=== PATIENT | male | born 1960 | race Caucasian/White ===

== ENCOUNTER 2018-12-31 14:42 | Inpatient (IN) | payer MEDICARE, MEDICAID ==
--- OUTSIDE RECORDS SUMMARY | 2018-12-31 14:52 | XMS REPORT | Continuity of Care Document ---
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 [phone] Diabetes & Metabolism Problems Active Problems Provider Date Hemoptysis Tatiana Azevedo MD Onset: 03/15/2014 Acute sinusitis Tatiana Azevedo MD Onset: 03/15/2014 Strain of rotator cuff capsule Bishop Roldan MD Onset: 11/02/2018 Social History Type Date Description Comments Sex Unknown Tobacco Use Start: Unknown Never Smoked Cigarettes Smoking Status Reviewed: 12/07/18 Never Smoked Cigarettes ETOH Use Denies alcohol use Tobacco Use Start: Unknown Patient has never smoked Recreational Drug Use Never Used Drugs Allergies, Adverse Reactions, Alerts Active Allergies Reaction Severity Comments Date Maxide phyponatremia 03/15/2014 Statins 03/15/2014 Medications Active Medications SIG Qnty Indications Ordering Date Provider Test Strips use as directed Tatiana 03/15/2014 MD Jolly Ramipril 2 by mouth every 90caps Unknown 03/14/2014 10mg Capsules day as directed Triamterene/Hydrochloro 1 by mouth every 90caps Unknown 03/14/2014 thiazide day 37.5-25mg Capsules Gabapentin 2 by mouth four Unknown 03/14/2014 300mg Capsules times a day as directed Alprazolam one by mouth up to 30tabs Unknown 03/14/2014 0.25mg Tablets four times daily as needed for anxiety Terazosin HCL 1 by mouth every 90caps Unknown 03/14/2014 5mg Capsules day Oxycodone HCL 1 by mouth six to 120tabs Unknown 03/14/2014 30mg Tablets eight times a day as needed TENS Units as directed for Unknown 03/14/2014 lower back pain Myrbetriq 1 by mouth one Husseini, 50mg Tablets ER time per day MD Ebenezer 24HR Trazodone HCL 1 by mouth one Narinder Muniz MD 50mg Tablets time per day at bedtime Metformin HCL 1 by mouth two Narinder Muniz MD 500mg Tablets times per day with meals as directed Prochlorperazine 1 by mouth four Hall, Maleate times per day as KYARA Frazier 10mg Tablets needed Basaglar Kwikpen Inject 30 units Narinder Muniz MD 100Unit/ML subcu at bedtime Solution Pen-Inject or as directed up to 45 units Escitalopram Oxalate 1 by mouth per day Narinder Muniz MD 20mg as directed Tablets Oxybutynin Chloride ER 1 by mouth one Junior, 5mg time per day MD Andrew Tablets ER 24HR Labetalol HCL 1 by mouth two Rafael, 200mg Tablets times per day KYARA Frazier Fentanyl Patch. One 100 mcg Unknown and one 25 mcg at the same time. Apply to skin once per 48 hours. Omeprazole 1 by mouth every Unknown 40mg Capsules DR day Novolog Flexpen Sliding scale as Unknown 100Unit/ML directed Solution Pen-Inject Miralax 17 gram oral Unknown powder packet. 1 packet by mouth per day as needed Methocarbamol one by mouth three Unknown 750mg Tablets times a day as needed muscle spasm Glucagon Emergency for severe low Unknown 1mg Kit blood sugar. for bystander use only. Dok 100 MG Capsule 2 by mouth in the Unknown morning and 1 in the evening Diclofenac Epolamine 1% gel. Apply 2 Unknown gram to affected areas four times per day Bisacodyl insert 1 Unknown 10mg Suppository suppository rectally every 24 hours as needed for constipation, insert ideally after breakfast Atorvastatin Calcium 1 by mouth every Unknown 20mg day Tablets Medications Administered in Office Medication SIG Qnty Indications Ordering Provider Date Triamcinolone (Kenalog) Bishop Roldan MD 12/07/2018 Injection Immunizations Description No Information Available Vital Signs Date Vital Result Comment 12/07/2018 10:42am Height 70 inches 5'10" Weight 205.00 lb Heart Rate 62 /min BP Systolic 116 mmHg BP Diastolic 68 mmHg Pain Level 5 BMI (Body Mass Index) 29.4 kg/m2 11/02/2018 11:23am Height 70 inches 5'10" Weight 205.00 lb Heart Rate 68 /min Body Temperature 98.9 F Pain Level 7 BMI (Body Mass Index) 29.4 kg/m2 Results Description No Information Available Procedures Date Code Description Status 12/07/201889933 Inject/Drain Joint/Bursa Major W/O US Completed 06/29/2018 17709 ECHO Transthorasic Realtime 2D W Doppler & Color Flow Hosp Completed Medical Devices Description No Information Available Encounters Type Date Location Provider Dx Diagnosis Office Visit 11/02/2018 [facility] Bishop Roldan, M25.512 Pain in left 11:00a at [place] [facility] Office Visit 09/03/2018 [facility] And Tatiana Azevedo, G47.9 Sleep disorder, 12:30p [facility] G71.00 Muscular dystrophy, unspecified Assessments Date Code Description Provider 12/07/2018 M25.512 Pain in left shoulder Bishop Roldan MD 12/07/2018 S46.012D Strain of muscle(s) and tendon(s) of the Bishop Roldan MD rotator cuff of left shoulder, subsequent encounter 11/02/2018 M25.512 Pain in left shoulder Bishop Roldan MD 09/03/2018 G47.9 Sleep disorder, unspecified Tatiana Azevedo MD 09/03/2018 G71.00 Muscular dystrophy, unspecified Tatiana Azevedo MD 06/29/2018 Z13.6 Encounter for screening for cardiovascular Andres Chaidez M.D. disorders Plan of Treatment Future Appointment(s):12/28/2018 10:00 am - Tatiana Azevedo MD at [facility]12/07/2018 - Bishop Roldan MDM25.512 Pain in left shoulderFollow up:Follow up: as [id number] Strain of muscle(s) and tendon( s) of the rotator cuff of left shoulder, subsequent encounter Functional Status Functional Condition Comment Date Status Electric wheelchair is used to ambulate Active Mental Status Description No Information Available Referrals Description No Information Available
--- OUTSIDE RECORDS SUMMARY | 2018-12-31 14:52 | XMS REPORT | Continuity of Care Document ---
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 Diabetes & Metabolism Problems Active Problems Provider Date Hemoptysis Tatiana Azevedo MD Onset: 03/15/2014 Acute sinusitis Tatiana Azevedo MD Onset: 03/15/2014 Strain of rotator cuff capsule Bishop Roldna MD Onset: 11/02/2018 Social History Type Date Description Comments Sex Unknown Tobacco Use Start: Unknown Never Smoked Cigarettes ETOH Use Denies alcohol use ETOH Use Has consumed alcohol in the past Tobacco Use Start: Unknown Patient has never smoked Recreational Drug Use Formerly used Cocaine Around 1989 sporadically Tobacco Use Start: Unknown Secondhand smoke As a child Recreational Drug Use Denies Drug Use Recreational Drug Use Formerly used Marijuana Around 1980 sporadically Smoking Status Reviewed: 12/30/18 Secondhand smoke As a child Exercise Type/Frequency Exercises regularly Limited by muscular dystrophy. Exercises arms, lower body with help. Physical therapy Allergies, Adverse Reactions, Alerts Active Allergies Reaction [...] directed for Unknown 03/14/2014 lower back pain Trazodone HCL 1 by mouth one Narinder Muniz MD 50mg Tablets time per day at bedtime Metformin HCL 1 by mouth two Narinder Muniz MD 500mg Tablets times per day with meals as directed Prochlorperazine 1 by mouth four Rafael, Maleate times per day as KYARA Frazier [...] Apply to skin once per 48 hours. Gentamicin Sulfate 1 drop to each eye Rafael 0.3% every 4 hours KYARA Frazier Solution Myrbetriq 1 by mouth one Husseini, 50mg Tablets ER time per day MD Ebenezer 24HR Omeprazole 1 by mouth every Unknown 40mg [...] Indications Ordering Provider Date Triamcinolone (Kenalog) Bishop Rodlan MD 12/07/2018 Injection Immunizations Description No Information Available Vital Signs Date Vital Result Comment 12/30/2018 8:33am Height 70 inches 5'10" Weight 225.00 lb Per pt, in wheelchair Heart Rate 64 /min BP Systolic Sitting 112 mmHg Rue large cuff BP Diastolic Sitting 72 mmHg Rue large cuff O2 % BldC Oximetry 96 % On Ra BMI (Body Mass Index) 32.3 kg/m2 12/07/2018 10:42am Height 70 inches 5'10" Weight 205.00 lb Heart Rate 62 /min BP Systolic 116 mmHg BP Diastolic 68 mmHg Pain Level 5 BMI (Body Mass Index) 29.4 kg/m2 Results Description No Information Available Procedures Date Code Description Status 12/07/2018 11332 Inject/Drain Joint/Bursa Major W/O US Completed Medical Devices Description No Information Available Encounters Type Date Location Provider Dx Diagnosis Office Visit 12/07/2018 [facility] Bishop Roldan MD M25.512 Pain in left 10:45a at [place] shoulder S46.012D Strain of musc/tend the rotator cuff of left shoulder, subs M75.42 Impingement syndrome of left shoulder Office Visit 11/02/2018 11:00a Maya Roldan M25.512 Pain in left [facility]opedics at [place] [facility] [place] Office Visit 09/03/2018 12:30p Pulmonology And Tatiana G47.9 Sleep disorder, [facility] MD Jolly 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 G71.00 Muscular dystrophy, unspecified Assessments Date Code Description Provider 12/30/2018 G47.30 Sleep apnea, unspecified Christopher Campoverde MD 12/30/2018 R06.00 Dyspnea, unspecified Christopher Campoverde MD 12/07/2018 M25.512 Pain in left shoulder Bishop Roldan MD 12/07/2018 S46.012D Strain of muscle(s) and tendon(s) of the Bishop Roldan MD rotator cuff of left shoulder, subsequent encounter 12/07/2018 M75.42 Impingement syndrome of left shoulder Bishop Roldan MD 11/02/2018 M25.512 Pain in left shoulder Bishop Roldan MD 09/03/2018 G47.9 Sleep disorder, unspecified Tatiana Azevedo MD 09/03/2018 G71.00 Muscular dystrophy, unspecified Tatiana Aezvedo MD Plan of Treatment 12/30/2018 - Christopher Campoverde MDG47.30 Sleep apnea, unspecifiedNew Orders:Sleep Study, Ordered: 12/30/18Comments:We will proceed with a home sleep study as the patient is not interested in doing an in-house sleep study.Follow up:1-2 hbseovE06.00 Dyspnea, unspecifiedNew Xrays:Chest PA & Lat 2 VWS, Ordered: New Orders:PFTW/Spirometry Vol Pre/Post Bronchdilat Dlco Complete, Ordered : 12/30/18Comments:We will get a chest x-ray PA and lateral and we will get full pulmonary function tests. The patientis wheelchair-bound and he cannot walk. Functional Status Functional Condition Comment Date Status Electric wheelchair is used to ambulate Active Mental Status Description No Information Available Referrals Description No Information Available
--- OUTSIDE RECORDS SUMMARY | 2018-12-31 14:52 | XMS REPORT | Continuity of Care Document ---
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 Diabetes & Metabolism Problems Active Problems Provider Date Strain of rotator cuff capsule Bishop Roldan MD Onset: 11/02/2018 Acute sinusitis Tatiana Azevedo MD Onset: 03/15/2014 Hemoptysis Tatiana Azevedo MD Onset: 03/15/2014 Social History Type Date Description Comments Sex Unknown ETOH Use Denies alcohol use Tobacco Use Start: Unknown Patient has never smoked Recreational Drug Use Never Used Drugs Smoking Status Reviewed: 11/02/18 Patient has never smoked Allergies, Adverse Reactions, Alerts Active Allergies Reaction Severity Comments Date Maxide phyponatremia 03/15/2014 Statins 03/15/2014 Medications Active Medications SIG Qnty Indications Ordering Date Provider Lexapro 1 by mouth every Unknown 04/18/2014 20mg Tablets day Glucose Gel take as directed Tatiana 03/15/2014 40% for hypoglycemic MD Jolly episodes Test Strips use as directed Tatiana 03/15/2014 MD Jolly TENS Units as directed for Unknown 03/14/2014 lower back pain Prochlorperazine four times a day 60tabs Unknown 03/14/2014 Maleate as needed 10mg Tablets Oxycodone HCL 1 by mouth six 120tabs Unknown 03/14/2014 30mg Tablets times a day as needed Trazodone HCL 1 tablet at 30tabs Unknown 03/14/2014 50mg Tablets bedtime as needed Terazosin HCL 1 by mouth every 90caps Unknown 03/14/2014 5mg Capsules day Linzess by mouth every day 30caps Unknown 03/14/2014 145mcg Capsules Docusate Sodium 1 by mouth twice a 60caps Unknown 03/14/2014 100mg day Capsules Alprazolam one by mouth up to 30tabs Unknown 03/14/2014 0.25mg Tablets three times daily as needed for anxiety Gabapentin 1 by mouth four Unknown 03/14/2014 300mg Capsules times a day Duragesic-100 1 every 3 days Unknown 03/14/2014 100mcg/HR Patches 72HR Triamterene/Hydrochloro 1 by mouth every 90caps Unknown 03/14/2014 thiazide day 37.5-25mg Capsules Labetalol HCL by mouth twice a 200tabs Unknown 03/14/2014 200mg Tablets day Ramipril 1 by mouth every 90caps Unknown 03/14/2014 10mg Capsules day Metformin HCL 1 by mouth twice a Unknown 03/14/2014 500mg Tablets day Lantus as directed 3vials Unknown 03/14/2014 100Unit/ML Solution Humalog sliding scale 3vials Unknown 03/14/2014 100Unit/ML Solution Oxybutynin Chloride ER 1 by mouth every Unknown 5mg day Tablets ER 24HR Oxycodone HCL Guerra, 30mg Tablets KYARA Pierre-BC Myrbetriq Husseini, 50mg Tablets ER MD Ebenezer 24HR Trazodone HCL Narinder Muniz MD 50mg Tablets Metformin HCL Narinder Muniz MD 500mg Tablets Prochlorperazine Rafael, Maleate KYARA Frazier 10mg Tablets Basaglar Kwikpen Narinder Muniz MD 100Unit/ML Solution Pen-Inject Escitalopram Oxalate Narinder Muniz MD 20mg Tablets Oxybutynin Chloride ER Junior, 5mg MD Andrew Tablets ER 24HR Labetalol HCL Rafael, 200mg Tablets KYARA Frazier Omeprazole 1 by mouth every Unknown 40mg Capsules DR day Novolog Flexpen use novolog Unknown 100Unit/ML insulin in place Solution Pen-Inject of your humalog insulin, and continue with your present scale Miralax Unknown Methocarbamol one by mouth three Unknown 500mg Tablets times a day as needed muscle spasm Glucagon Emergency for severe low Unknown 1mg Kit blood sugar. for bystander use only. Fentanyl apply 2 patches to Unknown 100mcg/HR Patches skin every 3 days. 72HR mylan brand only Dok 100 MG Capsule Unknown Diclofenac Epolamine Unknown Bisacodyl insert 1 Unknown 10mg Suppository suppository rectally every 24 hours as needed for constipation, insert ideally after breakfast Atorvastatin Calcium 1 by mouth every Unknown 20mg day Tablets Immunizations Description No Information Available Vital Signs Date Vital Result Comment 11/02/2018 11:23am Height 70 inches 5'10" Weight 205.00 lb Heart Rate 68 /min Body Temperature 98.9 F Pain Level 7 BMI (Body Mass Index) 29.4 kg/m2 09/03/2018 12:27pm Height 70 inches 5'10" Weight 205.00 lb Heart Rate 63 /min BP Systolic Sitting 118 mmHg left arm reg cuff BP Diastolic Sitting 70 mmHg left arm reg cuff Respiratory Rate 16 /min O2 % BldC Oximetry 96 % room air BMI (Body Mass Index) 29.4 kg/m2 Results Description No Information Available Procedures Date Code Description Status 06/29/2018 04184 ECHO Transthorasic Realtime 2D W Doppler & Color Flow Hosp Completed Medical Devices Description No Information Available Encounters Type Date Location Provider Dx Diagnosis Office Visit 09/03/2018 Pulmonology And Tatiana Azevedo, G47.9 Sleep disorder, 12:30p [facility] 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 disorders Plan of Treatment Future Appointment(s):12/07/2018 10:45 am - Bishop Roldan MD at [facility]11/23/2018 9:30 am - Tatiana Azevedo MD at [facility]11/02/2018 - Bishop Roldan, MDS46.012A Strain of muscle(s) and tendon(s) of the rotator cuff of left shoulder, initial encounterNew Therapy :Physical TherapyFollow up:Follow up: 3-4 weeks Functional Status Functional Condition Comment Date Status Electric wheelchair is used to ambulate Active Mental Status Description No Information Available Referrals Description No Information Available
--- OUTSIDE RECORDS SUMMARY | 2018-12-31 14:52 | XMS REPORT | Continuity of Care Document ---
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 [phone] Diabetes & Metabolism Problems Active Problems Provider [...] Available Procedures Date Code Description Status 12/07/2018 01934 Inject/Drain Joint/Bursa Major W/O US Completed Medical Devices Description No Information Available Encounters Type Date Location Provider Dx Diagnosis Office Visit 12/07/2018 [facility] Bishop Roldan MD M25.512 Pain in left 10:45a at [place] shoulder S46.012D Strain of musc/tend the rotator cuff of left shoulder, subs M75.42 Impingement syndrome of left shoulder Office Visit 11/02/2018 11:00a Maya Roldan M25.512 Pain in left [facility] [place] [facility] [place] Office Visit 09/03/2018 12:30p Pulmonology And Tatiana G47.9 Sleep disorder, [facility] MD 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
--- NOTE | 2018-12-31 15:04 | ED ---
Altered Mental Status - HPI Summary HPI Summary: 58 year old M brought in by EMS to [facility] accompanied by ex- and grand- daughter complains of altered mental status since today. Grand-daughter states patient was fine yesterday but started declining towards the end of the day. Grand-daughter states that patient wasn't answering her phone calls earlier today though he usually does so she called ex- who went to check on patient at his apartment. Ex- states she noticed minimal amount of urine in toilet today. She states patient usually wears diapers at night. Hx UTI per ex-. Upon EMS arrival to scene, patient was verbally unresponsive, pale, and only responded to painful stimuli. Per EMS, patient is normally awake and able to talk. Patient initially hypotensive, BP 58/32 per EMS. 12 lead EKG normal per EMS. EMS found 2 100 mcg fentanyl patch on patient's chest after removing his shirt, and administered 2 mg Narcan IM and 2 mg Narcan IV. EMS also gave patient 500 cc fluids after which his blood pressure improved but still hypotensive. EMS noted fever 102.9F. Hx diabetes. BG 252. EMS states family gave patient one glucose tab. Symptoms aggravated by nothing. Symptoms alleviated by nothing. Ex- states she has been complaining about constipation last week. He has pulmonary appointment later this month per ex- . Ex- reports hx muscular dystrophy. No hx MS. Ex- states patient needs assistance moving but is able to get up and waddle from side to side. She reports he doesn't get much exercise because he cannot. Ex- states patient takes a lot of medications. She states he sometimes forgets to remove his fentanyl patch before applying another one. - History Of Current Complaint Chief Complaint: EDAltMentalStatus Stated Complaint: UNRESPONSIVE PER EMS Hx Obtained From: Family/Temperature Logging Operator - ex- and grand-daughter, EMS Onset/Duration: Still Present Timing: Constant, Lasting Hours Aggravating Factor(s): Nothing Alleviating Factor(s): Nothing - Allergies/Home Medications Allergies/Adverse Reactions: Allergies Allergy/AdvReac Type Severity Reaction Status Date / Time No Known Allergies Allergy Verified 10/27/18 10:53 Home Medications: Home Medications Bisacodyl SUPP* [Dulcolax Supp*] 10 mg WA DAILY 12/31/18 [History Confirmed 10/11] Diclofenac 1% GEL (NF) [Voltaren 1% GEL (NF)] 2 gm TOPICAL QID 12/31/18 [ History Confirmed 12/31/18] Gentamicin 0.3% OPHTH.SOLN* 1 drop BOTH EYES Q4H 12/31/18 [History Confirmed 10/11] Glucagon,Human Recombinant [Glucagon Emergency Kit] 1 mg IM ONCE 12/31/18 [ History Confirmed 12/31/18] Omeprazole (Nf) [Prilosec (NF)] 40 mg PO QPM 12/31/18 [History Confirmed ] Ondansetron TAB* [Zofran 4 MG Tab*] 8 mg PO Q6H PRN 12/31/18 [History Confirmed 12/31/18] Oxybutynin TAB* [Ditropan TAB*] 5 mg PO DAILY 12/31/18 [History Confirmed ] Polyethylene Glycol 3350* [Miralax*] 17 gm PO DAILY 12/31/18 [History Confirmed 12/31/18] Polymyx/Trimethoprim OPTH* [Polytrim OPHTH*] 1 drop BOTH EYES Q6H 12/31/18 [ History Confirmed 12/31/18] Sennosides 17.2 mg PO DAILY 12/31/18 [History Confirmed 12/31/18] fentaNYL PATCH 25 MCG/HR* [Duragesic PATCH 25 Mcg/Hr*] 25 mcg TRANSDERM Q48H 10/11 [History Confirmed 12/31/18] fentaNYL PATCHs 100 MCG/HR* [Duragesic Patch 100 Mcg/Hr *] 100 mcg TRANSDERM Q42H 12/31/18 [History Confirmed 12/31/18] PMH/Surg Hx/FS Hx/Imm Hx Endocrine/Hematology History: Reports: Hx Diabetes - ON MEDICATION Denies: Hx Systemic Lupus Erythematosus, Hx Anemia Cardiovascular History: Reports: Hx Hypertension - ON MEDICATION Denies: Hx Congestive Heart Failure, Hx Hypercholesterolemia Comment Only: Other Cardiovascular Problems/Disorders - DIABETIC, MS GI History: Denies: Hx Jaundice, Other GI Disorders - hx of gastoenteritis History: Reports: Other Problems/Disorders - urinary incontinence. UTI Denies: Hx Dialysis, Hx Kidney Stones, Hx Renal Disease Musculoskeletal History: Reports: Other Musculoskeletal History - chronic pain, muscular dystrophy Denies: Hx Rheumatoid Arthritis Sensory History: Denies: Hx Contacts or Glasses, Hx Hearing Aid Opthamlomology History: Denies: Hx Contacts or Glasses Neurological History: Reports: Other Neuro Impairments/Disorders - muscular dystrophy Denies: Hx Headaches Psychiatric History: Reports: Hx Anxiety, Hx Depression - Cancer History Hx Chemotherapy: No - Surgical History Surgery Procedure, Year, and Place: LEFT ORCHIECTOMY benign 2012 [facility] Hx Anesthesia Reactions: No Infectious Disease History: No Infectious Disease History: Denies: Traveled Outside the [place] in Last 30 Days - Family History Known Family History: Positive: Respiratory Disease - COPD, Other - colon CA - Social History Alcohol Use: None Substance Use Type: Reports: None Substance Use Comment - Amount & Last Used: fentanyl patch and oxycodone Smoking Status (MU): Never Smoked Tobacco Have You Smoked in the Last Year: No Review of Systems Positive: Fever. Negative: Chills Negative: Erythema Negative: Sore Throat Negative: Chest Pain Negative: Shortness Of Breath, Cough Positive: Other - hypotension. Negative: Abdominal Pain, Vomiting, Nausea Negative: dysuria, hematuria Negative: Myalgia, Edema Negative: Rash Neurological: Other - AMS, unresponsive verbally All Other Systems Reviewed And Are Negative: Yes Physical Exam - Summary Physical Exam Summary: Constitutional: Well-developed, Well-nourished. (-) Distressed Skin: Warm to touch, Dry HENT: Normocephalic; Atraumatic Eyes: Conjunctiva normal, pupils are sluggish and about 5 mm each Neck: Musculoskeletal ROM normal neck. (-) JVD, (-) Stridor, (-) Tracheal deviation Cardio: Rhythm regular, rate normal, Heart sounds normal; Intact distal pulses; The pedal pulses are 2+ and symmetric. Radial pulses are 2+ and symmetric. (-) Murmur Pulmonary/Chest wall: Effort normal. (-) Respiratory distress, (-) Wheezes, (-) Rales Abd: Soft, suprapubic tenderness, (-) Distension, (-) Guarding, (-) Rebound Musculoskeletal: (-) Edema Lymph: (-) Cervical adenopathy Neuro: Minimally responsive to painful stimuli only Psych: Mood and affect Normal GCS: 5 Triage Information Reviewed: Yes Vital Signs On Initial Exam: Initial Vitals Temp Pulse Resp BP Pulse Ox 100.4 F 97 19 100/45 92 12/31/18 14:48 12/31/18 14:48 12/31/18 14:48 12/31/18 14:48 12/31/18 14:48 Vital Signs Reviewed: Yes - [place] Coma Scale Best Eye Response: 1 - None Best Motor Response: 3 - Flexion (Decorticate) Best Verbal Response: 1 - None Coma Scale Total: 5 Procedures - Sedation Patient Received Moderate/Deep Sedation with Procedure: No - Intubation Time of Intubation: 16:08 Intubation Method: orotracheal Tube Size (cm): 7.5 Medications: Succinylcholine - etomidate 20, Versed Breath Sounds after Intubation: equal Intubation Complications: no complications, oral-unsuccessful attempt Post Intubation Xray: Yes Diagnostics - Vital Signs Vital Signs Temp Pulse Resp BP Pulse Ox 12/31/18 14:48 100.4 F 97 19 100/45 92 - Laboratory Result Diagrams: 12/31/18 15:44 12/31/18 19:14 Lab Statement: Any lab studies that have been ordered have been reviewed, and results considered in the medical decision making process. - Radiology CXR Radiology Interpretation Completed By: Radiologist Summary of Radiographic Findings: AIRSPACE OPACIFICATION IN THE LEFT MID TO UPPER LUNG ZONE IS CONCERNING FOR PNEUMONIA IN THE CORRECT CLINICAL CONTEXT. ED physician has reivewed this report. Post intubation CXR Radiology Interpretation Completed By: Radiologist Summary of Radiographic Findings: 1. INCREASED AIRSPACE OPACIFICATION IN THE CENTRAL LEFT HEMITHORAX (RAPID EVOLUTION IS SUGGESTIVE OF EDEMA). INFILTRATE IS NOT RULED OUT. 2. SUPPORT DEVICES EXPECTED. ED physician has reviewed this report. - CT Cervical spine CT Interpretation Completed By: Radiologist Summary of CT Findings: 1. No fracture or traumatic malalignment of cervical spine. 2. Abnormal fatty involution of the posterior paraspinal muscles and muscles of mastication. 3. At least mild spinal canal stenosis from C4-C5 through C6-C7. ED physician has reviewed this report. Brain CT Interpretation Completed By: Radiologist Summary of CT Findings: Motion degraded exam with no acute intracranial abnormality identified. ED physician has reviewed this report. Re-Evaluation - Re-Evaluation First Eval Re-Evaluation Time: 14:57 Change: Unchanged Comment: Grand-daughter and ex- are at patient's bedside Second Eval Re-Evaluation Time: 15:57 Change: Worse Comment: patient O2 sat decreasing per nurse Altered Mental Statu Course/Dx - Course Course Of Treatment: 58 year old M brought in by EMS complains of altered mental status and minimal responsiveness since today. Upon exam, the patient is warm to touch. His pupils are sluggish and about 5 mm each. He has suprapubic tenderness. He is minimally responsive to painful stimuli only. Bloodwork results with no significant abnormalities except for WBC 2.3, RBC 3.47 , Hgb 9.8, Hct 29, platelet count 106, absolute lymphs 0.4, CO2 21, BUN 37, creatinine 1.27, BUN/creatinine 271, lactic acid 2.7, calcium 8.1, total protein 5.0, albumin 3.1, globulin 1.9, APTT 48.5. Urinalysis results with no significant abnormalities except for glucose 1+. CXR shows, per radiologist: AIRSPACE OPACIFICATION IN THE LEFT MID TO UPPER LUNG ZONE IS CONCERNING FOR PNEUMONIA IN THE CORRECT CLINICAL CONTEXT. CT Cervical spine shows, per radiologist: 1. No fracture or traumatic malalignment of cervical spine. 2. Abnormal fatty involution of the posterior paraspinal muscles and muscles of mastication. 3. At least mild spinal canal stenosis from C4-C5 through C6-C7. CT Brain shows, per radiologist: Motion degraded exam with no acute intracranial abnormality identified. In the ED course, the patient was given acetaminophen 650 mg and normal saline fluids 1 L IV, and started on Rocephin and azithromycin. He was also given Narcan 2 mg IV. Patient's O2 sat continues to decrease in the ED. The patient was intubated and placed on a Versed drip. After 100 mg and then 150 mg of IV succinylcholine, total of 150 mg IV succinylcholine, the patient had no significant response to it, had jaw clenched , attempted to place gum bougie, could not advance laryngoscope past the toe. inadequate visualization of the glottis. Efforts at hyperventilation undertaken. Carmelo airway and scalpel prepared for possible surgical airway, as the patient is not being effectively ventilated and I cannot open his mouth. Dr. Mcginnis and Dr. Orellana entered the room, Dr. Mcginnis was able to provide a two hand seal over the mask, also Dr. Orellana was able to use the video laryngoscope to give us the time and intubated the patient. Post-intubation x- ray shows, per radiologist: 1. INCREASED AIRSPACE OPACIFICATION IN THE CENTRAL LEFT HEMITHORAX (RAPID EVOLUTION IS SUGGESTIVE OF EDEMA). INFILTRATE IS NOT RULED OUT. 2. SUPPORT DEVICES EXPECTED. Dr. Orellana, chemical dependency professional, agrees to admit patient. - Diagnoses Provider Diagnoses: Pneumonia, Sepsis, Acute respiratory failure, Difficult intubation - Provider Notifications Discussed Care Of Patient With: Kitty Orellana Time Discussed With Above Provider: 16:30 Instructed by Provider To: Other - Dr. Orellana, chemical dependency professional, agrees to admit patient. Communicated with Dr. Orellana to follow up with potassium levels at 16: 42. - Critical Care Time Critical Care Time: 30-74 min - 60 minutes Discharge ED - Sign-Out/Discharge Documenting (check all that apply): Patient Departure - Admit - Discharge Plan Condition: Fair Disposition: ADMITTED TO [facility] - Attestation Statements Document Initiated by Scribe: Yes Documenting Scribe: Annette Bustamante Provider For Whom Scribe is Documenting (Include Credential): Curtis Goldman MD Scribe Attestation: IAnnette, scribed for Curtis Goldman MD on 12/31/18 at 1956. Status of Scribe Document: Ready
[2018-12-31] MEDS ORDERED: Azithromycin 500 mg/250 ml NS 500 MG/250 ML BAG IVPB ONE (15:05)
[2018-12-31] MEDS ORDERED: cefTRIAXone(*) 1 GM in NS 0.9% 50 ML* 50 ML IVPB ONE (15:05)
[2018-12-31 15:12] LABS: Albumin 3.1 g/dL (3.2-5.2); Calcium 8.1 mg/dL (8.6-10.3); Potassium 4.3 mmol/L (3.5-5.0); Total Bilirubin 0.7 mg/dL (0.2-1.0)
[2018-12-31 15:18] LABS: Albumin/Globulin Ratio 1.6 (1-3); BUN/Creatinine Ratio 29.1 (8-20); EGFR Non-African American 58.7 (>60); Globulin 1.9 g/dL (2-4)
[2018-12-31 15:19] LABS: Troponin I 0.01 ng/mL (<0.04)
[2018-12-31] MEDS: NS 0.9% IV ONE ×2 (15:20→15:21)
[2018-12-31] MEDS ORDERED: Acetaminophen SUPP* 650 MG SUPP PR ONE (15:24)
[2018-12-31 15:30] LABS: Urine Appearance Clear; Urine Bilirubin Negative (Negative); Urine Blood Negative (Negative); Urine Color Yellow; Urine Glucose 1+(50 mg/dL) (Negative); Urine Ketones Negative (Negative); Urine Nitrite Negative (Negative); Urine Protein Negative (Negative); Urine Specific Gravity 1.014 (1.010-1.030); Urine Urobilinogen Negative (Negative)
[2018-12-31] MEDS ORDERED: Naloxone* 0.4 MG/ML 1 ML VIAL IV PUSH ONE (15:43)
[2018-12-31 15:54] LABS: ABS Lymphocytes 0.4 10^3/ul (1.0-4.8); ABS Monocytes 0.2 10^3/ul (0-0.8); ABS Neutrophils 1.7 10^3/ul (1.5-7.7); Eosinophil % 1.7 %; Hematocrit 29 % (42-52); Hemoglobin 9.8 g/dL (14.0-18.0); Lymphocyte % 16.4 %; Mean Corpuscular HGB Conc 34 g/dL (31-36); Mean Corpuscular Hemoglobin 28 pg (27-31); Mean Corpuscular Volume 84 fL (80-94); Mean Platelet Volume 9.2 fL (7.4-10.4); Nucleated Red Blood Cells % 0.1; Platelet Count 106 10^3/uL (150-450); Red Blood Count 3.47 10^6 /uL (4.18-5.48); Red Cell Distribution Width 15 % (10-15); White Blood Count 2.3 10^3/uL (3.5-10.8)
[2018-12-31] MEDS ORDERED: Midazolam* 1 MG/ML 5 ML VIAL (5 MG) IV SLOW PU ONE (16:00)
[2018-12-31 16:03] LABS: Activated Partial Thrombo Time 48.5 seconds (26.0-38.0); INR 1.09 (0.82-1.09)
[2018-12-31] MEDS: Midazolam IV for DRIP* 100 MG in NS 0.9% 100 ML* 80 ML IV SCH ×2 (16:32→18:31)
--- NOTE | 2018-12-31 16:56 | HP ---
History of Present Illness - History of Present Illness Reason for Visit: Found down History of Present Illness: 58 yo M found down for an unknown period of time. Found with 2 x 100 mcg Fentanyl patches on, but no response to multiple doses of Narcan. On EMS arrival pt was responsive only to painful stimuli (baseline pt is awake and conversant). Intial vitals 58/32, EKG NS, temp 102.9F. Bolused IVF but remained hypotensive. Per family, he was noted to become more altered since the previous night. also notes decrease in urine output as compared with baseline. On evaluation in the ED, Temp 100.4, HR 97, BP 100/45, RR 19 and O2 sat 92%. Physical exam notable for patient minimally responsive to painful stimuli. WBC 2.3, Hgb 9.8, Cr 1.27. CXR with Left upper lobe infiltrate consistent with pneumonia. He was bolused additional IVF and started on Rocephin and Azithromycin for sepsis and community acquired pneumonia. His O2 sat continued to decline in the ED and he was intubated for acute hypoxic respiratory failure. He was a difficult intubation requiring multiple attempts. He is admitted to ICU for further resuscitation and care. - Past Medical History Cardiac: HTN Psych: Anxiety, Depression Musculoskeletal: Other - Muscular dystrophy Infectious Disease: Other - UTI Renal/: Other - urinary incontinence Endocrine: Diabetes - Past Surgical History Past Surgical History: Other - Left orchiectomy 2012 - Past Family History Family History: Cancer - colon, Other - COPD - Past Social History Smoke: No Alcohol: None Drugs: None Review of Systems - Review of Systems Other: Unable to obtain as patient is intubated and sedated - Medications/Allergies Allergies/Adverse Reactions: Allergies Allergy/AdvReac Type Severity Reaction Status Date / Time No Known Allergies Allergy Verified 10/27/18 10:53 Medications: Current Medications Sodium Chloride (Ns 0.9% 1000 Ml) 3,500 mls @ 1,000 mls/hr IV .PER RATE ONE Stop: 12/31/18 18:33 Last Admin: 12/31/18 15:21 Dose: 1,000 mls/hr Midazolam HCl 100 mg/ Sodium (Chloride) 100 mls @ 5 mls/hr IV Q20H JANA; Protocol Last Admin: 12/31/18 16:32 Dose: 5 mls/hr Exam - Exam Vital Signs: Vital Signs (72 hours) 11/08/19 14:48 Temperature 100.4 F Pulse Rate 97 Respiratory 19 Rate Blood Pressure 100/45 (mmHg) O2 Sat by Pulse 92 Oximetry General: Other - sedated, unresponsive HEENT: Mucous membr. moist/pink Lungs: Other - coarse bilaterally. expiratory crackles Cardiovascular: Regular rate, Normal S1, Normal S2, No murmurs Abdomen: Soft, No tenderness, Other - moderately distended Extremities: Other - warm, dry, pale Skin: No rashes, No significant lesion Neurological: Other - unresponsive Psych/Mental Status: Other - unresponsive Assessment/Plan - Assessment/Plan Assessment: 58 yo M found unresponsive for unknown time, admitted on 12/31 with sepsis and YAEL community acquired pneumonia. Developed worsening hypoxic respiratory failure in the ED and emergently intubated Plan: Hospital Diagnoses: #1: Acute hypoxic respiratory failure requiring intubation #2: Sepsis #3: community acquired left upper lobe pneumonia #4: Negative pressure pulmonary edema Cardiovascular: (1) Sinus tachycardia secondary to sepsis; (2) Hypercholesterolemia; (3) Essential HTN -- HR 97 -- SBP 100 -- Telemetry -- troponin 0.01 Home meds: None Pulmonary: (1) Acute hypoxic respiratory failure requiring intubation; (2) community acquired left upper lobe pneumonia; (3) Negative pressure pulmonary edema -- RR 19 -- sats 92 -- vent for respiratory support, wean as able APV TV 550 RR 14 PEEP 10 FiO2 100 -- CXR: increased airspace opacification in central left hemithorax consistent with edema and infiltrate -- ABG: pending Home meds: None Gastrointestinal: No acute issues -- LFTs within normal limits -- diet: consult dietary for TF recs -- bowel regimen: Miralax -- ulcer prophylaxis: Pepcid Home meds: Zofran, Prilosec, Miralax, SEnna, Dulcolax Endocrine: (1) Diabetes mellitus type 1 -- monitor BGs -- SSI Home meds: insulin pump Renal: (1) Prerenal azotemia; (2) hx of urinary incontinence -- UOP: not yet recorded -- Cr 1.27, follow trend -- Lytes Na 135 K 4.3 Ca 8.1, replace Mag ordered Phos ordered -- IVF: NS @ 100 ml/hr Home meds: Ditropan Infectious disease: (1) Sepsis; (2) Left upper lobe community acquired pneumonia; (3) Leukopenia; (4) hx of UTIs -- Tmax 100.4 -- WBC 2.3, follow trend -- Micro 12/31 blood ordered urine ordered UA negative sputum ordered flu swab ordered MRSA ordered -- ABX Rocephin Azithromcyin Home meds: None Neurologic: (1) Acute toxic metabolic encephalopathy; (2) Chronic back pain; (3 ) Muscular dystrophy; (4) Chronic depression and anxiety -- CT brain completed, read pending -- Urine drug screen ordered -- PRN Tylenol -- Propofol gtt for sedation Home meds: Fentanyl patch (25 and 100 mcg), Diclofenac Hematological: (1) Pancytopenia -- Hgb 9.8, follow trend -- Plt 106, follow trend -- Coags INR 1.09 PTT 48.5 -- DVT prophylaxis: SQ Heparin Home meds: None Metabolic: (1) Lactic acidosis -- Lactic acid 2.7, hydrate, follow trend Home meds: None Other: No acute issues -- resume home eye drops Home meds: Polytrim eye drops, gentamycin eye drops Deep vein thrombosis prophylaxis: SQ Heparin Dietary: Pepcid Condition: critical Prognosis: guarded Code status: full Disposition: admit to ICU Cumulative time spent in the care of this patient (excluding any procedure time) : at least 50 minutes. Patient care included clinical interview (with patient and/or family), bedside exam of the patient, review of labs, x-rays, and other ancillary data, coordination of (respiratory, nursing care, review of patient's records, discussion regarding patients management with involved consultants, primary physician, pharmacists, and other healthcare personnel (dietary, case management , physical/occupational therapy etc.)
[2018-12-31] MEDS ORDERED: Calcium Gluconate INJ* 1 GM in NS 0.9% 50 ML* 50 ML IVPB ONE (17:08)
[2018-12-31] MEDS ORDERED: Norepinephrine 16MCG/ML IVPRE* 4,000 MCG/250 ML BAG IV ONE ×2 (17:48→18:45)
[2018-12-31] MEDS ORDERED: Propofol* 100 ML IV SCH (18:00)
[2018-12-31 18:03] LABS: Urine Appearance Cloudy; Urine Bacteria Absent (Absent); Urine Bilirubin Negative (Negative); Urine Blood 2+ (Negative); Urine Color Yellow; Urine Glucose Negative (Negative); Urine Ketones Negative (Negative); Urine Nitrite Negative (Negative); Urine Protein 1+(30 mg/dL) (Negative); Urine Red Blood Cell 1+(3-5/hpf) (Absent); Urine Specific Gravity 1.017 (1.010-1.030); Urine Squamous Epithelial Cell Present (Absent); Urine Urobilinogen Negative (Negative); Urine White Blood Cell Trace(0-5/hpf) (Absent)
[2018-12-31 18:20] LABS: Influenza A Molecular NEGATIVE (Negative); Influenza B Molecular NEGATIVE (Negative)
[2018-12-31 18:22] LABS: Urine Benzodiazepine Screen Presumptive Positive (None Detect); Urine Opiates Screen Presumptive Positive (None Detect)
[2018-12-31] MEDS: NS 0.9% 1000 ML** 1,000 ML IV SCH (18:29)
--- NOTE | 2018-12-31 18:35 | OP ---
Operative Report - Blank - Operative Report Date of Operation: 12/31/18 - INTUBATION Note: Procedure: Intubation Consent obtained: emergent Time out performed: per ED charting Indications: Respiratory distress Intubation method: Video-assisted Patient status: Unconscious Preoxygenation: BVM Pretreatment meds: per ED charting Sedation: per ED charting Paralytic: Succinyl choline Laryngoscope size: 3Mac ETT size: 8.0 F Type: Cuffed # of attempts: 1 (2 attempts by ED attendings) Cords visualized: Yes Post procedure assessment: CO2 detector Breath sounds: Equal Cuff inflated: Yes ETT to lip: 22cm Tube secured with: ETT yang CXR: ETT in good position PT tolerated the procedure well with no immediate complications
--- NOTE | 2018-12-31 18:36 | OP ---
Operative Report - Blank - Operative Report Date of Operation: 12/31/18 - CENTRAL LINE Note: Procedure: Central Line placement Consent obtained: Verbal, from present family. Emergent Time out performed: Yes Indications: Vascular access Anesthesia: Local infiltration Local anesthetic: 1% Lidocaine 10 ml Preparation: Chlorhexadine swab Skin prep agen dried: skin prep agent dried prior to procedure Sterile barrier: all five maximal sterile barriers used - gloves, gown, cap, mask and large sterile sheet Hand hygiene: Hand hygiene performed prior to central venous catheter insertion Location: Left IJ Patient position: trendelenberg Catheter type: Triple lumen Catheter size: 7F Pre-procedure: landmarks identified Ultrasound guidance: Yes Sterile ultrasound technique: Sterile gel and sterile probe covers were used Number of attempts: 1 Successful placement: Yes Post-procedure: Line sutured, dressing applied Assessment: blood return through all ports, free fluid flow, CXR pending Complications: None Patient tolerated the procedure with no immediate complications
--- NOTE | 2018-12-31 18:38 | OP ---
Operative Report - Blank - Operative Report Date of Operation: 12/31/18 - ARTERIAL LINE Note: Procedure: Arterial Line placement Consent obtained: verbal from present family members. Emergent Time out performed: Yes Indications: septic shock Anesthesia: versed Local anesthetic: 1% lidocaine Preparation: Chlorhexadine swab Skin prep agen dried: skin prep agent dried prior to procedure Sterile barrier: all five maximal sterile barriers used - gloves, gown, cap, mask and large sterile sheet Hand hygiene: Hand hygiene performed prior to insertion Location: right radial artery Patient position: flat Catheter type: arrow catheter Ultrasound guidance: yes Number of attempts: 2 Successful placement: yes Post-procedure: Line sutured, dressing applied Assessment: no change from prior. good wave form transduced. Complications: no immedate complications
[2018-12-31] MEDS: Albumin Human 25%* 25 GM/100 ML BTL IV SCH (19:04)
[2018-12-31 19:17] LABS: Magnesium 1.6 mg/dL (1.9-2.7)
[2018-12-31 19:22] LABS: Phosphorus 3.2 mg/dL (2.5-5.0)
[2018-12-31] MEDS: Heparin VIAL(*) 5000 UNITS/ML VIAL (FIVE THOUSAND) SUBCUT SCH (21:00)
[2018-12-31] MEDS: Insulin REGULAR(*) 1 UNITS UNIT SUBCUT SCH (21:23)
[2018-12-31] MEDS: Norepinephrine 16MCG/ML IVPRE* 4,000 MCG/250 ML BAG IV SCH (23:41)
[2019-01-01] MEDS: Albumin Human 25%* 25 GM/100 ML BTL IV SCH ×2 (00:21→05:39)
[2019-01-01] MEDS: Norepinephrine 16MCG/ML IVPRE* 4,000 MCG/250 ML BAG IV SCH ×5 (00:58→06:41)
[2019-01-01] MEDS: Midazolam IV for DRIP* 100 MG in NS 0.9% 100 ML* 80 ML IV SCH ×2 (01:50→11:33)
[2019-01-01] MEDS: Insulin REGULAR(*) 1 UNITS UNIT SUBCUT SCH ×6 (01:51→17:48)
[2019-01-01] MEDS: Famotidine SUSP ORALSYR 8 MG/ML G TUBE SCH ×3 (01:51→17:48)
[2019-01-01] MEDS: Chlorhexidine MOUTHWASH 0.12%* 15 ML UDC TOPICAL SCH ×4 (02:42→13:21)
[2019-01-01] MEDS: Heparin VIAL(*) 5000 UNITS/ML VIAL (FIVE THOUSAND) SUBCUT SCH ×3 (05:42→22:37)
[2019-01-01] MEDS: NS 0.9% 1000 ML** 1,000 ML IV SCH (05:42)
[2019-01-01 06:54] LABS: Hematocrit 26 % (42-52); Hemoglobin 8.8 g/dL (14.0-18.0); Mean Corpuscular HGB Conc 34 g/dL (31-36); Mean Corpuscular Hemoglobin 28 pg (27-31); Mean Corpuscular Volume 84 fL (80-94); Platelet Count 93 10^3/uL (150-450); Red Blood Count 3.15 10^6 /uL (4.18-5.48); Red Cell Distribution Width 15 % (10-15); White Blood Count 5.6 10^3/uL (3.5-10.8)
[2019-01-01 07:04] LABS: Albumin 3.2 g/dL (3.2-5.2); Albumin/Globulin Ratio 2.1 (1-3); BUN/Creatinine Ratio 42.3 (8-20); Calcium 7.4 mg/dL (8.6-10.3); EGFR African American 138.9 (>60); EGFR Non-African American 114.8 (>60); Globulin 1.5 g/dL (2-4); Magnesium 1.7 mg/dL (1.9-2.7); Phosphorus 2.3 mg/dL (2.5-5.0); Potassium 3.1 mmol/L (3.5-5.0); Total Bilirubin 0.6 mg/dL (0.2-1.0); Total Protein 4.7 g/dL (6.4-8.9)
[2019-01-01] MEDS: Polyethylene Glycol 3350* 17 GM PACKET PO PRN (09:54)
[2019-01-01] MEDS: Acetaminophen ADULT LIQ* 650 MG/20.3 ML UDC PO PRN (09:54)
[2019-01-01] MEDS ORDERED: Magnesium Sulfate 2 GM IV* 2 GM/50 ML BAG IVPB ONE (13:06)
[2019-01-01] MEDS ORDERED: Potassium Phosphate IV* 15 MMOLE in NS 0.9% 250 ML* 250 ML IVPB ONE (13:06)
--- NOTE | 2019-01-01 13:14 | PN ---
Date of Service: 01/01/19 Critical Care Services: remains intubated and sedated remains on low dose vent settings spiking low grade fevers Vital Signs: Temp Pulse Resp BP SpO2 FiO2 100.4 F 84 21 103/59 97 40 01/01/19 12:15 01/01/19 12:15 01/01/19 11:54 01/01/19 12:15 01/01/19 12:15 01/01 11:54 Physical Exam: Gen:intubated. sedated. HEENT:EOMI Lungs:decreased BS's Cardiac: RRR Abdomen:+BS's, Soft, NTP Extremities: no NYA Fluid Balance (Past 24 Hours): I= O= Net Intake & Output 12/30/18 12/31/18 01/01/19 01/02/19 06:59 06:59 06:59 06:59 Intake Total 27 0 Output Total 2150 310 Balance -3 -310 Weight 98 lb 14.4 oz 229 lb 8.019 oz Intake: IV Narcotic Infusion 27 Versed 27 Oral 0 0 Tube Feeding 0 Output: NG Tube Drainage Amount 300 Urine 125 Alvarez 1725 310 Labs: Laboratory Results - last 24 hr 12/31/18 12/31/18 12/31/18 14:50 14:50 15:00 WBC RBC Hgb Hct MCV MCH MCHC RDW Plt Count MPV Neut % (Auto) Lymph % (Auto) [place] % (Auto) Eos % (Auto) Baso % (Auto) Absolute Neuts (auto) Absolute Lymphs (auto) Absolute Monos (auto) Absolute Eos (auto) Absolute Basos (auto) Absolute Nucleated RBC Nucleated RBC % INR (Anticoag Therapy) APTT Patient Temperature ABG pH ABG pH (Temp Correct) ABG pCO2 ABG pCO2 (Temp Corrct ABG pO2 ABG pO2 (Temp Correct ABG HCO3 ABG O2 Saturation ABG Base Excess Respiration Rate O2 Delivery Device Ventilator Type Vent Mode FiO2 Inspiratory Time PEEP Pressure Support Pressure Control EPAP IPAP BiPAP Sodium 135 Potassium 4.3 Chloride 105 Carbon Dioxide 21 L Anion Gap 9 BUN 37 H Creatinine 1.27 H Est GFR ( Amer) 71.0 Est GFR (Non-Af Amer) 58.7 BUN/Creatinine Ratio 29.1 H Glucose 271 H POC Glucose (mg/dL) Lactic Acid 2.7 H* Calcium 8.1 L Phosphorus Magnesium Total Bilirubin 0.70 AST 15 ALT 11 Alkaline Phosphatase 49 Troponin I 0.01 Total Protein 5.0 L Albumin 3.1 L Globulin 1.9 L Albumin/Globulin Ratio 1.6 Urine Color Yellow Urine Appearance Clear Urine pH 5.0 Ur Specific [place] 1.014 Urine Protein Negative Urine Ketones Negative Urine Blood Negative Urine Nitrate Negative Urine Bilirubin Negative Urine Urobilinogen Negative Ur Leukocyte Esterase Negative Urine WBC (Auto) Urine RBC (Auto) Ur Squamous Epith Cells Urine Bacteria Urine Glucose 1+(50 mg/dl) A Urine Opiates Screen Ur Barbiturates Screen Ur Phencyclidine Scrn Ur Amphetamines Screen U Benzodiazepines Scrn Urine Cocaine Screen U Cannabinoids Screen Influenza A (Rapid) Influenza B (Rapid) 12/31/18 12/31/18 12/31/18 15:21 15:44 15:44 WBC 2.3 L RBC 3.47 L Hgb 9.8 L Hct 29 L MCV 84 MCH 28 MCHC 34 RDW 15 Plt Count 106 L MPV 9.2 Neut % (Auto) 72.6 Lymph % (Auto) 16.4 [place] % (Auto) 8.8 Eos % (Auto) 1.7 Baso % (Auto) 0.5 Absolute Neuts (auto) 1.7 Absolute Lymphs (auto) 0.4 L Absolute Monos (auto) 0.2 Absolute Eos (auto) 0.0 Absolute Basos (auto) 0.0 Absolute Nucleated RBC 0.0 Nucleated RBC % 0.1 INR (Anticoag Therapy) 1.09 APTT 48.5 H Patient Temperature ABG pH ABG pH (Temp Correct) ABG pCO2 ABG pCO2 (Temp Corrct ABG pO2 ABG pO2 (Temp Correct ABG HCO3 ABG O2 Saturation ABG Base Excess Respiration Rate O2 Delivery Device Ventilator Type Vent Mode FiO2 Inspiratory Time PEEP Pressure Support Pressure Control EPAP IPAP BiPAP Sodium Potassium Chloride Carbon Dioxide Anion Gap BUN Creatinine Est GFR ( Amer) Est GFR (Non-Af Amer) BUN/Creatinine Ratio Glucose POC Glucose (mg/dL) 278 H Lactic Acid Calcium Phosphorus Magnesium Total Bilirubin AST ALT Alkaline Phosphatase Troponin I Total Protein Albumin Globulin Albumin/Globulin Ratio Urine Color Urine Appearance Urine pH Ur Specific [place] Urine Protein Urine Ketones Urine Blood Urine Nitrate Urine Bilirubin Urine Urobilinogen Ur Leukocyte Esterase Urine WBC (Auto) Urine RBC (Auto) Ur Squamous Epith Cells Urine Bacteria Urine Glucose Urine Opiates Screen Ur Barbiturates Screen Ur Phencyclidine Scrn Ur Amphetamines Screen U Benzodiazepines Scrn Urine Cocaine Screen U Cannabinoids Screen Influenza A (Rapid) Influenza B (Rapid) 12/31/18 12/31/18 12/31/18 17:46 17:46 17:46 WBC RBC Hgb Hct MCV MCH MCHC RDW Plt Count MPV Neut % (Auto) Lymph % (Auto) [place] % (Auto) Eos % (Auto) Baso % (Auto) Absolute Neuts (auto) Absolute Lymphs (auto) Absolute Monos (auto) Absolute Eos (auto) Absolute Basos (auto) Absolute Nucleated RBC Nucleated RBC % INR (Anticoag Therapy) APTT Patient Temperature ABG pH ABG pH (Temp Correct) ABG pCO2 ABG pCO2 (Temp Corrct ABG pO2 ABG pO2 (Temp Correct ABG HCO3 ABG O2 Saturation ABG Base Excess Respiration Rate O2 Delivery Device Ventilator Type Vent Mode FiO2 Inspiratory Time PEEP Pressure Support Pressure Control EPAP IPAP BiPAP Sodium Potassium Chloride Carbon Dioxide Anion Gap BUN Creatinine Est GFR ( Amer) Est GFR (Non-Af Amer) BUN/Creatinine Ratio Glucose POC Glucose (mg/dL) Lactic Acid Calcium Phosphorus Magnesium Total Bilirubin AST ALT Alkaline Phosphatase Troponin I Total Protein Albumin Globulin Albumin/Globulin Ratio Urine Color Yellow Urine Appearance Cloudy Urine pH 5.0 Ur Specific [place] 1.017 Urine Protein 1+(30 mg/dl) A Urine Ketones Negative Urine Blood 2+ A Urine Nitrate Negative Urine Bilirubin Negative Urine Urobilinogen Negative Ur Leukocyte Esterase Negative Urine WBC (Auto) Trace(0-5/hpf) Urine RBC (Auto) 1+(3-5/hpf) A Ur Squamous Epith Cells Present A Urine Bacteria Absent Urine Glucose Negative Urine Opiates Screen Presumptive positive A Ur Barbiturates Screen None detected Ur Phencyclidine Scrn None detected Ur Amphetamines Screen None detected U Benzodiazepines Scrn Presumptive positive A Urine Cocaine Screen None detected U Cannabinoids Screen None detected Influenza A (Rapid) Negative Influenza B (Rapid) Negative 12/31/18 12/31/18 12/31/18 17:47 17:49 19:14 WBC RBC Hgb Hct MCV MCH MCHC RDW Plt Count MPV Neut % (Auto) Lymph % (Auto) [place] % (Auto) Eos % (Auto) Baso % (Auto) Absolute Neuts (auto) Absolute Lymphs (auto) Absolute Monos (auto) Absolute Eos (auto) Absolute Basos (auto) Absolute Nucleated RBC Nucleated RBC % INR (Anticoag Therapy) APTT Patient Temperature ABG pH ABG pH (Temp Correct) ABG pCO2 ABG pCO2 (Temp Corrct ABG pO2 ABG pO2 (Temp Correct ABG HCO3 ABG O2 Saturation ABG Base Excess Respiration Rate O2 Delivery Device Ventilator Type Vent Mode FiO2 Inspiratory Time PEEP Pressure Support Pressure Control EPAP IPAP BiPAP Sodium Potassium TNP 3.1 L Chloride Carbon Dioxide Anion Gap BUN Creatinine Est GFR ( Amer) Est GFR (Non-Af Amer) BUN/Creatinine Ratio Glucose POC Glucose (mg/dL) 278 H Lactic Acid Calcium Phosphorus 3.2 Magnesium 1.6 L Total Bilirubin AST ALT Alkaline Phosphatase Troponin I Total Protein Albumin Globulin Albumin/Globulin Ratio Urine Color Urine Appearance Urine pH Ur Specific [place] Urine Protein Urine Ketones Urine Blood Urine Nitrate Urine Bilirubin Urine Urobilinogen Ur Leukocyte Esterase Urine WBC (Auto) Urine RBC (Auto) Ur Squamous Epith Cells Urine Bacteria Urine Glucose Urine Opiates Screen Ur Barbiturates Screen Ur Phencyclidine Scrn Ur Amphetamines Screen U Benzodiazepines Scrn Urine Cocaine Screen U Cannabinoids Screen Influenza A (Rapid) Influenza B (Rapid) 12/31/18 12/31/18 01/01/19 19:14 21:00 02:25 WBC RBC Hgb Hct MCV MCH MCHC RDW Plt Count MPV Neut % (Auto) Lymph % (Auto) [place] % (Auto) Eos % (Auto) Baso % (Auto) Absolute Neuts (auto) Absolute Lymphs (auto) Absolute Monos (auto) Absolute Eos (auto) Absolute Basos (auto) Absolute Nucleated RBC Nucleated RBC % INR (Anticoag Therapy) APTT Patient Temperature Not Reportable ABG pH 7.30 L ABG pH (Temp Correct) Not Reportable ABG pCO2 36 ABG pCO2 (Temp Corrct Not Reportable ABG pO2 100 ABG pO2 (Temp Correct Not Reportable ABG HCO3 18.8 L ABG O2 Saturation 99.1 H ABG Base Excess -7.9 L Respiration Rate 25 O2 Delivery Device Ventilator Ventilator Type Not Reportable Vent Mode apv cmv FiO2 100 Inspiratory Time Not Reportable PEEP 8 Pressure Support Not Reportable Pressure Control Not Reportable EPAP Not Reportable IPAP Not Reportable BiPAP Not Reportable Sodium Potassium Chloride Carbon Dioxide Anion Gap BUN Creatinine Est GFR ( Amer) Est GFR (Non-Af Amer) BUN/Creatinine Ratio Glucose POC Glucose (mg/dL) 245 H 210 H Lactic Acid Calcium Phosphorus Magnesium Total Bilirubin AST ALT Alkaline Phosphatase Troponin I Total Protein Albumin Globulin Albumin/Globulin Ratio Urine Color Urine Appearance Urine pH Ur Specific [place] Urine Protein Urine Ketones Urine Blood Urine Nitrate Urine Bilirubin Urine Urobilinogen Ur Leukocyte Esterase Urine WBC (Auto) Urine RBC (Auto) Ur Squamous Epith Cells Urine Bacteria Urine Glucose Urine Opiates Screen Ur Barbiturates Screen Ur Phencyclidine Scrn Ur Amphetamines Screen U Benzodiazepines Scrn Urine Cocaine Screen U Cannabinoids Screen Influenza A (Rapid) Influenza B (Rapid) 01/01/19 01/01/19 01/01/19 06:35 06:35 06:35 WBC 5.6 RBC 3.15 L Hgb 8.8 L Hct 26 L MCV 84 MCH 28 MCHC 34 RDW 15 Plt Count 93 L MPV 9.0 Neut % (Auto) Lymph % (Auto) [place] % (Auto) Eos % (Auto) Baso % (Auto) Absolute Neuts (auto) Absolute Lymphs (auto) Absolute Monos (auto) Absolute Eos (auto) Absolute Basos (auto) Absolute Nucleated RBC Nucleated RBC % INR (Anticoag Therapy) APTT Patient Temperature ABG pH ABG pH (Temp Correct) ABG pCO2 ABG pCO2 (Temp Corrct ABG pO2 ABG pO2 (Temp Correct ABG HCO3 ABG O2 Saturation ABG Base Excess Respiration Rate O2 Delivery Device Ventilator Type Vent Mode FiO2 Inspiratory Time PEEP Pressure Support Pressure Control EPAP IPAP BiPAP Sodium 140 Potassium 3.1 L Chloride 114 H Carbon Dioxide 20 L Anion Gap 6 BUN 30 H Creatinine 0.71 Est GFR ( Amer) 138.9 Est GFR (Non-Af Amer) 114.8 BUN/Creatinine Ratio 42.3 H Glucose 163 H POC Glucose (mg/dL) Lactic Acid 1.2 Calcium 7.4 L Phosphorus 2.3 L Magnesium 1.7 L Total Bilirubin 0.60 AST 23 ALT 15 Alkaline Phosphatase 43 Troponin I Total Protein 4.7 L Albumin 3.2 Globulin 1.5 L Albumin/Globulin Ratio 2.1 Urine Color Urine Appearance Urine pH Ur Specific [place] Urine Protein Urine Ketones Urine Blood Urine Nitrate Urine Bilirubin Urine Urobilinogen Ur Leukocyte Esterase Urine WBC (Auto) Urine RBC (Auto) Ur Squamous Epith Cells Urine Bacteria Urine Glucose Urine Opiates Screen Ur Barbiturates Screen Ur Phencyclidine Scrn Ur Amphetamines Screen U Benzodiazepines Scrn Urine Cocaine Screen U Cannabinoids Screen Influenza A (Rapid) Influenza B (Rapid) 01/01/19 01/01/19 06:36 09:52 WBC RBC Hgb Hct MCV MCH MCHC RDW Plt Count MPV Neut % (Auto) Lymph % (Auto) [place] % (Auto) Eos % (Auto) Baso % (Auto) Absolute Neuts (auto) Absolute Lymphs (auto) Absolute Monos (auto) Absolute Eos (auto) Absolute Basos (auto) Absolute Nucleated RBC Nucleated RBC % INR (Anticoag Therapy) APTT Patient Temperature ABG pH ABG pH (Temp Correct) ABG pCO2 ABG pCO2 (Temp Corrct ABG pO2 ABG pO2 (Temp Correct ABG HCO3 ABG O2 Saturation ABG Base Excess Respiration Rate O2 Delivery Device Ventilator Type Vent Mode FiO2 Inspiratory Time PEEP Pressure Support Pressure Control EPAP IPAP BiPAP Sodium Potassium Chloride Carbon Dioxide Anion Gap BUN Creatinine Est GFR ( Amer) Est GFR (Non-Af Amer) BUN/Creatinine Ratio Glucose POC Glucose (mg/dL) 183 H 158 H Lactic Acid Calcium Phosphorus Magnesium Total Bilirubin AST ALT Alkaline Phosphatase Troponin I Total Protein Albumin Globulin Albumin/Globulin Ratio Urine Color Urine Appearance Urine pH Ur Specific [place] Urine Protein Urine Ketones Urine Blood Urine Nitrate Urine Bilirubin Urine Urobilinogen Ur Leukocyte Esterase Urine WBC (Auto) Urine RBC (Auto) Ur Squamous Epith Cells Urine Bacteria Urine Glucose Urine Opiates Screen Ur Barbiturates Screen Ur Phencyclidine Scrn Ur Amphetamines Screen U Benzodiazepines Scrn Urine Cocaine Screen U Cannabinoids Screen Influenza A (Rapid) Influenza B (Rapid) Impression: ARF on MV Change of mental status 2/2 Fentanyl? Sepsis? PNA? s/p loss of tooth during intubation Plan: hold sedation continue empiric ABX d/w grand-daughter at the bedside maintain MAP>65 replete lytes Critical Care Time: 56
[2019-01-01] MEDS: Azithromycin 500 mg/250 ml NS 500 MG/250 ML BAG IVPB SCH (15:02)
[2019-01-01] MEDS: cefTRIAXone(*) 1 GM in NS 0.9% 50 ML* 50 ML IVPB SCH (15:02)
[2019-01-01] MEDS ORDERED: Etomidate* 2 MG/ML 20 ML VIAL (40 MG) ONE (16:05)
[2019-01-01] MEDS ORDERED: Succinylcholine* 20 MG/ML 10 ML VIAL ONE (16:10)
[2019-01-01] MEDS ORDERED: Midazolam* 1 MG/ML 10 ML VIAL (10 MG) ONE (16:20)
[2019-01-01] MEDS ORDERED: Morphine INJ* 2 MG/ML 1 ML SYRINGE (TWO MG - NEW SYRINGE VERSION) ONE (17:59)
[2019-01-01] MEDS ORDERED: fentaNYL PATCHs 100 MCG/HR TRANSDERM SCH (18:00)
[2019-01-01] MEDS: Morphine INJ* 2 MG/ML 1 ML SYRINGE (TWO MG - NEW SYRINGE VERSION) IV PRN ×2 (18:06→21:44)
[2019-01-01] MEDS ORDERED: Acetaminophen SUPP* 650 MG SUPP PR PRN (18:42)
[2019-01-01] MEDS: fentaNYL Patch Check Q Shift 1 NOTE FOLLOW UP SCH (18:57)
[2019-01-01] MEDS: Phenazopyridine TAB* 100 MG PO SCH (22:37)
[2019-01-02] MEDS: Insulin REGULAR(*) 1 UNITS UNIT SUBCUT SCH ×4 (00:44→18:17)
[2019-01-02] MEDS: Morphine INJ* 2 MG/ML 1 ML SYRINGE (TWO MG - NEW SYRINGE VERSION) IV PRN ×3 (00:57→08:31)
[2019-01-02 05:27] LABS: Hematocrit 27 % (42-52); Hemoglobin 9.1 g/dL (14.0-18.0); Mean Corpuscular HGB Conc 34 g/dL (31-36); Mean Corpuscular Hemoglobin 28 pg (27-31); Mean Corpuscular Volume 83 fL (80-94); Mean Platelet Volume 9.3 fL (7.4-10.4); Platelet Count 99 10^3/uL (150-450); Red Blood Count 3.27 10^6 /uL (4.18-5.48); Red Cell Distribution Width 15 % (10-15); White Blood Count 8.2 10^3/uL (3.5-10.8)
[2019-01-02 05:39] LABS: Albumin 3.2 g/dL (3.2-5.2); Albumin/Globulin Ratio 1.6 (1-3); Calcium 7.8 mg/dL (8.6-10.3); EGFR African American 208.1 (>60); Phosphorus 1.6 mg/dL (2.5-5.0); Potassium 2.9 mmol/L (3.5-5.0); Total Bilirubin 0.9 mg/dL (0.2-1.0); Total Protein 5.2 g/dL (6.4-8.9)
[2019-01-02] MEDS: Famotidine SUSP ORALSYR 8 MG/ML G TUBE SCH ×2 (06:12→18:04)
[2019-01-02] MEDS: Heparin VIAL(*) 5000 UNITS/ML VIAL (FIVE THOUSAND) SUBCUT SCH ×3 (06:13→20:48)
[2019-01-02] MEDS: fentaNYL Patch Check Q Shift 1 NOTE FOLLOW UP SCH ×2 (06:45→18:43)
[2019-01-02] MEDS: NS 0.9% 1000 ML** 1,000 ML IV SCH (06:52)
[2019-01-02] MEDS: Phenazopyridine TAB* 100 MG PO SCH ×2 (08:26→20:47)
--- NOTE | 2019-01-02 11:38 | PN ---
Date of Service: 01/02/19 Critical Care Services: extubated yesterday still some atelectasis on CXR. minimal secretions still some low grade fevers. No WBC count Vital Signs: Temp Pulse Resp BP SpO2 FiO2 100.2 F 91 29 154/87 89 40 01/02/19 10:01 01/02/19 10:01 01/02/19 10:01 01/02/19 10:01 01/02/19 10:01 01/01 11:54 Physical Exam: Gen: AO times 3. NAD HEENT: EOMI Lungs: Decrease BS's L>R Cardiac: RRR Abdomen:+ BS's, Soft, NTP Extremities: No NYA Neuro: No focal deficits Fluid Balance (Past 24 Hours): I= O= Net Intake & Output 12/31/18 01/01/19 01/02/19 01/03/19 06:59 06:59 06:59 06:59 Intake Total 27 2546 Output Total 2150 1580 210 Balance -2123 966 -210 Weight 98 lb 14.4 oz 226 lb 3.108 oz Intake: IV Fluids 2128 NS 2128 IVPB 92 NS 50 mag 42 Medicated IV 91 CC - Norepinephrine/ 91 Levophed IV Narcotic Infusion 27 Versed 27 Oral 0 235 Tube Feeding 0 Output: NG Tube Drainage Amount 300 Urine 125 Alvarez 1725 1580 210 Other: # Bowel Movements 1 Estimated Stool Amount Small Labs: Laboratory Results - last 24 hr 01/01/19 01/01/19 01/01/19 13:10 13:47 17:46 WBC RBC Hgb Hct MCV MCH MCHC RDW Plt Count MPV Patient Temperature Not Reportable ABG pH 7.36 ABG pH (Temp Correct) Not Reportable ABG pCO2 31 L ABG pCO2 (Temp Corrct Not Reportable ABG pO2 89 ABG pO2 (Temp Correct Not Reportable ABG HCO3 19.6 ABG O2 Saturation 99.2 H ABG Base Excess -6.8 L Respiration Rate Not Reportable O2 Delivery Device mech vent Ventilator Type Not Reportable Vent Mode spont FiO2 40 Inspiratory Time Not Reportable PEEP 5 Pressure Support Not Reportable Pressure Control Not Reportable EPAP Not Reportable IPAP Not Reportable BiPAP Not Reportable Sodium Potassium Chloride Carbon Dioxide Anion Gap BUN Creatinine Est GFR ( Amer) Est GFR (Non-Af Amer) BUN/Creatinine Ratio Glucose POC Glucose (mg/dL) 99 115 H Calcium Phosphorus Magnesium Total Bilirubin AST ALT Alkaline Phosphatase Total Protein Albumin Globulin Albumin/Globulin Ratio 01/02/19 01/02/19 05:10 05:10 WBC 8.2 RBC 3.27 L Hgb 9.1 L Hct 27 L MCV 83 MCH 28 MCHC 34 RDW 15 Plt Count 99 L MPV 9.3 Patient Temperature ABG pH ABG pH (Temp Correct) ABG pCO2 ABG pCO2 (Temp Corrct ABG pO2 ABG pO2 (Temp Correct ABG HCO3 ABG O2 Saturation ABG Base Excess Respiration Rate O2 Delivery Device Ventilator Type Vent Mode FiO2 Inspiratory Time PEEP Pressure Support Pressure Control EPAP IPAP BiPAP Sodium 142 Potassium 2.9 L Chloride 116 H Carbon Dioxide 17 L Anion Gap 9 BUN 23 Creatinine 0.50 L Est GFR ( Amer) 208.1 Est GFR (Non-Af Amer) 172.0 BUN/Creatinine Ratio 46.0 H Glucose 98 POC Glucose (mg/dL) Calcium 7.8 L Phosphorus 1.6 L Magnesium 2.0 Total Bilirubin 0.90 AST 33 ALT 20 Alkaline Phosphatase 60 Total Protein 5.2 L Albumin 3.2 Globulin 2.0 Albumin/Globulin Ratio 1.6 Impression: ARF s/p MV Change of mental status 2/2 Fentanyl patch PNA? s/p loss of tooth during intubation Hypokalemia and low phos. Atelect, Plan: incentive spirometry continue empiric ABX for aspiration PNA OOB to chair. sit up 2/2 atelectasis replenish K and Phos Critical Care Time: 59
[2019-01-02] MEDS: Docusate CAP* 100 MG PO PRN (14:28)
[2019-01-02] MEDS: Potassium Acid Phosphate TAB* 500 MG PO SCH ×3 (14:28→21:08)
[2019-01-02] MEDS: Azithromycin 500 mg/250 ml NS 500 MG/250 ML BAG IVPB SCH (15:25)
[2019-01-02] MEDS: Dexmedetomidine* 1,000 MCG in NS 0.9% 250 ML* 240 ML IV SCH (15:25)
[2019-01-02] MEDS ORDERED: fentaNYL PATCH 50 MCG/HR TRANSDERM SCH (16:00)
[2019-01-02] MEDS: cefTRIAXone(*) 1 GM in NS 0.9% 50 ML* 50 ML IVPB SCH (18:15)
[2019-01-02] MEDS: Docusate LIQ* 100 MG/10 ML UDC PO SCH ×2 (20:47→21:09)
[2019-01-02] MEDS: Senna TAB 8.6 mg* TAB PO SCH ×2 (20:47→21:09)
[2019-01-02] MEDS ORDERED: Senna/Docusate (NF) TAB PO SCH (21:00)
[2019-01-03] MEDS: Insulin REGULAR(*) 1 UNITS UNIT SUBCUT SCH ×4 (00:03→18:19)
[2019-01-03] MEDS: Dexmedetomidine* 1,000 MCG in NS 0.9% 250 ML* 240 ML IV SCH ×3 (01:00→21:50)
[2019-01-03] MEDS: Morphine INJ* 2 MG/ML 1 ML SYRINGE (TWO MG - NEW SYRINGE VERSION) IV PRN ×2 (03:45→13:05)
[2019-01-03 05:29] LABS: Hematocrit 26 % (42-52); Hemoglobin 8.5 g/dL (14.0-18.0); Mean Corpuscular HGB Conc 33 g/dL (31-36); Mean Corpuscular Hemoglobin 28 pg (27-31); Mean Corpuscular Volume 85 fL (80-94); Mean Platelet Volume 9.7 fL (7.4-10.4); Platelet Count 100 10^3/uL (150-450); Red Blood Count 3.09 10^6 /uL (4.18-5.48); Red Cell Distribution Width 16 % (10-15); White Blood Count 7.7 10^3/uL (3.5-10.8)
[2019-01-03 05:46] LABS: Albumin 3.1 g/dL (3.2-5.2); Albumin/Globulin Ratio 1.5 (1-3); BUN/Creatinine Ratio 43.1 (8-20); Calcium 8.1 mg/dL (8.6-10.3); EGFR African American 153.8 (>60); EGFR Non-African American 127.1 (>60); Globulin 2.1 g/dL (2-4); Magnesium 1.9 mg/dL (1.9-2.7); Phosphorus 2.5 mg/dL (2.5-5.0); Potassium 3.2 mmol/L (3.5-5.0); Total Bilirubin 0.8 mg/dL (0.2-1.0); Total Protein 5.2 g/dL (6.4-8.9)
[2019-01-03] MEDS: Heparin VIAL(*) 5000 UNITS/ML VIAL (FIVE THOUSAND) SUBCUT SCH ×3 (05:57→21:51)
[2019-01-03] MEDS: Famotidine SUSP ORALSYR 8 MG/ML G TUBE SCH ×2 (06:04→18:21)
[2019-01-03] MEDS: fentaNYL Patch Check Q Shift 1 NOTE FOLLOW UP SCH ×2 (07:02→14:10)
[2019-01-03] MEDS ORDERED: Magnesium Sulfate 1 GM IV* 1 GM/100 ML BAG IV ONE (07:31)
[2019-01-03] MEDS ORDERED: Sodium Bicarbonate 8.4% IV* 150 MEQ in D5W 1000 ML BAG* 850 ML IV SCH (08:00)
[2019-01-03] MEDS: KCL 20 MEQ/100 ML IVPREMIX* 20 MEQ/100 ML BAG IV SCH ×2 (08:49→10:32)
[2019-01-03] MEDS ORDERED: Potassium Phosphate IV* 15 MMOLE in NS 0.9% 250 ML* 250 ML IVPB ONE (09:00)
[2019-01-03] MEDS: Phenazopyridine TAB* 100 MG PO SCH ×2 (09:04→21:52)
[2019-01-03] MEDS: Potassium Acid Phosphate TAB* 500 MG PO SCH ×3 (09:36→21:52)
[2019-01-03] MEDS: Polyethylene Glycol 3350* 17 GM PACKET PO PRN (11:17)
[2019-01-03] MEDS ORDERED: NS 0.9% 500 ML* 500 ML IV ONE (13:00)
--- NOTE | 2019-01-03 14:17 | PN ---
Date of Service: 01/03/19 Critical Care Services: AO times 3 though at times becomes lethargic. Fentanyl patch taken off CXR still with b/l opacities but R atelectasis cleared remains Afebrile. Normotensive. HCO3 decreased and placed on HCO3 gtt by Hospitalist Vital Signs: Temp Pulse Resp BP SpO2 FiO2 98.4 F 86 41 161/63 88 80 01/03/19 14:01 01/03/19 14:01 01/03/19 14:01 01/03/19 14:01 01/03/19 14:01 01/03 12:00 Physical Exam: Gen: NAD. AO times 3, Heart: RRR, Lungs: Decreased Breath sounds, some crackles L>R, GI: +BSs, soft, NTP. No rebound or guarding. Neuro: No focal deficits. Extremities: No edema Fluid Balance (Past 24 Hours): I= O= Net Intake & Output 01/01/19 01/02/19 01/03/19 01/04/19 06:59 06:59 06:59 06:59 Intake Total 27 2546 360.4 Output Total 2150 1580 1066 232 Balance -2123 966 -705.6 -232 Weight 98 lb 14.4 oz 226 lb 3.108 oz 224 lb 3.362 oz Intake: IV Fluids 2128 111.9 NS 2128 111.9 IVPB 92 50 NS 50 50 mag 42 Medicated IV 91 198.5 CC - Dexmedetomidine/ 198.5 Precedex CC - Norepinephrine/ 91 Levophed IV Narcotic Infusion 27 Versed 27 Oral 0 235 Tube Feeding 0 Output: NG Tube Drainage Amount 300 Urine 125 Alvarez 1725 1580 1066 232 Other: Date of Last Bowel 01/02/19 Movement # Bowel Movements 1 1 Estimated Stool Amount Small Small Labs: Laboratory Results - last 24 hr 01/02/19 01/02/19 01/02/19 12:13 14:55 18:08 WBC RBC Hgb Hct MCV MCH MCHC RDW Plt Count MPV Patient Temperature Not Reportable ABG pH 7.31 L ABG pH (Temp Correct) Not Reportable ABG pCO2 21 L ABG pCO2 (Temp Corrct Not Reportable ABG pO2 66 L ABG pO2 (Temp Correct Not Reportable ABG HCO3 14.3 L ABG O2 Saturation 94.3 ABG Base Excess -13.5 L Respiration Rate Not Reportable O2 Delivery Device Vapotherm 25lpm Ventilator Type Not Reportable Vent Mode Not Reportable FiO2 100 Inspiratory Time Not Reportable PEEP Not Reportable Pressure Support Not Reportable Pressure Control Not Reportable EPAP Not Reportable IPAP Not Reportable BiPAP Not Reportable Sodium Potassium Chloride Carbon Dioxide Anion Gap BUN Creatinine Est GFR ( Amer) Est GFR (Non-Af Amer) BUN/Creatinine Ratio Glucose POC Glucose (mg/dL) 134 H 155 H Lactic Acid Calcium Phosphorus Magnesium Total Bilirubin AST ALT Alkaline Phosphatase Total Protein Albumin Globulin Albumin/Globulin Ratio 01/02/19 01/03/19 01/03/19 23:57 05:05 05:05 WBC 7.7 RBC 3.09 L Hgb 8.5 L Hct 26 L MCV 85 MCH 28 MCHC 33 RDW 16 H Plt Count 100 L MPV 9.7 Patient Temperature ABG pH ABG pH (Temp Correct) ABG pCO2 ABG pCO2 (Temp Corrct ABG pO2 ABG pO2 (Temp Correct ABG HCO3 ABG O2 Saturation ABG Base Excess Respiration Rate O2 Delivery Device Ventilator Type Vent Mode FiO2 Inspiratory Time PEEP Pressure Support Pressure Control EPAP IPAP BiPAP Sodium 143 Potassium 3.2 L Chloride 117 H Carbon Dioxide 11 L* Anion Gap 15 H BUN 28 H Creatinine 0.65 L Est GFR ( Amer) 153.8 Est GFR (Non-Af Amer) 127.1 BUN/Creatinine Ratio 43.1 H Glucose 155 H POC Glucose (mg/dL) 168 H Lactic Acid Calcium 8.1 L Phosphorus 2.5 Magnesium 1.9 Total Bilirubin 0.80 AST 22 ALT 20 Alkaline Phosphatase 75 Total Protein 5.2 L Albumin 3.1 L Globulin 2.1 Albumin/Globulin Ratio 1.5 01/03/19 01/03/19 01/03/19 07:35 09:48 13:18 WBC RBC Hgb Hct MCV MCH MCHC RDW Plt Count MPV Patient Temperature Not Reportable ABG pH 7.22 L ABG pH (Temp Correct) Not Reportable ABG pCO2 < 20 L ABG pCO2 (Temp Corrct Not Reportable ABG pO2 128 H ABG pO2 (Temp Correct Not Reportable ABG HCO3 10.9 L ABG O2 Saturation 100.0 H ABG Base Excess -18.0 L Respiration Rate Not Reportable O2 Delivery Device vapo Ventilator Type Not Reportable Vent Mode Not Reportable FiO2 100 Inspiratory Time Not Reportable PEEP Not Reportable Pressure Support Not Reportable Pressure Control Not Reportable EPAP Not Reportable IPAP Not Reportable BiPAP Not Reportable Sodium Potassium Chloride Carbon Dioxide Anion Gap BUN Creatinine Est GFR ( Amer) Est GFR (Non-Af Amer) BUN/Creatinine Ratio Glucose POC Glucose (mg/dL) 266 H Lactic Acid 0.7 Calcium Phosphorus Magnesium Total Bilirubin AST ALT Alkaline Phosphatase Total Protein Albumin Globulin Albumin/Globulin Ratio Impression: RF s/p MV Change of mental status 2/2 Fentanyl patch PNA--patient states that lost tooth prior to hospitalization constipation Plan: Plan: continue empiric ABX for aspiration PNA OOB to chair. sit up 2/2 atelectasis continue HCo3 gtt hold Fentanyl gtt 2/2 increased sedation at times continue BM medications Critical Care Time: 59
[2019-01-03] MEDS: cefTRIAXone(*) 1 GM in NS 0.9% 50 ML* 50 ML IVPB SCH (15:18)
[2019-01-03] MEDS: Azithromycin 500 mg/250 ml NS 500 MG/250 ML BAG IVPB SCH (15:35)
[2019-01-03] MEDS ORDERED: Furosemide IV* 10 MG/ML 2 ML VIAL (20 MG) IV ONE (16:28)
[2019-01-03] MEDS: Albuterol/Ipratropium NEB.SOL* Albuterol 2.5 MG/Ipratropium 0.5 MG 3 ML INH PRN (16:45)
[2019-01-03] MEDS ORDERED: NS 0.9% 250 ML* 250 ML ONE (21:39)
[2019-01-03] MEDS: Docusate LIQ* 100 MG/10 ML UDC PO SCH (21:51)
[2019-01-03] MEDS: Senna TAB 8.6 mg* TAB PO SCH (21:52)
[2019-01-04] MEDS: Insulin REGULAR(*) 1 UNITS UNIT SUBCUT SCH ×4 (00:12→18:48)
[2019-01-04 04:41] LABS: Hematocrit 26 % (42-52); Hemoglobin 8.6 g/dL (14.0-18.0); Mean Corpuscular HGB Conc 33 g/dL (31-36); Mean Corpuscular Hemoglobin 28 pg (27-31); Mean Corpuscular Volume 83 fL (80-94); Mean Platelet Volume 9.1 fL (7.4-10.4); Platelet Count 114 10^3/uL (150-450); Red Blood Count 3.11 10^6 /uL (4.18-5.48); Red Cell Distribution Width 16 % (10-15); White Blood Count 6.4 10^3/uL (3.5-10.8)
[2019-01-04 04:56] LABS: Albumin 2.9 g/dL (3.2-5.2); Albumin/Globulin Ratio 1.3 (1-3); BUN/Creatinine Ratio 35.3 (8-20); Calcium 7.9 mg/dL (8.6-10.3); EGFR Non-African American 120.6 (>60); Globulin 2.2 g/dL (2-4); Magnesium 1.6 mg/dL (1.9-2.7); Potassium 2.9 mmol/L (3.5-5.0); Total Bilirubin 0.7 mg/dL (0.2-1.0); Total Protein 5.1 g/dL (6.4-8.9)
[2019-01-04] MEDS: Famotidine SUSP ORALSYR 8 MG/ML G TUBE SCH ×2 (05:53→17:34)
[2019-01-04] MEDS: Heparin VIAL(*) 5000 UNITS/ML VIAL (FIVE THOUSAND) SUBCUT SCH ×3 (06:26→22:42)
[2019-01-04] MEDS: Dexmedetomidine* 1,000 MCG in NS 0.9% 250 ML* 240 ML IV SCH ×4 (08:05→17:12)
[2019-01-04] MEDS: KCL 20 MEQ/100 ML IVPREMIX* 20 MEQ/100 ML BAG IV SCH ×3 (08:05→12:12)
[2019-01-04] MEDS: Phenazopyridine TAB* 100 MG PO SCH ×2 (08:22→20:51)
[2019-01-04] MEDS: Acetaminophen ADULT LIQ* 650 MG/20.3 ML UDC PO PRN ×2 (08:27→17:34)
[2019-01-04] MEDS: ALPRAZolam TAB* 0.5 MG PO PRN ×2 (10:32→18:26)
[2019-01-04] MEDS ORDERED: Furosemide IV* 10 MG/ML 2 ML VIAL (20 MG) IV ONE (10:32)
[2019-01-04] MEDS ORDERED: Furosemide IV* 10 MG/ML 2 ML VIAL (20 MG) ONE (10:36)
[2019-01-04] MEDS ORDERED: Magnesium Sulfate 2 GM IV* 2 GM/50 ML BAG IVPB ONE (10:40)
--- NOTE | 2019-01-04 10:40 | PN ---
Date of Service: 01/04/19 Critical Care Services: awake in the AM. oxygenating well. CXR still shows severe PNA acidosis improving. diuresed well with lasix yesterday Vital Signs: Temp Pulse Resp BP SpO2 FiO2 100.6 F 79 21 160/86 93 85 01/04/19 10:00 01/04/19 10:00 01/04/19 10:00 01/04/19 10:00 01/04/19 10:00 01/04 08:00 Physical Exam: Gen: NAD. AO times 3, Heart: RRR, Lungs: B/L Crackles, GI: +BSs, soft, NTP. No rebound or guarding. Neuro: No focal deficits. Extremities: No edema. Fluid Balance (Past 24 Hours): I= O= Net Intake & Output 01/02/19 01/03/19 01/04/19 01/05/19 06:59 06:59 06:59 06:59 Intake Total 2546 360.4 1740 Output Total 1580 1066 2852 280 Balance 966 -705.6 -1112 -280 Weight 226 lb 3.108 oz 224 lb 3.362 oz 229 lb 0.964 oz Intake: IV Fluids 2128 111.9 1436 K Phos 250 KCl 193 NS 2128 111.9 1 Sodium bicarbonate D5W 992 IVPB 92 50 105 NS 50 50 mag 42 105 Medicated IV 91 198.5 199 CC - Dexmedetomidine/ 198.5 192 Precedex CC - Norepinephrine/ 91 Levophed Ceftriaxone 7 Oral 235 0 Output: Urine 220 Alvarez 1580 1066 2632 280 Other: Date of Last Bowel 01/02/19 01/03/19 Movement # Bowel Movements 1 1 Estimated Stool Amount Small Small Small Labs: Laboratory Results - last 24 hr 01/03/19 01/03/19 01/04/19 13:18 17:42 00:07 WBC RBC Hgb Hct MCV MCH MCHC RDW Plt Count MPV Patient Temperature ABG pH ABG pH (Temp Correct) ABG pCO2 ABG pCO2 (Temp Corrct ABG pO2 ABG pO2 (Temp Correct ABG HCO3 ABG O2 Saturation ABG Base Excess Respiration Rate O2 Delivery Device Ventilator Type Vent Mode FiO2 Inspiratory Time PEEP Pressure Support Pressure Control EPAP IPAP BiPAP Sodium Potassium Chloride Carbon Dioxide Anion Gap BUN Creatinine Est GFR ( Amer) Est GFR (Non-Af Amer) BUN/Creatinine Ratio Glucose POC Glucose (mg/dL) 266 H 273 H 261 H Calcium Phosphorus Magnesium Total Bilirubin AST ALT Alkaline Phosphatase Total Protein Albumin Globulin Albumin/Globulin Ratio 01/04/19 01/04/19 01/04/19 04:15 04:15 05:15 WBC 6.4 RBC 3.11 L Hgb 8.6 L Hct 26 L MCV 83 MCH 28 MCHC 33 RDW 16 H Plt Count 114 L MPV 9.1 Patient Temperature Not Reportable ABG pH 7.34 L ABG pH (Temp Correct) Not Reportable ABG pCO2 26 L ABG pCO2 (Temp Corrct Not Reportable ABG pO2 97 ABG pO2 (Temp Correct Not Reportable ABG HCO3 17.1 L ABG O2 Saturation 99.8 H ABG Base Excess -10.1 L Respiration Rate Not Reportable O2 Delivery Device vapo Ventilator Type Not Reportable Vent Mode Not Reportable FiO2 100 Inspiratory Time Not Reportable PEEP Not Reportable Pressure Support Not Reportable Pressure Control Not Reportable EPAP Not Reportable IPAP Not Reportable BiPAP Not Reportable Sodium 147 H Potassium 2.9 L Chloride 116 H Carbon Dioxide 18 L Anion Gap 13 H BUN 24 Creatinine 0.68 Est GFR ( Amer) 146.0 Est GFR (Non-Af Amer) 120.6 BUN/Creatinine Ratio 35.3 H Glucose 233 H POC Glucose (mg/dL) Calcium 7.9 L Phosphorus 2.0 L Magnesium 1.6 L Total Bilirubin 0.70 AST 11 L ALT 15 Alkaline Phosphatase 74 Total Protein 5.1 L Albumin 2.9 L Globulin 2.2 Albumin/Globulin Ratio 1.3 Impression: s/p MV Change of mental status 2/2 Fentanyl patch PNA--patient states that lost tooth prior to hospitalization constipation low K, Phos and Mg Plan: continue empiric ABX for PNA D#4 ABX OOB to chair. lasix 20 times 1 hold Fentanyl gtt 2/2 increased sedation at times and delirium. Add back home Xanax continue BM medications PT/OT Replenish Lytes Critical Care Time: 59
[2019-01-04] MEDS ORDERED: Potassium Phosphate IV* 15 MMOLE in NS 0.9% 250 ML* 250 ML IVPB ONE (10:41)
[2019-01-04] MEDS: cefTRIAXone(*) 1 GM in NS 0.9% 50 ML* 50 ML IVPB SCH (15:51)
[2019-01-04] MEDS: Azithromycin 500 mg/250 ml NS 500 MG/250 ML BAG IVPB SCH (15:51)
[2019-01-04] MEDS: Polyethylene Glycol 3350* 17 GM PACKET PO PRN (16:38)
[2019-01-04 17:52] LABS: Albumin 3.1 g/dL (3.2-5.2); Albumin/Globulin Ratio 1.3 (1-3); EGFR African American 162.4 (>60); EGFR Non-African American 134.2 (>60); Globulin 2.4 g/dL (2-4); Magnesium 1.7 mg/dL (1.9-2.7); Potassium 3.2 mmol/L (3.5-5.0); Total Bilirubin 0.8 mg/dL (0.2-1.0); Total Protein 5.5 g/dL (6.4-8.9)
[2019-01-04] MEDS ORDERED: Magnesium Sulfate 2 GM IV (Premix) IVPB ONE (18:30)
[2019-01-04] MEDS ORDERED: Potassium Phosphate IV* 30 MMOLE in NS 0.9% 500 ML* 500 ML IVPB ONE (19:30)
[2019-01-04] MEDS: Docusate CAP* 100 MG PO PRN (19:54)
[2019-01-04] MEDS: Morphine INJ* 2 MG/ML 1 ML SYRINGE (TWO MG - NEW SYRINGE VERSION) IV PRN (19:55)
[2019-01-04] MEDS: Senna TAB 8.6 mg* TAB PO SCH (20:51)
[2019-01-04] MEDS: Lactulose* 15 ML UDC PO SCH (20:51)
[2019-01-04] MEDS: Docusate LIQ* 100 MG/10 ML UDC PO SCH (20:51)
[2019-01-04] MEDS: Ondansetron INJ* 2 MG/ML VIAL IV PRN (21:53)
[2019-01-04] MEDS: hydrALAZINE IV* 20 MG/ML VIAL IV SLOW PU ONE (21:53)
[2019-01-05] MEDS: Insulin REGULAR(*) 1 UNITS UNIT SUBCUT SCH ×4 (01:03→17:39)
[2019-01-05] MEDS ORDERED: Labetalol IV* 5 MG/ML 20 ML VIAL IV ONE (01:45)
[2019-01-05] MEDS: Dexmedetomidine* 1,000 MCG in NS 0.9% 250 ML* 240 ML IV SCH ×2 (02:32→20:01)
[2019-01-05] MEDS: Morphine INJ* 2 MG/ML 1 ML SYRINGE (TWO MG - NEW SYRINGE VERSION) IV PRN ×2 (04:45→20:26)
[2019-01-05 05:08] LABS: Hematocrit 31 % (42-52); Hemoglobin 10.4 g/dL (14.0-18.0); Mean Corpuscular HGB Conc 34 g/dL (31-36); Mean Corpuscular Hemoglobin 28 pg (27-31); Mean Corpuscular Volume 82 fL (80-94); Mean Platelet Volume 9.1 fL (7.4-10.4); Platelet Count 126 10^3/uL (150-450); Red Blood Count 3.75 10^6 /uL (4.18-5.48); Red Cell Distribution Width 16 % (10-15); White Blood Count 6.4 10^3/uL (3.5-10.8)
[2019-01-05] MEDS: Famotidine SUSP ORALSYR 8 MG/ML G TUBE SCH ×3 (05:15→17:41)
[2019-01-05] MEDS: Ondansetron INJ* 2 MG/ML VIAL IV PRN (05:16)
[2019-01-05] MEDS: Heparin VIAL(*) 5000 UNITS/ML VIAL (FIVE THOUSAND) SUBCUT SCH ×3 (05:17→22:14)
[2019-01-05 05:24] LABS: Albumin 3.2 g/dL (3.2-5.2); Albumin/Globulin Ratio 1.3 (1-3); BUN/Creatinine Ratio 24.1 (8-20); EGFR African American 175.4 (>60); EGFR Non-African American 144.9 (>60); Globulin 2.4 g/dL (2-4); Magnesium 1.9 mg/dL (1.9-2.7); Phosphorus 2.9 mg/dL (2.5-5.0); Potassium 2.8 mmol/L (3.5-5.0); Total Bilirubin 0.9 mg/dL (0.2-1.0); Total Protein 5.6 g/dL (6.4-8.9)
[2019-01-05] MEDS: KCL 20 MEQ/100 ML IVPREMIX* 20 MEQ/100 ML BAG IV SCH ×5 (06:44→22:28)
[2019-01-05] MEDS: Phenazopyridine TAB* 100 MG PO SCH ×2 (08:47→20:28)
[2019-01-05] MEDS: Lactulose* 15 ML UDC PO SCH ×2 (08:48→20:28)
[2019-01-05] MEDS: hydrALAZINE IV* 20 MG/ML VIAL IV SLOW PU PRN ×2 (09:44→20:07)
[2019-01-05] MEDS ORDERED: Furosemide IV* 10 MG/ML 2 ML VIAL (20 MG) IV ONE (11:15)
--- NOTE | 2019-01-05 11:18 | PN ---
Date of Service: 01/05/19 Critical Care Services: oxygenation and CXR improved. Remains on high flow though but titrating down was OOB to chair yesterday remains AO times 3. Vital Signs: Temp Pulse Resp BP SpO2 FiO2 100.6 F 95 15 157/95 96 75 01/05/19 10:01 01/05/19 10:01 01/05/19 10:01 01/05/19 10:01 01/05/19 10:01 01/05 08:00 Physical Exam: Gen: AO times 3. NAD. RRR. Decreased BS's B/L. Abd soft, NTP. NYA. No focal [employer] deficits Fluid Balance (Past 24 Hours): I= O= Net Intake & Output 01/03/19 01/04/19 01/05/19 01/06/19 06:59 06:59 06:59 06:59 Intake Total 360.4 1740 2666 290 Output Total 1066 2852 6560 650 Balance -705.6 -1112 -3894 -360 Weight 224 lb 3.362 oz 229 lb 0.964 oz 220 lb 7.396 oz Intake: IV Fluids 111.9 1436 1459 K Phos 250 799 KCl 193 308 NS 111.9 1 352 Sodium bicarbonate D5W 992 IVPB 50 105 332 ABX 273 NS 50 mag 105 59 Medicated IV 198.5 199 625 CC - Dexmedetomidine/ 198.5 192 Precedex Ceftriaxone 7 564 GEN - Magnesium 61 Oral 0 250 290 Tube Feeding 0 Output: NG Tube Drainage Amount 300 Urine 220 Alvarez 1066 2632 6560 350 Other: Date of Last Bowel 01/02/19 01/03/19 01/03/19 Movement # Bowel Movements 1 Estimated Stool Amount Small Small Small Labs: Laboratory Results - last 24 hr 01/04/19 01/04/19 01/04/19 06:18 12:17 17:23 WBC RBC Hgb Hct MCV MCH MCHC RDW Plt Count MPV Sodium 145 Potassium 3.2 L Chloride 112 H Carbon Dioxide 18 L Anion Gap 15 H BUN 18 Creatinine 0.62 L Est GFR ( Amer) 162.4 Est GFR (Non-Af Amer) 134.2 BUN/Creatinine Ratio 29.0 H Glucose 275 H POC Glucose (mg/dL) 251 H 300 H Calcium 8.0 L Phosphorus Magnesium 1.7 L Total Bilirubin 0.80 AST 11 L ALT 16 Alkaline Phosphatase 88 Total Protein 5.5 L Albumin 3.1 L Globulin 2.4 Albumin/Globulin Ratio 1.3 01/04/19 01/05/19 01/05/19 18:29 00:53 04:50 WBC 6.4 RBC 3.75 L Hgb 10.4 L Hct 31 L MCV 82 MCH 28 MCHC 34 RDW 16 H Plt Count 126 L MPV 9.1 Sodium Potassium Chloride Carbon Dioxide Anion Gap BUN Creatinine Est GFR ( Amer) Est GFR (Non-Af Amer) BUN/Creatinine Ratio Glucose POC Glucose (mg/dL) 314 H 314 H Calcium Phosphorus Magnesium Total Bilirubin AST ALT Alkaline Phosphatase Total Protein Albumin Globulin Albumin/Globulin Ratio 01/05/19 01/05/19 01/05/19 04:50 06:29 08:14 WBC RBC Hgb Hct MCV MCH MCHC RDW Plt Count MPV Sodium 146 H Potassium 2.8 L Chloride 113 H Carbon Dioxide 19 L Anion Gap 14 H BUN 14 Creatinine 0.58 L Est GFR ( Amer) 175.4 Est GFR (Non-Af Amer) 144.9 BUN/Creatinine Ratio 24.1 H Glucose 259 H POC Glucose (mg/dL) 276 H 275 H Calcium 8.0 L Phosphorus 2.9 Magnesium 1.9 Total Bilirubin 0.90 AST 16 ALT 19 Alkaline Phosphatase 96 Total Protein 5.6 L Albumin 3.2 Globulin 2.4 Albumin/Globulin Ratio 1.3 Impression: ARF on high flow oxygen PNA s/p Delirium when off Fentanyl patch Anxiety Constipation Hypokalemia Deconditioning MDS LVEF 55-60% HTN Plan: continue empiric ABX. stop Azithromycin and continue Ceftriaxone continue lasix OOB to chair and aggressive PT/OT and diet wean off high flow if possible Add Hydralazine Critical Care Time: 44
[2019-01-05] MEDS ORDERED: hydrALAZINE IV* 20 MG/ML VIAL IV SLOW PU ONE (14:28)
[2019-01-05] MEDS: hydrALAZINE IV* 20 MG/ML VIAL IV SLOW PU ONE (14:30)
[2019-01-05] MEDS: cefTRIAXone(*) 1 GM in NS 0.9% 50 ML* 50 ML IVPB SCH (15:49)
[2019-01-05 17:23] LABS: Albumin 3.3 g/dL (3.2-5.2); Albumin/Globulin Ratio 1.2 (1-3); Calcium 8.1 mg/dL (8.6-10.3); EGFR African American 186.4 (>60); EGFR Non-African American 154.1 (>60); Globulin 2.7 g/dL (2-4); Total Bilirubin 1.1 mg/dL (0.2-1.0)
[2019-01-05 17:24] LABS: Potassium 2.6 mmol/L (3.5-5.0)
[2019-01-05] MEDS: Albuterol/Ipratropium NEB.SOL* Albuterol 2.5 MG/Ipratropium 0.5 MG 3 ML INH PRN (19:52)
[2019-01-05] MEDS: Docusate LIQ* 100 MG/10 ML UDC PO SCH (20:27)
[2019-01-05] MEDS: Labetalol TAB* 100 MG PO SCH (20:28)
[2019-01-05] MEDS: Senna TAB 8.6 mg* TAB PO SCH (20:28)
[2019-01-06] MEDS: Insulin REGULAR(*) 1 UNITS UNIT SUBCUT SCH ×4 (00:07→20:11)
[2019-01-06] MEDS: ALPRAZolam TAB* 0.5 MG PO PRN (00:07)
[2019-01-06] MEDS: Dexmedetomidine* 1,000 MCG in NS 0.9% 250 ML* 240 ML IV SCH ×2 (01:17→08:06)
[2019-01-06] MEDS: Acetaminophen ADULT LIQ* 650 MG/20.3 ML UDC PO PRN (02:56)
[2019-01-06] MEDS ORDERED: Ibuprofen ADULT LIQ* 600 MG/30 ML UDC PO ONE (04:00)
[2019-01-06 04:37] LABS: Hematocrit 32 % (42-52); Hemoglobin 10.7 g/dL (14.0-18.0); Mean Corpuscular HGB Conc 34 g/dL (31-36); Mean Corpuscular Hemoglobin 28 pg (27-31); Mean Corpuscular Volume 82 fL (80-94); Mean Platelet Volume 9.1 fL (7.4-10.4); Platelet Count 119 10^3/uL (150-450); Red Blood Count 3.86 10^6 /uL (4.18-5.48); Red Cell Distribution Width 17 % (10-15); White Blood Count 7.4 10^3/uL (3.5-10.8)
[2019-01-06 04:51] LABS: ALT 20 U/L (7-52); Albumin 3.2 g/dL (3.2-5.2); Albumin/Globulin Ratio 1.2 (1-3); Alkaline Phosphatase 94 U/L (34-104); BUN/Creatinine Ratio 21.7 (8-20); Blood Urea Nitrogen 13 mg/dL (6-24); CO2 Carbon Dioxide 19 mmol/L (22-32); Calcium 8.3 mg/dL (8.6-10.3); Chloride 106 mmol/L (101-111); EGFR African American 168.6 (>60); EGFR Non-African American 139.4 (>60); Globulin 2.7 g/dL (2-4); Glucose 336 mg/dL (70-100); Phosphorus 1.3 mg/dL (2.5-5.0); Sodium 142 mmol/L (135-145); Total Protein 5.9 g/dL (6.4-8.9)
[2019-01-06] MEDS: Famotidine SUSP ORALSYR 8 MG/ML G TUBE SCH ×2 (05:10→18:21)
[2019-01-06 05:26] LABS: Anion Gap 17 mmol/L (2-11)
[2019-01-06] MEDS: Heparin VIAL(*) 5000 UNITS/ML VIAL (FIVE THOUSAND) SUBCUT SCH ×3 (05:53→22:05)
[2019-01-06 06:12] LABS: Magnesium 1.8 mg/dL (1.9-2.7)
[2019-01-06] MEDS: Labetalol TAB* 100 MG PO SCH (08:26)
[2019-01-06] MEDS: Phenazopyridine TAB* 100 MG PO SCH ×2 (08:26→22:04)
[2019-01-06] MEDS: Lactulose* 15 ML UDC PO SCH ×2 (08:27→22:05)
[2019-01-06] MEDS ORDERED: Magnesium Sulfate 2 GM IV* 2 GM/50 ML BAG IVPB ONE (09:01)
--- NOTE | 2019-01-06 09:10 | PN ---
Date of Service: 01/06/19 Critical Care Services: spiking low grade fevers "feels better" was OOB with lift. still weak Vital Signs: Temp Pulse Resp BP SpO2 FiO2 100.6 F 88 18 150/84 99 50 01/06/19 08:00 01/06/19 08:00 01/06/19 08:00 01/06/19 08:00 01/06/19 08:00 01/06 04:00 Physical Exam: gen: AO times 3. NAD. RRR. Decreased BS's B/L. Abd soft, NTP. NYA. No focal [employer] deficits Fluid Balance (Past 24 Hours): I= O= Net Intake & Output 01/04/19 01/05/19 01/06/19 01/07/19 06:59 06:59 06:59 06:59 Intake Total 1740 2666 1683 Output Total 2852 6560 4745 225 Balance -1112 -3894 -3062 -225 Weight 229 lb 0.964 oz 220 lb 7.396 oz 204 lb 12.951 oz Intake: IV Fluids 1436 1459 439 K Phos 250 799 KCl 193 308 NS 1 352 439 Sodium bicarbonate D5W 992 IVPB 105 332 374 ABX 273 KCl 374 mag 105 59 Medicated IV 199 625 CC - Dexmedetomidine/ 192 Precedex Ceftriaxone 7 564 GEN - Magnesium 61 Oral 0 250 870 Tube Feeding 0 Output: NG Tube Drainage Amount 300 Urine 220 Alvarez 2632 6560 4445 225 Other: Date of Last Bowel 01/03/19 01/03/19 Movement Estimated Stool Amount Small Small Labs: Laboratory Results - last 24 hr 01/05/19 01/05/19 01/05/19 08:14 11:39 17:00 WBC RBC Hgb Hct MCV MCH MCHC RDW Plt Count MPV Sodium 144 Potassium 2.6 L* Chloride 106 Carbon Dioxide 20 L Anion Gap 18 H BUN 11 Creatinine 0.55 L Est GFR ( Amer) 186.4 Est GFR (Non-Af Amer) 154.1 BUN/Creatinine Ratio 20.0 Glucose 298 H POC Glucose (mg/dL) 275 H 367 H Calcium 8.1 L Phosphorus Magnesium Total Bilirubin 1.10 H AST 18 ALT 22 Alkaline Phosphatase 104 Total Protein 6.0 L Albumin 3.3 Globulin 2.7 Albumin/Globulin Ratio 1.2 11/01/06/19 01/06/19 00:00 04:11 04:11 WBC 7.4 RBC 3.86 L Hgb 10.7 L Hct 32 L MCV 82 MCH 28 MCHC 34 RDW 17 H Plt Count 119 L MPV 9.1 Sodium 142 Potassium TNP Chloride 106 Carbon Dioxide 19 L Anion Gap 17 H BUN 13 Creatinine 0.60 L Est GFR ( Amer) 168.6 Est GFR (Non-Af Amer) 139.4 BUN/Creatinine Ratio 21.7 H Glucose 336 H POC Glucose (mg/dL) 386 H Calcium 8.3 L Phosphorus 1.3 L Magnesium TNP Total Bilirubin 1.00 AST TNP ALT 20 Alkaline Phosphatase 94 Total Protein 5.9 L Albumin 3.2 Globulin 2.7 Albumin/Globulin Ratio 1.2 01/06/19 01/06/19 05:44 05:45 WBC RBC Hgb Hct MCV MCH MCHC RDW Plt Count MPV Sodium Potassium 3.0 L Chloride Carbon Dioxide Anion Gap BUN Creatinine Est GFR ( Amer) Est GFR (Non-Af Amer) BUN/Creatinine Ratio Glucose POC Glucose (mg/dL) 364 H Calcium Phosphorus Magnesium 1.8 L Total Bilirubin AST 11 L ALT Alkaline Phosphatase Total Protein Albumin Globulin Albumin/Globulin Ratio Studies: CXR markedly improved. Still L sided opacity Impression: ARF on high flow oxygen --now off High flow PNA s/p Delirium when off Fentanyl patch Anxiety Constipation Hypokalemia Deconditioning MDS LVEF 55-60% HTN poorlly controlled DM Plan: continue empiric ABX. re-Cx patient. Change to Cefepime. Patient had been on Ceftriaxone.. Completed course of Azithromycin. continue lasix times one more dose. Still good negative balance. Replete K and add standing K -Phos. Replete Mg OOB to chair and aggressive PT/OT and diet Increase Labetolol to 200 mg PO BID or patient's home dose. Continue Hydralizine. Increase FS's coverage may transfer to floor. D/W Dr. Muniz Critical Care Time: 45
[2019-01-06] MEDS ORDERED: Furosemide IV* 10 MG/ML 2 ML VIAL (20 MG) IV ONE (09:13)
[2019-01-06] MEDS: Morphine INJ* 2 MG/ML 1 ML SYRINGE (TWO MG - NEW SYRINGE VERSION) IV PRN ×3 (09:19→23:21)
[2019-01-06] MEDS: Potassium Acid Phosphate TAB* 500 MG PO SCH ×2 (09:29→22:04)
[2019-01-06] MEDS: KCL 20 MEQ/100 ML IVPREMIX* 20 MEQ/100 ML BAG IV SCH ×3 (09:31→13:41)
[2019-01-06] MEDS: Cefepime 2 GM in Dextrose(*) 2 GM/50 ML BAG IV SCH ×2 (11:36→22:06)
[2019-01-06 13:50] LABS: Magnesium 2.5 mg/dL (1.9-2.7)
[2019-01-06] MEDS ORDERED: Insulin GLARGINE(*) 1 UNITS UNIT SUBCUT SCH (20:00)
[2019-01-06] MEDS ORDERED: Labetalol TAB* 200 MG PO SCH (21:00)
[2019-01-06] MEDS: Docusate LIQ* 100 MG/10 ML UDC PO SCH (22:05)
[2019-01-06] MEDS: Senna TAB 8.6 mg* TAB PO SCH (22:05)
[2019-01-07] MEDS ORDERED: Insulin LISPRO* 1 UNITS UNIT SUBCUT ONE (01:13)
[2019-01-07] MEDS: Insulin REGULAR(*) 1 UNITS UNIT SUBCUT SCH ×2 (01:34→05:58)
[2019-01-07] MEDS: ALPRAZolam TAB* 0.5 MG PO PRN (01:36)
[2019-01-07 05:54] LABS: Hematocrit 28 % (42-52); Hemoglobin 9.6 g/dL (14.0-18.0); Mean Corpuscular HGB Conc 34 g/dL (31-36); Mean Corpuscular Hemoglobin 28 pg (27-31); Mean Corpuscular Volume 82 fL (80-94); Mean Platelet Volume 9.6 fL (7.4-10.4); Platelet Count 136 10^3/uL (150-450); Red Blood Count 3.44 10^6 /uL (4.18-5.48); Red Cell Distribution Width 17 % (10-15); White Blood Count 7.8 10^3/uL (3.5-10.8)
[2019-01-07] MEDS: Heparin VIAL(*) 5000 UNITS/ML VIAL (FIVE THOUSAND) SUBCUT SCH ×3 (05:57→21:36)
[2019-01-07] MEDS: Famotidine SUSP ORALSYR 8 MG/ML G TUBE SCH ×2 (05:58→17:41)
[2019-01-07 06:11] LABS: Albumin 3.1 g/dL (3.2-5.2); Albumin/Globulin Ratio 1.3 (1-3); BUN/Creatinine Ratio 33.3 (8-20); Calcium 8.2 mg/dL (8.6-10.3); EGFR African American 203.4 (>60); EGFR Non-African American 168.1 (>60); Globulin 2.4 g/dL (2-4); Magnesium 2.1 mg/dL (1.9-2.7); Phosphorus 1.1 mg/dL (2.5-5.0); Potassium 3.2 mmol/L (3.5-5.0); Total Bilirubin 0.8 mg/dL (0.2-1.0); Total Protein 5.5 g/dL (6.4-8.9)
[2019-01-07 06:39] LABS: ABS Eosinophils 0.1 10^3/ul (0-0.6); ABS Lymphocytes 0.7 10^3/ul (1.0-4.8); ABS Monocytes 0.7 10^3/ul (0-0.8); ABS Neutrophils 6.2 10^3/ul (1.5-7.7); Eosinophil % 1.1 %; Lymphocyte % 9.6 %; Nucleated Red Blood Cells % 0.2
--- NOTE | 2019-01-07 08:33 | PN ---
Subjective - Subjective Reason for Note: Progress Note History: I am now the attending physician for Lorena Ramirez who was transferred to a telemetry bed yesterday. He has had marked hyperglycemia and I am restarting is basal bolus regimen of insulin. He continues to have his usual chronic 8/10 back pain and is asking for a management plan - acknowledging that his dose of fentanyl was too high. He has an occasional cough and very little sputum. He denies dyspnea. He denies chest pain, palpitations. He has a distended abdomen and only small bowel movements - he has chronic constipation - likely secondary to opioids. 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 Constipation (Chronic) K59.00 DM type 1 with diabetic peripheral neuropathy (Chronic) E10.42 Depression (Chronic) F32.9 Essential hypertension (Chronic) I10 Essential hypertension (Chronic) I10 GERD (gastroesophageal reflux disease) (Chronic) K21.9 Hypercholesterolemia (Chronic) E78.0 Hypercholesterolemia (Chronic) E78.00 Muscular dystrophy (Chronic) G71.0 error 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, E10.65 Vitiligo (Chronic) L80 Current Medications: Current Medications Acetaminophen (Tylenol Adult Liq*) 650 mg PO Q8H PRN PRN Reason: MILD PAIN or TEMP > 100.4 Last Admin: 01/06/19 02:56 Dose: 650 mg Acetaminophen (Tylenol Supp*) 650 mg AK Q6H PRN PRN Reason: .FEVER Last Admin: 01/05/19 21:04 Dose: 650 mg Albuterol/Ipratropium (Duoneb (Albuterol 2.5 Mg/Ipratropium 0.5 Mg)) 1 neb INH Q2H PRN PRN Reason: SOB/WHEEZING Last Admin: 01/05/19 19:52 Dose: 1 neb Alprazolam (Xanax Tab*) 0.5 mg PO BID PRN PRN Reason: ANXIETY Last Admin: 01/07/19 01:36 Dose: 0.5 mg Docusate Sodium (Colace Cap*) 100 mg PO BID PRN PRN Reason: CONSTIPATION Last Admin: 01/04/19 19:54 Dose: 100 mg Docusate Sodium (Colace Liq*) 50 mg PO BEDTIME [facility] Last Admin: 01/06/19 22:05 Dose: 50 mg Famotidine (Pepcid Susp 8mg/Ml) 20 mg G TUBE Q12H [facility] Last Admin: 01/07/19 05:58 Dose: 20 mg Heparin Sodium (Porcine) (Heparin Vial(*)) 5,000 units SUBCUT Q8HR [facility] Last Admin: 01/07/19 05:57 Dose: 5,000 units Hydralazine HCl (Apresoline Iv*) 5 mg IV SLOW PU Q6H PRN PRN Reason: SYSTOLIC BP GREATER THAN: Last Admin: 01/05/19 20:07 Dose: 5 mg Cefepime HCl (Maxipime 2 Gm In Dextrose Duplex (*)) 2 gm in 50 mls @ 100 mls/ hr IV Q12H [facility] Last Admin: 01/06/19 22:06 Dose: 100 mls/hr Insulin Glargine (Lantus(*)) 18 units SUBCUT 1800 [facility] Last Admin: 01/06/19 20:11 Dose: 18 units Insulin Human Regular (Insulin Regular(*)) 0 units SUBCUT Q6HR [facility]; Protocol Last Admin: 01/07/19 05:58 Dose: 10 units Labetalol HCl (Trandate Tab*) 200 mg PO BID [facility] Last Admin: 01/06/19 22:05 Dose: 200 mg Lactulose (Lactulose*) 15 ml PO BID [facility] Last Admin: 01/06/19 22:05 Dose: 15 ml Morphine Sulfate (Morphine Inj (Syringe))*) 1 mg IV Q3H PRN PRN Reason: PAIN - MODERATE Last Admin: 01/06/19 23:21 Dose: 1 mg Ondansetron HCl (Zofran Inj*) 4 mg IV Q6H PRN PRN Reason: NAUSEA Last Admin: 01/05/19 05:16 Dose: 4 mg Phenazopyridine HCl (Pyridium Tab*) 200 mg PO BID [facility] Last Admin: 01/06/19 22:04 Dose: 200 mg Polyethylene Glycol/Electrolytes (Miralax*) 17 gm PO DAILY PRN PRN Reason: CONSTIPATION Last Admin: 01/04/19 16:38 Dose: 17 gm Potassium Phosphate (K Phos Original Tab*) 500 mg PO BID [facility] Last Admin: 01/06/19 22:04 Dose: 500 mg Senna (Senokot 8.6 Mg Tab*) 1 tab PO BEDTIME [facility] Last Admin: 01/06/19 22:05 Dose: 1 tab Home Medications: Home Medications Medication Instructions Recorded Confirmed Type Docusate CAP* [Colace Cap*] 100 mg PO QPM 12/09/11 12/31/18 History Labetalol TAB* [Trandate TAB*] 200 mg PO BID 12/09/11 12/31/18 History traZODone TAB* [Desyrel*] 50 mg PO BEDTIME 12/09/11 12/31/18 History Prochlorperazine TAB* [Compazine 10 mg PO QID PRN 10/20/12 12/31/18 History Tab*] Ramipril CAP* [Altace CAP*] 20 mg PO QAM 05/26/13 12/31/18 History Terazosin CAP* [Hytrin CAP*] 5 mg PO BEDTIME 05/26/13 12/31/18 History Triamterene/HCTZ 37.5-25 MG* 1 cap PO QAM 05/26/13 12/31/18 History [Dyazide CAP*] metFORMIN* [Glucophage*] 500 mg PO BID 05/26/13 12/31/18 History Atorvastatin* [Lipitor*] 20 mg PO BEDTIME 06/14/14 12/31/18 History ALPRAZolam TAB* [Xanax TAB*] 0.5 mg PO QID PRN MDD 4 tabs 02/09/15 12/31/18 History Docusate CAP* [Colace Cap*] 200 mg PO QAM 02/09/15 12/31/18 History Escitalopram * [Lexapro (NF)] 20 mg PO DAILY 02/09/15 12/31/18 History Gabapentin CAP(*) [Neurontin 600 mg PO QID 02/09/15 12/31/18 History CAP(*)] Oxycodone HCl [Oxycontin] 6 - 8 tab PO DAILY PRN 02/09/15 12/31/18 History Insulin Aspart [Novolog] 1 unit SC .BEFORE MEALS 10/17/15 12/31/18 History Insulin Glargine,Hum.rec.anlog 30 units SUBCUT BEDTIME 04/15/17 12/31/18 History [Lacey Duran] Methocarbamol 750 mg PO Q6H PRN 04/15/17 12/31/18 History Mirabegron (NF) [Myrbetriq (NF)] 50 mg PO DAILY 04/15/17 12/31/18 History Bisacodyl SUPP* [Dulcolax Supp*] 10 mg AK DAILY 12/31/18 12/31/18 History Diclofenac 1% GEL (NF) [Voltaren 2 gm TOPICAL QID 12/31/18 12/31/18 History 1% GEL (NF)] Gentamicin 0.3% OPHTH.SOLN* 1 drop BOTH EYES Q4H 12/31/18 12/31/18 History Glucagon,Human Recombinant 1 mg IM ONCE 12/31/18 12/31/18 History [Glucagon Emergency Kit] Omeprazole (Nf) [Prilosec (NF)] 40 mg PO QPM 12/31/18 12/31/18 History Ondansetron TAB* [Zofran 4 MG Tab*] 8 mg PO Q6H PRN 12/31/18 12/31/18 History Oxybutynin TAB* [Ditropan TAB*] 5 mg PO DAILY 12/31/18 12/31/18 History Polyethylene Glycol 3350* 17 gm PO DAILY 12/31/18 12/31/18 History [Miralax*] Polymyx/Trimethoprim OPTH* 1 drop BOTH EYES Q6H 12/31/18 12/31/18 History [Polytrim OPHTH*] Sennosides 17.2 mg PO DAILY 12/31/18 12/31/18 History fentaNYL PATCH 25 MCG/HR* 25 mcg TRANSDERM Q48H 12/31/18 12/31/18 History [Duragesic PATCH 25 Mcg/Hr*] fentaNYL PATCHs 100 MCG/HR* 100 mcg TRANSDERM Q72H 12/31/18 01/01/19 History [Duragesic Patch 100 Mcg/Hr *] Allergies: Allergies Allergy/AdvReac Type Severity Reaction Status Date / Time hydrochlorothiazide AdvReac Unknown Verified 01/04/19 06:06 [From Maxzide] Reaction Details Howdved-Qcs-Moa Reductase AdvReac Unknown Verified 01/04/19 06:06 Inhibitor Reaction Details triamterene [From Maxzide] AdvReac Unknown Verified 01/04/19 06:06 Reaction Details Objective - Vital Signs Vital Signs: Vital Signs 01/06/19 01/06/19 01/06/19 09:00 09:19 10:00 Temperature 100.8 F 100.6 F Pulse Rate 83 88 Respiratory 16 22 15 Rate Blood Pressure 181/91 (mmHg) O2 Sat by Pulse 97 96 Oximetry 01/06/19 01/06/19 01/06/19 10:01 11:00 12:00 Temperature 100.4 F Pulse Rate 89 Respiratory 18 23 24 Rate Blood Pressure 152/88 (mmHg) O2 Sat by Pulse 96 Oximetry 01/06/19 01/06/19 01/06/19 13:00 13:48 17:19 Temperature Pulse Rate Respiratory 22 30 18 Rate Blood Pressure (mmHg) O2 Sat by Pulse Oximetry 01/06/19 01/06/19 01/06/19 17:23 18:00 18:23 Temperature 98.2 F Pulse Rate 84 Respiratory 18 20 20 Rate Blood Pressure 154/67 (mmHg) O2 Sat by Pulse 98 Oximetry 01/06/19 01/06/19 01/06/19 18:55 19:30 20:00 Temperature 98.0 F Pulse Rate 86 Respiratory 20 17 19 Rate Blood Pressure 142/52 (mmHg) O2 Sat by Pulse 99 Oximetry 01/06/19 01/06/19 01/06/19 21:33 23:01 23:21 Temperature 99.0 F Pulse Rate 81 Respiratory 17 20 20 Rate Blood Pressure 114/55 (mmHg) O2 Sat by Pulse 95 Oximetry 01/07/19 01/07/19 01/07/19 01:33 01:36 03:09 Temperature 97.8 F Pulse Rate 78 Respiratory 20 20 20 Rate Blood Pressure 135/59 (mmHg) O2 Sat by Pulse 100 Oximetry 01/07/19 01/07/19 04:07 07:15 Temperature 98.6 F Pulse Rate 83 Respiratory 20 20 Rate Blood Pressure 154/79 (mmHg) O2 Sat by Pulse 99 Oximetry - Intake and Output Intake and Output: Intake & Output 01/04/19 01/05/19 01/06/19 01/07/19 11:59 11:59 11:59 11:59 Intake Total 1740 2956 1993 830 Output Total 3354 6510 4570 3101 Balance -7589 -5494 -2577 -2045 Weight 229 lb 0.964 oz 220 lb 7.396 oz 204 lb 12.951 oz Intake: IV Fluids 1436 1459 439 K Phos 250 799 KCl 193 308 NS 1 352 439 Sodium bicarbonate D5W 992 IVPB 105 332 374 ABX 273 KCl 374 mag 105 59 Medicated IV 199 625 CC - Dexmedetomidine/ 192 Precedex Ceftriaxone 7 564 GEN - Magnesium 61 Oral 0 540 1180 830 Tube Feeding 0 0 Output: NG Tube Drainage Amount 300 0 Urine 220 0 Alvarez 3134 6210 4570 2875 Other: Estimated Void Medium Date of Last Bowel 01/03/19 01/03/19 01/03/19 Movement Estimated Stool Amount Small Small Small Large ADLs: Meal Record Start: 12/31/18 17: 53 Freq: 09,13,18 Status: Inactive Protocol: Created 12/31/18 17:53 System (Rec: 12/31/18 17:53 System ICU-M33) Document 01/01/19 09:00 TBK2237 (Rec: 01/01/19 09:32 [id number] ICU-C15) Document 01/01/19 11:58 DZE1766 (Rec: 01/01/19 11:58 ADT3426 ICU-C15) Document 01/01/19 17:50 HLU2932 (Rec: 01/01/19 17:50 JNB5589 ICU-C15) Document 01/02/19 09:00 SMV4961 (Rec: 01/02/19 09:33 QLA0928 ICU-C12) ADLs: Meal Record Start: 01/02/19 11: 06 Freq: DAILY@0900,1400,1800 Status: Active Protocol: Created 01/02/19 11:06 QJM2137 (Rec: 01/02/19 11:06 UWK2477 ICU-C12) Document 01/02/19 14:00 PME9379 (Rec: 01/02/19 15:01 HBO7916 ICU-C12) Document 01/02/19 16:59 MOB3052 (Rec: 01/02/19 16:59 XGW2462 ICU-C12) Document 01/03/19 09:00 TMB7993 (Rec: 01/03/19 10:24 RQZ2011 ICU-L03) Document 01/03/19 14:00 EFS9224 (Rec: 01/03/19 14:03 HUX0018 IMG-M07) Document 01/03/19 18:00 OON9367 (Rec: 01/03/19 18:02 ENJ8565 ICU-L03) Document 01/04/19 09:00 KRW9910 (Rec: 01/04/19 10:59 CZZ4370 ICU-C15) Document 01/04/19 14:00 CPQ7633 (Rec: 01/04/19 15:43 EIO5053 ICU-C15) Document 01/05/19 09:00 HJJ6728 (Rec: 01/05/19 10:59 SGY1079 ICU-C15) Document 01/05/19 14:00 DAQ3973 (Rec: 01/05/19 14:24 WCE2342 ICU-C15) Document 01/05/19 17:56 GPI5722 (Rec: 01/05/19 17:58 BOJ8384 ICU-C15) Document 01/06/19 09:00 HHW1913 (Rec: 01/06/19 10:31 GTA6158 ICU-L03) Document 01/06/19 14:00 VWK1687 (Rec: 01/06/19 14:04 PCB7134 ICU-C16) Document 01/06/19 18:00 SKO2032 (Rec: 01/06/19 18:51 PNN0438 TELE-C01) ADLs: Meal Record Start: 01/06/19 16: 01 Freq: Status: Active Protocol: Created 01/06/19 16:01 SDF3207 (Rec: 01/06/19 16:01 EIU3510 TELE-C07) Intake and Output Start: 12/31/18 14: 54 Freq: Status: Inactive Protocol: Created 12/31/18 14:54 System (Rec: 12/31/18 14:54 System EDRM-C14) Intake and Output Start: 12/31/18 17: 53 Freq: Q1HR Status: Inactive Protocol: Created 12/31/18 17:53 System (Rec: 12/31/18 17:53 System ICU-M33) Document 12/31/18 17:54 XUG4635 (Rec: 12/31/18 17:54 BQF7722 ICU-M33) Document 12/31/18 19:00 XXK9091 (Rec: 12/31/18 22:09 VSJ2985 ICU-C15) Document 12/31/18 20:00 QTQ3308 (Rec: 12/31/18 22:27 MRT7340 ICU-C15) Document 12/31/18 21:00 ZYU3864 (Rec: 12/31/18 22:28 POB6696 ICU-C15) Document 12/31/18 22:00 AEU8968 (Rec: 12/31/18 22:45 OLX1130 ICU-C15) Document 12/31/18 23:00 QYB9369 (Rec: 01/01/19 00:06 NOJ1125 ICU-L03) Document 01/01/19 00:00 PDN1457 (Rec: 01/01/19 01:01 QQX4080 ICU-L03) Document 01/01/19 01:00 QDX9333 (Rec: 01/01/19 01:01 UTV8883 ICU-L03) Document 01/01/19 02:00 LFS7575 (Rec: 01/01/19 02:18 GMC8946 ICU-L03) Document 01/01/19 02:55 UFT0830 (Rec: 01/01/19 02:55 ZZO1695 ICU-L03) Document 01/01/19 04:00 QNF0581 (Rec: 01/01/19 05:03 SRZ7343 ICU-L03) Document 01/01/19 05:00 QLH5993 (Rec: 01/01/19 05:28 IYT9198 ICU-L03) Document 01/01/19 06:00 CAY2398 (Rec: 01/01/19 07:10 KCK7912 ICU-L03) Document 01/01/19 07:00 EZA4762 (Rec: 01/01/19 07:13 PQZ7379 ICU-L03) Document 01/01/19 08:40 NFY0524 (Rec: 01/01/19 08:40 KNG2727 ICU-M33) Document 01/01/19 09:53 NTB3852 (Rec: 01/01/19 09:54 WZB2204 ICU-M33) Document 01/01/19 11:30 PXD3380 (Rec: 01/01/19 11:30 JKW6185 ICU-C15) Document 01/01/19 12:00 MCV1215 (Rec: 01/01/19 13:06 YOI6620 ICU-C15) Document 01/01/19 13:13 ZAU0339 (Rec: 01/01/19 13:13 LRK4776 ICU-C15) Document 01/01/19 14:19 DTM0191 (Rec: 01/01/19 14:19 GIG9470 ICU-M33) Document 01/01/19 14:59 HAH0898 (Rec: 01/01/19 14:59 QWP9609 ICU-C15) Document 01/01/19 17:14 BHH9088 (Rec: 01/01/19 17:14 TAI9605 ICU-C15) Document 01/01/19 19:00 AGD6317 (Rec: 01/01/19 22:18 BNO1785 ICU-C15) Document 01/01/19 20:00 QCU9058 (Rec: 01/01/19 22:18 JXI0643 ICU-C15) Document 01/01/19 21:00 TIU1636 (Rec: 01/01/19 22:18 YVC8527 ICU-C15) Document 01/01/19 22:00 NSF6831 (Rec: 01/01/19 22:18 BOE7479 ICU-C15) Document 01/01/19 22:43 LLZ0261 (Rec: 01/01/19 22:43 WLD8416 ICU-C10) Document 01/02/19 00:00 CJL2168 (Rec: 01/02/19 01:11 MDS1738 ICU-C10) Document 01/02/19 01:00 QHB9221 (Rec: 01/02/19 01:11 HAE0883 ICU-C10) Document 01/02/19 02:00 UTV8848 (Rec: 01/02/19 02:02 VRW2134 ICU-C10) Document 01/02/19 03:00 FWQ0169 (Rec: 01/02/19 03:08 LFO0612 ICU-C10) Document 01/02/19 04:00 SMN3836 (Rec: 01/02/19 04:23 GKF3019 ICU-C10) Document 01/02/19 05:00 ZGM0621 (Rec: 01/02/19 06:29 EKD2009 ICU-C10) Document 01/02/19 06:00 VHW0836 (Rec: 01/02/19 06:29 HPO5337 ICU-C10) Document 01/02/19 07:00 UZT7325 (Rec: 01/02/19 09:20 XCT2445 ICU-C12) Document 01/02/19 08:00 QJJ0185 (Rec: 01/02/19 09:21 UYU1034 ICU-C12) Document 01/02/19 09:00 DQI2761 (Rec: 01/02/19 09:21 WCD2160 ICU-C12) Document 01/02/19 10:00 AUD7807 (Rec: 01/02/19 10:04 HTI3890 ICU-C12) Intake and Output Start: 01/02/19 11: 06 Freq: DAILY@0600,1400,2200 Status: Active Protocol: Created 01/02/19 11:06 FSR7830 (Rec: 01/02/19 11:06 AOI5558 ICU-C12) Document 01/02/19 12:00 OVD3763 (Rec: 01/02/19 12:16 CKZ1355 ICU-C12) Document 01/02/19 13:00 LPD0810 (Rec: 01/02/19 14:48 TME3963 ICU-C12) Document 01/02/19 14:00 UBV8068 (Rec: 01/02/19 14:48 RFG4295 ICU-C12) Document 01/02/19 14:48 MDC5877 (Rec: 01/02/19 14:48 MSQ1894 ICU-C12) Document 01/02/19 15:56 KRU7115 (Rec: 01/02/19 15:56 PLQ0481 IMG-M07) Document 01/02/19 16:58 NUN6850 (Rec: 01/02/19 16:58 VYI9791 ICU-C12) Document 01/02/19 18:00 BHH3805 (Rec: 01/02/19 18:12 EEZ0338 IMG-M07) Document 01/02/19 19:00 WCH9159 (Rec: 01/02/19 19:46 FIX5612 IMG-M07) Document 01/02/19 19:46 AOA1636 (Rec: 01/02/19 19:47 FMW8133 IMG-M07) Document 01/02/19 21:00 IGA4487 (Rec: 01/02/19 22:05 STQ4987 IMG-M07) Document 01/02/19 22:00 LCE9700 (Rec: 01/02/19 22:05 VSS8623 IMG-M07) Document 01/02/19 22:50 JHS8426 (Rec: 01/02/19 22:50 SPN6547 ICU-C15) Document 01/03/19 00:00 ZEK6555 (Rec: 01/03/19 00:03 BAH5790 IMG-M07) Document 01/03/19 01:00 OSR6265 (Rec: 01/03/19 01:09 SJN7552 ICU-C15) Document 01/03/19 01:51 KHE8008 (Rec: 01/03/19 01:51 BMT2694 ICU-C15) Document 01/03/19 03:00 WQT5180 (Rec: 01/03/19 03:04 QCQ1711 ICU-C15) Document 01/03/19 03:50 FRH7539 (Rec: 01/03/19 03:50 MTM4567 ICU-C15) Document 01/03/19 05:00 RKI8720 (Rec: 01/03/19 05:07 XZZ5778 IMG-M07) Document 01/03/19 06:00 UKT5340 (Rec: 01/03/19 06:08 ZIX0681 ICU-C15) Document 01/03/19 07:00 PZC6765 (Rec: 01/03/19 08:29 KVM8928 IMG-M07) Document 01/03/19 08:00 JGD5966 (Rec: 01/03/19 08:29 RQL6104 IMG-M07) Document 01/03/19 09:00 YNA2811 (Rec: 01/03/19 09:32 YXO6318 IMG-M07) Document 01/03/19 10:00 QGL9650 (Rec: 01/03/19 10:26 XJQ8664 IMG-M07) Document 01/03/19 11:00 PFF4480 (Rec: 01/03/19 11:10 JME4229 IMG-M07) Document 01/03/19 12:00 XPI8501 (Rec: 01/03/19 12:22 TBA1882 IMG-M07) Document 01/03/19 13:00 NHL5715 (Rec: 01/03/19 13:18 TPT8280 IMG-M07) Document 01/03/19 14:00 SAA5502 (Rec: 01/03/19 14:03 CQW5813 IMG-M07) Document 01/03/19 15:00 HCT6467 (Rec: 01/03/19 15:30 FGF0466 IMG-M07) Document 01/03/19 16:00 NZB2637 (Rec: 01/03/19 16:34 IRN5848 IMG-M07) Document 01/03/19 17:00 GTD9413 (Rec: 01/03/19 17:26 PIV2654 IMG-M07) Document 01/03/19 18:00 IVD7242 (Rec: 01/03/19 18:18 CRG1607 IMG-M07) Document 01/03/19 19:00 BJS3817 (Rec: 01/03/19 19:25 YHJ1040 IMG-M07) Document 01/03/19 20:00 KGH8258 (Rec: 01/03/19 21:01 XRH1544 ICU-C12) Document 01/03/19 21:00 FRF0260 (Rec: 01/03/19 21:02 LZJ6986 ICU-C12) Document 01/03/19 22:00 DYA1360 (Rec: 01/03/19 22:13 FHE7691 ICU-C12) Document 01/03/19 22:58 XRT1789 (Rec: 01/03/19 23:00 TZR6618 ICU-C12) Document 01/03/19 23:04 DWC4543 (Rec: 01/03/19 23:12 MLI6789 ICU-C12) Document 01/04/19 00:00 CSK6039 (Rec: 01/04/19 00:07 HOS4617 IMG-M07) Document 01/04/19 01:00 VDN7523 (Rec: 01/04/19 01:26 GLJ8015 ICU-C12) Document 01/04/19 02:00 HFJ3712 (Rec: 01/04/19 02:20 RFJ8077 ICU-C12) Document 01/04/19 03:00 HOC3164 (Rec: 01/04/19 03:09 LUA2962 ICU-C12) Document 01/04/19 04:00 ZOS4682 (Rec: 01/04/19 04:30 PCP9388 ICU-C12) Document 01/04/19 04:39 PUF3131 (Rec: 01/04/19 04:39 PIB6751 ICU-C12) Document 01/04/19 04:58 PNG8164 (Rec: 01/04/19 05:01 KMF3125 ICU-C12) Document 01/04/19 06:20 PKF4210 (Rec: 01/04/19 06:20 MTI8095 IMG-M07) Document 01/04/19 06:37 WVN7792 (Rec: 01/04/19 06:38 XCU7220 ICU-C12) Document 01/04/19 07:00 XCR3197 (Rec: 01/04/19 07:13 YXC7846 IMG-M07) Document 01/04/19 08:00 XRJ9492 (Rec: 01/04/19 08:03 WUE2919 IMG-M07) Document 01/04/19 09:00 YHT0498 (Rec: 01/04/19 09:24 HMC6035 IMG-M07) Document 01/04/19 10:00 HTP4430 (Rec: 01/04/19 10:20 BOU9447 IMG-M07) Document 01/04/19 11:00 UFX8582 (Rec: 01/04/19 11:04 FGX4610 IMG-M07) Document 01/04/19 11:54 DDU6838 (Rec: 01/04/19 11:54 AKO4331 IMG-M07) Document 01/04/19 13:00 GII8767 (Rec: 01/04/19 13:16 JXB0824 IMG-M07) Document 01/04/19 14:00 KJQ9556 (Rec: 01/04/19 14:18 UTQ2220 IMG-M07) Document 01/04/19 15:00 RQX2830 (Rec: 01/04/19 15:51 TAB7540 IMG-M07) Document 01/04/19 16:00 YDS6789 (Rec: 01/04/19 16:30 BHP8528 IMG-M07) Document 01/04/19 17:00 ZWE0783 (Rec: 01/04/19 17:01 HHK4161 IMG-M07) Document 01/04/19 18:00 VEQ8498 (Rec: 01/04/19 19:44 VIV2050 IMG-M07) Document 01/04/19 19:00 ZQB0802 (Rec: 01/04/19 19:44 JUU2855 IMG-M07) Document 01/04/19 20:00 HOC8434 (Rec: 01/04/19 23:01 MPO4526 ICU-C16) Document 01/04/19 21:00 NLV6082 (Rec: 01/04/19 23:01 DNQ9842 ICU-C16) Document 01/04/19 22:00 PBD2598 (Rec: 01/04/19 23:01 GMC6930 ICU-C16) Document 01/04/19 23:00 SQS9793 (Rec: 01/04/19 23:10 YRD8294 ICU-C16) Document 01/05/19 00:00 BDX2121 (Rec: 01/05/19 01:19 BFE7362 ICU-C16) Document 01/05/19 01:00 BBW3837 (Rec: 01/05/19 01:19 NNM3830 ICU-C16) Document 01/05/19 02:00 RKW7353 (Rec: 01/05/19 02:20 XXZ9626 ICU-C16) Document 01/05/19 03:00 VDS0678 (Rec: 01/05/19 03:08 XFQ5869 ICU-C16) Document 01/05/19 04:00 DKQ0799 (Rec: 01/05/19 05:24 WJP4302 ICU-C16) Document 01/05/19 05:00 LJT6948 (Rec: 01/05/19 05:24 OEL7894 ICU-C16) Document 01/05/19 06:00 SMH7679 (Rec: 01/05/19 06:39 OYU5788 ICU-C16) Document 01/05/19 08:00 YHB5953 (Rec: 01/05/19 10:18 JHS6861 ICU-C15) Document 01/05/19 10:00 UZW1540 (Rec: 01/05/19 10:59 JAI3339 ICU-C15) Document 01/05/19 11:00 FMX6670 (Rec: 01/05/19 11:22 AIR5749 ICU-C15) Document 01/05/19 12:00 SPK3882 (Rec: 01/05/19 14:00 BRU6358 ICU-C15) Document 01/05/19 13:00 HEV5651 (Rec: 01/05/19 14:02 EWQ2270 ICU-C15) Document 01/05/19 14:00 NBG9413 (Rec: 01/05/19 14:22 WVV3802 ICU-C15) Document 01/05/19 16:00 AOR6404 (Rec: 01/05/19 16:21 MNK8732 ICU-C15) Document 01/05/19 17:00 GLR0546 (Rec: 01/05/19 17:22 LDM2944 ICU-C15) Document 01/05/19 17:56 [id number] (Rec: 01/05/19 17:58 [id number] ICU-C15) Document 01/05/19 20:00 [id number] (Rec: 01/05/19 20:47 [id number] ICU-C16) Document 01/05/19 20:55 [id number] (Rec: 01/05/19 20:55 [id number] ICU-C16) Document 01/05/19 22:00 [id number] (Rec: 01/05/19 22:08 [id number] ICU-C16) Document 01/05/19 23:00 [id number] (Rec: 01/05/19 23:07 [id number] ICU-C16) Document 01/06/19 00:00 [id number] (Rec: 01/06/19 00:01 [id number] IMG-M07) Document 01/06/19 01:00 [id number] (Rec: 01/06/19 01:10 [id number] ICU-C16) Document 01/06/19 02:00 [id number] (Rec: 01/06/19 02:02 [id number] ICU-C16) Document 01/06/19 03:00 [id number] (Rec: 01/06/19 03:12 [id number] ICU-C16) Document 01/06/19 04:00 [id number] (Rec: 01/06/19 04:59 [id number] ICU-C16) Document 01/06/19 05:00 [id number] (Rec: 01/06/19 05:05 [id number] ICU-C16) Document 01/06/19 05:57 [id number] (Rec: 01/06/19 05:59 [id number] IMG-M07) Document 01/06/19 07:00 [id number] (Rec: 01/06/19 08:37 [id number] ICU-C16) Document 01/06/19 08:00 [id number] (Rec: 01/06/19 08:37 [id number] ICU-C16) Document 01/06/19 09:00 [id number] (Rec: 01/06/19 09:44 [id number] ICU-C16) Document 01/06/19 10:00 [id number] (Rec: 01/06/19 11:39 [id number] ICU-L03) Document 01/06/19 11:00 [id number] (Rec: 01/06/19 11:50 [id number] IMG-M07) Document 01/06/19 11:50 [id number] (Rec: 01/06/19 11:50 [id number] IMG-M07) Document 01/06/19 13:00 MHU6511 (Rec: 01/06/19 13:38 [id number] ICU-C16) Document 01/06/19 13:38 [id number] (Rec: 01/06/19 13:38 [id number] ICU-C16) Document 01/06/19 16:00 UDB1101 (Rec: 01/06/19 16:17 FSF0413 TELE-C01) Document 01/06/19 22:00 [id number] (Rec: 01/06/19 22:17 [id number] TELE-C07) Document 01/07/19 06:00 [id number] (Rec: 01/07/19 06:12 [id number] TELE-C11) - Physical Exam General Physical Exam Comment: He is lying flat in bed without acute distress. General: No Cyanosis, No Anemia, No Jaundice, No Clubbing Lungs and Chest: Yes: Chest Expansion Full, Chest Expansion Symetrica, Percussion Note Resonant, Vessicular Breath Sounds. No: Crackles, Wheezes Heart Rate and Rhythm: Irregular - extra systoles JVP: Not Elevated Additional Cardiovascular: Yes: Normal Heart Sounds. No: Heart Murmur, Pedal Edema Abdominal Exam: Yes: Distention, Soft, Bowel Sounds Present. No: Abdominal Mass , Hepatomegaly, Abdominal Tenderness, Guarding, Rebound Tenderness - Extremities Cranial Nerves II-XII Intact: Yes Limbs: Normal Tone, Normal Coordination, Abnormal Power - Muscular dystrophy pattern weakness - Neuro Orientation: A/O x3 Psychiatric: Normal Speech: Normal Results - Results Lab Results: Laboratory Results - last 24 hr 01/06/19 01/06/19 01/06/19 11:25 11:46 12:30 WBC RBC Hgb Hct MCV MCH MCHC RDW Plt Count MPV Neut % (Auto) Lymph % (Auto) [place] % (Auto) Eos % (Auto) Baso % (Auto) Absolute Neuts (auto) Absolute Lymphs (auto) Absolute Monos (auto) Absolute Eos (auto) Absolute Basos (auto) Absolute Nucleated RBC Nucleated RBC % Sodium Potassium Chloride Carbon Dioxide Anion Gap BUN Creatinine Est GFR ( Amer) Est GFR (Non-Af Amer) BUN/Creatinine Ratio Glucose 483 H POC Glucose (mg/dL) > 444 H* > 444 H* Glucose Meter Confirm Calcium Phosphorus Magnesium 2.5 Total Bilirubin AST ALT Alkaline Phosphatase Total Protein Albumin Globulin Albumin/Globulin Ratio 01/06/19 01/06/19 01/06/19 17:53 18:02 23:45 WBC RBC Hgb Hct MCV MCH MCHC RDW Plt Count MPV Neut % (Auto) Lymph % (Auto) [place] % (Auto) Eos % (Auto) Baso % (Auto) Absolute Neuts (auto) Absolute Lymphs (auto) Absolute Monos (auto) Absolute Eos (auto) Absolute Basos (auto) Absolute Nucleated RBC Nucleated RBC % Sodium Potassium Chloride Carbon Dioxide Anion Gap BUN Creatinine Est GFR ( Amer) Est GFR (Non-Af Amer) BUN/Creatinine Ratio Glucose POC Glucose (mg/dL) > 444 H* > 444 H* Glucose Meter Confirm 460 H Calcium Phosphorus Magnesium Total Bilirubin AST ALT Alkaline Phosphatase Total Protein Albumin Globulin Albumin/Globulin Ratio 01/06/19 01/07/19 01/07/19 23:59 02:53 03:07 WBC RBC Hgb Hct MCV MCH MCHC RDW Plt Count MPV Neut % (Auto) Lymph % (Auto) [place] % (Auto) Eos % (Auto) Baso % (Auto) Absolute Neuts (auto) Absolute Lymphs (auto) Absolute Monos (auto) Absolute Eos (auto) Absolute Basos (auto) Absolute Nucleated RBC Nucleated RBC % Sodium Cancelled Potassium Cancelled Chloride Cancelled Carbon Dioxide Cancelled Anion Gap Cancelled BUN Cancelled Creatinine Cancelled Est GFR ( Amer) Cancelled Est GFR (Non-Af Amer) Cancelled BUN/Creatinine Ratio Cancelled Glucose Cancelled POC Glucose (mg/dL) 426 H* Glucose Meter Confirm 522 H* 397 H Calcium Cancelled Phosphorus Magnesium 2.0 2.0 Total Bilirubin Cancelled AST Cancelled ALT Cancelled Alkaline Phosphatase Cancelled Total Protein Cancelled Albumin Cancelled Globulin Cancelled Albumin/Globulin Ratio Cancelled 01/07/19 01/07/19 01/07/19 05:40 05:40 05:46 WBC 7.8 RBC 3.44 L Hgb 9.6 L Hct 28 L MCV 82 MCH 28 MCHC 34 RDW 17 H Plt Count 136 L MPV 9.6 Neut % (Auto) 80.4 Lymph % (Auto) 9.6 [place] % (Auto) 8.6 Eos % (Auto) 1.1 Baso % (Auto) 0.3 Absolute Neuts (auto) 6.2 Absolute Lymphs (auto) 0.7 L Absolute Monos (auto) 0.7 Absolute Eos (auto) 0.1 Absolute Basos (auto) 0.0 Absolute Nucleated RBC 0.0 Nucleated RBC % 0.2 Sodium 144 Potassium 3.2 L Chloride 109 Carbon Dioxide 25 Anion Gap 10 BUN 17 Creatinine 0.51 L Est GFR ( Amer) 203.4 Est GFR (Non-Af Amer) 168.1 BUN/Creatinine Ratio 33.3 H Glucose 349 H POC Glucose (mg/dL) 369 H Glucose Meter Confirm Calcium 8.2 L Phosphorus 1.1 L Magnesium 2.1 Total Bilirubin 0.80 AST 13 ALT 19 Alkaline Phosphatase 88 Total Protein 5.5 L Albumin 3.1 L Globulin 2.4 Albumin/Globulin Ratio 1.3 Radiology Results: Patient Name: LORENA RAMIREZ Medical Record#: [id number] Ordering Physician: Stew Alas MD Acct.#: [id number] : 1960 Age: 58 Sex: M Location: [facility] Exam Date: 01/06/19 0600 ADM Status: ADM IN Order Information: CHEST AP OR PORT Accession Number: [id number] CPT: 73977 Indication: Pneumonia. Single frontal view of the chest performed at 0600 hours was reviewed. Comparison is made with previous exam dated January 05, 2019. No mediastinal shift is noted. Cardiomegaly is noted. Airspace disease in the left base is noted. Right lung Field appears hyperinflated. IMPRESSION: LEFT LOWER LOBE INFILTRATE. RIGHT LUNG FIELD IS CLEAR. <Electronically signed by Jannie Wallace MD in OV> 01/06/19804 Dictated By: Jannie Wallace MD Dictated Date/Time: 01/06/19801 Transcribed Date/Time: 01/06/19801 Copy to: CC:Narinder Muniz MD; Kitty Orellana MD; Peterson Thomas MD; Stew Alas MD Imaging - 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 He is improving. Diabetes mellitus type 1 (Chronic)Hyperglycemia due to type 1 diabetes mellitus (Acute) I will reinstitute his usual basal bolus regimen. He takes lantus 35 units at home. Carb counting 1/7 insulin to carb, 2/50 correction. 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 I will put in a consult for [facility] as this is the most appropriate rehab program - not ready yet. I will remove his Alvarez, discontinue telemetry and start mobilization.
[2019-01-07] MEDS ORDERED: Dextrose 50% VIAL 50 ml IV PUSH PRN ×2 (08:48→08:49)
[2019-01-07] MEDS ORDERED: oxyCODONE TAB* 5 MG TAB PO PRN (08:55)
[2019-01-07] MEDS: Lactulose* 15 ML UDC PO SCH ×2 (09:41→21:37)
[2019-01-07] MEDS: traMADol TAB* 50 MG PO PRN (09:41)
[2019-01-07] MEDS: Phenazopyridine TAB* 100 MG PO SCH ×2 (09:43→21:36)
[2019-01-07] MEDS: Cefepime 2 GM in Dextrose(*) 2 GM/50 ML BAG IV SCH ×2 (09:43→22:37)
[2019-01-07] MEDS: Triamterene/HCTZ 37.5-25 MG* CAP PO SCH (09:43)
[2019-01-07] MEDS: Potassium Acid Phosphate TAB* 500 MG PO SCH ×2 (09:43→21:36)
[2019-01-07] MEDS: Ramipril CAP* 10 MG PO SCH (09:43)
[2019-01-07] MEDS: Insulin LISPRO* 1 UNITS UNIT SUBCUT SCH ×5 (13:54→21:35)
[2019-01-07] MEDS: Morphine INJ* 2 MG/ML 1 ML SYRINGE (TWO MG - NEW SYRINGE VERSION) IV PRN (13:55)
[2019-01-07 17:04] LABS: Urine Appearance Clear; Urine Bacteria 1+ (Absent); Urine Bilirubin Negative (Negative); Urine Blood 1+ (Negative); Urine Color Amber; Urine Glucose 3+(>=500 mg/dL) (Negative); Urine Ketones 1+ (Negative); Urine Nitrite Positive (Negative); Urine Protein 1+(30 mg/dL) (Negative); Urine Red Blood Cell 1+(3-5/hpf) (Absent); Urine Specific Gravity 1.018 (1.010-1.030); Urine Urobilinogen Positive (Negative); Urine White Blood Cell Trace(0-5/hpf) (Absent)
[2019-01-07] MEDS: Atorvastatin* 20 MG TAB PO SCH (17:41)
[2019-01-07] MEDS ORDERED: Insulin GLARGINE(*) 1 UNITS UNIT SUBCUT SCH (18:00)
[2019-01-07] MEDS: Senna TAB 8.6 mg* TAB PO SCH (21:36)
[2019-01-07] MEDS: Terazosin CAP* 5 MG PO SCH (21:36)
[2019-01-07] MEDS: Docusate LIQ* 100 MG/10 ML UDC PO SCH (21:37)
[2019-01-08] MEDS: Famotidine SUSP ORALSYR 8 MG/ML G TUBE SCH ×2 (05:10→19:07)
[2019-01-08] MEDS: Heparin VIAL(*) 5000 UNITS/ML VIAL (FIVE THOUSAND) SUBCUT SCH ×3 (05:12→21:10)
[2019-01-08 05:31] LABS: ABS Basophils 0.1 10^3/ul (0-0.2); ABS Eosinophils 0.2 10^3/ul (0-0.6); ABS Lymphocytes 0.9 10^3/ul (1.0-4.8); ABS Monocytes 0.5 10^3/ul (0-0.8); ABS Neutrophils 6.3 10^3/ul (1.5-7.7); Eosinophil % 2.2 %; Hematocrit 28 % (42-52); Hemoglobin 9.4 g/dL (14.0-18.0); Lymphocyte % 11.3 %; Mean Corpuscular HGB Conc 34 g/dL (31-36); Mean Corpuscular Hemoglobin 28 pg (27-31); Mean Corpuscular Volume 82 fL (80-94); Mean Platelet Volume 9.8 fL (7.4-10.4); Nucleated Red Blood Cells % 0.2; Platelet Count 140 10^3/uL (150-450); Red Blood Count 3.38 10^6 /uL (4.18-5.48); Red Cell Distribution Width 16 % (10-15)
[2019-01-08 05:47] LABS: ALT 23 U/L (7-52); Albumin 2.8 g/dL (3.2-5.2); Albumin/Globulin Ratio 1.1 (1-3); Alkaline Phosphatase 79 U/L (34-104); BUN/Creatinine Ratio 37.8 (8-20); Blood Urea Nitrogen 17 mg/dL (6-24); C Reactive Protein 49.09 mg/L (<8.01); CO2 Carbon Dioxide 26 mmol/L (22-32); Calcium 7.9 mg/dL (8.6-10.3); Chloride 104 mmol/L (101-111); EGFR Non-African American 194.2 (>60); Globulin 2.5 g/dL (2-4); Glucose 258 mg/dL (70-100); Sodium 137 mmol/L (135-145); Total Protein 5.3 g/dL (6.4-8.9)
[2019-01-08 05:51] LABS: Anion Gap 7 mmol/L (2-11)
[2019-01-08 06:46] LABS: Magnesium 2.1 mg/dL (1.9-2.7); Potassium Redraw 3.7 mmol/L (3.5-5.0)
[2019-01-08] MEDS: Lactulose* 15 ML UDC PO SCH (10:19)
[2019-01-08] MEDS: Cefepime 2 GM in Dextrose(*) 2 GM/50 ML BAG IV SCH ×2 (10:19→21:11)
[2019-01-08] MEDS: Insulin LISPRO* 1 UNITS UNIT SUBCUT SCH ×7 (10:20→21:43)
[2019-01-08] MEDS: Phenazopyridine TAB* 100 MG PO SCH ×2 (10:23→21:08)
[2019-01-08] MEDS: Potassium Acid Phosphate TAB* 500 MG PO SCH ×2 (10:23→21:08)
[2019-01-08] MEDS: Ramipril CAP* 10 MG PO SCH (10:24)
[2019-01-08] MEDS: Triamterene/HCTZ 37.5-25 MG* CAP PO SCH (10:24)
--- NOTE | 2019-01-08 11:01 | PN ---
Subjective - Subjective Reason for Note: Progress Note History: He is feeling much better. He has a productive cough, but is not dyspneic. He has night sweats. His appetite is improving and he is having normal bowel movements. He had urinary retention when we removed his Alvarez - we placed another - he sees Dr. Olea as an outpatient. I spoke with his RN - prior to my arriving he had some conversation that sounded like he had an abnormal mental state. However, he was oriented and appropriate when I spoke with him. 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 Constipation (Chronic) K59.00 DM type 1 with diabetic peripheral neuropathy (Chronic) E10.42 Depression (Chronic) F32.9 Essential hypertension (Chronic) I10 Essential hypertension (Chronic) I10 GERD (gastroesophageal reflux disease) (Chronic) K21.9 Hypercholesterolemia (Chronic) E78.0 Hypercholesterolemia (Chronic) E78.00 Muscular dystrophy (Chronic) G71.0 error 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, E10.65 Vitiligo (Chronic) L80 Current Medications: Current Medications Acetaminophen (Tylenol Adult Liq*) 650 mg PO Q8H PRN PRN Reason: MILD PAIN or TEMP > 100.4 Last Admin: 01/06/19 02:56 Dose: 650 mg Acetaminophen (Tylenol Supp*) 650 mg CA Q6H PRN PRN Reason: .FEVER Last Admin: 01/05/19 21:04 Dose: 650 mg Albuterol/Ipratropium (Duoneb (Albuterol 2.5 Mg/Ipratropium 0.5 Mg)) 1 neb INH Q2H PRN PRN Reason: SOB/WHEEZING Last Admin: 01/05/19 19:52 Dose: 1 neb Alprazolam (Xanax Tab*) 0.5 mg PO BID PRN PRN Reason: ANXIETY Last Admin: 01/07/19 01:36 Dose: 0.5 mg Atorvastatin Calcium (Lipitor*) 20 mg PO 1700 JANA Last Admin: 01/07/19 17:41 Dose: 20 mg Dextrose (Dextrose 50% Vial 50 Ml*) 25 ml IV PUSH .FOR FS < 60 - SS PRN PRN Reason: FS < 60 Docusate Sodium (Colace Cap*) 100 mg PO BID PRN PRN Reason: CONSTIPATION Last Admin: 01/04/19 19:54 Dose: 100 mg Docusate Sodium (Colace Liq*) 50 mg PO BEDTIME JANA Last Admin: 01/07/19 21:37 Dose: 50 mg Famotidine (Pepcid Susp 8mg/Ml) 20 mg G TUBE Q12H JANA Last Admin: 01/08/19 05:10 Dose: 20 mg Heparin Sodium (Porcine) (Heparin Vial(*)) 5,000 units SUBCUT Q8HR JANA Last Admin: 01/08/19 05:12 Dose: 5,000 units Heparin Sodium (Porcine) (Heparin Flush Picc/Ml/Cvc(*)) 1 - 3 ml FLUSH 0600, 1800 JANA; Protocol Last Admin: 01/08/19 05:11 Dose: 1 ml Cefepime HCl (Maxipime 2 Gm In Dextrose Duplex (*)) 2 gm in 50 mls @ 100 mls/ hr IV Q12H JANA Last Admin: 01/08/19 10:19 Dose: 100 mls/hr Insulin Glargine (Lantus(*)) 45 units SUBCUT 1800 JANA Insulin Human Lispro (Humalog*) 0 units SUBCUT ACHS JANA; Protocol Last Admin: 01/08/19 10:20 Dose: 9 units Insulin Human Lispro (Humalog*) 0 units SUBCUT AC JANA; Protocol Lactulose (Lactulose*) 15 ml PO BID JANA Last Admin: 01/08/19 10:19 Dose: 15 ml Morphine Sulfate (Morphine Inj (Syringe))*) 1 mg IV Q3H PRN PRN Reason: PAIN - MODERATE Last Admin: 01/07/19 13:55 Dose: 1 mg Ondansetron HCl (Zofran Inj*) 4 mg IV Q6H PRN PRN Reason: NAUSEA Last Admin: 01/05/19 05:16 Dose: 4 mg Oxycodone HCl (Roxycodone Tab*) 5 mg PO Q6H PRN PRN Reason: PAIN - SEVERE Phenazopyridine HCl (Pyridium Tab*) 200 mg PO BID [facility] Last Admin: 01/08/19 10:23 Dose: 200 mg Polyethylene Glycol/Electrolytes (Miralax*) 17 gm PO DAILY PRN PRN Reason: CONSTIPATION Last Admin: 01/04/19 16:38 Dose: 17 gm Potassium Phosphate (K Phos Original Tab*) 500 mg PO BID [facility] Last Admin: 01/08/19 10:23 Dose: 500 mg Ramipril (Altace Cap*) 10 mg PO DAILY [facility] Last Admin: 01/08/19 10:24 Dose: 10 mg Senna (Senokot 8.6 Mg Tab*) 1 tab PO BEDTIME [facility] Last Admin: 01/07/19 21:36 Dose: 1 tab Terazosin HCl (Hytrin Cap*) 5 mg PO BEDTIME [facility] Last Admin: 01/07/19 21:36 Dose: 5 mg Tramadol HCl (Ultram*) 50 mg PO Q6H PRN PRN Reason: PAIN - MODERATE Last Admin: 01/07/19 09:41 Dose: 50 mg Triamterene/HCTZ (Dyazide Cap*) 1 cap PO DAILY [facility] Last Admin: 01/08/19 10:24 Dose: 1 cap Home Medications: Home Medications Medication Instructions Recorded Confirmed Type Docusate CAP* [Colace Cap*] 100 mg PO QPM 12/09/11 12/31/18 History Labetalol TAB* [Trandate TAB*] 200 mg PO BID 12/09/11 12/31/18 History traZODone TAB* [Desyrel*] 50 mg PO BEDTIME 12/09/11 12/31/18 History Prochlorperazine TAB* [Compazine 10 mg PO QID PRN 10/20/12 12/31/18 History Tab*] Ramipril CAP* [Altace CAP*] 20 mg PO QAM 05/26/13 12/31/18 History Terazosin CAP* [Hytrin CAP*] 5 mg PO BEDTIME 05/26/13 12/31/18 History Triamterene/HCTZ 37.5-25 MG* 1 cap PO QAM 05/26/13 12/31/18 History [Dyazide CAP*] metFORMIN* [Glucophage*] 500 mg PO BID 05/26/13 12/31/18 History Atorvastatin* [Lipitor*] 20 mg PO BEDTIME 06/14/14 12/31/18 History ALPRAZolam TAB* [Xanax TAB*] 0.5 mg PO QID PRN MDD 4 tabs 02/09/15 12/31/18 History Docusate CAP* [Colace Cap*] 200 mg PO QAM 02/09/15 12/31/18 History Escitalopram * [Lexapro (NF)] 20 mg PO DAILY 02/09/15 12/31/18 History Gabapentin CAP(*) [Neurontin 600 mg PO QID 02/09/15 12/31/18 History CAP(*)] Oxycodone HCl [Oxycontin] 6 - 8 tab PO DAILY PRN 02/09/15 12/31/18 History Insulin Aspart [Novolog] 1 unit SC .BEFORE MEALS 10/17/15 12/31/18 History Insulin Glargine,Hum.rec.anlog 30 units SUBCUT BEDTIME 04/15/17 12/31/18 History [Basaglar Kwikpen] Methocarbamol 750 mg PO Q6H PRN 04/15/17 12/31/18 History Mirabegron (NF) [Myrbetriq (NF)] 50 mg PO DAILY 04/15/17 12/31/18 History Bisacodyl SUPP* [Dulcolax Supp*] 10 mg CA DAILY 12/31/18 12/31/18 History Diclofenac 1% GEL (NF) [Voltaren 2 gm TOPICAL QID 12/31/18 12/31/18 History 1% GEL (NF)] Gentamicin 0.3% OPHTH.SOLN* 1 drop BOTH EYES Q4H 12/31/18 12/31/18 History Glucagon,Human Recombinant 1 mg IM ONCE 12/31/18 12/31/18 History [Glucagon Emergency Kit] Omeprazole (Nf) [Prilosec (NF)] 40 mg PO QPM 12/31/18 12/31/18 History Ondansetron TAB* [Zofran 4 MG Tab*] 8 mg PO Q6H PRN 12/31/18 12/31/18 History Oxybutynin TAB* [Ditropan TAB*] 5 mg PO DAILY 12/31/18 12/31/18 History Polyethylene Glycol 3350* 17 gm PO DAILY 12/31/18 12/31/18 History [Miralax*] Polymyx/Trimethoprim OPTH* 1 drop BOTH EYES Q6H 12/31/18 12/31/18 History [Polytrim OPHTH*] Sennosides 17.2 mg PO DAILY 12/31/18 12/31/18 History fentaNYL PATCH 25 MCG/HR* 25 mcg TRANSDERM Q48H 12/31/18 12/31/18 History [Duragesic PATCH 25 Mcg/Hr*] fentaNYL PATCHs 100 MCG/HR* 100 mcg TRANSDERM Q72H 12/31/18 01/01/19 History [Duragesic Patch 100 Mcg/Hr *] Allergies: Allergies Allergy/AdvReac Type Severity Reaction Status Date / Time hydrochlorothiazide AdvReac Unknown Verified 01/04/19 06:06 [From Maxzide] Reaction Details Ykfmmbv-Tcy-Hjb Reductase AdvReac Unknown Verified 01/04/19 06:06 Inhibitor Reaction Details triamterene [From Maxzide] AdvReac Unknown Verified 01/04/19 06:06 Reaction Details Objective - Vital Signs Vital Signs: Vital Signs 01/07/19 01/07/19 01/07/19 11:15 13:55 15:15 Temperature 99.2 F 97.7 F Pulse Rate 76 92 Respiratory 20 18 20 Rate Blood Pressure 129/66 167/101 (mmHg) O2 Sat by Pulse 99 99 Oximetry 01/07/19 01/07/19 01/07/19 15:48 19:35 19:41 Temperature 97.5 F Pulse Rate 91 Respiratory 18 20 20 Rate Blood Pressure 160/82 (mmHg) O2 Sat by Pulse 97 Oximetry 01/07/19 01/08/19 01/08/19 23:15 03:06 07:32 Temperature 97.7 F 98.1 F 98.4 F Pulse Rate 102 91 91 Respiratory 20 21 16 Rate Blood Pressure 105/60 132/68 163/66 (mmHg) O2 Sat by Pulse 97 97 98 Oximetry - Intake and Output Intake and Output: Intake & Output 01/05/19 01/06/19 01/07/19 01/08/19 11:59 11:59 11:59 11:59 Intake Total 2956 6506 627 4749 Output Total 7018 6341 9893 1634 [facility] -3554 -2577 -2045 -250 Weight 220 lb 7.396 oz 204 lb 12.951 oz Intake: IV Fluids 1459 439 K Phos 799 KCl 308 NS 352 439 IVPB 332 374 ABX 273 KCl 374 mag 59 Medicated IV 625 Ceftriaxone 564 GEN - Magnesium 61 Oral 540 1740 778 2893 Tube Feeding 0 0 Output: NG Tube Drainage Amount 300 0 Urine 0 Alvarez 6210 4570 2875 625 Residual 825 Lavarez 16 Fr Temperature 825 Probe Other: Estimated Void Medium Small Date of Last Bowel 01/03/19 01/03/19 12/29/18 Movement # Bowel Movements 1 Estimated Stool Amount Small Small Large Small ADLs: Meal Record Start: 12/31/18 17: 53 Freq: 09,13,18 Status: Inactive Protocol: Created 12/31/18 17:53 System (Rec: 12/31/18 17:53 System ICU-M33) Document 01/01/19 09:00 YZI2362 (Rec: 01/01/19 09:32 PRW3733 ICU-C15) Document 01/01/19 11:58 DDX0902 (Rec: 01/01/19 11:58 ZUY9414 ICU-C15) Document 01/01/19 17:50 DAW1768 (Rec: 01/01/19 17:50 IVM4993 ICU-C15) Document 01/02/19 09:00 KHM1295 (Rec: 01/02/19 09:33 TAP8163 ICU-C12) ADLs: Meal Record Start: 01/02/19 11: 06 Freq: DAILY@0900,1400,1800 Status: Active Protocol: Created 01/02/19 11:06 [id number] (Rec: 01/02/19 11:06 SQN5071 ICU-C12) Document 01/02/19 14:00 ULH9996 (Rec: 01/02/19 15:01 XUZ4031 ICU-C12) Document 01/02/19 16:59 DDY3508 (Rec: 01/02/19 16:59 LBX8340 ICU-C12) Document 01/03/19 09:00 RCE3316 (Rec: 01/03/19 10:24 SWW9343 ICU-L03) Document 01/03/19 14:00 ZYL2915 (Rec: 01/03/19 14:03 XCI4640 IMG-M07) Document 01/03/19 18:00 GRK6337 (Rec: 01/03/19 18:02 FWG1727 ICU-L03) Document 01/04/19 09:00 WAW7840 (Rec: 01/04/19 10:59 LAB3509 ICU-C15) Document 01/04/19 14:00 HSA6111 (Rec: 01/04/19 15:43 NKR4150 ICU-C15) Document 01/05/19 09:00 YPB7009 (Rec: 01/05/19 10:59 HKM9624 ICU-C15) Document 01/05/19 14:00 QQS3500 (Rec: 01/05/19 14:24 XDJ9303 ICU-C15) Document 01/05/19 17:56 CME9373 (Rec: 01/05/19 17:58 ZOV7749 ICU-C15) Document 01/06/19 09:00 OQH1060 (Rec: 01/06/19 10:31 QLF2023 ICU-L03) Document 01/06/19 14:00 FAI8249 (Rec: 01/06/19 14:04 FKY9019 ICU-C16) Document 01/06/19 18:00 NGX5532 (Rec: 01/06/19 18:51 DEQ3930 TELE-C01) Document 01/07/19 09:00 LJU9225 (Rec: 01/07/19 13:28 ITJ8933 TELE-C10) Document 01/07/19 14:00 SAV6468 (Rec: 01/07/19 14:09 BBZ3324 TELE-C10) Document 01/07/19 18:00 QMX5548 (Rec: 01/07/19 18:53 ZLQ6871 TELE-C10) ADLs: Meal Record Start: 01/06/19 16: 01 Freq: Status: Active Protocol: Created 01/06/19 16:01 VVZ2916 (Rec: 01/06/19 16:01 QWD8002 TELE-C07) Intake and Output Start: 12/31/18 14: 54 Freq: Status: Inactive Protocol: Created 12/31/18 14:54 System (Rec: 12/31/18 14:54 System EDRM-C14) Intake and Output Start: 12/31/18 17: 53 Freq: Q1HR Status: Inactive Protocol: Created 12/31/18 17:53 System (Rec: 12/31/18 17:53 System ICU-M33) Document 12/31/18 17:54 IFT0363 (Rec: 12/31/18 17:54 AQS5096 ICU-M33) Document 12/31/18 19:00 OHR3816 (Rec: 12/31/18 22:09 SAN0695 ICU-C15) Document 12/31/18 20:00 SSP8132 (Rec: 12/31/18 22:27 JEV3230 ICU-C15) Document 12/31/18 21:00 JSA6722 (Rec: 12/31/18 22:28 DKI4783 ICU-C15) Document 12/31/18 22:00 MAS0246 (Rec: 12/31/18 22:45 OAF5419 ICU-C15) Document 12/31/18 23:00 EAY5231 (Rec: 01/01/19 00:06 JBW5300 ICU-L03) Document 01/01/19 00:00 VWO8812 (Rec: 01/01/19 01:01 KKT5845 ICU-L03) Document 01/01/19 01:00 JNP1407 (Rec: 01/01/19 01:01 OFU8553 ICU-L03) Document 01/01/19 02:00 WVU3290 (Rec: 01/01/19 02:18 XRT8045 ICU-L03) Document 01/01/19 02:55 CAD6630 (Rec: 01/01/19 02:55 IBB0493 ICU-L03) Document 01/01/19 04:00 DFE6569 (Rec: 01/01/19 05:03 QQL6872 ICU-L03) Document 01/01/19 05:00 DAE2599 (Rec: 01/01/19 05:28 QSZ4053 ICU-L03) Document 01/01/19 06:00 HYY5845 (Rec: 01/01/19 07:10 OTW3312 ICU-L03) Document 01/01/19 07:00 YBX4355 (Rec: 01/01/19 07:13 NYX4952 ICU-L03) Document 01/01/19 08:40 RZC6766 (Rec: 01/01/19 08:40 ITC7412 ICU-M33) Document 01/01/19 09:53 LZO7669 (Rec: 01/01/19 09:54 ORB8213 ICU-M33) Document 01/01/19 11:30 PQR0785 (Rec: 01/01/19 11:30 BXL7970 ICU-C15) Document 01/01/19 12:00 CCY8214 (Rec: 01/01/19 13:06 KAR2873 ICU-C15) Document 01/01/19 13:13 IBC0432 (Rec: 01/01/19 13:13 PZS6539 ICU-C15) Document 01/01/19 14:19 AGO8913 (Rec: 01/01/19 14:19 VIR0184 ICU-M33) Document 01/01/19 14:59 SXV0617 (Rec: 01/01/19 14:59 HEW8303 ICU-C15) Document 01/01/19 17:14 VZL5784 (Rec: 01/01/19 17:14 NKB6084 ICU-C15) Document 01/01/19 19:00 CJG9300 (Rec: 01/01/19 22:18 NDD0689 ICU-C15) Document 01/01/19 20:00 JYR9178 (Rec: 01/01/19 22:18 RYD7589 ICU-C15) Document 01/01/19 21:00 HJM9521 (Rec: 01/01/19 22:18 TSG3221 ICU-C15) Document 01/01/19 22:00 LRZ7755 (Rec: 01/01/19 22:18 VME1063 ICU-C15) Document 01/01/19 22:43 NFE8502 (Rec: 01/01/19 22:43 MDW2025 ICU-C10) Document 01/02/19 00:00 RUN6748 (Rec: 01/02/19 01:11 CZC9361 ICU-C10) Document 01/02/19 01:00 UPI4104 (Rec: 01/02/19 01:11 NJT4282 ICU-C10) Document 01/02/19 02:00 RKR2042 (Rec: 01/02/19 02:02 MGS0026 ICU-C10) Document 01/02/19 03:00 PYG6411 (Rec: 01/02/19 03:08 INU5401 ICU-C10) Document 01/02/19 04:00 ZQR7980 (Rec: 01/02/19 04:23 PRK4302 ICU-C10) Document 01/02/19 05:00 SAZ3617 (Rec: 01/02/19 06:29 TEF7885 ICU-C10) Document 01/02/19 06:00 ETX6870 (Rec: 01/02/19 06:29 VXT7978 ICU-C10) Document 01/02/19 07:00 KMR8436 (Rec: 01/02/19 09:20 DNP4912 ICU-C12) Document 01/02/19 08:00 ZQO9369 (Rec: 01/02/19 09:21 EDH0857 ICU-C12) Document 01/02/19 09:00 XUZ1294 (Rec: 01/02/19 09:21 QGF2313 ICU-C12) Document 01/02/19 10:00 KVN0083 (Rec: 01/02/19 10:04 KTR8357 ICU-C12) Intake and Output Start: 01/02/19 11: 06 Freq: DAILY@0600,1400,2200 Status: Active Protocol: Created 01/02/19 11:06 AZV3099 (Rec: 01/02/19 11:06 XGS7592 ICU-C12) Document 01/02/19 12:00 FKA9273 (Rec: 01/02/19 12:16 WSQ1206 ICU-C12) Document 01/02/19 13:00 WRG3544 (Rec: 01/02/19 14:48 DLT7193 ICU-C12) Document 01/02/19 14:00 FDH6731 (Rec: 01/02/19 14:48 JKK0987 ICU-C12) Document 01/02/19 14:48 WMQ6615 (Rec: 01/02/19 14:48 ZPR9338 ICU-C12) Document 01/02/19 15:56 GYZ9886 (Rec: 01/02/19 15:56 KOS5383 IMG-M07) Document 01/02/19 16:58 WCC4699 (Rec: 01/02/19 16:58 NZE3309 ICU-C12) Document 01/02/19 18:00 MPP6849 (Rec: 01/02/19 18:12 VGY6348 IMG-M07) Document 01/02/19 19:00 DUL4108 (Rec: 01/02/19 19:46 UWW6054 IMG-M07) Document 01/02/19 19:46 NDN6872 (Rec: 01/02/19 19:47 XAH0159 IMG-M07) Document 01/02/19 21:00 BOM3552 (Rec: 01/02/19 22:05 PRZ8612 IMG-M07) Document 01/02/19 22:00 WTA9874 (Rec: 01/02/19 22:05 CQB8198 IMG-M07) Document 01/02/19 22:50 BES1233 (Rec: 01/02/19 22:50 HWP4645 ICU-C15) Document 01/03/19 00:00 RXF6286 (Rec: 01/03/19 00:03 MAZ9448 IMG-M07) Document 01/03/19 01:00 TTE3150 (Rec: 01/03/19 01:09 XRN3903 ICU-C15) Document 01/03/19 01:51 JPV3836 (Rec: 01/03/19 01:51 XXO7236 ICU-C15) Document 01/03/19 03:00 SOM9182 (Rec: 01/03/19 03:04 IMC0718 ICU-C15) Document 01/03/19 03:50 UOV1941 (Rec: 01/03/19 03:50 ABM5024 ICU-C15) Document 01/03/19 05:00 KHM4509 (Rec: 01/03/19 05:07 ZUZ1037 IMG-M07) Document 01/03/19 06:00 XUM2157 (Rec: 01/03/19 06:08 NQD3288 ICU-C15) Document 01/03/19 07:00 SAG7461 (Rec: 01/03/19 08:29 QXV1454 IMG-M07) Document 01/03/19 08:00 REO8108 (Rec: 01/03/19 08:29 MVC1044 IMG-M07) Document 01/03/19 09:00 SBD2174 (Rec: 01/03/19 09:32 ZRW0632 IMG-M07) Document 01/03/19 10:00 UDJ3066 (Rec: 01/03/19 10:26 WJO3444 IMG-M07) Document 01/03/19 11:00 BGB9918 (Rec: 01/03/19 11:10 DXI7027 IMG-M07) Document 01/03/19 12:00 MCQ5231 (Rec: 01/03/19 12:22 UYE2413 IMG-M07) Document 01/03/19 13:00 ZER4238 (Rec: 01/03/19 13:18 PFZ0343 IMG-M07) Document 01/03/19 14:00 POE1304 (Rec: 01/03/19 14:03 EMX5132 IMG-M07) Document 01/03/19 15:00 AJX1787 (Rec: 01/03/19 15:30 HRD3039 IMG-M07) Document 01/03/19 16:00 XJL6854 (Rec: 01/03/19 16:34 OKK8081 IMG-M07) Document 01/03/19 17:00 YFJ1862 (Rec: 01/03/19 17:26 HCQ9458 IMG-M07) Document 01/03/19 18:00 WAH4765 (Rec: 01/03/19 18:18 ZDG9918 IMG-M07) Document 01/03/19 19:00 BCC7070 (Rec: 01/03/19 19:25 RZW0612 IMG-M07) Document 01/03/19 20:00 JHP9738 (Rec: 01/03/19 21:01 AUO0883 ICU-C12) Document 01/03/19 21:00 CAA4991 (Rec: 01/03/19 21:02 YDN2342 ICU-C12) Document 01/03/19 22:00 XUY3871 (Rec: 01/03/19 22:13 TDC3185 ICU-C12) Document 01/03/19 22:58 HJO4430 (Rec: 01/03/19 23:00 LWB9964 ICU-C12) Document 01/03/19 23:04 KWB3274 (Rec: 01/03/19 23:12 JTL4727 ICU-C12) Document 01/04/19 00:00 QQA5196 (Rec: 01/04/19 00:07 IIW5274 IMG-M07) Document 01/04/19 01:00 CWB7468 (Rec: 01/04/19 01:26 EAJ0886 ICU-C12) Document 01/04/19 02:00 ZOQ8537 (Rec: 01/04/19 02:20 GFV9861 ICU-C12) Document 01/04/19 03:00 MDO5569 (Rec: 01/04/19 03:09 LSI6197 ICU-C12) Document 01/04/19 04:00 HOE7175 (Rec: 01/04/19 04:30 MFO2197 ICU-C12) Document 01/04/19 04:39 GBM7807 (Rec: 01/04/19 04:39 XIP8867 ICU-C12) Document 01/04/19 04:58 QSO6909 (Rec: 01/04/19 05:01 VQT5736 ICU-C12) Document 01/04/19 06:20 NOB6369 (Rec: 01/04/19 06:20 UFG8324 IMG-M07) Document 01/04/19 06:37 CDA2065 (Rec: 01/04/19 06:38 JTR7473 ICU-C12) Document 01/04/19 07:00 AMM7761 (Rec: 01/04/19 07:13 BZC7276 IMG-M07) Document 01/04/19 08:00 ULM7029 (Rec: 01/04/19 08:03 BSH3921 IMG-M07) Document 01/04/19 09:00 QFF2879 (Rec: 01/04/19 09:24 RTY9021 IMG-M07) Document 01/04/19 10:00 UGL7895 (Rec: 01/04/19 10:20 VGP6278 IMG-M07) Document 01/04/19 11:00 AZU6294 (Rec: 01/04/19 11:04 EJF6475 IMG-M07) Document 01/04/19 11:54 DCB5358 (Rec: 01/04/19 11:54 WIB4075 IMG-M07) Document 01/04/19 13:00 BCT0386 (Rec: 01/04/19 13:16 ALW1632 IMG-M07) Document 01/04/19 14:00 GVD0367 (Rec: 01/04/19 14:18 XRE4066 IMG-M07) Document 01/04/19 15:00 RPT8418 (Rec: 01/04/19 15:51 JMT7707 IMG-M07) Document 01/04/19 16:00 FDA4932 (Rec: 01/04/19 16:30 GST9677 IM-M07) Document 01/04/19 17:00 ZMN8640 (Rec: 01/04/19 17:01 HSC0270 IM-M07) Document 01/04/19 18:00 WLD6268 (Rec: 01/04/19 19:44 RIN4811 IM-M07) Document 01/04/19 19:00 MKS4126 (Rec: 01/04/19 19:44 KIE8471 IM-M07) Document 01/04/19 20:00 USH1492 (Rec: 01/04/19 23:01 TLX4265 ICU-C16) Document 01/04/19 21:00 BRC7484 (Rec: 01/04/19 23:01 JKN7963 ICU-C16) Document 01/04/19 22:00 DOD1609 (Rec: 01/04/19 23:01 VOI8650 ICU-C16) Document 01/04/19 23:00 WPC5845 (Rec: 01/04/19 23:10 TVJ8524 ICU-C16) Document 01/05/19 00:00 BOH0522 (Rec: 01/05/19 01:19 WJC9349 ICU-C16) Document 01/05/19 01:00 NMO9831 (Rec: 01/05/19 01:19 XLD8681 ICU-C16) Document 01/05/19 02:00 KYT1294 (Rec: 01/05/19 02:20 TET4413 ICU-C16) Document 01/05/19 03:00 EMN0076 (Rec: 01/05/19 03:08 PDR0169 ICU-C16) Document 01/05/19 04:00 HZV3450 (Rec: 01/05/19 05:24 YJT1930 ICU-C16) Document 01/05/19 05:00 UPN4914 (Rec: 01/05/19 05:24 DVU6281 ICU-C16) Document 01/05/19 06:00 XQT8145 (Rec: 01/05/19 06:39 PWA2800 ICU-C16) Document 01/05/19 08:00 XQW4686 (Rec: 01/05/19 10:18 YDZ3179 ICU-C15) Document 01/05/19 10:00 NBW1854 (Rec: 01/05/19 10:59 MTI0992 ICU-C15) Document 01/05/19 11:00 PHD8521 (Rec: 01/05/19 11:22 HXP2225 ICU-C15) Document 01/05/19 12:00 UBK0724 (Rec: 01/05/19 14:00 MAC3508 ICU-C15) Document 01/05/19 13:00 COM9891 (Rec: 01/05/19 14:02 UHC1557 ICU-C15) Document 01/05/19 14:00 DFS5414 (Rec: 01/05/19 14:22 XPM6431 ICU-C15) Document 01/05/19 16:00 XDG7956 (Rec: 01/05/19 16:21 EGI3919 ICU-C15) Document 01/05/19 17:00 GHM7566 (Rec: 01/05/19 17:22 LBE5643 ICU-C15) Document 01/05/19 17:56 SZT0374 (Rec: 01/05/19 17:58 XRM1699 ICU-C15) Document 01/05/19 20:00 CRS5291 (Rec: 01/05/19 20:47 AVV4920 ICU-C16) Document 01/05/19 20:55 [id number] (Rec: 01/05/19 20:55 [id number] ICU-C16) Document 01/05/19 22:00 [id number] (Rec: 01/05/19 22:08 [id number] ICU-C16) Document 01/05/19 23:00 [id number] (Rec: 01/05/19 23:07 [id number] ICU-C16) Document 01/06/19 00:00 UVN1396 (Rec: 01/06/19 00:01 [id number] IMG-M07) Document 01/06/19 01:00 [id number] (Rec: 01/06/19 01:10 [id number] ICU-C16) Document 01/06/19 02:00 [id number] (Rec: 01/06/19 02:02 [id number] ICU-C16) Document 01/06/19 03:00 [id number] (Rec: 01/06/19 03:12 [id number] ICU-C16) Document 01/06/19 04:00 [id number] (Rec: 01/06/19 04:59 [id number] ICU-C16) Document 01/06/19 05:00 [id number] (Rec: 01/06/19 05:05 [id number] ICU-C16) Document 01/06/19 05:57 [id number] (Rec: 01/06/19 05:59 [id number] IMG-M07) Document 01/06/19 07:00 LHI0787 (Rec: 01/06/19 08:37 [id number] ICU-C16) Document 01/06/19 08:00 WAT2006 (Rec: 01/06/19 08:37 [id number] ICU-C16) Document 01/06/19 09:00 OLD8422 (Rec: 01/06/19 09:44 [id number] ICU-C16) Document 01/06/19 10:00 [id number] (Rec: 01/06/19 11:39 [id number] ICU-L03) Document 01/06/19 11:00 [id number] (Rec: 01/06/19 11:50 [id number] IMG-M07) Document 01/06/19 11:50 [id number] (Rec: 01/06/19 11:50 IRH3144 IMG-M07) Document 01/06/19 13:00 [id number] (Rec: 01/06/19 13:38 [id number] ICU-C16) Document 01/06/19 13:38 [id number] (Rec: 01/06/19 13:38 [id number] ICU-C16) Document 01/06/19 16:00 WVW3633 (Rec: 01/06/19 16:17 FIE8410 TELE-C01) Document 01/06/19 22:00 [id number] (Rec: 01/06/19 22:17 KNM0311 TELE-C07) Document 01/07/19 06:00 BSV1091 (Rec: 01/07/19 06:12 HTV4260 TELE-C11) Document 01/07/19 14:00 GGM9199 (Rec: 01/07/19 17:56 SFK9093 TELE-C06) Document 01/07/19 21:17 [id number] (Rec: 01/07/19 21:18 MMC8929 TELE-C10) Document 01/07/19 22:03 [id number] (Rec: 01/07/19 22:03 TFY3557 TELE-C10) Document 01/08/19 06:00 [id number] (Rec: 01/08/19 06:29 [id number] TELE-C10) - Physical Exam General: No Cyanosis, No Anemia, No Jaundice, No Clubbing Skin: Abnormal: Other - no evidence of any decubitus ulcers or redness on buttocks or heels. Lungs and Chest: Yes: Chest Expansion Full, Chest Expansion Symetrica, Percussion Note Resonant, Vessicular Breath Sounds. No: Crackles, Wheezes Heart Rate and Rhythm: Regular [place] Beat: Non Displaced Additional Cardiovascular: Yes: Normal Heart Sounds. No: Heart Murmur, Pedal Edema Abdominal Exam: Yes: Soft, Bowel Sounds Present. No: Distention, Abdominal Tenderness - Neuro Orientation: A/O x3 Psychiatric: Normal Speech: Normal Results - Results Lab Results: Laboratory Results - last 24 hr 01/07/19 01/07/19 01/07/19 11:32 16:18 16:34 WBC RBC Hgb Hct MCV MCH MCHC RDW Plt Count MPV Neut % (Auto) Lymph % (Auto) [place] % (Auto) Eos % (Auto) Baso % (Auto) Absolute Neuts (auto) Absolute Lymphs (auto) Absolute Monos (auto) Absolute Eos (auto) Absolute Basos (auto) Absolute Nucleated RBC Nucleated RBC % Sodium Potassium Chloride Carbon Dioxide Anion Gap BUN Creatinine Est GFR ( Amer) Est GFR (Non-Af Amer) BUN/Creatinine Ratio Glucose POC Glucose (mg/dL) 321 H 303 H Calcium Magnesium Total Bilirubin Direct Bilirubin Indirect Bilirubin AST ALT Alkaline Phosphatase C-Reactive Protein Total Protein Albumin Globulin Albumin/Globulin Ratio Urine Color [place] Urine Appearance Clear Urine pH 7.0 Ur Specific [place] 1.018 Urine Protein 1+(30 mg/dl) A Urine Ketones 1+ A Urine Blood 1+ A Urine Nitrate Positive A Urine Bilirubin Negative Urine Urobilinogen Positive A Ur Leukocyte Esterase Negative Urine WBC (Auto) Trace(0-5/hpf) Urine RBC (Auto) 1+(3-5/hpf) A Urine Bacteria 1+ A Urine Glucose 3+(>=500 mg/dl) A 01/07/19 01/07/19 01/08/19 21:22 23:34 05:15 WBC RBC Hgb Hct MCV MCH MCHC RDW Plt Count MPV Neut % (Auto) Lymph % (Auto) [place] % (Auto) Eos % (Auto) Baso % (Auto) Absolute Neuts (auto) Absolute Lymphs (auto) Absolute Monos (auto) Absolute Eos (auto) Absolute Basos (auto) Absolute Nucleated RBC Nucleated RBC % Sodium 137 Potassium TNP Chloride 104 Carbon Dioxide 26 Anion Gap 7 BUN 17 Creatinine 0.45 L Est GFR ( Amer) 235.0 Est GFR (Non-Af Amer) 194.2 BUN/Creatinine Ratio 37.8 H Glucose 258 H POC Glucose (mg/dL) 268 H 212 H Calcium 7.9 L Magnesium TNP Total Bilirubin 0.70 Direct Bilirubin TNP Indirect Bilirubin Not Reportable AST TNP ALT 23 Alkaline Phosphatase 79 C-Reactive Protein 49.09 H Total Protein 5.3 L Albumin 2.8 L Globulin 2.5 Albumin/Globulin Ratio 1.1 Urine Color Urine Appearance Urine pH Ur Specific [place] Urine Protein Urine Ketones Urine Blood Urine Nitrate Urine Bilirubin Urine Urobilinogen Ur Leukocyte Esterase Urine WBC (Auto) Urine RBC (Auto) Urine Bacteria Urine Glucose 01/08/19 01/08/19 01/08/19 05:15 05:45 06:17 WBC 8.0 RBC 3.38 L Hgb 9.4 L Hct 28 L MCV 82 MCH 28 MCHC 34 RDW 16 H Plt Count 140 L MPV 9.8 Neut % (Auto) 79.1 Lymph % (Auto) 11.3 [place] % (Auto) 6.1 Eos % (Auto) 2.2 Baso % (Auto) 1.3 Absolute Neuts (auto) 6.3 Absolute Lymphs (auto) 0.9 L Absolute Monos (auto) 0.5 Absolute Eos (auto) 0.2 Absolute Basos (auto) 0.1 Absolute Nucleated RBC 0.0 Nucleated RBC % 0.2 Sodium Potassium 3.7 Chloride Carbon Dioxide Anion Gap BUN Creatinine Est GFR ( Amer) Est GFR (Non-Af Amer) BUN/Creatinine Ratio Glucose POC Glucose (mg/dL) 278 H Calcium Magnesium 2.1 Total Bilirubin Direct Bilirubin 0.20 H Indirect Bilirubin AST 18 ALT Alkaline Phosphatase C-Reactive Protein Total Protein Albumin Globulin Albumin/Globulin Ratio Urine Color Urine Appearance Urine pH Ur Specific [place] Urine Protein Urine Ketones Urine Blood Urine Nitrate Urine Bilirubin Urine Urobilinogen Ur Leukocyte Esterase Urine WBC (Auto) Urine RBC (Auto) Urine Bacteria Urine Glucose 01/08/19 08:17 WBC RBC Hgb Hct MCV MCH MCHC RDW Plt Count MPV Neut % (Auto) Lymph % (Auto) [place] % (Auto) Eos % (Auto) Baso % (Auto) Absolute Neuts (auto) Absolute Lymphs (auto) Absolute Monos (auto) Absolute Eos (auto) Absolute Basos (auto) Absolute Nucleated RBC Nucleated RBC % Sodium Potassium Chloride Carbon Dioxide Anion Gap BUN Creatinine Est GFR ( Amer) Est GFR (Non-Af Amer) BUN/Creatinine Ratio Glucose POC Glucose (mg/dL) 276 H Calcium Magnesium Total Bilirubin Direct Bilirubin Indirect Bilirubin AST ALT Alkaline Phosphatase C-Reactive Protein Total Protein Albumin Globulin Albumin/Globulin Ratio Urine Color Urine Appearance Urine pH Ur Specific [place] Urine Protein Urine Ketones Urine Blood Urine Nitrate Urine Bilirubin Urine Urobilinogen Ur Leukocyte Esterase Urine WBC (Auto) Urine RBC (Auto) Urine Bacteria Urine Glucose Assessment - Problem List Assessment: Patient Problems Hyperglycemia due to type 1 diabetes mellitus (Acute) Hypokalemia (Acute) Left lower lobe pneumonia (Acute) Anemia (Chronic) Backache (Chronic) 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 I will follow his CRP - currently 49. We will start to wean him off oxygen. Hyperglycemia due to type 1 diabetes mellitus (Acute) His glycemic control is improving as we re-introduce his usual basal/bolus regimen. Hypokalemia (Acute) potassium 3.7 meq/l today Anemia (Chronic) ongoing Backache (Chronic) good pain control Altered mental state - He was note by the RN to have a brief period of disorientation/delirium. This may be due to his recovering infection, the medications, or to being in the hospital. He was appropriate when I spoke to him. 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 I think he requires continued IV antibacterials. I discussed PMRU with him - he is very interested. I explained the importance of complliance with PT/OT.
[2019-01-08] MEDS: traMADol TAB* 50 MG PO PRN ×2 (14:10→21:08)
[2019-01-08] MEDS: Insulin GLARGINE(*) 1 UNITS UNIT SUBCUT SCH (19:04)
[2019-01-08] MEDS: Atorvastatin* 20 MG TAB PO SCH (19:06)
[2019-01-08] MEDS: Senna TAB 8.6 mg* TAB PO SCH (21:09)
[2019-01-08] MEDS: Terazosin CAP* 5 MG PO SCH (21:09)
[2019-01-08] MEDS: Docusate LIQ* 100 MG/10 ML UDC PO SCH (21:10)
[2019-01-09] MEDS: Acetaminophen ADULT LIQ* 650 MG/20.3 ML UDC PO PRN ×3 (01:19→22:23)
[2019-01-09] MEDS: traMADol TAB* 50 MG PO PRN ×3 (03:44→22:24)
[2019-01-09] MEDS: Heparin VIAL(*) 5000 UNITS/ML VIAL (FIVE THOUSAND) SUBCUT SCH ×3 (05:15→22:25)
[2019-01-09] MEDS: Famotidine SUSP ORALSYR 8 MG/ML G TUBE SCH ×2 (05:16→17:39)
[2019-01-09 05:29] LABS: Hematocrit 27 % (42-52); Hemoglobin 9.1 g/dL (14.0-18.0); Mean Corpuscular HGB Conc 33 g/dL (31-36); Mean Corpuscular Hemoglobin 28 pg (27-31); Mean Corpuscular Volume 83 fL (80-94); Mean Platelet Volume 9.7 fL (7.4-10.4); Platelet Count 154 10^3/uL (150-450); Red Cell Distribution Width 16 % (10-15); White Blood Count 8.2 10^3/uL (3.5-10.8)
[2019-01-09 05:49] LABS: Albumin 2.8 g/dL (3.2-5.2); Albumin/Globulin Ratio 1.3 (1-3); BUN/Creatinine Ratio 42.6 (8-20); C Reactive Protein 27.94 mg/L (<8.01); Calcium 7.9 mg/dL (8.6-10.3); EGFR African American 223.5 (>60); EGFR Non-African American 184.7 (>60); Globulin 2.2 g/dL (2-4); Magnesium 2.1 mg/dL (1.9-2.7); Potassium 3.8 mmol/L (3.5-5.0); Total Bilirubin 0.5 mg/dL (0.2-1.0)
[2019-01-09 05:52] LABS: ABS Eosinophils 0.2 10^3/ul (0-0.6); ABS Lymphocytes 1.2 10^3/ul (1.0-4.8); ABS Monocytes 0.5 10^3/ul (0-0.8); ABS Neutrophils 6.2 10^3/ul (1.5-7.7); Eosinophil % 2.4 %; Lymphocyte % 15.1 %; Nucleated Red Blood Cells % 0.1
[2019-01-09] MEDS: Insulin LISPRO* 1 UNITS UNIT SUBCUT SCH ×7 (09:38→22:44)
[2019-01-09] MEDS: Potassium Acid Phosphate TAB* 500 MG PO SCH ×2 (09:40→22:24)
[2019-01-09] MEDS: Triamterene/HCTZ 37.5-25 MG* CAP PO SCH (09:40)
[2019-01-09] MEDS: Phenazopyridine TAB* 100 MG PO SCH ×2 (09:40→22:24)
[2019-01-09] MEDS: Ramipril CAP* 10 MG PO SCH (09:41)
[2019-01-09] MEDS: Cefepime 2 GM in Dextrose(*) 2 GM/50 ML BAG IV SCH ×2 (10:15→22:32)
[2019-01-09] MEDS: oxyCODONE TAB* 5 MG TAB PO PRN ×2 (16:28→22:23)
[2019-01-09] MEDS: Atorvastatin* 20 MG TAB PO SCH (16:29)
[2019-01-09] MEDS ORDERED: fentaNYL PATCH 25 MCG/HR TRANSDERM SCH (17:00)
[2019-01-09] MEDS: Insulin GLARGINE(*) 1 UNITS UNIT SUBCUT SCH (17:39)
[2019-01-09] MEDS: fentaNYL Patch Check Q Shift 1 NOTE FOLLOW UP SCH (22:06)
[2019-01-09] MEDS: Docusate LIQ* 100 MG/10 ML UDC PO SCH (22:22)
[2019-01-09] MEDS: Terazosin CAP* 5 MG PO SCH (22:24)
[2019-01-09] MEDS: traZODone TAB* 50 MG TAB PO PRN (22:24)
[2019-01-09] MEDS: Senna TAB 8.6 mg* TAB PO SCH (22:25)
[2019-01-10] MEDS: oxyCODONE TAB* 5 MG TAB PO PRN ×4 (03:32→22:59)
[2019-01-10] MEDS: fentaNYL Patch Check Q Shift 1 NOTE FOLLOW UP SCH (06:57)
[2019-01-10] MEDS: Heparin VIAL(*) 5000 UNITS/ML VIAL (FIVE THOUSAND) SUBCUT SCH ×3 (07:25→21:40)
[2019-01-10] MEDS: Famotidine SUSP ORALSYR 8 MG/ML G TUBE SCH (07:25)
[2019-01-10] MEDS: Famotidine TAB* 20 MG PO SCH ×2 (07:29→21:41)
--- NOTE | 2019-01-10 08:09 | PN ---
Subjective - Subjective Reason for Note: Progress Note History: He has had improvement in his breathing, he is no longer coughing, bringing up sputum and has no night sweats. He has some abdominal discomfort and diarrhea. His back pain is bothering him. Blood glucose numbers around 200 mg/dl. 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) E10.42 Depression (Chronic) F32.9 Essential hypertension (Chronic) I10 Essential hypertension (Chronic) I10 GERD (gastroesophageal reflux disease) (Chronic) K21.9 Hypercholesterolemia (Chronic) E78.0 Hypercholesterolemia (Chronic) E78.00 Muscular dystrophy (Chronic) G71.0 error 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, E10.65 Vitiligo (Chronic) L80 Current Medications: Current Medications Acetaminophen (Tylenol Adult Liq*) 650 mg PO Q8H PRN PRN Reason: MILD PAIN or TEMP > 100.4 Last Admin: 01/09/19 22:23 Dose: 650 mg Acetaminophen (Tylenol Supp*) 650 mg NC Q6H PRN PRN Reason: .FEVER Last Admin: 01/05/19 21:04 Dose: 650 mg Albuterol/Ipratropium (Duoneb (Albuterol 2.5 Mg/Ipratropium 0.5 Mg)) 1 neb INH Q2H PRN PRN Reason: SOB/WHEEZING Last Admin: 01/05/19 19:52 Dose: 1 neb Atorvastatin Calcium (Lipitor*) 20 mg PO 1700 JANA Last Admin: 01/09/19 16:29 Dose: 20 mg Dextrose (Dextrose 50% Vial 50 Ml*) 25 ml IV PUSH .FOR FS < 60 - SS PRN PRN Reason: FS < 60 Docusate Sodium (Colace Cap*) 100 mg PO BID PRN PRN Reason: CONSTIPATION Last Admin: 01/04/19 19:54 Dose: 100 mg Docusate Sodium (Colace Liq*) 50 mg PO BEDTIME [facility] Last Admin: 01/09/19 22:22 Dose: Not Given Famotidine (Pepcid Tab*) 20 mg PO Q12H [facility] Last Admin: 01/10/19 07:29 Dose: Not Given Fentanyl (Duragesic Patch 25 Mcg/Hr*) 25 mcg TRANSDERM Q72H [facility] Last Admin: 01/09/19 16:29 Dose: 25 mcg Heparin Sodium (Porcine) (Heparin Vial(*)) 5,000 units SUBCUT Q8HR [facility] Last Admin: 01/10/19 07:25 Dose: 5,000 units Heparin Sodium (Porcine) (Heparin Flush Picc/Ml/Cvc(*)) 1 - 3 ml FLUSH 0600, 1800 [facility]; Protocol Last Admin: 01/10/19 07:26 Dose: 1 ml Cefepime HCl (Maxipime 2 Gm In Dextrose Duplex (*)) 2 gm in 50 mls @ 100 mls/ hr IV Q12H [facility] Last Admin: 01/09/19 22:32 Dose: 100 mls/hr Insulin Glargine (Lantus(*)) 45 units SUBCUT 1800 [facility] Last Admin: 01/09/19 17:39 Dose: 45 unit Insulin Human Lispro (Humalog*) 0 units SUBCUT ACHS [facility]; Protocol Last Admin: 01/09/19 22:44 Dose: 3 units Insulin Human Lispro (Humalog*) 0 units SUBCUT AC [facility]; Protocol Last Admin: 01/09/19 18:34 Dose: 7 unit Oxycodone HCl (Roxycodone Tab*) 10 mg PO Q4H PRN PRN Reason: PAIN - MODERATE Last Admin: 01/10/19 03:32 Dose: 10 mg Pharmacy Profile Note (Fentanyl Patch Check Q Shift) 1 note FOLLOW UP 0700, 1900 [facility] Last Admin: 01/10/19 06:57 Dose: 1 note Phenazopyridine HCl (Pyridium Tab*) 200 mg PO BID [facility] Last Admin: 01/09/19 22:24 Dose: 200 mg Polyethylene Glycol/Electrolytes (Miralax*) 17 gm PO DAILY PRN PRN Reason: CONSTIPATION Last Admin: 01/04/19 16:38 Dose: 17 gm Potassium Phosphate (K Phos Original Tab*) 500 mg PO BID [facility] Last Admin: 01/09/19 22:24 Dose: 500 mg Ramipril (Altace Cap*) 10 mg PO DAILY [facility] Last Admin: 01/09/19 09:41 Dose: 10 mg Senna (Senokot 8.6 Mg Tab*) 1 tab PO BEDTIME JANA Last Admin: 01/09/19 22:25 Dose: Not Given Terazosin HCl (Hytrin Cap*) 5 mg PO BEDTIME [facility] Last Admin: 01/09/19 22:24 Dose: 5 mg Tramadol HCl (Ultram*) 50 mg PO Q6H PRN PRN Reason: PAIN - MODERATE Last Admin: 01/09/19 22:24 Dose: 50 mg Trazodone HCl (Desyrel Tab*) 50 mg PO BEDTIME PRN PRN Reason: INSOMNIA Last Admin: 01/09/19 22:24 Dose: 50 mg Triamterene/HCTZ (Dyazide Cap*) 1 cap PO DAILY [facility] Last Admin: 01/09/19 09:40 Dose: 1 cap Home Medications: Home Medications Medication Instructions Recorded Confirmed Type Docusate CAP* [Colace Cap*] 100 mg PO QPM 12/09/11 12/31/18 History Labetalol TAB* [Trandate TAB*] 200 mg PO BID 12/09/11 12/31/18 History traZODone TAB* [Desyrel*] 50 mg PO BEDTIME 12/09/11 12/31/18 History Prochlorperazine TAB* [Compazine 10 mg PO QID PRN 10/20/12 12/31/18 History Tab*] Ramipril CAP* [Altace CAP*] 20 mg PO QAM 05/26/13 12/31/18 History Terazosin CAP* [Hytrin CAP*] 5 mg PO BEDTIME 05/26/13 12/31/18 History Triamterene/HCTZ 37.5-25 MG* 1 cap PO QAM 05/26/13 12/31/18 History [Dyazide CAP*] metFORMIN* [Glucophage*] 500 mg PO BID 05/26/13 12/31/18 History Atorvastatin* [Lipitor*] 20 mg PO BEDTIME 06/14/14 12/31/18 History ALPRAZolam TAB* [Xanax TAB*] 0.5 mg PO QID PRN MDD 4 tabs 02/09/15 12/31/18 History Docusate CAP* [Colace Cap*] 200 mg PO QAM 02/09/15 12/31/18 History Escitalopram * [Lexapro (NF)] 20 mg PO DAILY 02/09/15 12/31/18 History Gabapentin CAP(*) [Neurontin 600 mg PO QID 02/09/15 12/31/18 History CAP(*)] Oxycodone HCl [Oxycontin] 6 - 8 tab PO DAILY PRN 02/09/15 12/31/18 History Insulin Aspart [Novolog] 1 unit SC .BEFORE MEALS 10/17/15 12/31/18 History Insulin Glargine,Hum.rec.anlog 30 units SUBCUT BEDTIME 04/15/17 12/31/18 History [Basaglar Kwikpen] Methocarbamol 750 mg PO Q6H PRN 04/15/17 12/31/18 History Mirabegron (NF) [Myrbetriq (NF)] 50 mg PO DAILY 04/15/17 12/31/18 History Bisacodyl SUPP* [Dulcolax Supp*] 10 mg NC DAILY 12/31/18 12/31/18 History Diclofenac 1% GEL (NF) [Voltaren 2 gm TOPICAL QID 12/31/18 12/31/18 History 1% GEL (NF)] Gentamicin 0.3% OPHTH.SOLN* 1 drop BOTH EYES Q4H 12/31/18 12/31/18 History Glucagon,Human Recombinant 1 mg IM ONCE 12/31/18 12/31/18 History [Glucagon Emergency Kit] Omeprazole (Nf) [Prilosec (NF)] 40 mg PO QPM 12/31/18 12/31/18 History Ondansetron TAB* [Zofran 4 MG Tab*] 8 mg PO Q6H PRN 12/31/18 12/31/18 History Oxybutynin TAB* [Ditropan TAB*] 5 mg PO DAILY 12/31/18 12/31/18 History Polyethylene Glycol 3350* 17 gm PO DAILY 12/31/18 12/31/18 History [Miralax*] Polymyx/Trimethoprim OPTH* 1 drop BOTH EYES Q6H 12/31/18 12/31/18 History [Polytrim OPHTH*] Sennosides 17.2 mg PO DAILY 12/31/18 12/31/18 History fentaNYL PATCH 25 MCG/HR* 25 mcg TRANSDERM Q48H 12/31/18 12/31/18 History [Duragesic PATCH 25 Mcg/Hr*] fentaNYL PATCHs 100 MCG/HR* 100 mcg TRANSDERM Q72H 12/31/18 01/01/19 History [Duragesic Patch 100 Mcg/Hr *] Allergies: Allergies Allergy/AdvReac Type Severity Reaction Status Date / Time hydrochlorothiazide AdvReac Unknown Verified 01/04/19 06:06 [From Maxzide] Reaction Details Qzohedf-Vtl-Ufx Reductase AdvReac Unknown Verified 01/04/19 06:06 Inhibitor Reaction Details triamterene [From Maxzide] AdvReac Unknown Verified 01/04/19 06:06 Reaction Details Objective - Vital Signs Vital Signs: Vital Signs 01/09/19 01/09/19 01/09/19 10:15 11:45 11:58 Temperature 98.7 F Pulse Rate 93 Respiratory 20 16 16 Rate Blood Pressure 129/74 (mmHg) O2 Sat by Pulse 97 Oximetry 01/09/19 01/09/19 01/09/19 14:06 16:28 16:29 Temperature 97.4 F Pulse Rate 98 Respiratory 16 16 20 Rate Blood Pressure 131/72 (mmHg) O2 Sat by Pulse 97 Oximetry 01/09/19 01/09/19 01/09/19 16:48 17:59 19:15 Temperature 97.1 F Pulse Rate 96 Respiratory 16 20 16 Rate Blood Pressure 110/54 (mmHg) O2 Sat by Pulse 96 Oximetry 01/09/19 01/09/19 01/09/19 20:00 22:23 22:24 Temperature Pulse Rate Respiratory 20 16 16 Rate Blood Pressure (mmHg) O2 Sat by Pulse Oximetry 01/09/19 01/10/19 01/10/19 23:15 02:22 02:23 Temperature 97.9 F Pulse Rate 103 Respiratory 20 18 18 Rate Blood Pressure 127/63 (mmHg) O2 Sat by Pulse 97 Oximetry 01/10/19 01/10/19 01/10/19 03:15 03:32 06:58 Temperature 98.3 F Pulse Rate 96 Respiratory 21 18 18 Rate Blood Pressure 116/53 (mmHg) O2 Sat by Pulse 97 Oximetry - Intake and Output Intake and Output: Intake & Output 01/07/19 01/08/19 01/09/19 01/10/19 11:59 11:59 11:59 11:59 Intake Total 830 1640 1800 694 Output Total 2875 1450 1200 925 Balance -2045 190 600 -231 Intake: IVPB 64 ABX 64 Oral 830 1640 1800 630 Output: Urine 0 Alvarez 2875 625 1200 925 Residual 825 Alvarez 16 Fr Temperature 825 Probe Other: Estimated Void Medium Small Small Date of Last Bowel 12/29/18 Movement # Bowel Movements 1 2 Estimated Stool Amount Large Large Small ADLs: Meal Record Start: 12/31/18 17: 53 Freq: 09,13,18 Status: Inactive Protocol: Created 12/31/18 17:53 System (Rec: 12/31/18 17:53 System ICU-M33) Document 01/01/19 09:00 [id number] (Rec: 01/01/19 09:32 [id number] ICU-C15) Document 01/01/19 11:58 QIC9516 (Rec: 01/01/19 11:58 HUT9060 ICU-C15) Document 01/01/19 17:50 IZL9677 (Rec: 01/01/19 17:50 XSS3249 ICU-C15) Document 01/02/19 09:00 DVS1619 (Rec: 01/02/19 09:33 OPR2074 ICU-C12) ADLs: Meal Record Start: 01/02/19 11: 06 Freq: DAILY@0900,1400,1800 Status: Active Protocol: Created 01/02/19 11:06 PKZ1109 (Rec: 01/02/19 11:06 JKP2321 ICU-C12) Document 01/02/19 14:00 VAV9224 (Rec: 01/02/19 15:01 XCF2138 ICU-C12) Document 01/02/19 16:59 GWC3568 (Rec: 01/02/19 16:59 RNQ3599 ICU-C12) Document 01/03/19 09:00 CAR0100 (Rec: 01/03/19 10:24 WIK1419 ICU-L03) Document 01/03/19 14:00 GAB0839 (Rec: 01/03/19 14:03 XXE9015 IMG-M07) Document 01/03/19 18:00 DHB6646 (Rec: 01/03/19 18:02 IFX8749 ICU-L03) Document 01/04/19 09:00 ZCM8570 (Rec: 01/04/19 10:59 WJR3500 ICU-C15) Document 01/04/19 14:00 BXH6581 (Rec: 01/04/19 15:43 DTP4806 ICU-C15) Document 01/05/19 09:00 XLK1134 (Rec: 01/05/19 10:59 GEN7475 ICU-C15) Document 01/05/19 14:00 JRZ4890 (Rec: 01/05/19 14:24 LRM4700 ICU-C15) Document 01/05/19 17:56 DEW9363 (Rec: 01/05/19 17:58 MVP6883 ICU-C15) Document 01/06/19 09:00 ERL1094 (Rec: 01/06/19 10:31 UMR1762 ICU-L03) Document 01/06/19 14:00 DEH4618 (Rec: 01/06/19 14:04 BUK0317 ICU-C16) Document 01/06/19 18:00 KQL1167 (Rec: 01/06/19 18:51 XWT2254 TELE-C01) Document 01/07/19 09:00 FLU2525 (Rec: 01/07/19 13:28 IQK7066 TELE-C10) Document 01/07/19 14:00 XEJ4929 (Rec: 01/07/19 14:09 DJJ0440 TELE-C10) Document 01/07/19 18:00 NMV6836 (Rec: 01/07/19 18:53 UZZ1599 TELE-C10) Document 01/08/19 09:00 UFF7803 (Rec: 01/08/19 11:05 XKK2696 TELE-C05) Document 01/08/19 14:00 MDA4175 (Rec: 01/08/19 14:04 ZLW3243 TELE-C05) Document 01/08/19 18:00 VHZ5485 (Rec: 01/08/19 19:07 YLC7446 TELE-C11) Document 01/09/19 09:00 TCM1062 (Rec: 01/09/19 10:36 SHQ5030 TELE-C06) Document 01/09/19 14:00 AOU3454 (Rec: 01/09/19 15:44 EBO0604 TELE-C03) Document 01/09/19 18:00 FXE2338 (Rec: 01/09/19 19:42 ECP4360 TELE-C13) ADLs: Meal Record Start: 01/06/19 16: 01 Freq: Status: Active Protocol: Created 01/06/19 16:01 YMG7434 (Rec: 01/06/19 16:01 UIP6816 TELE-C07) Document 01/08/19 20:29 QRA0423 (Rec: 01/08/19 20:29 PPG4745 TELE-C11) Intake and Output Start: 12/31/18 14: 54 Freq: Status: Inactive Protocol: Created 12/31/18 14:54 System (Rec: 12/31/18 14:54 System EDRM-C14) Intake and Output Start: 12/31/18 17: 53 Freq: Q1HR Status: Inactive Protocol: Created 12/31/18 17:53 System (Rec: 12/31/18 17:53 System ICU-M33) Document 12/31/18 17:54 TTP5018 (Rec: 12/31/18 17:54 LSN1094 ICU-M33) Document 12/31/18 19:00 DLY9350 (Rec: 12/31/18 22:09 UIH0700 ICU-C15) Document 12/31/18 20:00 HDU3167 (Rec: 12/31/18 22:27 PWD9140 ICU-C15) Document 12/31/18 21:00 FGZ7862 (Rec: 12/31/18 22:28 UCP7348 ICU-C15) Document 12/31/18 22:00 QJN5788 (Rec: 12/31/18 22:45 CKX9409 ICU-C15) Document 12/31/18 23:00 WPL0354 (Rec: 01/01/19 00:06 UOS3605 ICU-L03) Document 01/01/19 00:00 QWC4814 (Rec: 01/01/19 01:01 RUP9673 ICU-L03) Document 01/01/19 01:00 ULO0008 (Rec: 01/01/19 01:01 RWQ6073 ICU-L03) Document 01/01/19 02:00 KXH7795 (Rec: 01/01/19 02:18 PLX9174 ICU-L03) Document 01/01/19 02:55 PGS4185 (Rec: 01/01/19 02:55 XML5236 ICU-L03) Document 01/01/19 04:00 IBW6862 (Rec: 01/01/19 05:03 HXX3547 ICU-L03) Document 01/01/19 05:00 ZJX8757 (Rec: 01/01/19 05:28 PMC3428 ICU-L03) Document 01/01/19 06:00 AJP8054 (Rec: 01/01/19 07:10 DZD9644 ICU-L03) Document 01/01/19 07:00 JIJ7001 (Rec: 01/01/19 07:13 SXR8756 ICU-L03) Document 01/01/19 08:40 HPC0102 (Rec: 01/01/19 08:40 BVY5998 ICU-M33) Document 01/01/19 09:53 AEV6596 (Rec: 01/01/19 09:54 CHM8490 ICU-M33) Document 01/01/19 11:30 HQE8197 (Rec: 01/01/19 11:30 HCB4122 ICU-C15) Document 01/01/19 12:00 ZRY6746 (Rec: 01/01/19 13:06 BGD4117 ICU-C15) Document 01/01/19 13:13 HDF0285 (Rec: 01/01/19 13:13 GHJ5101 ICU-C15) Document 01/01/19 14:19 JNF3470 (Rec: 01/01/19 14:19 LFQ9699 ICU-M33) Document 01/01/19 14:59 QTH2924 (Rec: 01/01/19 14:59 HCY5327 ICU-C15) Document 01/01/19 17:14 LBS6042 (Rec: 01/01/19 17:14 OJK8459 ICU-C15) Document 01/01/19 19:00 OKT8234 (Rec: 01/01/19 22:18 DHL9372 ICU-C15) Document 01/01/19 20:00 OZA7957 (Rec: 01/01/19 22:18 WDJ2934 ICU-C15) Document 01/01/19 21:00 ZCC6029 (Rec: 01/01/19 22:18 RPH0888 ICU-C15) Document 01/01/19 22:00 AJO0042 (Rec: 01/01/19 22:18 OOH3777 ICU-C15) Document 01/01/19 22:43 RVJ6285 (Rec: 01/01/19 22:43 ZJT6283 ICU-C10) Document 01/02/19 00:00 WZE9440 (Rec: 01/02/19 01:11 PZQ1213 ICU-C10) Document 01/02/19 01:00 AYS1142 (Rec: 01/02/19 01:11 JLA7347 ICU-C10) Document 01/02/19 02:00 BVE0422 (Rec: 01/02/19 02:02 IQY3050 ICU-C10) Document 01/02/19 03:00 ZFU2624 (Rec: 01/02/19 03:08 MND3990 ICU-C10) Document 01/02/19 04:00 QZP7046 (Rec: 01/02/19 04:23 QIQ6112 ICU-C10) Document 01/02/19 05:00 XPN9335 (Rec: 01/02/19 06:29 HFA0284 ICU-C10) Document 01/02/19 06:00 PQQ5597 (Rec: 01/02/19 06:29 PKF7451 ICU-C10) Document 01/02/19 07:00 DXQ6692 (Rec: 01/02/19 09:20 ZGQ1142 ICU-C12) Document 01/02/19 08:00 APA6402 (Rec: 01/02/19 09:21 SWY4143 ICU-C12) Document 01/02/19 09:00 RUU6400 (Rec: 01/02/19 09:21 WSQ5230 ICU-C12) Document 01/02/19 10:00 VUW1152 (Rec: 01/02/19 10:04 XYK5251 ICU-C12) Intake and Output Start: 01/02/19 11: 06 Freq: DAILY@0600,1400,2200 Status: Active Protocol: Created 01/02/19 11:06 EBN8510 (Rec: 01/02/19 11:06 XMN7729 ICU-C12) Document 01/02/19 12:00 XNS2778 (Rec: 01/02/19 12:16 CAB6987 ICU-C12) Document 01/02/19 13:00 LBP1273 (Rec: 01/02/19 14:48 WMK3753 ICU-C12) Document 01/02/19 14:00 PEV3244 (Rec: 01/02/19 14:48 UYC1012 ICU-C12) Document 01/02/19 14:48 QMX6086 (Rec: 01/02/19 14:48 BWR0009 ICU-C12) Document 01/02/19 15:56 EQU9145 (Rec: 01/02/19 15:56 GUQ8836 IMG-M07) Document 01/02/19 16:58 KOR4671 (Rec: 01/02/19 16:58 ZHZ5717 ICU-C12) Document 01/02/19 18:00 JBF1233 (Rec: 01/02/19 18:12 FWY9867 IMG-M07) Document 01/02/19 19:00 LWJ6166 (Rec: 01/02/19 19:46 AAW0522 IMG-M07) Document 01/02/19 19:46 FWR5805 (Rec: 01/02/19 19:47 SHL7457 IMG-M07) Document 01/02/19 21:00 RAV7234 (Rec: 01/02/19 22:05 FZD5382 IMG-M07) Document 01/02/19 22:00 MDG8757 (Rec: 01/02/19 22:05 AUN2337 IMG-M07) Document 01/02/19 22:50 PVA4583 (Rec: 01/02/19 22:50 LQQ2270 ICU-C15) Document 01/03/19 00:00 XZT7748 (Rec: 01/03/19 00:03 VJW7886 IMG-M07) Document 01/03/19 01:00 ZUK4811 (Rec: 01/03/19 01:09 EHM5372 ICU-C15) Document 01/03/19 01:51 DDL2303 (Rec: 01/03/19 01:51 JKY8569 ICU-C15) Document 01/03/19 03:00 QXF5327 (Rec: 01/03/19 03:04 GUJ0964 ICU-C15) Document 01/03/19 03:50 CUR8457 (Rec: 01/03/19 03:50 XVF7128 ICU-C15) Document 01/03/19 05:00 KCE5906 (Rec: 01/03/19 05:07 BJQ0710 IMG-M07) Document 01/03/19 06:00 ZAW5447 (Rec: 01/03/19 06:08 NLV5507 ICU-C15) Document 01/03/19 07:00 VWE3853 (Rec: 01/03/19 08:29 YDS5956 IMG-M07) Document 01/03/19 08:00 RTB7032 (Rec: 01/03/19 08:29 LUI4856 IMG-M07) Document 01/03/19 09:00 WWS2235 (Rec: 01/03/19 09:32 REA2954 IMG-M07) Document 01/03/19 10:00 HXN2738 (Rec: 01/03/19 10:26 DWT3712 IMG-M07) Document 01/03/19 11:00 DSW0790 (Rec: 01/03/19 11:10 EBM1777 IMG-M07) Document 01/03/19 12:00 NIA4060 (Rec: 01/03/19 12:22 WQY4195 IMG-M07) Document 01/03/19 13:00 QCE0103 (Rec: 01/03/19 13:18 ITF5229 IMG-M07) Document 01/03/19 14:00 SRY2028 (Rec: 01/03/19 14:03 XQX3337 IMG-M07) Document 01/03/19 15:00 TTI7864 (Rec: 01/03/19 15:30 YXT6114 IMG-M07) Document 01/03/19 16:00 XGR4257 (Rec: 01/03/19 16:34 CUB1915 IMG-M07) Document 01/03/19 17:00 NUC8563 (Rec: 01/03/19 17:26 OEK8065 IMG-M07) Document 01/03/19 18:00 PCQ3562 (Rec: 01/03/19 18:18 SWR1658 IMG-M07) Document 01/03/19 19:00 BIY8787 (Rec: 01/03/19 19:25 BWI0857 IMG-M07) Document 01/03/19 20:00 TOD5814 (Rec: 01/03/19 21:01 YUK0310 ICU-C12) Document 01/03/19 21:00 LMR7459 (Rec: 01/03/19 21:02 IXV0895 ICU-C12) Document 01/03/19 22:00 ENK0300 (Rec: 01/03/19 22:13 HFY6255 ICU-C12) Document 01/03/19 22:58 TYJ1810 (Rec: 01/03/19 23:00 AKO8657 ICU-C12) Document 01/03/19 23:04 HEA3478 (Rec: 01/03/19 23:12 XQF5827 ICU-C12) Document 01/04/19 00:00 JDL6032 (Rec: 01/04/19 00:07 UTL4642 IMG-M07) Document 01/04/19 01:00 NWE2265 (Rec: 01/04/19 01:26 WWH4144 ICU-C12) Document 01/04/19 02:00 DOS5341 (Rec: 01/04/19 02:20 VXT4568 ICU-C12) Document 01/04/19 03:00 HOB2402 (Rec: 01/04/19 03:09 VQN8391 ICU-C12) Document 01/04/19 04:00 IJX2263 (Rec: 01/04/19 04:30 SMH3937 ICU-C12) Document 01/04/19 04:39 HMH7810 (Rec: 01/04/19 04:39 LEL5150 ICU-C12) Document 01/04/19 04:58 FUK9455 (Rec: 01/04/19 05:01 UGN9472 ICU-C12) Document 01/04/19 06:20 HGK2293 (Rec: 01/04/19 06:20 VFT2380 IMG-M07) Document 01/04/19 06:37 NUS0915 (Rec: 01/04/19 06:38 SAJ5407 ICU-C12) Document 01/04/19 07:00 TEC9955 (Rec: 01/04/19 07:13 FKQ5228 IMG-M07) Document 01/04/19 08:00 IHK2903 (Rec: 01/04/19 08:03 OYQ4454 IMG-M07) Document 01/04/19 09:00 YJL0378 (Rec: 01/04/19 09:24 LJH1618 IMG-M07) Document 01/04/19 10:00 DPZ7135 (Rec: 01/04/19 10:20 XWJ2999 IMG-M07) Document 01/04/19 11:00 IVN7252 (Rec: 01/04/19 11:04 HIY7834 IMG-M07) Document 01/04/19 11:54 IHB1907 (Rec: 01/04/19 11:54 CWU0730 IMG-M07) Document 01/04/19 13:00 TPU5978 (Rec: 01/04/19 13:16 ALC4905 IMG-M07) Document 01/04/19 14:00 GYQ4168 (Rec: 01/04/19 14:18 FDV0085 IMG-M07) Document 01/04/19 15:00 MNZ7173 (Rec: 01/04/19 15:51 ZZE8501 IMG-M07) Document 01/04/19 16:00 BVC7049 (Rec: 01/04/19 16:30 IYR2045 IMG-M07) Document 01/04/19 17:00 AEE7285 (Rec: 01/04/19 17:01 WCJ2492 IMG-M07) Document 01/04/19 18:00 EWS5566 (Rec: 01/04/19 19:44 BVQ0561 IMG-M07) Document 01/04/19 19:00 OCQ6081 (Rec: 01/04/19 19:44 CCU9814 IMG-M07) Document 01/04/19 20:00 STI3750 (Rec: 01/04/19 23:01 KLT1123 ICU-C16) Document 01/04/19 21:00 JQX7859 (Rec: 01/04/19 23:01 VON8381 ICU-C16) Document 01/04/19 22:00 VOU3547 (Rec: 01/04/19 23:01 BML5902 ICU-C16) Document 01/04/19 23:00 TVO3610 (Rec: 01/04/19 23:10 AFG5019 ICU-C16) Document 01/05/19 00:00 FNC1356 (Rec: 01/05/19 01:19 NQA2471 ICU-C16) Document 01/05/19 01:00 KPR1898 (Rec: 01/05/19 01:19 HLU0776 ICU-C16) Document 01/05/19 02:00 EBX7453 (Rec: 01/05/19 02:20 BOO5197 ICU-C16) Document 01/05/19 03:00 NNR3317 (Rec: 01/05/19 03:08 JAU4264 ICU-C16) Document 01/05/19 04:00 PQW2333 (Rec: 01/05/19 05:24 BDB4546 ICU-C16) Document 01/05/19 05:00 PJA8913 (Rec: 01/05/19 05:24 HGY2681 ICU-C16) Document 01/05/19 06:00 OCT7415 (Rec: 01/05/19 06:39 RGX3141 ICU-C16) Document 01/05/19 08:00 HKI9701 (Rec: 01/05/19 10:18 XPX3876 ICU-C15) Document 01/05/19 10:00 TDE9291 (Rec: 01/05/19 10:59 MXZ4694 ICU-C15) Document 01/05/19 11:00 RQG1032 (Rec: 01/05/19 11:22 [id number] ICU-C15) Document 01/05/19 12:00 [id number] (Rec: 01/05/19 14:00 [id number] ICU-C15) Document 01/05/19 13:00 WJD4626 (Rec: 01/05/19 14:02 [id number] ICU-C15) Document 01/05/19 14:00 HOL6627 (Rec: 01/05/19 14:22 [id number] ICU-C15) Document 01/05/19 16:00 [id number] (Rec: 01/05/19 16:21 [id number] ICU-C15) Document 01/05/19 17:00 [id number] (Rec: 01/05/19 17:22 [id number] ICU-C15) Document 01/05/19 17:56 [id number] (Rec: 01/05/19 17:58 [id number] ICU-C15) Document 01/05/19 20:00 EJX2788 (Rec: 01/05/19 20:47 [id number] ICU-C16) Document 01/05/19 20:55 UPE5584 (Rec: 01/05/19 20:55 [id number] ICU-C16) Document 01/05/19 22:00 XMJ6160 (Rec: 01/05/19 22:08 [id number] ICU-C16) Document 01/05/19 23:00 BOL0037 (Rec: 01/05/19 23:07 [id number] ICU-C16) Document 01/06/19 00:00 LPC4440 (Rec: 01/06/19 00:01 [id number] IMG-M07) Document 01/06/19 01:00 IOJ9596 (Rec: 01/06/19 01:10 [id number] ICU-C16) Document 01/06/19 02:00 VHF7967 (Rec: 01/06/19 02:02 [id number] ICU-C16) Document 01/06/19 03:00 PNQ9235 (Rec: 01/06/19 03:12 POB0206 ICU-C16) Document 01/06/19 04:00 TBE3871 (Rec: 01/06/19 04:59 [id number] ICU-C16) Document 01/06/19 05:00 YRC1234 (Rec: 01/06/19 05:05 [id number] ICU-C16) Document 01/06/19 05:57 YYH0369 (Rec: 01/06/19 05:59 [id number] IMG-M07) Document 01/06/19 07:00 WFZ3007 (Rec: 01/06/19 08:37 [id number] ICU-C16) Document 01/06/19 08:00 ZUG5611 (Rec: 01/06/19 08:37 [id number] ICU-C16) Document 01/06/19 09:00 JYR8559 (Rec: 01/06/19 09:44 [id number] ICU-C16) Document 01/06/19 10:00 GBJ4575 (Rec: 01/06/19 11:39 [id number] ICU-L03) Document 01/06/19 11:00 GVW5675 (Rec: 01/06/19 11:50 [id number] IMG-M07) Document 01/06/19 11:50 ZQH9173 (Rec: 01/06/19 11:50 [id number] IMG-M07) Document 01/06/19 13:00 IYR1158 (Rec: 01/06/19 13:38 [id number] ICU-C16) Document 01/06/19 13:38 UWB8604 (Rec: 01/06/19 13:38 [id number] ICU-C16) Document 01/06/19 16:00 SBQ6534 (Rec: 01/06/19 16:17 [id number] TELE-C01) Document 01/06/19 22:00 XVK0266 (Rec: 01/06/19 22:17 [id number] TELE-C07) Document 01/07/19 06:00 REK1144 (Rec: 01/07/19 06:12 NNY6030 TELE-C11) Document 01/07/19 14:00 RKE2630 (Rec: 01/07/19 17:56 IJY5712 TELE-C06) Document 01/07/19 21:17 SED6039 (Rec: 01/07/19 21:18 [id number] TELE-C10) Document 01/07/19 22:03 KXN6053 (Rec: 01/07/19 22:03 BNS6860 TELE-C10) Document 01/08/19 06:00 HRH8187 (Rec: 01/08/19 06:29 BGM2389 TELE-C10) Document 01/08/19 14:00 KOM0919 (Rec: 01/08/19 14:36 SYA6552 TELE-C05) Document 01/08/19 20:30 SCH4921 (Rec: 01/08/19 20:31 [id number] TELE-C11) Document 01/09/19 06:00 FZF9911 (Rec: 01/09/19 06:12 [id number] TELE-C11) Document 01/09/19 14:00 SOM1618 (Rec: 01/09/19 14:04 [id number] TELE-C01) Document 01/09/19 19:42 YVS4436 (Rec: 01/09/19 19:43 ATX9232 TELE-C13) Document 01/10/19 06:00 KLF9611 (Rec: 01/10/19 06:17 [id number] TELE-C01) - Physical Exam General: No Cyanosis, No Anemia, No Jaundice, No Clubbing Lungs and Chest: Yes: Chest Expansion Full, Chest Expansion Symetrica, Percussion Note Resonant, Vessicular Breath Sounds. No: Crackles, Wheezes, Respiratory Distress, Use of Accessory Muscles Heart Rate and Rhythm: Regular Additional Cardiovascular: Yes: Normal Heart Sounds. No: Heart Murmur, Pedal Edema Abdominal Exam: Yes: Distention, Soft, Abdominal Tenderness - mild, Bowel Sounds Present. 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 I will try weaning him from supplementary oxygen today Hypokalemia (Acute) this was resolved yesterday BPH with urinary tract obstruction - indwelling Alvarez Backache (Chronic) Pain management is an issue. He was on a large dose of fentanyl and this worsened his mental state. 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 Andrea is aware of this - "I hate this" Antibiotic diarrhea and abdominal discomfort - C. diff negative. 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 He agrees to [facility] consult and transfer. This is most appropriate.
[2019-01-10] MEDS: Insulin LISPRO* 1 UNITS UNIT SUBCUT SCH ×7 (10:26→22:58)
[2019-01-10] MEDS: Phenazopyridine TAB* 100 MG PO SCH ×2 (10:30→21:41)
[2019-01-10] MEDS: Potassium Acid Phosphate TAB* 500 MG PO SCH ×2 (10:31→21:41)
[2019-01-10] MEDS: Triamterene/HCTZ 37.5-25 MG* CAP PO SCH (10:32)
[2019-01-10] MEDS: Cefdinir cap* 300 MG CAP PO SCH ×2 (10:32→21:41)
[2019-01-10] MEDS: Ramipril CAP* 10 MG PO SCH (10:32)
[2019-01-10 14:56] LABS: Albumin 3.1 g/dL (3.2-5.2); Albumin/Globulin Ratio 1.3 (1-3); BUN/Creatinine Ratio 33.3 (8-20); EGFR African American 130.4 (>60); EGFR Non-African American 107.7 (>60); Globulin 2.4 g/dL (2-4); Potassium 4.8 mmol/L (3.5-5.0); Total Bilirubin 0.6 mg/dL (0.2-1.0); Total Protein 5.5 g/dL (6.4-8.9)
[2019-01-10] MEDS: Insulin GLARGINE(*) 1 UNITS UNIT SUBCUT SCH (18:30)
[2019-01-10] MEDS: Atorvastatin* 20 MG TAB PO SCH (18:30)
[2019-01-10] MEDS: Docusate LIQ* 100 MG/10 ML UDC PO SCH (20:36)
[2019-01-10] MEDS: Senna TAB 8.6 mg* TAB PO SCH (20:36)
[2019-01-10] MEDS: Acetaminophen ADULT LIQ* 650 MG/20.3 ML UDC PO PRN (21:40)
[2019-01-10] MEDS: traZODone TAB* 50 MG TAB PO PRN (21:41)
[2019-01-10] MEDS: Terazosin CAP* 5 MG PO SCH (21:41)
[2019-01-10] MEDS: traMADol TAB* 50 MG PO PRN (21:41)
[2019-01-11] MEDS: traMADol TAB* 50 MG PO PRN ×2 (04:09→13:31)
[2019-01-11] MEDS: oxyCODONE TAB* 5 MG TAB PO PRN ×3 (04:09→18:16)
[2019-01-11] MEDS: Heparin VIAL(*) 5000 UNITS/ML VIAL (FIVE THOUSAND) SUBCUT SCH ×2 (06:12→13:31)
--- NOTE | 2019-01-11 08:30 | PN ---
Subjective - Subjective Reason for Note: Progress Note History: He continues to feel weak and is unable to perform ADLs - roll over in bed, transfer. He is oriented x3, but unable to give an account of his presentation to the hospital. He has some mild abdominal discomfort and diarrhea. 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) E10.42 Depression (Chronic) F32.9 Essential hypertension (Chronic) I10 Essential hypertension (Chronic) I10 GERD (gastroesophageal reflux disease) (Chronic) K21.9 Hypercholesterolemia (Chronic) E78.0 Hypercholesterolemia (Chronic) E78.00 Muscular dystrophy (Chronic) G71.0 error 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, E10.65 Vitiligo (Chronic) L80 Current Medications: Current Medications Acetaminophen (Tylenol Adult Liq*) 650 mg PO Q8H PRN PRN Reason: MILD PAIN or TEMP > 100.4 Last Admin: 01/10/19 21:40 Dose: 650 mg Acetaminophen (Tylenol Supp*) 650 mg [place] Q6H PRN PRN Reason: .FEVER Last Admin: 01/05/19 21:04 Dose: 650 mg Albuterol/Ipratropium (Duoneb (Albuterol 2.5 Mg/Ipratropium 0.5 Mg)) 1 neb INH Q2H PRN PRN Reason: SOB/WHEEZING Last Admin: 01/05/19 19:52 Dose: 1 neb Atorvastatin Calcium (Lipitor*) 20 mg PO 1700 JANA Last Admin: 01/10/19 18:30 Dose: 20 mg Cefdinir (Cefdinir Cap*) 300 mg PO BID JANA Last Admin: 01/10/19 21:41 Dose: 300 mg Dextrose (Dextrose 50% Vial 50 Ml*) 25 ml IV PUSH .FOR FS < 60 - SS PRN PRN Reason: FS < 60 Docusate Sodium (Colace Cap*) 100 mg PO BID PRN PRN Reason: CONSTIPATION Last Admin: 01/04/19 19:54 Dose: 100 mg Docusate Sodium (Colace Liq*) 50 mg PO BEDTIME [facility] Last Admin: 01/10/19 20:36 Dose: Not Given Famotidine (Pepcid Tab*) 20 mg PO Q12H [facility] Last Admin: 01/10/19 21:41 Dose: 20 mg Heparin Sodium (Porcine) (Heparin Vial(*)) 5,000 units SUBCUT Q8HR JANA Last Admin: 01/11/19 06:12 Dose: 5,000 units Heparin Sodium (Porcine) (Heparin Flush Picc/Ml/Cvc(*)) 1 - 3 ml FLUSH 0600, 1800 [facility]; Protocol Last Admin: 01/11/19 06:12 Dose: 1 ml Insulin Glargine (Lantus(*)) 50 units SUBCUT 1800 [facility] Last Admin: 01/10/19 18:30 Dose: 50 unit Insulin Human Lispro (Humalog*) 0 units SUBCUT ACHS [facility]; Protocol Last Admin: 01/10/19 22:58 Dose: 12 units Insulin Human Lispro (Humalog*) 0 units SUBCUT AC [facility]; Protocol Last Admin: 01/10/19 19:25 Dose: Not Given Oxycodone HCl (Roxycodone Tab*) 10 mg PO Q4H PRN PRN Reason: PAIN - MODERATE Last Admin: 01/11/19 04:09 Dose: 10 mg Phenazopyridine HCl (Pyridium Tab*) 200 mg PO BID [facility] Last Admin: 01/10/19 21:41 Dose: 200 mg Polyethylene Glycol/Electrolytes (Miralax*) 17 gm PO DAILY PRN PRN Reason: CONSTIPATION Last Admin: 01/04/19 16:38 Dose: 17 gm Potassium Phosphate (K Phos Original Tab*) 500 mg PO BID [facility] Last Admin: 01/10/19 21:41 Dose: 500 mg Ramipril (Altace Cap*) 10 mg PO DAILY [facility] Last Admin: 01/10/19 10:32 Dose: 10 mg Senna (Senokot 8.6 Mg Tab*) 1 tab PO BEDTIME [facility] Last Admin: 01/10/19 20:36 Dose: Not Given Terazosin HCl (Hytrin Cap*) 5 mg PO BEDTIME [facility] Last Admin: 01/10/19 21:41 Dose: 5 mg Tramadol HCl (Ultram*) 50 mg PO Q6H PRN PRN Reason: PAIN - MODERATE Last Admin: 01/11/19 04:09 Dose: 50 mg Trazodone HCl (Desyrel Tab*) 50 mg PO BEDTIME PRN PRN Reason: INSOMNIA Last Admin: 01/10/19 21:41 Dose: 50 mg Triamterene/HCTZ (Dyazide Cap*) 1 cap PO DAILY JANA Last Admin: 01/10/19 10:32 Dose: 1 cap Home Medications: Home Medications Medication Instructions Recorded Confirmed Type Docusate CAP* [Colace Cap*] 100 mg PO QPM 12/09/11 12/31/18 History Labetalol TAB* [Trandate TAB*] 200 mg PO BID 12/09/11 12/31/18 History traZODone TAB* [Desyrel*] 50 mg PO BEDTIME 12/09/11 12/31/18 History Prochlorperazine TAB* [Compazine 10 mg PO QID PRN 10/20/12 12/31/18 History Tab*] Ramipril CAP* [Altace CAP*] 20 mg PO QAM 05/26/13 12/31/18 History Terazosin CAP* [Hytrin CAP*] 5 mg PO BEDTIME 05/26/13 12/31/18 History Triamterene/HCTZ 37.5-25 MG* 1 cap PO QAM 05/26/13 12/31/18 History [Dyazide CAP*] metFORMIN* [Glucophage*] 500 mg PO BID 05/26/13 12/31/18 History Atorvastatin* [Lipitor*] 20 mg PO BEDTIME 06/14/14 12/31/18 History ALPRAZolam TAB* [Xanax TAB*] 0.5 mg PO QID PRN MDD 4 tabs 02/09/15 12/31/18 History Docusate CAP* [Colace Cap*] 200 mg PO QAM 02/09/15 12/31/18 History Escitalopram * [Lexapro (NF)] 20 mg PO DAILY 02/09/15 12/31/18 History Gabapentin CAP(*) [Neurontin 600 mg PO QID 02/09/15 12/31/18 History CAP(*)] Oxycodone HCl [Oxycontin] 6 - 8 tab PO DAILY PRN 02/09/15 12/31/18 History Insulin Aspart [Novolog] 1 unit SC .BEFORE MEALS 10/17/15 12/31/18 History Insulin Glargine,Hum.rec.anlog 30 units SUBCUT BEDTIME 04/15/17 12/31/18 History [Basaglar Kwikpen] Methocarbamol 750 mg PO Q6H PRN 04/15/17 12/31/18 History Mirabegron (NF) [Myrbetriq (NF)] 50 mg PO DAILY 04/15/17 12/31/18 History Bisacodyl SUPP* [Dulcolax Supp*] 10 mg [place] DAILY 12/31/18 12/31/18 History Diclofenac 1% GEL (NF) [Voltaren 2 gm TOPICAL QID 12/31/18 12/31/18 History 1% GEL (NF)] Gentamicin 0.3% OPHTH.SOLN* 1 drop BOTH EYES Q4H 12/31/18 12/31/18 History Glucagon,Human Recombinant 1 mg IM ONCE 12/31/18 12/31/18 History [Glucagon Emergency Kit] Omeprazole (Nf) [Prilosec (NF)] 40 mg PO QPM 12/31/18 12/31/18 History Ondansetron TAB* [Zofran 4 MG Tab*] 8 mg PO Q6H PRN 12/31/18 12/31/18 History Oxybutynin TAB* [Ditropan TAB*] 5 mg PO DAILY 12/31/18 12/31/18 History Polyethylene Glycol 3350* 17 gm PO DAILY 12/31/18 12/31/18 History [Miralax*] Polymyx/Trimethoprim OPTH* 1 drop BOTH EYES Q6H 12/31/18 12/31/18 History [Polytrim OPHTH*] Sennosides 17.2 mg PO DAILY 12/31/18 12/31/18 History fentaNYL PATCH 25 MCG/HR* 25 mcg TRANSDERM Q48H 12/31/18 12/31/18 History [Duragesic PATCH 25 Mcg/Hr*] fentaNYL PATCHs 100 MCG/HR* 100 mcg TRANSDERM Q72H 12/31/18 01/01/19 History [Duragesic Patch 100 Mcg/Hr *] Allergies: Allergies Allergy/AdvReac Type Severity Reaction Status Date / Time hydrochlorothiazide AdvReac Unknown Verified 01/04/19 06:06 [From Maxzide] Reaction Details Firfive-Xzm-Hmp Reductase AdvReac Unknown Verified 01/04/19 06:06 Inhibitor Reaction Details triamterene [From Maxzide] AdvReac Unknown Verified 01/04/19 06:06 Reaction Details Objective - Vital Signs Vital Signs: Vital Signs 01/10/19 01/10/19 01/10/19 10:31 11:09 13:32 Temperature 98.4 F Pulse Rate 106 Respiratory 20 18 Rate Blood Pressure 135/61 (mmHg) O2 Sat by Pulse 99 97 Oximetry 01/10/19 01/10/19 01/10/19 13:35 15:27 18:30 Temperature 97.7 F Pulse Rate 100 Respiratory 16 20 20 Rate Blood Pressure 121/50 (mmHg) O2 Sat by Pulse 98 Oximetry 01/10/19 01/10/19 01/10/19 19:15 20:00 21:41 Temperature 98.6 F Pulse Rate 93 Respiratory 20 16 18 Rate Blood Pressure 144/58 (mmHg) O2 Sat by Pulse 95 Oximetry 01/10/19 01/10/19 01/11/19 22:59 23:15 00:51 Temperature 98.3 F Pulse Rate 77 Respiratory 18 18 16 Rate Blood Pressure 104/57 (mmHg) O2 Sat by Pulse 95 Oximetry 01/11/19 01/11/19 01/11/19 00:52 03:15 04:09 Temperature 98.3 F Pulse Rate 105 Respiratory 16 18 16 Rate Blood Pressure 96/58 (mmHg) O2 Sat by Pulse 96 Oximetry 01/11/19 06:18 Temperature Pulse Rate Respiratory 16 Rate Blood Pressure (mmHg) O2 Sat by Pulse Oximetry - Intake and Output Intake and Output: Intake & Output 01/08/19 01/09/19 01/10/19 01/11/19 11:59 11:59 11:59 11:59 Intake Total 1640 1800 694 820 Output Total 1450 1200 1325 1100 Balance 190 600 -631 -280 Intake: IVPB 64 ABX 64 Oral 1640 1800 630 820 Output: Urine 400 Alvarez 625 5582 409 5937 Residual 825 Alvarez 16 Fr Temperature 825 Probe Other: Estimated Void Small Small Date of Last Bowel 12/29/18 Movement # Bowel Movements 1 2 Estimated Stool Amount Large Small Large ADLs: Meal Record Start: 12/31/18 17: 53 Freq: 09,13,18 Status: Inactive Protocol: Created 12/31/18 17:53 System (Rec: 12/31/18 17:53 System ICU-M33) Document 01/01/19 09:00 [id number] (Rec: 01/01/19 09:32 [id number] ICU-C15) Document 01/01/19 11:58 NET4009 (Rec: 01/01/19 11:58 QZB9665 ICU-C15) Document 01/01/19 17:50 VTQ2649 (Rec: 01/01/19 17:50 BZK3804 ICU-C15) Document 01/02/19 09:00 NQQ1213 (Rec: 01/02/19 09:33 NKD3274 ICU-C12) ADLs: Meal Record Start: 01/02/19 11: 06 Freq: DAILY@0900,1400,1800 Status: Active Protocol: Created 01/02/19 11:06 ANP3073 (Rec: 01/02/19 11:06 CAY0524 ICU-C12) Document 01/02/19 14:00 EVU4394 (Rec: 01/02/19 15:01 NTK4773 ICU-C12) Document 01/02/19 16:59 JRI4955 (Rec: 01/02/19 16:59 NWQ3754 ICU-C12) Document 01/03/19 09:00 DGZ3614 (Rec: 01/03/19 10:24 SAY0916 ICU-L03) Document 01/03/19 14:00 MPT9334 (Rec: 01/03/19 14:03 AHG7688 IMG-M07) Document 01/03/19 18:00 RCH9601 (Rec: 01/03/19 18:02 ZMI2204 ICU-L03) Document 01/04/19 09:00 CBS7368 (Rec: 01/04/19 10:59 XOU3534 ICU-C15) Document 01/04/19 14:00 KBB7061 (Rec: 01/04/19 15:43 XFN9981 ICU-C15) Document 01/05/19 09:00 KQI1889 (Rec: 01/05/19 10:59 OJP6517 ICU-C15) Document 01/05/19 14:00 IHX4276 (Rec: 01/05/19 14:24 AUG5181 ICU-C15) Document 01/05/19 17:56 ING2778 (Rec: 01/05/19 17:58 CDO1047 ICU-C15) Document 01/06/19 09:00 TLX7685 (Rec: 01/06/19 10:31 XXB2978 ICU-L03) Document 01/06/19 14:00 ELX1323 (Rec: 01/06/19 14:04 NMV9782 ICU-C16) Document 01/06/19 18:00 AYQ5904 (Rec: 01/06/19 18:51 UDF6752 TELE-C01) Document 01/07/19 09:00 YOK6669 (Rec: 01/07/19 13:28 EKV8148 TELE-C10) Document 01/07/19 14:00 ASF5816 (Rec: 01/07/19 14:09 GLE9803 TELE-C10) Document 01/07/19 18:00 LEV3783 (Rec: 01/07/19 18:53 EQE2312 TELE-C10) Document 01/08/19 09:00 ELD3869 (Rec: 01/08/19 11:05 DNZ5876 TELE-C05) Document 01/08/19 14:00 PAK5823 (Rec: 01/08/19 14:04 JYS8042 TELE-C05) Document 01/08/19 18:00 TWX3591 (Rec: 01/08/19 19:07 BQM3061 TELE-C11) Document 01/09/19 09:00 JRE1904 (Rec: 01/09/19 10:36 LXJ6039 TELE-C06) Document 01/09/19 14:00 QBO6953 (Rec: 01/09/19 15:44 ZFZ9693 TELE-C03) Document 01/09/19 18:00 XFW7621 (Rec: 01/09/19 19:42 WLH8149 TELE-C13) Document 01/10/19 09:00 TNE2885 (Rec: 01/10/19 10:41 GVR2287 TELE-C13) Document 01/10/19 13:44 IKP6472 (Rec: 01/10/19 13:45 JLG9499 TELE-C08) Document 01/10/19 18:00 LVP5744 (Rec: 01/10/19 20:44 WIS6365 TELE-C11) ADLs: Meal Record Start: 01/06/19 16: 01 Freq: Status: Active Protocol: Created 01/06/19 16:01 HWI2623 (Rec: 01/06/19 16:01 IDV6407 TELE-C07) Document 01/08/19 20:29 YJC6019 (Rec: 01/08/19 20:29 EUR5227 TELE-C11) Intake and Output Start: 12/31/18 14: 54 Freq: Status: Inactive Protocol: Created 12/31/18 14:54 System (Rec: 12/31/18 14:54 System EDRM-C14) Intake and Output Start: 12/31/18 17: 53 Freq: Q1HR Status: Inactive Protocol: Created 12/31/18 17:53 System (Rec: 12/31/18 17:53 System ICU-M33) Document 12/31/18 17:54 UKP4818 (Rec: 12/31/18 17:54 WGU2005 ICU-M33) Document 12/31/18 19:00 LAH3512 (Rec: 12/31/18 22:09 SNL7786 ICU-C15) Document 12/31/18 20:00 DOD0940 (Rec: 12/31/18 22:27 HZR1855 ICU-C15) Document 12/31/18 21:00 IBZ1901 (Rec: 12/31/18 22:28 FGW5777 ICU-C15) Document 12/31/18 22:00 CHX6819 (Rec: 12/31/18 22:45 TXE5016 ICU-C15) Document 12/31/18 23:00 LGZ9774 (Rec: 01/01/19 00:06 YVA0636 ICU-L03) Document 01/01/19 00:00 FUO6790 (Rec: 01/01/19 01:01 IBD1536 ICU-L03) Document 01/01/19 01:00 ASP8618 (Rec: 01/01/19 01:01 FFD8445 ICU-L03) Document 01/01/19 02:00 NGA4834 (Rec: 01/01/19 02:18 ADW9202 ICU-L03) Document 01/01/19 02:55 TXD4102 (Rec: 01/01/19 02:55 AHY6942 ICU-L03) Document 01/01/19 04:00 QGL0431 (Rec: 01/01/19 05:03 SIH8149 ICU-L03) Document 01/01/19 05:00 RGX0092 (Rec: 01/01/19 05:28 JHU9623 ICU-L03) Document 01/01/19 06:00 JJJ8859 (Rec: 01/01/19 07:10 XZI2745 ICU-L03) Document 01/01/19 07:00 HVV5974 (Rec: 01/01/19 07:13 ZEB0626 ICU-L03) Document 01/01/19 08:40 FIY5561 (Rec: 01/01/19 08:40 WIJ4487 ICU-M33) Document 01/01/19 09:53 CFC2286 (Rec: 01/01/19 09:54 HSE1688 ICU-M33) Document 01/01/19 11:30 SSA6153 (Rec: 01/01/19 11:30 AES8839 ICU-C15) Document 01/01/19 12:00 AAO5952 (Rec: 01/01/19 13:06 ZXE4260 ICU-C15) Document 01/01/19 13:13 RXS3691 (Rec: 01/01/19 13:13 TTF2376 ICU-C15) Document 01/01/19 14:19 TRZ1523 (Rec: 01/01/19 14:19 JCQ7045 ICU-M33) Document 01/01/19 14:59 XGW6640 (Rec: 01/01/19 14:59 DJT9337 ICU-C15) Document 01/01/19 17:14 CGF9458 (Rec: 01/01/19 17:14 FMK2439 ICU-C15) Document 01/01/19 19:00 REF5617 (Rec: 01/01/19 22:18 IYC3841 ICU-C15) Document 01/01/19 20:00 KYA2051 (Rec: 01/01/19 22:18 RAI5101 ICU-C15) Document 01/01/19 21:00 IFI5623 (Rec: 01/01/19 22:18 WXI5632 ICU-C15) Document 01/01/19 22:00 STC0593 (Rec: 01/01/19 22:18 WPU2701 ICU-C15) Document 01/01/19 22:43 QVO1260 (Rec: 01/01/19 22:43 UMD8954 ICU-C10) Document 01/02/19 00:00 NIX5915 (Rec: 01/02/19 01:11 KNR3829 ICU-C10) Document 01/02/19 01:00 GZL2819 (Rec: 01/02/19 01:11 NQG3787 ICU-C10) Document 01/02/19 02:00 ZDM0328 (Rec: 01/02/19 02:02 QDY1570 ICU-C10) Document 01/02/19 03:00 VLQ2867 (Rec: 01/02/19 03:08 FQD2594 ICU-C10) Document 01/02/19 04:00 TBQ6788 (Rec: 01/02/19 04:23 JPM3954 ICU-C10) Document 01/02/19 05:00 TAV9105 (Rec: 01/02/19 06:29 NGM8171 ICU-C10) Document 01/02/19 06:00 MOC5893 (Rec: 01/02/19 06:29 MMX8933 ICU-C10) Document 01/02/19 07:00 LQD8914 (Rec: 01/02/19 09:20 MDP8355 ICU-C12) Document 01/02/19 08:00 YOR6898 (Rec: 01/02/19 09:21 BEI9442 ICU-C12) Document 01/02/19 09:00 MGJ4548 (Rec: 01/02/19 09:21 SFT1230 ICU-C12) Document 01/02/19 10:00 JVW8765 (Rec: 01/02/19 10:04 WMF1052 ICU-C12) Intake and Output Start: 01/02/19 11: 06 Freq: DAILY@0600,1400,2200 Status: Active Protocol: Created 01/02/19 11:06 SEO8079 (Rec: 01/02/19 11:06 MFO2373 ICU-C12) Document 01/02/19 12:00 DSO8393 (Rec: 01/02/19 12:16 TMU3596 ICU-C12) Document 01/02/19 13:00 CRA8722 (Rec: 01/02/19 14:48 ANW7989 ICU-C12) Document 01/02/19 14:00 TUK4099 (Rec: 01/02/19 14:48 RHJ0627 ICU-C12) Document 01/02/19 14:48 VPL5184 (Rec: 01/02/19 14:48 VIU4877 ICU-C12) Document 01/02/19 15:56 DJS7503 (Rec: 01/02/19 15:56 VFU0980 IMG-M07) Document 01/02/19 16:58 GEB9014 (Rec: 01/02/19 16:58 WYV7625 ICU-C12) Document 01/02/19 18:00 CKC1042 (Rec: 01/02/19 18:12 HSW5377 IMG-M07) Document 01/02/19 19:00 FWL4777 (Rec: 01/02/19 19:46 FRN3933 IMG-M07) Document 01/02/19 19:46 PZR8923 (Rec: 01/02/19 19:47 JYN4238 IMG-M07) Document 01/02/19 21:00 EPB9475 (Rec: 01/02/19 22:05 TLB9787 IMG-M07) Document 01/02/19 22:00 KPJ8587 (Rec: 01/02/19 22:05 PKM5948 IMG-M07) Document 01/02/19 22:50 CKN4869 (Rec: 01/02/19 22:50 RPC0883 ICU-C15) Document 01/03/19 00:00 SUL4973 (Rec: 01/03/19 00:03 SWC4309 IMG-M07) Document 01/03/19 01:00 TEU0589 (Rec: 01/03/19 01:09 RDI5472 ICU-C15) Document 01/03/19 01:51 RXJ0204 (Rec: 01/03/19 01:51 REV5566 ICU-C15) Document 01/03/19 03:00 ZDE2309 (Rec: 01/03/19 03:04 PHX2647 ICU-C15) Document 01/03/19 03:50 QTY9985 (Rec: 01/03/19 03:50 DER4847 ICU-C15) Document 01/03/19 05:00 AGM9464 (Rec: 01/03/19 05:07 YKI0958 IMG-M07) Document 01/03/19 06:00 QRO6503 (Rec: 01/03/19 06:08 CVS8325 ICU-C15) Document 01/03/19 07:00 ZGI1712 (Rec: 01/03/19 08:29 OYD3899 IMG-M07) Document 01/03/19 08:00 CNY4627 (Rec: 01/03/19 08:29 ZZL2686 IMG-M07) Document 01/03/19 09:00 ALY9046 (Rec: 01/03/19 09:32 IIM0916 IMG-M07) Document 01/03/19 10:00 OZA5856 (Rec: 01/03/19 10:26 WTV2308 IMG-M07) Document 01/03/19 11:00 TCI8548 (Rec: 01/03/19 11:10 OFY7553 IMG-M07) Document 01/03/19 12:00 SWM7230 (Rec: 01/03/19 12:22 TGP8201 IMG-M07) Document 01/03/19 13:00 GWV6588 (Rec: 01/03/19 13:18 CFA9799 IMG-M07) Document 01/03/19 14:00 CSM3351 (Rec: 01/03/19 14:03 DMF9151 IMG-M07) Document 01/03/19 15:00 GFO0216 (Rec: 01/03/19 15:30 ZEM9897 IMG-M07) Document 01/03/19 16:00 BWH2424 (Rec: 01/03/19 16:34 GGP7993 IMG-M07) Document 01/03/19 17:00 CBJ7817 (Rec: 01/03/19 17:26 UUT8482 IMG-M07) Document 01/03/19 18:00 CYG7531 (Rec: 01/03/19 18:18 WYE9248 IMG-M07) Document 01/03/19 19:00 LCV4222 (Rec: 01/03/19 19:25 VZM6061 IMG-M07) Document 01/03/19 20:00 BJF5314 (Rec: 01/03/19 21:01 QLW3012 ICU-C12) Document 01/03/19 21:00 TQA4966 (Rec: 01/03/19 21:02 VRT5937 ICU-C12) Document 01/03/19 22:00 PTK0045 (Rec: 01/03/19 22:13 SYA9172 ICU-C12) Document 01/03/19 22:58 MQZ7435 (Rec: 01/03/19 23:00 CUK6685 ICU-C12) Document 01/03/19 23:04 GFN5552 (Rec: 01/03/19 23:12 FCV6948 ICU-C12) Document 01/04/19 00:00 ZVX1276 (Rec: 01/04/19 00:07 ZRR7954 IMG-M07) Document 01/04/19 01:00 JKY3815 (Rec: 01/04/19 01:26 ARH8341 ICU-C12) Document 01/04/19 02:00 DDT3317 (Rec: 01/04/19 02:20 HNP5763 ICU-C12) Document 01/04/19 03:00 IXI1292 (Rec: 01/04/19 03:09 IXF2993 ICU-C12) Document 01/04/19 04:00 PEV8016 (Rec: 01/04/19 04:30 TZN9651 ICU-C12) Document 01/04/19 04:39 TRI2016 (Rec: 01/04/19 04:39 AYQ6425 ICU-C12) Document 01/04/19 04:58 RMZ6976 (Rec: 01/04/19 05:01 ATU9445 ICU-C12) Document 01/04/19 06:20 WGY5991 (Rec: 01/04/19 06:20 PZG3776 IMG-M07) Document 01/04/19 06:37 SFS2426 (Rec: 01/04/19 06:38 TAE8376 ICU-C12) Document 01/04/19 07:00 XZJ4959 (Rec: 01/04/19 07:13 FNX8329 IMG-M07) Document 01/04/19 08:00 ISM6203 (Rec: 01/04/19 08:03 SJN2741 IMG-M07) Document 01/04/19 09:00 TAJ3719 (Rec: 01/04/19 09:24 ZZV9641 IMG-M07) Document 01/04/19 10:00 TGM5061 (Rec: 01/04/19 10:20 RPH0633 IMG-M07) Document 01/04/19 11:00 CFB3211 (Rec: 01/04/19 11:04 VXE3532 IMG-M07) Document 01/04/19 11:54 LIS3633 (Rec: 01/04/19 11:54 CZH7923 IMG-M07) Document 01/04/19 13:00 HBV3686 (Rec: 01/04/19 13:16 ACS7832 IMG-M07) Document 01/04/19 14:00 PNN1258 (Rec: 01/04/19 14:18 WPS7361 IMG-M07) Document 01/04/19 15:00 BNQ9618 (Rec: 01/04/19 15:51 YKY9062 IMG-M07) Document 01/04/19 16:00 MUS4587 (Rec: 01/04/19 16:30 RRH7800 IMG-M07) Document 01/04/19 17:00 CBO7102 (Rec: 01/04/19 17:01 CCH2881 IMG-M07) Document 01/04/19 18:00 UJY5282 (Rec: 01/04/19 19:44 LXY1357 IMG-M07) Document 01/04/19 19:00 ROV3353 (Rec: 01/04/19 19:44 YVT4778 IMG-M07) Document 01/04/19 20:00 KKV0588 (Rec: 01/04/19 23:01 RIX0779 ICU-C16) Document 01/04/19 21:00 DDV0675 (Rec: 01/04/19 23:01 PVW8726 ICU-C16) Document 01/04/19 22:00 OAQ2091 (Rec: 01/04/19 23:01 GXM2607 ICU-C16) Document 01/04/19 23:00 ETZ2670 (Rec: 01/04/19 23:10 ELL0673 ICU-C16) Document 01/05/19 00:00 FLU9421 (Rec: 01/05/19 01:19 GSI0816 ICU-C16) Document 01/05/19 01:00 FBA9986 (Rec: 01/05/19 01:19 URM7607 ICU-C16) Document 01/05/19 02:00 MDI4379 (Rec: 01/05/19 02:20 GNM8653 ICU-C16) Document 01/05/19 03:00 FLY8950 (Rec: 01/05/19 03:08 KBT3120 ICU-C16) Document 01/05/19 04:00 RCB1253 (Rec: 01/05/19 05:24 QXI8343 ICU-C16) Document 01/05/19 05:00 NSA9418 (Rec: 01/05/19 05:24 MJU8129 ICU-C16) Document 01/05/19 06:00 OST2461 (Rec: 01/05/19 06:39 PAB7370 ICU-C16) Document 01/05/19 08:00 BPN5762 (Rec: 01/05/19 10:18 ROR6620 ICU-C15) Document 01/05/19 10:00 PJZ4538 (Rec: 01/05/19 10:59 PKP7953 ICU-C15) Document 01/05/19 11:00 WTB3378 (Rec: 01/05/19 11:22 [id number] ICU-C15) Document 01/05/19 12:00 ZFL5137 (Rec: 01/05/19 14:00 IXQ7886 ICU-C15) Document 01/05/19 13:00 OPU7002 (Rec: 01/05/19 14:02 OPL4155 ICU-C15) Document 01/05/19 14:00 WXU5416 (Rec: 01/05/19 14:22 [id number] ICU-C15) Document 01/05/19 16:00 JLZ1361 (Rec: 01/05/19 16:21 VBL7112 ICU-C15) Document 01/05/19 17:00 RDN9337 (Rec: 01/05/19 17:22 RJG7363 ICU-C15) Document 01/05/19 17:56 QKM5989 (Rec: 01/05/19 17:58 SLH3312 ICU-C15) Document 01/05/19 20:00 NVK5141 (Rec: 01/05/19 20:47 VTT5128 ICU-C16) Document 01/05/19 20:55 JXP3697 (Rec: 01/05/19 20:55 QBR3130 ICU-C16) Document 01/05/19 22:00 HCB5238 (Rec: 01/05/19 22:08 SCG1053 ICU-C16) Document 01/05/19 23:00 DVU4253 (Rec: 01/05/19 23:07 ROG2756 ICU-C16) Document 01/06/19 00:00 WAP9163 (Rec: 01/06/19 00:01 [id number] IMG-M07) Document 01/06/19 01:00 NCB6350 (Rec: 01/06/19 01:10 RGA7396 ICU-C16) Document 01/06/19 02:00 TYW6092 (Rec: 01/06/19 02:02 PFM2079 ICU-C16) Document 01/06/19 03:00 NWH0115 (Rec: 01/06/19 03:12 AFR6764 ICU-C16) Document 01/06/19 04:00 ERM3392 (Rec: 01/06/19 04:59 [id number] ICU-C16) Document 01/06/19 05:00 PDG5729 (Rec: 01/06/19 05:05 QHX4395 ICU-C16) Document 01/06/19 05:57 WHJ3511 (Rec: 01/06/19 05:59 VAM5011 IMG-M07) Document 01/06/19 07:00 GKK1179 (Rec: 01/06/19 08:37 JMW3437 ICU-C16) Document 01/06/19 08:00 RYC5928 (Rec: 01/06/19 08:37 BJO4750 ICU-C16) Document 01/06/19 09:00 IHI2040 (Rec: 01/06/19 09:44 OLK4031 ICU-C16) Document 01/06/19 10:00 GKD7273 (Rec: 01/06/19 11:39 EQG2001 ICU-L03) Document 01/06/19 11:00 AUJ3705 (Rec: 01/06/19 11:50 CMI9818 IMG-M07) Document 01/06/19 11:50 UAF0003 (Rec: 01/06/19 11:50 ITR1541 IMG-M07) Document 01/06/19 13:00 QSG8287 (Rec: 01/06/19 13:38 ZCG0352 ICU-C16) Document 01/06/19 13:38 GMT7548 (Rec: 01/06/19 13:38 MYA6233 ICU-C16) Document 01/06/19 16:00 UXP0608 (Rec: 01/06/19 16:17 EKH1897 TELE-C01) Document 01/06/19 22:00 VWN1916 (Rec: 01/06/19 22:17 AVF5825 TELE-C07) Document 01/07/19 06:00 DYJ7458 (Rec: 01/07/19 06:12 CAP4302 TELE-C11) Document 01/07/19 14:00 CXD3872 (Rec: 01/07/19 17:56 AAG5913 TELE-C06) Document 01/07/19 21:17 DRE1777 (Rec: 01/07/19 21:18 RCP5570 TELE-C10) Document 01/07/19 22:03 NEP0469 (Rec: 01/07/19 22:03 JBK3853 TELE-C10) Document 01/08/19 06:00 BZA6910 (Rec: 01/08/19 06:29 RKP6760 TELE-C10) Document 01/08/19 14:00 DTM7564 (Rec: 01/08/19 14:36 ZKV5974 TELE-C05) Document 01/08/19 20:30 BAD1543 (Rec: 01/08/19 20:31 MZB0511 TELE-C11) Document 01/09/19 06:00 BBI7406 (Rec: 01/09/19 06:12 OMO1188 TELE-C11) Document 01/09/19 14:00 QIV7660 (Rec: 01/09/19 14:04 XSW9873 TELE-C01) Document 01/09/19 19:42 ZAE7476 (Rec: 01/09/19 19:43 UIK3299 TELE-C13) Document 01/10/19 06:00 CIB7606 (Rec: 01/10/19 06:17 ORP0324 TELE-C01) Document 01/10/19 13:51 SUN2027 (Rec: 01/10/19 13:52 JIL8061 TELE-C08) Document 01/10/19 21:07 YZT0636 (Rec: 01/10/19 21:07 XOY5016 TELE-C11) Document 01/11/19 05:59 GMM0526 (Rec: 01/11/19 06:03 TIC2610 TELE-C10) Results - Results Lab Results: Laboratory Results - last 24 hr 01/10/19 01/10/19 01/10/19 11:40 14:23 17:00 Sodium 130 L Potassium 4.8 Chloride 99 L Carbon Dioxide 24 Anion Gap 7 BUN 25 H Creatinine 0.75 Est GFR ( Amer) 130.4 Est GFR (Non-Af Amer) 107.7 BUN/Creatinine Ratio 33.3 H Glucose 369 H POC Glucose (mg/dL) 320 H 199 H Calcium 8.0 L Magnesium 2.0 Total Bilirubin 0.60 AST 32 ALT 33 Alkaline Phosphatase 78 Total Protein 5.5 L Albumin 3.1 L Globulin 2.4 Albumin/Globulin Ratio 1.3 01/10/19 01/11/19 21:53 07:30 Sodium Potassium Chloride Carbon Dioxide Anion Gap BUN Creatinine Est GFR ( Amer) Est GFR (Non-Af Amer) BUN/Creatinine Ratio Glucose POC Glucose (mg/dL) 325 H 205 H Calcium Magnesium Total Bilirubin AST ALT Alkaline Phosphatase Total Protein Albumin Globulin Albumin/Globulin Ratio Assessment - Problem List Assessment: Patient Problems BPH with urinary obstruction (Acute) Hyperglycemia due to type 1 diabetes mellitus (Acute) Hypokalemia (Acute) Left lower lobe pneumonia (Acute) Anemia (Chronic) Backache (Chronic) 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
--- NOTE | 2019-01-11 08:41 | PN ---
Subjective - Subjective Reason for Note: Progress Note History: He has had no cough, fever or sputum. His appetite is improving. He continues to have loose stool. His glucose levels remain high with his current diet. He continues to be weak. I have heard comments about his cognitive function not being at baseline - not recognizing people, making comments that are not fully oriented. However, he seems sharper today and acknowledges he doesn't know about his presentation to the hospital. He realizes he is too weak to go home - he cannot transfer or perform any ADLS. 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) E10.42 Depression (Chronic) F32.9 Essential hypertension (Chronic) I10 Essential hypertension (Chronic) I10 GERD (gastroesophageal reflux disease) (Chronic) K21.9 Hypercholesterolemia (Chronic) E78.0 Hypercholesterolemia (Chronic) E78.00 Muscular dystrophy (Chronic) G71.0 error 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, E10.65 Vitiligo (Chronic) L80 Current Medications: Current Medications Acetaminophen (Tylenol Adult Liq*) 650 mg PO Q8H PRN PRN Reason: MILD PAIN or TEMP > 100.4 Last Admin: 01/10/19 21:40 Dose: 650 mg Acetaminophen (Tylenol Supp*) 650 mg IN Q6H PRN PRN Reason: .FEVER Last Admin: 01/05/19 21:04 Dose: 650 mg Albuterol/Ipratropium (Duoneb (Albuterol 2.5 Mg/Ipratropium 0.5 Mg)) 1 neb INH Q2H PRN PRN Reason: SOB/WHEEZING Last Admin: 01/05/19 19:52 Dose: 1 neb Atorvastatin Calcium (Lipitor*) 20 mg PO 1700 JANA Last Admin: 01/10/19 18:30 Dose: 20 mg Cefdinir (Cefdinir Cap*) 300 mg PO BID [facility] Last Admin: 01/10/19 21:41 Dose: 300 mg Dextrose (Dextrose 50% Vial 50 Ml*) 25 ml IV PUSH .FOR FS < 60 - SS PRN PRN Reason: FS < 60 Docusate Sodium (Colace Cap*) 100 mg PO BID PRN PRN Reason: CONSTIPATION Last Admin: 01/04/19 19:54 Dose: 100 mg Docusate Sodium (Colace Liq*) 50 mg PO BEDTIME [facility] Last Admin: 01/10/19 20:36 Dose: Not Given Famotidine (Pepcid Tab*) 20 mg PO Q12H [facility] Last Admin: 01/10/19 21:41 Dose: 20 mg Heparin Sodium (Porcine) (Heparin Vial(*)) 5,000 units SUBCUT Q8HR [facility] Last Admin: 01/11/19 06:12 Dose: 5,000 units Heparin Sodium (Porcine) (Heparin Flush Picc/Ml/Cvc(*)) 1 - 3 ml FLUSH 0600, 1800 [facility]; Protocol Last Admin: 01/11/19 06:12 Dose: 1 ml Insulin Glargine (Lantus(*)) 50 units SUBCUT 1800 [facility] Last Admin: 01/10/19 18:30 Dose: 50 unit Insulin Human Lispro (Humalog*) 0 units SUBCUT ACHS [facility]; Protocol Last Admin: 01/10/19 22:58 Dose: 12 units Insulin Human Lispro (Humalog*) 0 units SUBCUT AC [facility]; Protocol Last Admin: 01/10/19 19:25 Dose: Not Given Oxycodone HCl (Roxycodone Tab*) 10 mg PO Q4H PRN PRN Reason: PAIN - MODERATE Last Admin: 01/11/19 04:09 Dose: 10 mg Phenazopyridine HCl (Pyridium Tab*) 200 mg PO BID [facility] Last Admin: 01/10/19 21:41 Dose: 200 mg Polyethylene Glycol/Electrolytes (Miralax*) 17 gm PO DAILY PRN PRN Reason: CONSTIPATION Last Admin: 01/04/19 16:38 Dose: 17 gm Potassium Phosphate (K Phos Original Tab*) 500 mg PO BID [facility] Last Admin: 01/10/19 21:41 Dose: 500 mg Ramipril (Altace Cap*) 10 mg PO DAILY [facility] Last Admin: 01/10/19 10:32 Dose: 10 mg Senna (Senokot 8.6 Mg Tab*) 1 tab PO BEDTIME [facility] Last Admin: 01/10/19 20:36 Dose: Not Given Terazosin HCl (Hytrin Cap*) 5 mg PO BEDTIME [facility] Last Admin: 01/10/19 21:41 Dose: 5 mg Tramadol HCl (Ultram*) 50 mg PO Q6H PRN PRN Reason: PAIN - MODERATE Last Admin: 01/11/19 04:09 Dose: 50 mg Trazodone HCl (Desyrel Tab*) 50 mg PO BEDTIME PRN PRN Reason: INSOMNIA Last Admin: 01/10/19 21:41 Dose: 50 mg Triamterene/HCTZ (Dyazide Cap*) 1 cap PO DAILY [facility] Last Admin: 01/10/19 10:32 Dose: 1 cap Home Medications: Home Medications Medication Instructions Recorded Confirmed Type Docusate CAP* [Colace Cap*] 100 mg PO QPM 12/09/11 12/31/18 History Labetalol TAB* [Trandate TAB*] 200 mg PO BID 12/09/11 12/31/18 History traZODone TAB* [Desyrel*] 50 mg PO BEDTIME 12/09/11 12/31/18 History Prochlorperazine TAB* [Compazine 10 mg PO QID PRN 10/20/12 12/31/18 History Tab*] Ramipril CAP* [Altace CAP*] 20 mg PO QAM 05/26/13 12/31/18 History Terazosin CAP* [Hytrin CAP*] 5 mg PO BEDTIME 05/26/13 12/31/18 History Triamterene/HCTZ 37.5-25 MG* 1 cap PO QAM 05/26/13 12/31/18 History [Dyazide CAP*] metFORMIN* [Glucophage*] 500 mg PO BID 05/26/13 12/31/18 History Atorvastatin* [Lipitor*] 20 mg PO BEDTIME 06/14/14 12/31/18 History ALPRAZolam TAB* [Xanax TAB*] 0.5 mg PO QID PRN MDD 4 tabs 02/09/15 12/31/18 History Docusate CAP* [Colace Cap*] 200 mg PO QAM 02/09/15 12/31/18 History Escitalopram * [Lexapro (NF)] 20 mg PO DAILY 02/09/15 12/31/18 History Gabapentin CAP(*) [Neurontin 600 mg PO QID 02/09/15 12/31/18 History CAP(*)] Oxycodone HCl [Oxycontin] 6 - 8 tab PO DAILY PRN 02/09/15 12/31/18 History Insulin Aspart [Novolog] 1 unit SC .BEFORE MEALS 10/17/15 12/31/18 History Insulin Glargine,Hum.rec.anlog 30 units SUBCUT BEDTIME 04/15/17 12/31/18 History [Basaglar Kwikpen] Methocarbamol 750 mg PO Q6H PRN 04/15/17 12/31/18 History Mirabegron (NF) [Myrbetriq (NF)] 50 mg PO DAILY 04/15/17 12/31/18 History Bisacodyl SUPP* [Dulcolax Supp*] 10 mg IN DAILY 12/31/18 12/31/18 History Diclofenac 1% GEL (NF) [Voltaren 2 gm TOPICAL QID 12/31/18 12/31/18 History 1% GEL (NF)] Gentamicin 0.3% OPHTH.SOLN* 1 drop BOTH EYES Q4H 12/31/18 12/31/18 History Glucagon,Human Recombinant 1 mg IM ONCE 12/31/18 12/31/18 History [Glucagon Emergency Kit] Omeprazole (Nf) [Prilosec (NF)] 40 mg PO QPM 12/31/18 12/31/18 History Ondansetron TAB* [Zofran 4 MG Tab*] 8 mg PO Q6H PRN 12/31/18 12/31/18 History Oxybutynin TAB* [Ditropan TAB*] 5 mg PO DAILY 12/31/18 12/31/18 History Polyethylene Glycol 3350* 17 gm PO DAILY 12/31/18 12/31/18 History [Miralax*] Polymyx/Trimethoprim OPTH* 1 drop BOTH EYES Q6H 12/31/18 12/31/18 History [Polytrim OPHTH*] Sennosides 17.2 mg PO DAILY 12/31/18 12/31/18 History fentaNYL PATCH 25 MCG/HR* 25 mcg TRANSDERM Q48H 12/31/18 12/31/18 History [Duragesic PATCH 25 Mcg/Hr*] fentaNYL PATCHs 100 MCG/HR* 100 mcg TRANSDERM Q72H 12/31/18 01/01/19 History [Duragesic Patch 100 Mcg/Hr *] Allergies: Allergies Allergy/AdvReac Type Severity Reaction Status Date / Time hydrochlorothiazide AdvReac Unknown Verified 01/04/19 06:06 [From Maxzide] Reaction Details Sgmlvdc-Pys-Mjo Reductase AdvReac Unknown Verified 01/04/19 06:06 Inhibitor Reaction Details triamterene [From Maxzide] AdvReac Unknown Verified 01/04/19 06:06 Reaction Details Objective - Vital Signs Vital Signs: Vital Signs 01/10/19 01/10/19 01/10/19 10:31 11:09 13:32 Temperature 98.4 F Pulse Rate 106 Respiratory 20 18 Rate Blood Pressure 135/61 (mmHg) O2 Sat by Pulse 99 97 Oximetry 01/10/19 01/10/19 01/10/19 13:35 15:27 18:30 Temperature 97.7 F Pulse Rate 100 Respiratory 16 20 20 Rate Blood Pressure 121/50 (mmHg) O2 Sat by Pulse 98 Oximetry 01/10/19 01/10/19 01/10/19 19:15 20:00 21:41 Temperature 98.6 F Pulse Rate 93 Respiratory 20 16 18 Rate Blood Pressure 144/58 (mmHg) O2 Sat by Pulse 95 Oximetry 01/10/19 01/10/19 01/11/19 22:59 23:15 00:51 Temperature 98.3 F Pulse Rate 77 Respiratory 18 18 16 Rate Blood Pressure 104/57 (mmHg) O2 Sat by Pulse 95 Oximetry 01/11/19 01/11/19 01/11/19 00:52 03:15 04:09 Temperature 98.3 F Pulse Rate 105 Respiratory 16 18 16 Rate Blood Pressure 96/58 (mmHg) O2 Sat by Pulse 96 Oximetry 01/11/19 06:18 Temperature Pulse Rate Respiratory 16 Rate Blood Pressure (mmHg) O2 Sat by Pulse Oximetry - Intake and Output Intake and Output: Intake & Output 01/08/19 01/09/19 01/10/19 01/11/19 11:59 11:59 11:59 11:59 Intake Total 1640 1800 694 820 Output Total 1450 1200 1325 1100 Balance 190 600 -631 -280 Intake: IVPB 64 ABX 64 Oral 1640 1800 630 820 Output: Urine 400 Alvarez 625 4543 893 4177 Residual 825 Alvarez 16 Fr Temperature 825 Probe Other: Estimated Void Small Small Date of Last Bowel 12/29/18 Movement # Bowel Movements 1 2 Estimated Stool Amount Large Small Large ADLs: Meal Record Start: 12/31/18 17: 53 Freq: 09,13,18 Status: Inactive Protocol: Created 12/31/18 17:53 System (Rec: 12/31/18 17:53 System ICU-M33) Document 01/01/19 09:00 [id number] (Rec: 01/01/19 09:32 OSR3780 ICU-C15) Document 01/01/19 11:58 CLZ3763 (Rec: 01/01/19 11:58 DAX9685 ICU-C15) Document 01/01/19 17:50 SMH7001 (Rec: 01/01/19 17:50 HWG0843 ICU-C15) Document 01/02/19 09:00 EHB1557 (Rec: 01/02/19 09:33 EVD5091 ICU-C12) ADLs: Meal Record Start: 01/02/19 11: 06 Freq: DAILY@0900,1400,1800 Status: Active Protocol: Created 01/02/19 11:06 YWN9464 (Rec: 01/02/19 11:06 EYD5452 ICU-C12) Document 01/02/19 14:00 ZWD6138 (Rec: 01/02/19 15:01 AKY4330 ICU-C12) Document 01/02/19 16:59 PUK8191 (Rec: 01/02/19 16:59 YZH6177 ICU-C12) Document 01/03/19 09:00 JKX0943 (Rec: 01/03/19 10:24 DNY9113 ICU-L03) Document 01/03/19 14:00 LFL2633 (Rec: 01/03/19 14:03 CJT1234 IMG-M07) Document 01/03/19 18:00 WTQ8265 (Rec: 01/03/19 18:02 RKI5838 ICU-L03) Document 01/04/19 09:00 OEC5492 (Rec: 01/04/19 10:59 NIN0093 ICU-C15) Document 01/04/19 14:00 ELX6391 (Rec: 01/04/19 15:43 LYW5077 ICU-C15) Document 01/05/19 09:00 TNT7370 (Rec: 01/05/19 10:59 PVX9107 ICU-C15) Document 01/05/19 14:00 FVG1583 (Rec: 01/05/19 14:24 PEI1702 ICU-C15) Document 01/05/19 17:56 DAI0192 (Rec: 01/05/19 17:58 HYN4233 ICU-C15) Document 01/06/19 09:00 NMD0925 (Rec: 01/06/19 10:31 EFE3731 ICU-L03) Document 01/06/19 14:00 PYE6628 (Rec: 01/06/19 14:04 EWM2425 ICU-C16) Document 01/06/19 18:00 UIB9734 (Rec: 01/06/19 18:51 LHL6294 TELE-C01) Document 01/07/19 09:00 JYO5701 (Rec: 01/07/19 13:28 ZGT3145 TELE-C10) Document 01/07/19 14:00 MHA2703 (Rec: 01/07/19 14:09 HAD5661 TELE-C10) Document 01/07/19 18:00 DKZ4253 (Rec: 01/07/19 18:53 MMS4062 TELE-C10) Document 01/08/19 09:00 WZZ2541 (Rec: 01/08/19 11:05 FWI7329 TELE-C05) Document 01/08/19 14:00 EGS5193 (Rec: 01/08/19 14:04 XZH9830 TELE-C05) Document 01/08/19 18:00 PRV7990 (Rec: 01/08/19 19:07 SUA4469 TELE-C11) Document 01/09/19 09:00 MKH9194 (Rec: 01/09/19 10:36 KGP4209 TELE-C06) Document 01/09/19 14:00 MMZ0699 (Rec: 01/09/19 15:44 LXN2091 TELE-C03) Document 01/09/19 18:00 HSJ8323 (Rec: 01/09/19 19:42 YGA5752 TELE-C13) Document 01/10/19 09:00 SFA7462 (Rec: 01/10/19 10:41 KOF1596 TELE-C13) Document 01/10/19 13:44 MHQ4564 (Rec: 01/10/19 13:45 XEM5369 TELE-C08) Document 01/10/19 18:00 TGX6457 (Rec: 01/10/19 20:44 MBP7393 TELE-C11) ADLs: Meal Record Start: 01/06/19 16: 01 Freq: Status: Active Protocol: Created 01/06/19 16:01 GED1623 (Rec: 01/06/19 16:01 AGV6596 TELE-C07) Document 01/08/19 20:29 GVN9215 (Rec: 01/08/19 20:29 GTQ8083 TELE-C11) Intake and Output Start: 12/31/18 14: 54 Freq: Status: Inactive Protocol: Created 12/31/18 14:54 System (Rec: 12/31/18 14:54 System EDRM-C14) Intake and Output Start: 12/31/18 17: 53 Freq: Q1HR Status: Inactive Protocol: Created 12/31/18 17:53 System (Rec: 12/31/18 17:53 System ICU-M33) Document 12/31/18 17:54 WXA5604 (Rec: 12/31/18 17:54 IQY8808 ICU-M33) Document 12/31/18 19:00 HZM0333 (Rec: 12/31/18 22:09 VYW6943 ICU-C15) Document 12/31/18 20:00 TSE4293 (Rec: 12/31/18 22:27 YCW9037 ICU-C15) Document 12/31/18 21:00 KMS0108 (Rec: 12/31/18 22:28 QLO2030 ICU-C15) Document 12/31/18 22:00 BTR9301 (Rec: 12/31/18 22:45 FFO5250 ICU-C15) Document 12/31/18 23:00 VDI1441 (Rec: 01/01/19 00:06 SYY5331 ICU-L03) Document 01/01/19 00:00 COY6135 (Rec: 01/01/19 01:01 UAR9915 ICU-L03) Document 01/01/19 01:00 MMQ2936 (Rec: 01/01/19 01:01 VOK1260 ICU-L03) Document 01/01/19 02:00 CVB1019 (Rec: 01/01/19 02:18 QAD8714 ICU-L03) Document 01/01/19 02:55 RNO4237 (Rec: 01/01/19 02:55 FNV8558 ICU-L03) Document 01/01/19 04:00 XBD6400 (Rec: 01/01/19 05:03 SNF8386 ICU-L03) Document 01/01/19 05:00 XUZ6773 (Rec: 01/01/19 05:28 PFB7222 ICU-L03) Document 01/01/19 06:00 WSZ2353 (Rec: 01/01/19 07:10 XLO1861 ICU-L03) Document 01/01/19 07:00 ORQ8161 (Rec: 01/01/19 07:13 PIC6672 ICU-L03) Document 01/01/19 08:40 PTZ2217 (Rec: 01/01/19 08:40 GOT6764 ICU-M33) Document 01/01/19 09:53 ZAT2296 (Rec: 01/01/19 09:54 KUQ0544 ICU-M33) Document 01/01/19 11:30 SJL4349 (Rec: 01/01/19 11:30 QPJ5816 ICU-C15) Document 01/01/19 12:00 CGM8989 (Rec: 01/01/19 13:06 XBG3035 ICU-C15) Document 01/01/19 13:13 FQA8213 (Rec: 01/01/19 13:13 XXS7429 ICU-C15) Document 01/01/19 14:19 TDK4779 (Rec: 01/01/19 14:19 FBL8598 ICU-M33) Document 01/01/19 14:59 UMD0231 (Rec: 01/01/19 14:59 DUN5695 ICU-C15) Document 01/01/19 17:14 DNX1457 (Rec: 01/01/19 17:14 IVG0770 ICU-C15) Document 01/01/19 19:00 RWC4166 (Rec: 01/01/19 22:18 WGM7224 ICU-C15) Document 01/01/19 20:00 XHR4385 (Rec: 01/01/19 22:18 ADP5311 ICU-C15) Document 01/01/19 21:00 YHE4810 (Rec: 01/01/19 22:18 ZZE9652 ICU-C15) Document 01/01/19 22:00 SFG9558 (Rec: 01/01/19 22:18 QMM2907 ICU-C15) Document 01/01/19 22:43 ZUY8632 (Rec: 01/01/19 22:43 UXT5596 ICU-C10) Document 01/02/19 00:00 ZGZ7958 (Rec: 01/02/19 01:11 HPV1909 ICU-C10) Document 01/02/19 01:00 ZZQ8204 (Rec: 01/02/19 01:11 DRW9423 ICU-C10) Document 01/02/19 02:00 NGO6053 (Rec: 01/02/19 02:02 BEP3566 ICU-C10) Document 01/02/19 03:00 VKN6518 (Rec: 01/02/19 03:08 YFZ1747 ICU-C10) Document 01/02/19 04:00 ABC1903 (Rec: 01/02/19 04:23 NTZ8074 ICU-C10) Document 01/02/19 05:00 FCC3226 (Rec: 01/02/19 06:29 XCA9211 ICU-C10) Document 01/02/19 06:00 CGB2355 (Rec: 01/02/19 06:29 FRB5020 ICU-C10) Document 01/02/19 07:00 ERW0152 (Rec: 01/02/19 09:20 FSR0445 ICU-C12) Document 01/02/19 08:00 QRK3950 (Rec: 01/02/19 09:21 ILZ8112 ICU-C12) Document 01/02/19 09:00 QIJ3086 (Rec: 01/02/19 09:21 BNB2926 ICU-C12) Document 01/02/19 10:00 QNL6408 (Rec: 01/02/19 10:04 OQK1681 ICU-C12) Intake and Output Start: 01/02/19 11: 06 Freq: DAILY@0600,1400,2200 Status: Active Protocol: Created 01/02/19 11:06 ONA3731 (Rec: 01/02/19 11:06 VDB1643 ICU-C12) Document 01/02/19 12:00 DWS7880 (Rec: 01/02/19 12:16 NWQ5694 ICU-C12) Document 01/02/19 13:00 CNI4922 (Rec: 01/02/19 14:48 JGX7969 ICU-C12) Document 01/02/19 14:00 JYT2724 (Rec: 01/02/19 14:48 LZA6099 ICU-C12) Document 01/02/19 14:48 QZX7159 (Rec: 01/02/19 14:48 BTZ2827 ICU-C12) Document 01/02/19 15:56 BIZ3304 (Rec: 01/02/19 15:56 PYD8033 IMG-M07) Document 01/02/19 16:58 QLQ3251 (Rec: 01/02/19 16:58 GKW5740 ICU-C12) Document 01/02/19 18:00 NDI4499 (Rec: 01/02/19 18:12 VOD4990 IMG-M07) Document 01/02/19 19:00 EBV8574 (Rec: 01/02/19 19:46 KWJ5485 IMG-M07) Document 01/02/19 19:46 ECW0181 (Rec: 01/02/19 19:47 QZV0677 IMG-M07) Document 01/02/19 21:00 SIO0358 (Rec: 01/02/19 22:05 WAM4041 IMG-M07) Document 01/02/19 22:00 ZRH4145 (Rec: 01/02/19 22:05 JVH0181 IMG-M07) Document 01/02/19 22:50 HHY1811 (Rec: 01/02/19 22:50 EGK6437 ICU-C15) Document 01/03/19 00:00 CIK7398 (Rec: 01/03/19 00:03 ZXU6884 IMG-M07) Document 01/03/19 01:00 EAP6702 (Rec: 01/03/19 01:09 TCO1341 ICU-C15) Document 01/03/19 01:51 KNU8036 (Rec: 01/03/19 01:51 BGG3060 ICU-C15) Document 01/03/19 03:00 DJS8949 (Rec: 01/03/19 03:04 PLG3392 ICU-C15) Document 01/03/19 03:50 FQX0487 (Rec: 01/03/19 03:50 SKF7817 ICU-C15) Document 01/03/19 05:00 BWW8505 (Rec: 01/03/19 05:07 AQD0013 IMG-M07) Document 01/03/19 06:00 BUM6051 (Rec: 01/03/19 06:08 WZM9917 ICU-C15) Document 01/03/19 07:00 VRN5063 (Rec: 01/03/19 08:29 KLT6881 IMG-M07) Document 01/03/19 08:00 KWM1391 (Rec: 01/03/19 08:29 OOT0641 IMG-M07) Document 01/03/19 09:00 UEL9680 (Rec: 01/03/19 09:32 SGP7931 IMG-M07) Document 01/03/19 10:00 VFX8514 (Rec: 01/03/19 10:26 WZZ6573 IMG-M07) Document 01/03/19 11:00 HLC4639 (Rec: 01/03/19 11:10 ZYU6203 IMG-M07) Document 01/03/19 12:00 UBS2055 (Rec: 01/03/19 12:22 PNF5645 IMG-M07) Document 01/03/19 13:00 LDS8859 (Rec: 01/03/19 13:18 NXU2539 IMG-M07) Document 01/03/19 14:00 RAY6808 (Rec: 01/03/19 14:03 WDU2817 IMG-M07) Document 01/03/19 15:00 YTB6506 (Rec: 01/03/19 15:30 JSK6115 IMG-M07) Document 01/03/19 16:00 UIE0935 (Rec: 01/03/19 16:34 JXP7115 IMG-M07) Document 01/03/19 17:00 TQC4955 (Rec: 01/03/19 17:26 FOK7958 IMG-M07) Document 01/03/19 18:00 DHL2886 (Rec: 01/03/19 18:18 PZH7047 IMG-M07) Document 01/03/19 19:00 KYE5029 (Rec: 01/03/19 19:25 PSO7591 IMG-M07) Document 01/03/19 20:00 XZF6346 (Rec: 01/03/19 21:01 AXS0544 ICU-C12) Document 01/03/19 21:00 GEW6838 (Rec: 01/03/19 21:02 LCU5031 ICU-C12) Document 01/03/19 22:00 OXX8130 (Rec: 01/03/19 22:13 DBA4006 ICU-C12) Document 01/03/19 22:58 ZKP1792 (Rec: 01/03/19 23:00 WUX6788 ICU-C12) Document 01/03/19 23:04 RTO3776 (Rec: 01/03/19 23:12 SMS5099 ICU-C12) Document 01/04/19 00:00 QUC5912 (Rec: 01/04/19 00:07 ABY2193 IMG-M07) Document 01/04/19 01:00 MVT0971 (Rec: 01/04/19 01:26 IDZ0325 ICU-C12) Document 01/04/19 02:00 GRP6676 (Rec: 01/04/19 02:20 TOO3547 ICU-C12) Document 01/04/19 03:00 KGW9084 (Rec: 01/04/19 03:09 JNT8320 ICU-C12) Document 01/04/19 04:00 ZBO0093 (Rec: 01/04/19 04:30 CPM6809 ICU-C12) Document 01/04/19 04:39 PIY7769 (Rec: 01/04/19 04:39 QVM2054 ICU-C12) Document 01/04/19 04:58 MJF7989 (Rec: 01/04/19 05:01 BAU3994 ICU-C12) Document 01/04/19 06:20 IWM9986 (Rec: 01/04/19 06:20 KUJ5680 IMG-M07) Document 01/04/19 06:37 BAN7937 (Rec: 01/04/19 06:38 ABE4959 ICU-C12) Document 01/04/19 07:00 ERT1095 (Rec: 01/04/19 07:13 TFN4062 IMG-M07) Document 01/04/19 08:00 QGP0454 (Rec: 01/04/19 08:03 NAU7914 IMG-M07) Document 01/04/19 09:00 RNB9340 (Rec: 01/04/19 09:24 SGF0708 IMG-M07) Document 01/04/19 10:00 GAV4847 (Rec: 01/04/19 10:20 TZL5501 IMG-M07) Document 01/04/19 11:00 IAV0780 (Rec: 01/04/19 11:04 LHW2933 IMG-M07) Document 01/04/19 11:54 ZMO6364 (Rec: 01/04/19 11:54 FIB2249 IMG-M07) Document 01/04/19 13:00 JMG8088 (Rec: 01/04/19 13:16 BAP0197 IMG-M07) Document 01/04/19 14:00 FEZ0442 (Rec: 01/04/19 14:18 IEE5608 IMG-M07) Document 01/04/19 15:00 QUH5326 (Rec: 01/04/19 15:51 UFE5124 IMG-M07) Document 01/04/19 16:00 ZIG2248 (Rec: 01/04/19 16:30 EOF8124 IMG-M07) Document 01/04/19 17:00 UVX3711 (Rec: 01/04/19 17:01 WWD6573 IMG-M07) Document 01/04/19 18:00 QBU8856 (Rec: 01/04/19 19:44 BEW3160 IMG-M07) Document 01/04/19 19:00 XQX2077 (Rec: 01/04/19 19:44 EUV1391 IMG-M07) Document 01/04/19 20:00 HSP8116 (Rec: 01/04/19 23:01 OOO0408 ICU-C16) Document 01/04/19 21:00 RJA8740 (Rec: 01/04/19 23:01 DZE5619 ICU-C16) Document 01/04/19 22:00 RQR8372 (Rec: 01/04/19 23:01 ROG5717 ICU-C16) Document 01/04/19 23:00 WCN2831 (Rec: 01/04/19 23:10 GKM9317 ICU-C16) Document 01/05/19 00:00 OZY9070 (Rec: 01/05/19 01:19 WSB5282 ICU-C16) Document 01/05/19 01:00 VEX8795 (Rec: 01/05/19 01:19 LYD1257 ICU-C16) Document 01/05/19 02:00 JBZ6676 (Rec: 01/05/19 02:20 HIP1076 ICU-C16) Document 01/05/19 03:00 SBQ2186 (Rec: 01/05/19 03:08 JHB7172 ICU-C16) Document 01/05/19 04:00 WIH2886 (Rec: 01/05/19 05:24 HEE6956 ICU-C16) Document 01/05/19 05:00 TGA9318 (Rec: 01/05/19 05:24 XQQ5046 ICU-C16) Document 01/05/19 06:00 BBJ6840 (Rec: 01/05/19 06:39 [id number] ICU-C16) Document 01/05/19 08:00 IMN2812 (Rec: 01/05/19 10:18 [id number] ICU-C15) Document 01/05/19 10:00 EJC5346 (Rec: 01/05/19 10:59 [id number] ICU-C15) Document 01/05/19 11:00 CIO9676 (Rec: 01/05/19 11:22 [id number] ICU-C15) Document 01/05/19 12:00 [id number] (Rec: 01/05/19 14:00 [id number] ICU-C15) Document 01/05/19 13:00 MKI9294 (Rec: 01/05/19 14:02 [id number] ICU-C15) Document 01/05/19 14:00 TJA1193 (Rec: 01/05/19 14:22 [id number] ICU-C15) Document 01/05/19 16:00 JKQ8765 (Rec: 01/05/19 16:21 [id number] ICU-C15) Document 01/05/19 17:00 [id number] (Rec: 01/05/19 17:22 ING6069 ICU-C15) Document 01/05/19 17:56 [id number] (Rec: 01/05/19 17:58 [id number] ICU-C15) Document 01/05/19 20:00 TVZ8597 (Rec: 01/05/19 20:47 [id number] ICU-C16) Document 01/05/19 20:55 NWB6015 (Rec: 01/05/19 20:55 JSS0793 ICU-C16) Document 01/05/19 22:00 UCH1566 (Rec: 01/05/19 22:08 LJI2370 ICU-C16) Document 01/05/19 23:00 FTU2492 (Rec: 01/05/19 23:07 [id number] ICU-C16) Document 01/06/19 00:00 RNX4806 (Rec: 01/06/19 00:01 JIS6242 IMG-M07) Document 01/06/19 01:00 FPS6652 (Rec: 01/06/19 01:10 HWG9621 ICU-C16) Document 01/06/19 02:00 VSL5193 (Rec: 01/06/19 02:02 HSV9550 ICU-C16) Document 01/06/19 03:00 NLU9509 (Rec: 01/06/19 03:12 QQY0342 ICU-C16) Document 01/06/19 04:00 QTC5287 (Rec: 01/06/19 04:59 [id number] ICU-C16) Document 01/06/19 05:00 PUP5276 (Rec: 01/06/19 05:05 ANJ0711 ICU-C16) Document 01/06/19 05:57 CQZ9131 (Rec: 01/06/19 05:59 CQD6964 IMG-M07) Document 01/06/19 07:00 URE1936 (Rec: 01/06/19 08:37 [id number] ICU-C16) Document 01/06/19 08:00 FZH7637 (Rec: 01/06/19 08:37 YWK0257 ICU-C16) Document 01/06/19 09:00 CUE6796 (Rec: 01/06/19 09:44 UZK6165 ICU-C16) Document 01/06/19 10:00 XIL9651 (Rec: 01/06/19 11:39 [id number] ICU-L03) Document 01/06/19 11:00 GEU8208 (Rec: 01/06/19 11:50 STX0826 IMG-M07) Document 01/06/19 11:50 CBH8503 (Rec: 01/06/19 11:50 YKS0652 IMG-M07) Document 01/06/19 13:00 ZFM9322 (Rec: 01/06/19 13:38 CKQ9885 ICU-C16) Document 01/06/19 13:38 BKR5238 (Rec: 01/06/19 13:38 WNV7997 ICU-C16) Document 01/06/19 16:00 NGJ8916 (Rec: 01/06/19 16:17 PFS7241 TELE-C01) Document 01/06/19 22:00 GCT5304 (Rec: 01/06/19 22:17 WUH0974 TELE-C07) Document 01/07/19 06:00 HHY3473 (Rec: 01/07/19 06:12 ULS1781 TELE-C11) Document 01/07/19 14:00 HGN0713 (Rec: 01/07/19 17:56 YAP4791 TELE-C06) Document 01/07/19 21:17 ZYA1120 (Rec: 01/07/19 21:18 RXV1307 TELE-C10) Document 01/07/19 22:03 RLL0856 (Rec: 01/07/19 22:03 AMJ4963 TELE-C10) Document 01/08/19 06:00 RGQ9351 (Rec: 01/08/19 06:29 SEJ8560 TELE-C10) Document 01/08/19 14:00 QLN5120 (Rec: 01/08/19 14:36 TVS8582 TELE-C05) Document 01/08/19 20:30 XUP8976 (Rec: 01/08/19 20:31 QBI9454 TELE-C11) Document 01/09/19 06:00 IAF9011 (Rec: 01/09/19 06:12 VVS4890 TELE-C11) Document 01/09/19 14:00 ZGX8232 (Rec: 01/09/19 14:04 YLU5355 TELE-C01) Document 01/09/19 19:42 ZDP6749 (Rec: 01/09/19 19:43 PZF0184 TELE-C13) Document 01/10/19 06:00 HKM1859 (Rec: 01/10/19 06:17 VOK0265 TELE-C01) Document 01/10/19 13:51 AYZ2185 (Rec: 01/10/19 13:52 EMN1609 TELE-C08) Document 01/10/19 21:07 UMC0358 (Rec: 01/10/19 21:07 VWE5155 TELE-C11) Document 01/11/19 05:59 DQF2569 (Rec: 01/11/19 06:03 OAU8487 TELE-C10) - Physical Exam General: No Cyanosis, Yes Anemia, No Jaundice, No Clubbing Lungs and Chest: Yes: Chest Expansion Full, Chest Expansion Symetrica, Percussion Note Resonant, Vessicular Breath Sounds. No: Crackles, Wheezes Heart Rate and Rhythm: Regular Additional Cardiovascular: Yes: Normal Heart Sounds. No: Heart Murmur, Pedal Edema Abdominal Exam: Yes: Distention, Soft, Abdominal Tenderness - mild. No: Guarding, Rebound Tenderness, Bowel Sounds Present - Extremities Cranial Nerves II-XII Intact: Yes Limbs: Abnormal Power - Neuro Orientation: A/O x3 Psychiatric: Normal Speech: Normal Results - Results Lab Results: Laboratory Results - last 24 hr 01/10/19 01/10/19 01/10/19 11:40 14:23 17:00 Sodium 130 L Potassium 4.8 Chloride 99 L Carbon Dioxide 24 Anion Gap 7 BUN 25 H Creatinine 0.75 Est GFR ( Amer) 130.4 Est GFR (Non-Af Amer) 107.7 BUN/Creatinine Ratio 33.3 H Glucose 369 H POC Glucose (mg/dL) 320 H 199 H Calcium 8.0 L Magnesium 2.0 Total Bilirubin 0.60 AST 32 ALT 33 Alkaline Phosphatase 78 Total Protein 5.5 L Albumin 3.1 L Globulin 2.4 Albumin/Globulin Ratio 1.3 01/10/19 01/11/19 21:53 07:30 Sodium Potassium Chloride Carbon Dioxide Anion Gap BUN Creatinine Est GFR ( Amer) Est GFR (Non-Af Amer) BUN/Creatinine Ratio Glucose POC Glucose (mg/dL) 325 H 205 H Calcium Magnesium Total Bilirubin AST ALT Alkaline Phosphatase Total Protein Albumin Globulin Albumin/Globulin Ratio Assessment - Problem List Assessment: Patient Problems BPH with urinary obstruction (Acute) Cognitive changes (Acute) Hyperglycemia due to type 1 diabetes mellitus (Acute) Hypokalemia (Acute) Left lower lobe pneumonia (Acute) Weakness (Acute) Anemia (Chronic) Backache (Chronic) 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 He is moving to nectar thickened today. BPH with urinary obstruction (Acute) He has a Alvarez Cognitive changes (Acute) This seems improved today - he likely experienced some anoxic/hypotensive brain injury at presentation. Hypokalemia (Acute) resolved Muscular dystrophy (Chronic)/Weakness (Acute) He has acute weakness due to his pneumonia/prolonged bed confinement. 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 PT suggests he requires acute rehabilitation Anemia (Chronic) longstanding Backache (Chronic) no complaints comorbidities: Diarrhea - ongoing loose stool Essential hypertension (Chronic) single low BP reading this morning Secondary diagnoses Depression (Chronic) GERD (gastroesophageal reflux disease) (Chronic) Hypercholesterolemia (Chronic) Vitiligo (Chronic) I spoke with Andrea Quesada and went over his presentation to try and help fill gaps in his memory. I think he is an excellent candidate for [facility] and will speak with Dr. Lindquist.
[2019-01-11] MEDS: Famotidine TAB* 20 MG PO SCH ×2 (09:37→21:04)
[2019-01-11] MEDS: Phenazopyridine TAB* 100 MG PO SCH (09:37)
[2019-01-11] MEDS: Ramipril CAP* 10 MG PO SCH (09:38)
[2019-01-11] MEDS: Potassium Acid Phosphate TAB* 500 MG PO SCH ×2 (09:38→21:04)
[2019-01-11] MEDS: Cefdinir cap* 300 MG CAP PO SCH ×2 (09:38→21:05)
[2019-01-11] MEDS: Triamterene/HCTZ 37.5-25 MG* CAP PO SCH (09:38)
[2019-01-11] MEDS: Insulin LISPRO* 1 UNITS UNIT SUBCUT SCH ×7 (09:39→21:18)
[2019-01-11] MEDS ORDERED: NS 0.9% 250 ML* 250 ML IV ONE (12:00)
[2019-01-11] MEDS ORDERED: Diltiazem IV push/loading dose 5 MG/ML 5 ML vial (25 mg) IV PUSH ONE (15:15)
--- NOTE | 2019-01-11 15:18 | PN ---
Progress Note - Progress Note Date of Service: 01/11/19 Note: I was called by RN - hypotension plus tachycardia. 12 lead EC atrial fibrillation Electrolytes/mag/troponin I and TSH drawn I have started him on diltiazem 5 mg bolus, 10 mg/hour infusion and also a lovenox dose 1 mg/kg bid I spoke with Dr. Andres Chaidez for a cardiology consultation.
[2019-01-11 15:47] LABS: BUN/Creatinine Ratio 32.5 (8-20); Calcium 8.3 mg/dL (8.6-10.3); EGFR African American 126.5 (>60); EGFR Non-African American 104.5 (>60); Magnesium 2.2 mg/dL (1.9-2.7); Potassium 4.9 mmol/L (3.5-5.0)
[2019-01-11 15:48] LABS: Troponin I 0.09 ng/mL (<0.03)
[2019-01-11 16:00] LABS: TSH (Thyroid Stimulating Horm) 1.25 mcIU/mL (0.34-5.60)
[2019-01-11] MEDS ORDERED: [UNRECOGNIZED DRUG - OTHER] IV SCH (16:00)
[2019-01-11] MEDS ORDERED: DILTIAZEM IV SCH (16:00)
[2019-01-11] MEDS ORDERED: Midazolam* 1 MG/ML 5 ML VIAL (5 MG) ONE ×2 (16:29→16:30)
[2019-01-11] MEDS ORDERED: Flumazenil* 0.1 MG/ML 5 ML MDV ONE (16:30)
[2019-01-11] MEDS ORDERED: fentaNYL* 50 MCG/ML 2 ML VIAL (100 MCG VIAL) ONE (16:30)
[2019-01-11] MEDS ORDERED: Naloxone* 0.4 MG/ML 1 ML VIAL ONE (16:30)
[2019-01-11] MEDS: Insulin GLARGINE(*) 1 UNITS UNIT SUBCUT SCH (18:07)
[2019-01-11] MEDS: Atorvastatin* 20 MG TAB PO SCH (18:08)
--- NOTE | 2019-01-11 18:43 | CARD ---
CARDIOVERSION NOTE: DATE OF SERVICE: 01/11/19 - ROOM #439 PROCEDURE: Cardioversion. INDICATION: Atrial flutter. HISTORY OF PRESENT ILLNESS: The patient is a 58-year-old gentleman who was recently admitted to the hospital with severe pneumonia. The patient was scheduled for discharge today and was noted to have a tachycardia to 140. His vital signs have not shown any episodes of tachycardia over the last week. His heart rates have averaged 95 and regular. Because of the new onset and some degree of hypotension and difficult to control heart rate, cardioversion was recommended. DESCRIPTION OF PROCEDURE: The patient had been n.p.o. for the last 4 hours. The patient was given 8 mg of Versed for conscious sedation. The patient was cardioverted with 100 Joules of synchronized biphasic energy. The patient converted to sinus tachycardia at 100 beats per minute. The patient tolerated the procedure well with no complications. [id number] #: [id number] MTDD
--- NOTE | 2019-01-11 18:43 | CONS ---
CC: Dr. Muniz * CARDIOLOGY CONSULTATION: DATE OF CONSULT: 01/11/19 INDICATION FOR CONSULTATION: Atrial flutter. HISTORY OF PRESENT ILLNESS: The patient is a 58-year-old gentleman who is admitted to the hospital, found unresponsive at home likely from fentanyl overdose. In the hospital, he developed severe pneumonia. He was in the intensive care unit for a number of days. Today, the patient was to be transferred to a rehab facility to continue his convalescence. This morning he went into atrial flutter with a heart rate of 140. The patient had been off telemetry since last Thursday; however, his heart rates have been in the 60s to 70s throughout the last couple of days. Today, his heart rate jumped to a 140 and an EKG confirmed atrial flutter. In speaking with the patient, he did notice some palpitations in the chest. He denied any chest pain. He denied any shortness of breath. He denied any lightheadedness, dizziness, or syncope. PAST MEDICAL HISTORY: Significant for hypertension, depression, muscular dystrophy, diabetes. PAST SURGICAL HISTORY: Left orchiectomy in 2011. FAMILY HISTORY: Positive for colon cancer and COPD. SOCIAL HISTORY: He lives alone. He denies tobacco or alcohol use. He does not work. He is on disability. REVIEW OF SYSTEMS: Today was negative for fevers or chills. Negative for changes in bowel or bladder habits. Negative for change in weight. Other 12- point review is unremarkable. PHYSICAL EXAM: Height is 6 feet 1 inch, weight is 204 pounds, heart rate 148, blood pressure 101/63, respiratory rate is 20, temperature 97.9. Sclerae anicteric. Oropharynx is pink without erythema. He has very poor dentition. Carotids are 2+ without bruits. JVD is normal. Thyroid is normal. Cardiac Exam: S1, S2, tachycardic. No obvious murmurs, rubs, or gallops. PMI is normal. Lungs are clear to auscultation. There is no dullness to percussion. Abdomen is soft, nontender, nondistended with normoactive bowel sounds. Extremities show no edema. He has 2+ pulses throughout. The patient is awake and alert. He is unable to ambulate on his own. DIAGNOSTIC STUDIES/LAB DATA: Chemistries within normal limits. BUN 25, creatinine 0.7. His initial troponin level is 0.09. TSH 1.25. CBC within normal limits. Hemoglobin is 9, hematocrit 27. EKG shows atrial flutter with a heart rate of 140. IMPRESSION AND PLAN: This is a 58-year-old gentleman who was originally admitted to the hospital with severe pneumonia. He has recovered from that and was scheduled to be discharged today. The patient had new onset atrial flutter today. The patient was given diltiazem, which caused severe hypotension but did not change his heart rate at all. The patient just underwent a cardioversion. The patient was cardioverted with 100 Joules of synchronized biphasic energy. He converted to sinus tachycardia. For now, my recommendation is that the patient be started on Multaq 400 mg b.i.d. for an antiarrhythmic medication. The patient will be started on Lopressor 12.5 mg b.i.d. The patient will be started on Eliquis 5 mg b.i.d. The patient will have an echocardiogram in the morning. The patient will follow up with me as an outpatient. [id number]/CPS #: [id number]
[2019-01-11] MEDS ORDERED: Enoxaparin(*) 100 MG/ML SYR SUBCUT SCH (21:00)
[2019-01-11] MEDS: Apixaban* 5 MG TAB PO SCH (21:04)
[2019-01-11] MEDS: Dronedarone TAB* 400 MG PO SCH (21:05)
[2019-01-11] MEDS: Senna TAB 8.6 mg* TAB PO SCH (21:05)
[2019-01-11] MEDS: Metoprolol Tartrate TAB* 25 MG PO SCH (21:05)
[2019-01-11] MEDS: Docusate LIQ* 100 MG/10 ML UDC PO SCH (21:05)
[2019-01-12] MEDS: traMADol TAB* 50 MG PO PRN ×3 (05:52→20:41)
[2019-01-12 07:00] LABS: BUN/Creatinine Ratio 32.2 (8-20); Blood Urea Nitrogen 19 mg/dL (6-24); C Reactive Protein 10.19 mg/L (<8.01); CO2 Carbon Dioxide 17 mmol/L (22-32); Chloride 104 mmol/L (101-111); EGFR African American 171.9 (>60); EGFR Non-African American 142.1 (>60); Glucose 118 mg/dL (70-100)
[2019-01-12 07:08] LABS: Potassium 5.1 mmol/L (3.5-5.0)
[2019-01-12 07:42] LABS: Anion Gap 10 mmol/L (2-11); Sodium 131 mmol/L (135-145)
--- NOTE | 2019-01-12 07:54 | PN ---
Subjective - Subjective Reason for Note: Progress Note History: Lorena Quesada developed atrial flutter with a fast ventricular rate yesterday. He was hypotensive prior to the episode. I have reviewed Dr. Melany Chaidez's consultation note and procedure. He was unable to tolerate diltiazem iv and hence he was defibrillated and returned to sinus rhythm. He has no prior history of this. This morning he has had no recurrence of this rhythm. He has a new cough, but no dyspnea. He has no chest pain. His glucose readings are on target today. 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 Depression (Chronic) F32.9 Essential hypertension (Chronic) I10 GERD (gastroesophageal reflux disease) (Chronic) K21.9 Hypercholesterolemia (Chronic) E78.00 Muscular dystrophy (Chronic) G71.0 error 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, 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 Vitiligo (Chronic) L80 Current Medications: Current Medications Acetaminophen (Tylenol Adult Liq*) 650 mg PO Q8H PRN PRN Reason: MILD PAIN or TEMP > 100.4 Last Admin: 01/10/19 21:40 Dose: 650 mg Acetaminophen (Tylenol Supp*) 650 mg [place] Q6H PRN PRN Reason: .FEVER Last Admin: 01/05/19 21:04 Dose: 650 mg Albuterol/Ipratropium (Duoneb (Albuterol 2.5 Mg/Ipratropium 0.5 Mg)) 1 neb INH Q2H PRN PRN Reason: SOB/WHEEZING Last Admin: 01/05/19 19:52 Dose: 1 neb Apixaban (Eliquis*) 5 mg PO BID JANA Last Admin: 01/11/19 21:04 Dose: 5 mg Atorvastatin Calcium (Lipitor*) 20 mg PO 1700 JANA Last Admin: 01/11/19 18:08 Dose: 20 mg Cefdinir (Cefdinir Cap*) 300 mg PO BID [facility] Last Admin: 01/11/19 21:05 Dose: 300 mg Dextrose (Dextrose 50% Vial 50 Ml*) 25 ml IV PUSH .FOR FS < 60 - SS PRN PRN Reason: FS < 60 Docusate Sodium (Colace Cap*) 100 mg PO BID PRN PRN Reason: CONSTIPATION Last Admin: 01/04/19 19:54 Dose: 100 mg Docusate Sodium (Colace Liq*) 50 mg PO BEDTIME [facility] Last Admin: 01/11/19 21:05 Dose: Not Given Dronedarone (Multaq Tab*) 400 mg PO BID [facility] Last Admin: 01/11/19 21:05 Dose: 400 mg Famotidine (Pepcid Tab*) 20 mg PO Q12H [facility] Last Admin: 01/11/19 21:04 Dose: 20 mg Heparin Sodium (Porcine) (Heparin Flush Picc/Ml/Cvc(*)) 1 - 3 ml FLUSH 0600, 1800 [facility]; Protocol Last Admin: 01/12/19 05:46 Dose: 1 ml Insulin Glargine (Lantus(*)) 50 units SUBCUT 1800 [facility] Last Admin: 01/11/19 18:07 Dose: 50 unit Insulin Human Lispro (Humalog*) 0 units SUBCUT ACHS [facility]; Protocol Last Admin: 01/11/19 21:18 Dose: 3 units Insulin Human Lispro (Humalog*) 0 units SUBCUT AC [facility]; Protocol Last Admin: 01/11/19 18:07 Dose: 6 unit Metoprolol Tartrate (Lopressor Tab*) 12.5 mg PO Q12HR [facility] Last Admin: 01/11/19 21:05 Dose: 12.5 mg Oxycodone HCl (Roxycodone Tab*) 10 mg PO Q4H PRN PRN Reason: PAIN - MODERATE Last Admin: 01/11/19 18:16 Dose: 10 mg Polyethylene Glycol/Electrolytes (Miralax*) 17 gm PO DAILY PRN PRN Reason: CONSTIPATION Last Admin: 01/04/19 16:38 Dose: 17 gm Potassium Phosphate (K Phos Original Tab*) 500 mg PO BID [facility] Last Admin: 01/11/19 21:04 Dose: 500 mg Ramipril (Altace Cap*) 10 mg PO DAILY [facility] Last Admin: 01/11/19 09:38 Dose: 10 mg Senna (Senokot 8.6 Mg Tab*) 1 tab PO BEDTIME [facility]NA Last Admin: 01/11/19 21:05 Dose: Not Given Tramadol HCl (Ultram*) 50 mg PO Q6H PRN PRN Reason: PAIN - MODERATE Last Admin: 01/12/19 05:52 Dose: 50 mg Trazodone HCl (Desyrel Tab*) 50 mg PO BEDTIME PRN PRN Reason: INSOMNIA Last Admin: 01/10/19 21:41 Dose: 50 mg Home Medications: Home Medications Medication Instructions Recorded Confirmed Type Docusate CAP* [Colace Cap*] 100 mg PO QPM 12/09/11 12/31/18 History Labetalol TAB* [Trandate TAB*] 200 mg PO BID 12/09/11 12/31/18 History traZODone TAB* [Desyrel*] 50 mg PO BEDTIME 12/09/11 12/31/18 History Prochlorperazine TAB* [Compazine 10 mg PO QID PRN 10/20/12 12/31/18 History Tab*] Ramipril CAP* [Altace CAP*] 20 mg PO QAM 05/26/13 12/31/18 History Terazosin CAP* [Hytrin CAP*] 5 mg PO BEDTIME 05/26/13 12/31/18 History Triamterene/HCTZ 37.5-25 MG* 1 cap PO QAM 05/26/13 12/31/18 History [Dyazide CAP*] metFORMIN* [Glucophage*] 500 mg PO BID 05/26/13 12/31/18 History Atorvastatin* [Lipitor*] 20 mg PO BEDTIME 06/14/14 12/31/18 History ALPRAZolam TAB* [Xanax TAB*] 0.5 mg PO QID PRN MDD 4 tabs 02/09/15 12/31/18 History Docusate CAP* [Colace Cap*] 200 mg PO QAM 02/09/15 12/31/18 History Escitalopram * [Lexapro (NF)] 20 mg PO DAILY 02/09/15 12/31/18 History Gabapentin CAP(*) [Neurontin 600 mg PO QID 02/09/15 12/31/18 History CAP(*)] Oxycodone HCl [Oxycontin] 6 - 8 tab PO DAILY PRN 02/09/15 12/31/18 History Insulin Aspart [Novolog] 1 unit SC .BEFORE MEALS 10/17/15 12/31/18 History Insulin Glargine,Hum.rec.anlog 30 units SUBCUT BEDTIME 04/15/17 12/31/18 History [Basaglar Nedaikpen] Methocarbamol 750 mg PO Q6H PRN 04/15/17 12/31/18 History Mirabegron (NF) [Myrbetriq (NF)] 50 mg PO DAILY 04/15/17 12/31/18 History Bisacodyl SUPP* [Dulcolax Supp*] 10 mg KS DAILY 12/31/18 12/31/18 History Diclofenac 1% GEL (NF) [Voltaren 2 gm TOPICAL QID 12/31/18 12/31/18 History 1% GEL (NF)] Gentamicin 0.3% OPHTH.SOLN* 1 drop BOTH EYES Q4H 12/31/18 12/31/18 History Glucagon,Human Recombinant 1 mg IM ONCE 12/31/18 12/31/18 History [Glucagon Emergency Kit] Omeprazole (Nf) [Prilosec (NF)] 40 mg PO QPM 12/31/18 12/31/18 History Ondansetron TAB* [Zofran 4 MG Tab*] 8 mg PO Q6H PRN 12/31/18 12/31/18 History Oxybutynin TAB* [Ditropan TAB*] 5 mg PO DAILY 12/31/18 12/31/18 History Polyethylene Glycol 3350* 17 gm PO DAILY 12/31/18 12/31/18 History [Miralax*] Polymyx/Trimethoprim OPTH* 1 drop BOTH EYES Q6H 12/31/18 12/31/18 History [Polytrim OPHTH*] Sennosides 17.2 mg PO DAILY 12/31/18 12/31/18 History fentaNYL PATCH 25 MCG/HR* 25 mcg TRANSDERM Q48H 12/31/18 12/31/18 History [Duragesic PATCH 25 Mcg/Hr*] fentaNYL PATCHs 100 MCG/HR* 100 mcg TRANSDERM Q72H 12/31/18 01/01/19 History [Duragesic Patch 100 Mcg/Hr *] Allergies: Allergies Allergy/AdvReac Type Severity Reaction Status Date / Time hydrochlorothiazide AdvReac Unknown Verified 01/04/19 06:06 [From Maxzide] Reaction Details Qdaivqj-Yde-Wxy Reductase AdvReac Unknown Verified 01/04/19 06:06 Inhibitor Reaction Details triamterene [From Maxzide] AdvReac Unknown Verified 01/04/19 06:06 Reaction Details Objective - Vital Signs Vital Signs: Vital Signs 01/11/19 01/11/19 01/11/19 08:00 09:36 10:26 Temperature Pulse Rate Respiratory 18 18 Rate Blood Pressure 86/40 (mmHg) O2 Sat by Pulse Oximetry 01/11/19 01/11/19 01/11/19 11:50 12:21 13:26 Temperature 97.9 F Pulse Rate 150 123 Respiratory 18 Rate Blood Pressure 73/56 79/44 (mmHg) O2 Sat by Pulse 96 Oximetry 01/11/19 01/11/19 01/11/19 13:27 13:31 14:23 Temperature Pulse Rate 148 147 Respiratory 18 Rate Blood Pressure 92/51 90/44 (mmHg) O2 Sat by Pulse 95 Oximetry 01/11/19 01/11/19 01/11/19 14:54 15:16 15:27 Temperature Pulse Rate 153 Respiratory Rate Blood Pressure 103/62 105/43 89/58 (mmHg) O2 Sat by Pulse 95 Oximetry 01/11/19 01/11/19 01/11/19 16:02 16:19 17:12 Temperature Pulse Rate Respiratory 20 Rate Blood Pressure 101/63 121/58 (mmHg) O2 Sat by Pulse Oximetry 01/11/19 01/11/19 01/11/19 17:17 17:22 17:32 Temperature Pulse Rate Respiratory Rate Blood Pressure 94/59 96/63 102/66 (mmHg) O2 Sat by Pulse Oximetry 01/11/19 01/11/19 01/11/19 17:37 17:42 17:47 Temperature Pulse Rate Respiratory Rate Blood Pressure 125/67 116/58 91/64 (mmHg) O2 Sat by Pulse Oximetry 01/11/19 01/11/19 01/11/19 17:50 17:52 17:57 Temperature Pulse Rate Respiratory 16 Rate Blood Pressure 98/62 91/55 (mmHg) O2 Sat by Pulse Oximetry 01/11/19 01/11/19 01/11/19 18:02 18:16 19:15 Temperature 98.9 F Pulse Rate 110 Respiratory 16 16 Rate Blood Pressure 112/48 112/51 (mmHg) O2 Sat by Pulse 94 Oximetry 01/11/19 01/11/19 01/11/19 20:00 20:16 23:15 Temperature 98.4 F Pulse Rate 85 Respiratory 16 16 21 Rate Blood Pressure 123/80 (mmHg) O2 Sat by Pulse 96 Oximetry 01/12/19 01/12/19 03:15 05:52 Temperature 98.4 F Pulse Rate 91 Respiratory 20 18 Rate Blood Pressure 137/68 (mmHg) O2 Sat by Pulse 96 Oximetry - Intake and Output Intake and Output: Intake & Output 01/09/19 01/10/19 01/11/19 01/12/19 11:59 11:59 11:59 11:59 Intake Total 1800 193 627 5889 Output Total 1200 1325 1100 1100 Balance 600 -631 -280 200 Intake: IV Fluids 950 NS 450 IVPB 64 ABX 64 Oral 1800 630 820 350 Output: Urine 400 [place] 7867 404 4476 1100 Other: Estimated Void Small # Bowel Movements 2 Estimated Stool Amount Small Large ADLs: Meal Record Start: 12/31/18 17: 53 Freq: 09,13,18 Status: Inactive Protocol: Created 12/31/18 17:53 System (Rec: 12/31/18 17:53 System ICU-M33) Document 01/01/19 09:00 [id number] (Rec: 01/01/19 09:32 MEY4460 ICU-C15) Document 01/01/19 11:58 SGJ1833 (Rec: 01/01/19 11:58 KYC5253 ICU-C15) Document 01/01/19 17:50 EMC2032 (Rec: 01/01/19 17:50 FVI5974 ICU-C15) Document 01/02/19 09:00 XUJ3199 (Rec: 01/02/19 09:33 LAO4957 ICU-C12) ADLs: Meal Record Start: 01/02/19 11: 06 Freq: DAILY@0900,1400,1800 Status: Active Protocol: Created 01/02/19 11:06 IOX7685 (Rec: 01/02/19 11:06 ULF4148 ICU-C12) Document 01/02/19 14:00 DNZ7117 (Rec: 01/02/19 15:01 DOD2292 ICU-C12) Document 01/02/19 16:59 FAM3691 (Rec: 01/02/19 16:59 NTU7163 ICU-C12) Document 01/03/19 09:00 RYS6556 (Rec: 01/03/19 10:24 UCI6916 ICU-L03) Document 01/03/19 14:00 PGL5947 (Rec: 01/03/19 14:03 TTS0635 IMG-M07) Document 01/03/19 18:00 VRW9585 (Rec: 01/03/19 18:02 YTZ9458 ICU-L03) Document 01/04/19 09:00 MER8973 (Rec: 01/04/19 10:59 GGS6499 ICU-C15) Document 01/04/19 14:00 VMB7095 (Rec: 01/04/19 15:43 WCP0104 ICU-C15) Document 01/05/19 09:00 KMT5320 (Rec: 01/05/19 10:59 PKZ2875 ICU-C15) Document 01/05/19 14:00 YZO7237 (Rec: 01/05/19 14:24 GLM9351 ICU-C15) Document 01/05/19 17:56 LVO0042 (Rec: 01/05/19 17:58 ICB8645 ICU-C15) Document 01/06/19 09:00 PBD6268 (Rec: 01/06/19 10:31 SBB6118 ICU-L03) Document 01/06/19 14:00 ODM5187 (Rec: 01/06/19 14:04 PXT5293 ICU-C16) Document 01/06/19 18:00 LHS2003 (Rec: 01/06/19 18:51 SZN4588 TELE-C01) Document 01/07/19 09:00 IER8513 (Rec: 01/07/19 13:28 CGV3611 TELE-C10) Document 01/07/19 14:00 SNB4973 (Rec: 01/07/19 14:09 ZHD9458 TELE-C10) Document 01/07/19 18:00 XFZ1633 (Rec: 01/07/19 18:53 NNQ0111 TELE-C10) Document 01/08/19 09:00 TNR2677 (Rec: 01/08/19 11:05 UNL1318 TELE-C05) Document 01/08/19 14:00 KCE2236 (Rec: 01/08/19 14:04 DNY5052 TELE-C05) Document 01/08/19 18:00 AIZ6804 (Rec: 01/08/19 19:07 SYA0644 TELE-C11) Document 01/09/19 09:00 XVS8856 (Rec: 01/09/19 10:36 ICQ1398 TELE-C06) Document 01/09/19 14:00 TZE8769 (Rec: 01/09/19 15:44 ARB4165 TELE-C03) Document 01/09/19 18:00 DZN5368 (Rec: 01/09/19 19:42 EAO3424 TELE-C13) Document 01/10/19 09:00 AGB3210 (Rec: 01/10/19 10:41 JVK9075 TELE-C13) Document 01/10/19 13:44 JGO8508 (Rec: 01/10/19 13:45 LXS7931 TELE-C08) Document 01/10/19 18:00 GBI9073 (Rec: 01/10/19 20:44 NBG6897 TELE-C11) Document 01/11/19 14:00 DEB7671 (Rec: 01/11/19 15:31 CXL1468 TELE-C10) Document 01/11/19 18:00 GTE9209 (Rec: 01/11/19 18:30 DFE5950 TELE-C11) ADLs: Meal Record Start: 01/06/19 16: 01 Freq: Status: Active Protocol: Created 01/06/19 16:01 ZKU9290 (Rec: 01/06/19 16:01 URV3568 TELE-C07) Document 01/08/19 20:29 BXA0471 (Rec: 01/08/19 20:29 PTM0399 TELE-C11) Intake and Output Start: 12/31/18 14: 54 Freq: Status: Inactive Protocol: Created 12/31/18 14:54 System (Rec: 12/31/18 14:54 System EDRM-C14) Intake and Output Start: 12/31/18 17: 53 Freq: Q1HR Status: Inactive Protocol: Created 12/31/18 17:53 System (Rec: 12/31/18 17:53 System ICU-M33) Document 12/31/18 17:54 ILH0001 (Rec: 12/31/18 17:54 YMB5371 ICU-M33) Document 12/31/18 19:00 UFS6858 (Rec: 12/31/18 22:09 NZY6003 ICU-C15) Document 12/31/18 20:00 NDY6154 (Rec: 12/31/18 22:27 IZQ4180 ICU-C15) Document 12/31/18 21:00 MFS3352 (Rec: 12/31/18 22:28 EHJ6904 ICU-C15) Document 12/31/18 22:00 OFA7031 (Rec: 12/31/18 22:45 RPV9395 ICU-C15) Document 12/31/18 23:00 YXH1818 (Rec: 01/01/19 00:06 ZGQ2123 ICU-L03) Document 01/01/19 00:00 GSY5329 (Rec: 01/01/19 01:01 LKG2743 ICU-L03) Document 01/01/19 01:00 FJS5205 (Rec: 01/01/19 01:01 RNE8615 ICU-L03) Document 01/01/19 02:00 WMD5959 (Rec: 01/01/19 02:18 VYV5131 ICU-L03) Document 01/01/19 02:55 YUK9501 (Rec: 01/01/19 02:55 HAA4228 ICU-L03) Document 01/01/19 04:00 DQP6811 (Rec: 01/01/19 05:03 XFC3843 ICU-L03) Document 01/01/19 05:00 WNE2021 (Rec: 01/01/19 05:28 UZX3201 ICU-L03) Document 01/01/19 06:00 WBR6350 (Rec: 01/01/19 07:10 OLH5119 ICU-L03) Document 01/01/19 07:00 ZZX1017 (Rec: 01/01/19 07:13 QLP4327 ICU-L03) Document 01/01/19 08:40 JQK5631 (Rec: 01/01/19 08:40 VJC4201 ICU-M33) Document 01/01/19 09:53 XAJ9320 (Rec: 01/01/19 09:54 IDP2946 ICU-M33) Document 01/01/19 11:30 AOO5552 (Rec: 01/01/19 11:30 OWY9848 ICU-C15) Document 01/01/19 12:00 QYK2435 (Rec: 01/01/19 13:06 RYE0804 ICU-C15) Document 01/01/19 13:13 ICC2588 (Rec: 01/01/19 13:13 SCR5313 ICU-C15) Document 01/01/19 14:19 QGY4474 (Rec: 01/01/19 14:19 CHE9140 ICU-M33) Document 01/01/19 14:59 GAU8685 (Rec: 01/01/19 14:59 XBE2118 ICU-C15) Document 01/01/19 17:14 QUY6200 (Rec: 01/01/19 17:14 ZOQ7686 ICU-C15) Document 01/01/19 19:00 MIY8656 (Rec: 01/01/19 22:18 GZK9377 ICU-C15) Document 01/01/19 20:00 ZTT3710 (Rec: 01/01/19 22:18 WDB0147 ICU-C15) Document 01/01/19 21:00 BZM8185 (Rec: 01/01/19 22:18 DKL5333 ICU-C15) Document 01/01/19 22:00 GWI7514 (Rec: 01/01/19 22:18 FFZ0793 ICU-C15) Document 01/01/19 22:43 MUL9205 (Rec: 01/01/19 22:43 HOR4396 ICU-C10) Document 01/02/19 00:00 NCG9137 (Rec: 01/02/19 01:11 DVG2613 ICU-C10) Document 01/02/19 01:00 TRL6833 (Rec: 01/02/19 01:11 ULH8287 ICU-C10) Document 01/02/19 02:00 RNJ7124 (Rec: 01/02/19 02:02 GPG2525 ICU-C10) Document 01/02/19 03:00 SJY6056 (Rec: 01/02/19 03:08 IVG1029 ICU-C10) Document 01/02/19 04:00 ZJA3234 (Rec: 01/02/19 04:23 IUK5425 ICU-C10) Document 01/02/19 05:00 YJA2586 (Rec: 01/02/19 06:29 MGT4727 ICU-C10) Document 01/02/19 06:00 AYF5388 (Rec: 01/02/19 06:29 CJE1099 ICU-C10) Document 01/02/19 07:00 XHB8052 (Rec: 01/02/19 09:20 BBM7746 ICU-C12) Document 01/02/19 08:00 GAI4047 (Rec: 01/02/19 09:21 WGQ0587 ICU-C12) Document 01/02/19 09:00 JTN2535 (Rec: 01/02/19 09:21 LEC3968 ICU-C12) Document 01/02/19 10:00 RQO3757 (Rec: 01/02/19 10:04 BGM2201 ICU-C12) Intake and Output Start: 01/02/19 11: 06 Freq: DAILY@0600,1400,2200 Status: Active Protocol: Created 01/02/19 11:06 ZSY2925 (Rec: 01/02/19 11:06 PUS8805 ICU-C12) Document 01/02/19 12:00 XXT3780 (Rec: 01/02/19 12:16 LDO9487 ICU-C12) Document 01/02/19 13:00 OEI4928 (Rec: 01/02/19 14:48 XWQ8435 ICU-C12) Document 01/02/19 14:00 GGG0965 (Rec: 01/02/19 14:48 AJS5110 ICU-C12) Document 01/02/19 14:48 SUG2732 (Rec: 01/02/19 14:48 YKN6124 ICU-C12) Document 01/02/19 15:56 BCE4826 (Rec: 01/02/19 15:56 NHD6591 IMG-M07) Document 01/02/19 16:58 SXD4002 (Rec: 01/02/19 16:58 WIR1435 ICU-C12) Document 01/02/19 18:00 VMC2862 (Rec: 01/02/19 18:12 WGD9689 IMG-M07) Document 01/02/19 19:00 TWP7334 (Rec: 01/02/19 19:46 EWQ4457 IMG-M07) Document 01/02/19 19:46 XPM9451 (Rec: 01/02/19 19:47 VCT8164 IMG-M07) Document 01/02/19 21:00 QUE3282 (Rec: 01/02/19 22:05 WBG0394 IMG-M07) Document 01/02/19 22:00 MVR4935 (Rec: 01/02/19 22:05 KUQ1182 IMG-M07) Document 01/02/19 22:50 GJX4172 (Rec: 01/02/19 22:50 EZZ4949 ICU-C15) Document 01/03/19 00:00 DXY6199 (Rec: 01/03/19 00:03 JIX5274 IMG-M07) Document 01/03/19 01:00 AOR7738 (Rec: 01/03/19 01:09 FBF7481 ICU-C15) Document 01/03/19 01:51 YMM9307 (Rec: 01/03/19 01:51 MNT1997 ICU-C15) Document 01/03/19 03:00 SAD0275 (Rec: 01/03/19 03:04 CSA9488 ICU-C15) Document 01/03/19 03:50 SFP2895 (Rec: 01/03/19 03:50 CDU0833 ICU-C15) Document 01/03/19 05:00 SZB8568 (Rec: 01/03/19 05:07 XKV4578 IMG-M07) Document 01/03/19 06:00 KXO0107 (Rec: 01/03/19 06:08 YEB5997 ICU-C15) Document 01/03/19 07:00 CPU7181 (Rec: 01/03/19 08:29 PCH5465 IMG-M07) Document 01/03/19 08:00 BUD6886 (Rec: 01/03/19 08:29 YDK1993 IMG-M07) Document 01/03/19 09:00 YUH8233 (Rec: 01/03/19 09:32 KLJ0692 IMG-M07) Document 01/03/19 10:00 RCQ2877 (Rec: 01/03/19 10:26 QTT6419 IMG-M07) Document 01/03/19 11:00 MPL9102 (Rec: 01/03/19 11:10 XYA7599 IMG-M07) Document 01/03/19 12:00 TBJ7229 (Rec: 01/03/19 12:22 BMV8357 IMG-M07) Document 01/03/19 13:00 AYZ0345 (Rec: 01/03/19 13:18 PPP2202 IMG-M07) Document 01/03/19 14:00 TQZ7995 (Rec: 01/03/19 14:03 XZX0394 IMG-M07) Document 01/03/19 15:00 KEN5736 (Rec: 01/03/19 15:30 QDO1342 IMG-M07) Document 01/03/19 16:00 CQK0578 (Rec: 01/03/19 16:34 ZVJ3123 IMG-M07) Document 01/03/19 17:00 NKX4335 (Rec: 01/03/19 17:26 DPK4756 IMG-M07) Document 01/03/19 18:00 RFA2412 (Rec: 01/03/19 18:18 SFN6065 IMG-M07) Document 01/03/19 19:00 ODX9492 (Rec: 01/03/19 19:25 JVG0717 IMG-M07) Document 01/03/19 20:00 CNC3013 (Rec: 01/03/19 21:01 BHF9975 ICU-C12) Document 01/03/19 21:00 VOD2884 (Rec: 01/03/19 21:02 FMB5583 ICU-C12) Document 01/03/19 22:00 TRJ1098 (Rec: 01/03/19 22:13 YML0225 ICU-C12) Document 01/03/19 22:58 GXP8190 (Rec: 01/03/19 23:00 GUJ0888 ICU-C12) Document 01/03/19 23:04 MND0024 (Rec: 01/03/19 23:12 SXA7258 ICU-C12) Document 01/04/19 00:00 NDD8944 (Rec: 01/04/19 00:07 XYT0326 IMG-M07) Document 01/04/19 01:00 WIQ9785 (Rec: 01/04/19 01:26 ORM8273 ICU-C12) Document 01/04/19 02:00 DKH3005 (Rec: 01/04/19 02:20 BIG9125 ICU-C12) Document 01/04/19 03:00 ZPD9556 (Rec: 01/04/19 03:09 UET2269 ICU-C12) Document 01/04/19 04:00 BLX0100 (Rec: 01/04/19 04:30 XXD7003 ICU-C12) Document 01/04/19 04:39 CEE7606 (Rec: 01/04/19 04:39 FHY8863 ICU-C12) Document 01/04/19 04:58 KGY7256 (Rec: 01/04/19 05:01 YQH2426 ICU-C12) Document 01/04/19 06:20 BBL3224 (Rec: 01/04/19 06:20 CSW1646 IMG-M07) Document 01/04/19 06:37 ROY8384 (Rec: 01/04/19 06:38 MBU8411 ICU-C12) Document 01/04/19 07:00 QOB3039 (Rec: 01/04/19 07:13 IHV8299 IMG-M07) Document 01/04/19 08:00 NOO9163 (Rec: 01/04/19 08:03 WZH1810 IMG-M07) Document 01/04/19 09:00 JIA9727 (Rec: 01/04/19 09:24 XPE0005 IMG-M07) Document 01/04/19 10:00 PUU5106 (Rec: 01/04/19 10:20 BPV7395 IMG-M07) Document 01/04/19 11:00 TSN7176 (Rec: 01/04/19 11:04 AMF5733 IMG-M07) Document 01/04/19 11:54 TKY5624 (Rec: 01/04/19 11:54 RGK0850 IMG-M07) Document 01/04/19 13:00 CCT5247 (Rec: 01/04/19 13:16 KGM1754 IMG-M07) Document 01/04/19 14:00 IQY1628 (Rec: 01/04/19 14:18 XJB8388 IMG-M07) Document 01/04/19 15:00 DSZ8739 (Rec: 01/04/19 15:51 QIX2838 IMG-M07) Document 01/04/19 16:00 QNI2152 (Rec: 01/04/19 16:30 LCN9930 IM-M07) Document 01/04/19 17:00 JLV7828 (Rec: 01/04/19 17:01 RUH0631 IM-M07) Document 01/04/19 18:00 EXJ1434 (Rec: 01/04/19 19:44 QCL8419 IM-M07) Document 01/04/19 19:00 WXK2010 (Rec: 01/04/19 19:44 CWR7164 IM-M07) Document 01/04/19 20:00 LOL2270 (Rec: 01/04/19 23:01 XVD7685 ICU-C16) Document 01/04/19 21:00 JZP2174 (Rec: 01/04/19 23:01 NCH5909 ICU-C16) Document 01/04/19 22:00 RJQ9786 (Rec: 01/04/19 23:01 FYP9838 ICU-C16) Document 01/04/19 23:00 DSM9457 (Rec: 01/04/19 23:10 AON6895 ICU-C16) Document 01/05/19 00:00 PBF6005 (Rec: 01/05/19 01:19 JFD3327 ICU-C16) Document 01/05/19 01:00 ADV2589 (Rec: 01/05/19 01:19 JQP0254 ICU-C16) Document 01/05/19 02:00 YAX2904 (Rec: 01/05/19 02:20 [id number] ICU-C16) Document 01/05/19 03:00 TJM3332 (Rec: 01/05/19 03:08 GDB3752 ICU-C16) Document 01/05/19 04:00 VCU0469 (Rec: 01/05/19 05:24 YVY1279 ICU-C16) Document 01/05/19 05:00 FCJ0555 (Rec: 01/05/19 05:24 YSS8983 ICU-C16) Document 01/05/19 06:00 OMP7479 (Rec: 01/05/19 06:39 FRH1131 ICU-C16) Document 01/05/19 08:00 KYG6863 (Rec: 01/05/19 10:18 SFI4402 ICU-C15) Document 01/05/19 10:00 QMI6279 (Rec: 01/05/19 10:59 KFM3705 ICU-C15) Document 01/05/19 11:00 VBN0571 (Rec: 01/05/19 11:22 FLE4926 ICU-C15) Document 01/05/19 12:00 YWE0326 (Rec: 01/05/19 14:00 GWJ7263 ICU-C15) Document 01/05/19 13:00 KNB4038 (Rec: 01/05/19 14:02 IPU1366 ICU-C15) Document 01/05/19 14:00 XFM6664 (Rec: 01/05/19 14:22 LOM9729 ICU-C15) Document 01/05/19 16:00 FDC9821 (Rec: 01/05/19 16:21 ZOY0980 ICU-C15) Document 01/05/19 17:00 SIP2025 (Rec: 01/05/19 17:22 CHZ6264 ICU-C15) Document 01/05/19 17:56 YRO4616 (Rec: 01/05/19 17:58 ULS1753 ICU-C15) Document 01/05/19 20:00 QNC3525 (Rec: 01/05/19 20:47 WMJ3707 ICU-C16) Document 01/05/19 20:55 SKB7952 (Rec: 01/05/19 20:55 GGU8869 ICU-C16) Document 01/05/19 22:00 BYK4614 (Rec: 01/05/19 22:08 UOH1372 ICU-C16) Document 01/05/19 23:00 MIS5646 (Rec: 01/05/19 23:07 DZX4599 ICU-C16) Document 01/06/19 00:00 ISX5776 (Rec: 01/06/19 00:01 DFR1749 IMG-M07) Document 01/06/19 01:00 DTQ4680 (Rec: 01/06/19 01:10 KXE1219 ICU-C16) Document 01/06/19 02:00 MBX4692 (Rec: 01/06/19 02:02 LSU1835 ICU-C16) Document 01/06/19 03:00 MRP1970 (Rec: 01/06/19 03:12 GNL1839 ICU-C16) Document 01/06/19 04:00 IGV8816 (Rec: 01/06/19 04:59 TTL8208 ICU-C16) Document 01/06/19 05:00 EYS6810 (Rec: 01/06/19 05:05 EER2869 ICU-C16) Document 01/06/19 05:57 HXQ3704 (Rec: 01/06/19 05:59 EZF6907 IMG-M07) Document 01/06/19 07:00 ZSD1367 (Rec: 01/06/19 08:37 JFP2630 ICU-C16) Document 01/06/19 08:00 RUN4710 (Rec: 01/06/19 08:37 SFM5984 ICU-C16) Document 01/06/19 09:00 XUC3590 (Rec: 01/06/19 09:44 PRA0381 ICU-C16) Document 01/06/19 10:00 HEU4380 (Rec: 01/06/19 11:39 ZYY0400 ICU-L03) Document 01/06/19 11:00 IDX4762 (Rec: 01/06/19 11:50 QZH1042 IMG-M07) Document 01/06/19 11:50 NKR0512 (Rec: 01/06/19 11:50 KSJ6102 IMG-M07) Document 01/06/19 13:00 RPU6478 (Rec: 01/06/19 13:38 EEZ3871 ICU-C16) Document 01/06/19 13:38 LAG3125 (Rec: 01/06/19 13:38 GSV7916 ICU-C16) Document 01/06/19 16:00 KHO5327 (Rec: 01/06/19 16:17 GXH3434 TELE-C01) Document 01/06/19 22:00 DID3998 (Rec: 01/06/19 22:17 QKM4965 TELE-C07) Document 01/07/19 06:00 VCZ8076 (Rec: 01/07/19 06:12 ZSS9935 TELE-C11) Document 01/07/19 14:00 UQM9703 (Rec: 01/07/19 17:56 MEO1827 TELE-C06) Document 01/07/19 21:17 VWA1154 (Rec: 01/07/19 21:18 KZK4569 TELE-C10) Document 01/07/19 22:03 CFE3341 (Rec: 01/07/19 22:03 SDJ8687 TELE-C10) Document 01/08/19 06:00 YBJ5970 (Rec: 01/08/19 06:29 JBM9363 TELE-C10) Document 01/08/19 14:00 SBV2681 (Rec: 01/08/19 14:36 JUR9145 TELE-C05) Document 01/08/19 20:30 MQC0080 (Rec: 01/08/19 20:31 RBV6472 TELE-C11) Document 01/09/19 06:00 VYM9742 (Rec: 01/09/19 06:12 OXX0857 TELE-C11) Document 01/09/19 14:00 JPD3044 (Rec: 01/09/19 14:04 VXM5592 TELE-C01) Document 01/09/19 19:42 HPE1239 (Rec: 01/09/19 19:43 ZCV8370 TELE-C13) Document 01/10/19 06:00 SFO0855 (Rec: 01/10/19 06:17 AID7515 TELE-C01) Document 01/10/19 13:51 SIN0916 (Rec: 01/10/19 13:52 FWM3605 TELE-C08) Document 01/10/19 21:07 YOM3202 (Rec: 01/10/19 21:07 SGO2557 TELE-C11) Document 01/11/19 05:59 YEN5321 (Rec: 01/11/19 06:03 BVK3087 TELE-C10) Document 01/11/19 14:00 TLE0777 (Rec: 01/11/19 15:33 ZWE7246 TELE-C10) Document 01/11/19 22:00 SGX2510 (Rec: 01/11/19 23:22 DDJ8566 TELE-C13) Document 01/12/19 06:00 GTL5014 (Rec: 01/12/19 07:26 UES7496 TELE-C11) - Physical Exam General Physical Exam Comment: Warm and well perfused and in no acute distress. He is coughing General: No Cyanosis, No Anemia, No Jaundice, No Clubbing Lungs and Chest: Yes: Chest Expansion Full, Chest Expansion Symetrica, Percussion Note Resonant, Vessicular Breath Sounds. No: Crackles, Wheezes Heart Rate and Rhythm: Regular Additional Cardiovascular: Yes: Normal Heart Sounds. No: Heart Murmur, Pedal Edema Abdominal Exam: Yes: Soft, Bowel Sounds Present. No: Distention, Abdominal Tenderness - Neuro Orientation: A/O x3 Psychiatric: Normal Speech: Normal Results - Results Lab Results: Laboratory Results - last 24 hr 01/11/19 01/11/19 01/11/19 07:30 11:58 15:12 Sodium 132 L Potassium 4.9 Chloride 102 Carbon Dioxide 24 Anion Gap 6 BUN 25 H Creatinine 0.77 Est GFR ( Amer) 126.5 Est GFR (Non-Af Amer) 104.5 BUN/Creatinine Ratio 32.5 H Glucose 195 H POC Glucose (mg/dL) 205 H 196 H Calcium 8.3 L Magnesium 2.2 Troponin I 0.09 H* C-Reactive Protein TSH 1.25 Cortisol 10.79 01/11/19 01/11/19 01/12/19 17:21 21:03 05:30 Sodium 131 L Potassium 5.1 H Chloride 104 Carbon Dioxide 17 L Anion Gap 10 BUN 19 Creatinine 0.59 L Est GFR ( Amer) 171.9 Est GFR (Non-Af Amer) 142.1 BUN/Creatinine Ratio 32.2 H Glucose 118 H POC Glucose (mg/dL) 135 H 194 H Calcium 8.0 L Magnesium Troponin I C-Reactive Protein 10.19 H TSH Cortisol 11.70 01/12/19 07:30 Sodium Potassium Chloride Carbon Dioxide Anion Gap BUN Creatinine Est GFR ( Amer) Est GFR (Non-Af Amer) BUN/Creatinine Ratio Glucose POC Glucose (mg/dL) 152 H Calcium Magnesium Troponin I C-Reactive Protein TSH Cortisol Radiology Results: Patient Name: LORENA QUESADA Medical Record#: [id number] Ordering Physician: Narinder Muniz MD Acct.#: [id number] : 1960 Age: 58 Sex: M Location: [address] [place] [address]/[employer] Exam Date: 01/11/19841 ADM Status: ADM IN Order Information: CHEST AP OR [place] Accession Number: [id number] CPT: 81459 Indication: Pneumonia. Single frontal view of the chest performed at 0845 hours was reviewed. Comparison is made with previous exam dated January 06, 2019. Cardiomegaly is noted. Lung orozco show no pleural fluid, pneumonia or pneumothorax. IMPRESSION: CARDIOMEGALY. NO DEFINITE PNEUMONIA IS IDENTIFIED. 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 His thyroid function was normal. He was dehydrated. I can see no other clear precipitating cause for this episode. Dr. Chaidez has started him on multaq, eliquis and a beta serina. I will monitor him for 24 hours prior to preparing him for discharge Cough (Acute) He has a new cough since the events of last night. He had a CXR just prior to the atrial flutter. I am concerned this may represent CHF from all the volume he has received or aspiration, I will repeat the CXR. 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
[2019-01-12] MEDS ORDERED: Perflutren Lipid Microsphere* 3 ML VIAL ONE (08:02)
[2019-01-12] MEDS ORDERED: Saline NASAL SPRAY 0.65%* BTL BOTH NARES PRN (08:30)
--- NOTE | 2019-01-12 09:26 | ECHO ---
*[facility]* [place] [address] Fax #: [phone] Transthoracic Echocardiogram Patient: Andrea Quesada : 1960 Study Date: 01/12/2019 Age: 58 Gender: M HR: 50 bpm Height: 73 in /185.4 cm BSA: 2.17 m^2 Weight: 203.6 lb /92.5 kg BMI: 26.9 kg/m^2 *Transportation Agent: * Elvi Garcia [facility] *Referring Physician: * Anders Chaidez MD *Reading Physician: * Diogenes Benz MD Indications: Abnormal EKG. History: Muscular dystrophy. Atrial fibrillation. Risk factors: Hypertension. Diabetes mellitus. Dyslipidemia. Conclusions Summary: - Left ventricle: The cavity size is mildly reduced. Wall thickness is moderately increased. Systolic function is hyperdynamic. The estimated ejection fraction is 65-70%. Doppler parameters are consistent with abnormal left ventricular relaxation (grade 1 diastolic dysfunction). - Ventricular septum: The outflow septum has a sigmoid appearance. - Mitral valve: There is trace to mild regurgitation. - Compared to 07/11, the left ventricle is hyperdynamic and the ejection fraction has increased from 55-60% then to 65-70% now. Study data: Transthoracic echocardiogram. Procedure: Transthoracic echocardiography was performed. Image quality was suboptimal. Intravenous Definity , 2 mlswas administered. Complete 2D, spectral Doppler, and color flow Doppler. Location: Bedside. Patient status: Inpatient. Patient room number: 439. The previous study was not available, so comparison is made to the report of June 2018. Rhythm: Normal sinus rhythm with PVC's. Findings Left ventricle: The cavity size is mildly reduced. Wall thickness is moderately increased. Systolic function is hyperdynamic. The estimated ejection fraction is 65-70%. Wall motion is normal; there are no regional wall motion abnormalities. Doppler parameters are consistent with abnormal left ventricular relaxation (grade 1 diastolic dysfunction). Right ventricle: The cavity size is normal. Systolic function is normal. Ventricular septum: The outflow septum has a sigmoid appearance. Left atrium: The atrium is normal in size. Right atrium: The atrium is normal in size. Mitral valve: The leaflets are normal thickness. There is no evidence of stenosis. There is trace to mild regurgitation. Aortic valve: The leaflets are normal thickness. There is no evidence of stenosis. There is no significant regurgitation. Tricuspid valve: The leaflets are normal thickness. There is no evidence of stenosis. There is no significant regurgitation. Pulmonic valve: Not well visualized. There is no significant regurgitation. Aorta: The aortic root appears normal. The aortic arch appears normal. Pericardium: There is no significant pericardial effusion. Pulmonary arteries: Not well visualized. Systolic pressure can not be accurately estimated. Systemic veins: Inferior vena cava: The vessel is normal in size. There is (>= 50%) respiratory change in the IVC dimension. Measurements Left ventricle Value Ref Aortic valve Value Ref CARINA, LAX (L) 3.5 cm 4.2 - 5.8 Willian diam, ED 2.5 cm ---- PW, ED, LAX (H) 1.5 cm 0.6 - 1.0 Peak v, S 1.54 m/sec ---- E', lat willian, TDI (L) 9.5 cm/sec >=10.0 VTI, S 23.3 cm ---- E/e', lat willian, 9 Mean grad, S 6.0 mm Hg ---- TDI Peak grad, S 9.0 mm Hg ---- LVOT Value Ref Mitral valve Value Ref Peak louise, S 0.88 m/sec Peak E 0.81 m/sec ---- Mean grad, S 2 mm Hg Peak A 0.72 m/sec ---- Decel time 135 ms ---- Ventricular septum Value Ref Peak grad, D 2.6 mm Hg ---- IVS, ED (H) 1.6 cm 0.6 - 1.0 Peak E/A ratio 1.1 ---- Right ventricle Value Ref Aortic root Value Ref CARINA, LAX 3.3 cm Root diam 3.7 cm <4.3 Left atrium Value Ref Aortic arch Value Ref AP dim, ES (L) 2.60 cm 3.00 - Arch diam 2.8 cm ---- 4.00 ML dim, A4C 4.3 cm Decending aorta Value Ref SI dim, A4C 5.2 cm Stephanie peak louise 0.75 m/sec ---- Vol/bsa, ES, A/L 26 ml/m^2 16 - 34 Inferior vena cava Value Ref Right atrium Value Ref Diam 1.1 cm ---- SI dim, ES 4.9 cm 3.4 - 5.3 ML dim, ES, A4C 4.3 cm 2.6 - 4.4 Estimated RAP 8 mm Hg Legend: (L) and (H) edward values outside specified reference range. Prepared and electronically signed by Diogenes Benz MD 01/12/2019 09:24
[2019-01-12] MEDS: Insulin LISPRO* 1 UNITS UNIT SUBCUT SCH ×7 (09:47→20:56)
[2019-01-12 09:48] LABS: Hematocrit 33 % (42-52); Hemoglobin 10.6 g/dL (14.0-18.0); Mean Corpuscular HGB Conc 33 g/dL (31-36); Mean Corpuscular Hemoglobin 27 pg (27-31); Mean Corpuscular Volume 84 fL (80-94); Mean Platelet Volume 9.3 fL (7.4-10.4); Platelet Count 312 10^3/uL (150-450); Red Blood Count 3.88 10^6 /uL (4.18-5.48); Red Cell Distribution Width 17 % (10-15); White Blood Count 12.1 10^3/uL (3.5-10.8)
[2019-01-12] MEDS: Dronedarone TAB* 400 MG PO SCH ×2 (10:18→20:41)
[2019-01-12] MEDS: Ramipril CAP* 10 MG PO SCH (10:18)
[2019-01-12] MEDS: Apixaban* 5 MG TAB PO SCH ×2 (10:18→20:41)
[2019-01-12] MEDS: Potassium Acid Phosphate TAB* 500 MG PO SCH ×2 (10:18→20:41)
[2019-01-12] MEDS: Cefdinir cap* 300 MG CAP PO SCH ×2 (10:19→20:41)
[2019-01-12] MEDS: Metoprolol Tartrate TAB* 25 MG PO SCH ×2 (10:19→20:42)
[2019-01-12] MEDS: Famotidine TAB* 20 MG PO SCH ×2 (10:19→20:41)
[2019-01-12] MEDS: oxyCODONE TAB* 5 MG TAB PO PRN ×3 (10:20→23:27)
[2019-01-12 10:54] LABS: ABS Basophils 0.1 10^3/ul (0-0.2); ABS Eosinophils 0.2 10^3/ul (0-0.6); ABS Lymphocytes 1.4 10^3/ul (1.0-4.8); ABS Monocytes 1.3 10^3/ul (0-0.8); ABS Neutrophils 9.2 10^3/ul (1.5-7.7); Eosinophil % 1.2 %; Lymphocyte % 11.6 %; Polychromasia 2+
[2019-01-12 13:13] LABS: Troponin I 0.09 ng/mL (<0.03)
[2019-01-12] MEDS: Atorvastatin* 20 MG TAB PO SCH (17:44)
[2019-01-12] MEDS ORDERED: Insulin GLARGINE(*) 1 UNITS UNIT SUBCUT SCH (18:00)
[2019-01-12] MEDS: Docusate LIQ* 100 MG/10 ML UDC PO SCH (20:32)
[2019-01-12] MEDS: Senna TAB 8.6 mg* TAB PO SCH (20:32)
[2019-01-12] MEDS: traZODone TAB* 50 MG TAB PO PRN (20:41)
[2019-01-12] MEDS: Acetaminophen ADULT LIQ* 650 MG/20.3 ML UDC PO PRN (20:41)
[2019-01-13] MEDS: oxyCODONE TAB* 5 MG TAB PO PRN ×3 (03:33→12:06)
[2019-01-13 05:43] LABS: Hematocrit 31 % (42-52); Hemoglobin 10.4 g/dL (14.0-18.0); Mean Corpuscular HGB Conc 34 g/dL (31-36); Mean Corpuscular Hemoglobin 28 pg (27-31); Mean Corpuscular Volume 84 fL (80-94); Mean Platelet Volume 9.2 fL (7.4-10.4); Platelet Count 333 10^3/uL (150-450); Red Blood Count 3.69 10^6 /uL (4.18-5.48); Red Cell Distribution Width 17 % (10-15)
[2019-01-13 06:00] LABS: Anion Gap 7 mmol/L (2-11); BUN/Creatinine Ratio 27.5 (8-20); Blood Urea Nitrogen 14 mg/dL (6-24); C Reactive Protein 7.07 mg/L (<8.01); CO2 Carbon Dioxide 23 mmol/L (22-32); Calcium 8.5 mg/dL (8.6-10.3); Chloride 105 mmol/L (101-111); EGFR African American 203.4 (>60); EGFR Non-African American 168.1 (>60); Glucose 116 mg/dL (70-100); Potassium 4.3 mmol/L (3.5-5.0); Sodium 135 mmol/L (135-145)
[2019-01-13] MEDS: traMADol TAB* 50 MG PO PRN ×2 (06:00→13:38)
[2019-01-13] MEDS: Acetaminophen ADULT LIQ* 650 MG/20.3 ML UDC PO PRN (06:01)
[2019-01-13 06:17] LABS: ABS Eosinophils 0.1 10^3/ul (0-0.6); ABS Lymphocytes 1.5 10^3/ul (1.0-4.8); ABS Monocytes 1.4 10^3/ul (0-0.8); Lymphocyte % 14.9 %
[2019-01-13 07:24] LABS: Troponin I 0.07 ng/mL (<0.03)
[2019-01-13] MEDS: Famotidine TAB* 20 MG PO SCH (08:02)
[2019-01-13] MEDS: Apixaban* 5 MG TAB PO SCH (08:02)
[2019-01-13] MEDS: Cefdinir cap* 300 MG CAP PO SCH (08:02)
[2019-01-13] MEDS: Potassium Acid Phosphate TAB* 500 MG PO SCH (08:02)
[2019-01-13] MEDS: Ramipril CAP* 10 MG PO SCH (08:02)
[2019-01-13] MEDS: Dronedarone TAB* 400 MG PO SCH (08:02)
[2019-01-13] MEDS: Metoprolol Tartrate TAB* 25 MG PO SCH (08:03)
--- NOTE | 2019-01-13 08:26 | PN ---
Subjective - Subjective Reason for Note: Progress Note History: He is feeling well this morning and is eating breakfast with appetite. He has had no further rhythm disturbance and no problems with the new medication. His blood pressure/pulse rate are controlled. His diabetes is also reasonably well controlled. 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 Depression (Chronic) F32.9 Essential hypertension (Chronic) I10 GERD (gastroesophageal reflux disease) (Chronic) K21.9 Hypercholesterolemia (Chronic) E78.00 Muscular dystrophy (Chronic) G71.0 error 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, 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 Vitiligo (Chronic) L80 Current Medications: Current Medications Acetaminophen (Tylenol Adult Liq*) 650 mg PO Q8H PRN PRN Reason: MILD PAIN or TEMP > 100.4 Last Admin: 01/13/19 06:01 Dose: 650 mg Acetaminophen (Tylenol Supp*) 650 mg MO Q6H PRN PRN Reason: .FEVER Last Admin: 01/05/19 21:04 Dose: 650 mg Albuterol/Ipratropium (Duoneb (Albuterol 2.5 Mg/Ipratropium 0.5 Mg)) 1 neb INH Q2H PRN PRN Reason: SOB/WHEEZING Last Admin: 01/05/19 19:52 Dose: 1 neb Apixaban (Eliquis*) 5 mg PO BID [facility] Last Admin: 01/13/19 08:02 Dose: 5 mg Atorvastatin Calcium (Lipitor*) 20 mg PO 1700 [facility] Last Admin: 01/12/19 17:44 Dose: 20 mg Cefdinir (Cefdinir Cap*) 300 mg PO BID [facility] Last Admin: 01/13/19 08:02 Dose: 300 mg Dextrose (Dextrose 50% Vial 50 Ml*) 25 ml IV PUSH .FOR FS < 60 - SS PRN PRN Reason: FS < 60 Docusate Sodium (Colace Cap*) 100 mg PO BID PRN PRN Reason: CONSTIPATION Last Admin: 01/04/19 19:54 Dose: 100 mg Docusate Sodium (Colace Liq*) 50 mg PO BEDTIME [facility] Last Admin: 01/12/19 20:32 Dose: Not Given Dronedarone (Multaq Tab*) 400 mg PO BID [facility] Last Admin: 01/13/19 08:02 Dose: 400 mg Famotidine (Pepcid Tab*) 20 mg PO Q12H [facility] Last Admin: 01/13/19 08:02 Dose: 20 mg Heparin Sodium (Porcine) (Heparin Flush Picc/Ml/Cvc(*)) 1 - 3 ml FLUSH 0600, 1800 [facility]; Protocol Last Admin: 01/13/19 06:01 Dose: 1 ml Insulin Glargine (Lantus(*)) 40 units SUBCUT 1800 [facility] Last Admin: 01/12/19 17:43 Dose: 40 units Insulin Human Lispro (Humalog*) 0 units SUBCUT ACHS [facility]; Protocol Last Admin: 01/12/19 20:56 Dose: Not Given Insulin Human Lispro (Humalog*) 0 units SUBCUT AC [facility]; Protocol Last Admin: 01/12/19 17:44 Dose: 5 unit Metoprolol Tartrate (Lopressor Tab*) 12.5 mg PO Q12HR [facility] Last Admin: 01/13/19 08:03 Dose: 12.5 mg Oxycodone HCl (Roxycodone Tab*) 10 mg PO Q4H PRN PRN Reason: PAIN - MODERATE Last Admin: 01/13/19 08:03 Dose: 10 mg Polyethylene Glycol/Electrolytes (Miralax*) 17 gm PO DAILY PRN PRN Reason: CONSTIPATION Last Admin: 01/04/19 16:38 Dose: 17 gm Potassium Phosphate (K Phos Original Tab*) 500 mg PO BID [facility] Last Admin: 01/13/19 08:02 Dose: 500 mg Ramipril (Altace Cap*) 10 mg PO DAILY [facility] Last Admin: 01/13/19 08:02 Dose: 10 mg Senna (Senokot 8.6 Mg Tab*) 1 tab PO BEDTIME [facility] Last Admin: 01/12/19 20:32 Dose: Not Given Sodium Chloride (Sodium Chloride 0.65% Nasal [place]*) 1 spray BOTH NARES Q4H PRN PRN Reason: PER PROTOCOL Tramadol HCl (Ultram*) 50 mg PO Q6H PRN PRN Reason: PAIN - MODERATE Last Admin: 01/13/19 06:00 Dose: 50 mg Trazodone HCl (Desyrel Tab*) 50 mg PO BEDTIME PRN PRN Reason: INSOMNIA Last Admin: 01/12/19 20:41 Dose: 50 mg Home Medications: Home Medications Medication Instructions Recorded Confirmed Type Docusate CAP* [Colace Cap*] 100 mg PO QPM 12/09/11 12/31/18 History Labetalol TAB* [Trandate TAB*] 200 mg PO BID 12/09/11 12/31/18 History traZODone TAB* [Desyrel*] 50 mg PO BEDTIME 12/09/11 12/31/18 History Prochlorperazine TAB* [Compazine 10 mg PO QID PRN 10/20/12 12/31/18 History Tab*] Ramipril CAP* [Altace CAP*] 20 mg PO QAM 05/26/13 12/31/18 History Terazosin CAP* [Hytrin CAP*] 5 mg PO BEDTIME 05/26/13 12/31/18 History Triamterene/HCTZ 37.5-25 MG* 1 cap PO QAM 05/26/13 12/31/18 History [Dyazide CAP*] metFORMIN* [Glucophage*] 500 mg PO BID 05/26/13 12/31/18 History Atorvastatin* [Lipitor*] 20 mg PO BEDTIME 06/14/14 12/31/18 History ALPRAZolam TAB* [Xanax TAB*] 0.5 mg PO QID PRN MDD 4 tabs 02/09/15 12/31/18 History Docusate CAP* [Colace Cap*] 200 mg PO QAM 02/09/15 12/31/18 History Escitalopram * [Lexapro (NF)] 20 mg PO DAILY 02/09/15 12/31/18 History Gabapentin CAP(*) [Neurontin 600 mg PO QID 02/09/15 12/31/18 History CAP(*)] Oxycodone HCl [Oxycontin] 6 - 8 tab PO DAILY PRN 02/09/15 12/31/18 History Insulin Aspart [Novolog] 1 unit SC .BEFORE MEALS 10/17/15 12/31/18 History Insulin Glargine,Hum.rec.anlog 30 units SUBCUT BEDTIME 04/15/17 12/31/18 History [Basaglar Kwikpen] Methocarbamol 750 mg PO Q6H PRN 04/15/17 12/31/18 History Mirabegron (NF) [Myrbetriq (NF)] 50 mg PO DAILY 04/15/17 12/31/18 History Bisacodyl SUPP* [Dulcolax Supp*] 10 mg MO DAILY 12/31/18 12/31/18 History Diclofenac 1% GEL (NF) [Voltaren 2 gm TOPICAL QID 12/31/18 12/31/18 History 1% GEL (NF)] Gentamicin 0.3% OPHTH.SOLN* 1 drop BOTH EYES Q4H 12/31/18 12/31/18 History Glucagon,Human Recombinant 1 mg IM ONCE 12/31/18 12/31/18 History [Glucagon Emergency Kit] Omeprazole (Nf) [Prilosec (NF)] 40 mg PO QPM 12/31/18 12/31/18 History Ondansetron TAB* [Zofran 4 MG Tab*] 8 mg PO Q6H PRN 12/31/18 12/31/18 History Oxybutynin TAB* [Ditropan TAB*] 5 mg PO DAILY 12/31/18 12/31/18 History Polyethylene Glycol 3350* 17 gm PO DAILY 12/31/18 12/31/18 History [Miralax*] Polymyx/Trimethoprim OPTH* 1 drop BOTH EYES Q6H 12/31/18 12/31/18 History [Polytrim OPHTH*] Sennosides 17.2 mg PO DAILY 12/31/18 12/31/18 History fentaNYL PATCH 25 MCG/HR* 25 mcg TRANSDERM Q48H 12/31/18 12/31/18 History [Duragesic PATCH 25 Mcg/Hr*] fentaNYL PATCHs 100 MCG/HR* 100 mcg TRANSDERM Q72H 12/31/18 01/01/19 History [Duragesic Patch 100 Mcg/Hr *] Allergies: Allergies Allergy/AdvReac Type Severity Reaction Status Date / Time hydrochlorothiazide AdvReac Unknown Verified 01/04/19 06:06 [From Maxzide] Reaction Details Yypvlds-Meo-Gnu Reductase AdvReac Unknown Verified 01/04/19 06:06 Inhibitor Reaction Details triamterene [From Maxzide] AdvReac Unknown Verified 01/04/19 06:06 Reaction Details Objective - Vital Signs Vital Signs: Vital Signs 01/12/19 01/12/19 01/12/19 09:15 10:20 11:15 Temperature 97.8 F 97.4 F Pulse Rate 106 86 Respiratory 14 14 16 Rate Blood Pressure 123/56 113/74 (mmHg) O2 Sat by Pulse 96 95 Oximetry 01/12/19 01/12/19 01/12/19 13:18 13:50 15:15 Temperature 98.2 F Pulse Rate 85 Respiratory 18 16 20 Rate Blood Pressure 129/74 (mmHg) O2 Sat by Pulse 96 Oximetry 01/12/19 01/12/19 01/12/19 17:44 19:15 20:00 Temperature 98.9 F Pulse Rate 89 Respiratory 18 16 16 Rate Blood Pressure 120/66 (mmHg) O2 Sat by Pulse 97 Oximetry 01/12/19 01/12/19 01/12/19 20:41 20:42 23:18 Temperature 98.6 F Pulse Rate 71 Respiratory 16 16 21 Rate Blood Pressure 136/78 (mmHg) O2 Sat by Pulse 98 Oximetry 01/12/19 01/13/19 01/13/19 23:27 02:34 03:15 Temperature 98.4 F Pulse Rate 79 Respiratory 16 16 21 Rate Blood Pressure 140/75 (mmHg) O2 Sat by Pulse 97 Oximetry 01/13/19 01/13/19 01/13/19 03:33 06:00 06:07 Temperature Pulse Rate Respiratory 16 16 16 Rate Blood Pressure (mmHg) O2 Sat by Pulse Oximetry 01/13/19 01/13/19 07:51 08:03 Temperature Pulse Rate Respiratory 18 18 Rate Blood Pressure (mmHg) O2 Sat by Pulse Oximetry - Intake and Output Intake and Output: Intake & Output 01/10/19 01/11/19 01/12/19 01/13/19 11:59 11:59 11:59 11:59 Intake Total 257 688 1723 50 Output Total 1325 1100 1100 1550 Balance -631 -280 600 -1500 Intake: IV Fluids 950 NS 450 IVPB 64 ABX 64 Oral 630 820 750 50 Output: Urine 400 900 [place] 925 1100 1100 650 Other: Estimated Void Small Medium Estimated Stool Amount Large Medium ADLs: Meal Record Start: 12/31/18 17: 53 Freq: 09,13,18 Status: Inactive Protocol: Created 12/31/18 17:53 System (Rec: 12/31/18 17:53 System ICU-M33) Document 01/01/19 09:00 [id number] (Rec: 01/01/19 09:32 FUZ5829 ICU-C15) Document 01/01/19 11:58 AOR0564 (Rec: 01/01/19 11:58 WBV6188 ICU-C15) Document 01/01/19 17:50 ANE1262 (Rec: 01/01/19 17:50 ZQC1480 ICU-C15) Document 01/02/19 09:00 FHI1108 (Rec: 01/02/19 09:33 [id number] ICU-C12) ADLs: Meal Record Start: 01/02/19 11: 06 Freq: DAILY@0900,1400,1800 Status: Active Protocol: Created 01/02/19 11:06 PEW0538 (Rec: 01/02/19 11:06 HZR1554 ICU-C12) Document 01/02/19 14:00 MJX1133 (Rec: 01/02/19 15:01 CTI1193 ICU-C12) Document 01/02/19 16:59 PTD8069 (Rec: 01/02/19 16:59 ZSL4718 ICU-C12) Document 01/03/19 09:00 GVT2665 (Rec: 01/03/19 10:24 ERY1670 ICU-L03) Document 01/03/19 14:00 SBP2117 (Rec: 01/03/19 14:03 JWI6512 IMG-M07) Document 01/03/19 18:00 YLC0565 (Rec: 01/03/19 18:02 BDR2186 ICU-L03) Document 01/04/19 09:00 SIJ3419 (Rec: 01/04/19 10:59 PIJ9771 ICU-C15) Document 01/04/19 14:00 WRO0363 (Rec: 01/04/19 15:43 NJM1243 ICU-C15) Document 01/05/19 09:00 TMT7665 (Rec: 01/05/19 10:59 NJL9187 ICU-C15) Document 01/05/19 14:00 SOA4525 (Rec: 01/05/19 14:24 YRE8298 ICU-C15) Document 01/05/19 17:56 DGS7756 (Rec: 01/05/19 17:58 UYW7862 ICU-C15) Document 01/06/19 09:00 MWE8721 (Rec: 01/06/19 10:31 VZT2227 ICU-L03) Document 01/06/19 14:00 WWX3053 (Rec: 01/06/19 14:04 QRO7183 ICU-C16) Document 01/06/19 18:00 DVU8260 (Rec: 01/06/19 18:51 VUV1897 TELE-C01) Document 01/07/19 09:00 UYH0784 (Rec: 01/07/19 13:28 PUA1801 TELE-C10) Document 01/07/19 14:00 NXV1706 (Rec: 01/07/19 14:09 SSW2529 TELE-C10) Document 01/07/19 18:00 SDZ0831 (Rec: 01/07/19 18:53 FNZ9274 TELE-C10) Document 01/08/19 09:00 IBQ8256 (Rec: 01/08/19 11:05 OSW3654 TELE-C05) Document 01/08/19 14:00 XJN3855 (Rec: 01/08/19 14:04 ELB8430 TELE-C05) Document 01/08/19 18:00 JKZ3437 (Rec: 01/08/19 19:07 CIF7705 TELE-C11) Document 01/09/19 09:00 TCI9280 (Rec: 01/09/19 10:36 RQK6552 TELE-C06) Document 01/09/19 14:00 VAR4891 (Rec: 01/09/19 15:44 NMN6406 TELE-C03) Document 01/09/19 18:00 CGO7033 (Rec: 01/09/19 19:42 QXE2393 TELE-C13) Document 01/10/19 09:00 TCR2808 (Rec: 01/10/19 10:41 SFK7568 TELE-C13) Document 01/10/19 13:44 YIA7291 (Rec: 01/10/19 13:45 TPK6408 TELE-C08) Document 01/10/19 18:00 WLM5465 (Rec: 01/10/19 20:44 PWP7241 TELE-C11) Document 01/11/19 14:00 VCQ2365 (Rec: 01/11/19 15:31 ZSW5819 TELE-C10) Document 01/11/19 18:00 YUE4729 (Rec: 01/11/19 18:30 LKR1749 TELE-C11) Document 01/12/19 09:00 OWQ3471 (Rec: 01/12/19 10:14 NFS8352 MED-M02) Document 01/12/19 13:53 VIL0159 (Rec: 01/12/19 13:53 QDJ8460 TELE-C05) Document 01/12/19 18:00 GWG7947 (Rec: 01/12/19 21:21 YAN5837 TELE-C35) ADLs: Meal Record Start: 01/06/19 16: 01 Freq: Status: Active Protocol: Created 01/06/19 16:01 JJF0707 (Rec: 01/06/19 16:01 JSK6429 TELE-C07) Document 01/08/19 20:29 MPS2567 (Rec: 01/08/19 20:29 EPH9886 TELE-C11) Intake and Output Start: 12/31/18 14: 54 Freq: Status: Inactive Protocol: Created 12/31/18 14:54 System (Rec: 12/31/18 14:54 System EDRM-C14) Intake and Output Start: 12/31/18 17: 53 Freq: Q1HR Status: Inactive Protocol: Created 12/31/18 17:53 System (Rec: 12/31/18 17:53 System ICU-M33) Document 12/31/18 17:54 RNF6568 (Rec: 12/31/18 17:54 QAU1337 ICU-M33) Document 12/31/18 19:00 QTN7178 (Rec: 12/31/18 22:09 WUC7169 ICU-C15) Document 12/31/18 20:00 FWA7383 (Rec: 12/31/18 22:27 AGC1471 ICU-C15) Document 12/31/18 21:00 EJB1948 (Rec: 12/31/18 22:28 DTY0610 ICU-C15) Document 12/31/18 22:00 STQ5280 (Rec: 12/31/18 22:45 LMP5381 ICU-C15) Document 12/31/18 23:00 SLV8569 (Rec: 01/01/19 00:06 XKF5564 ICU-L03) Document 01/01/19 00:00 NPK7460 (Rec: 01/01/19 01:01 EVF7795 ICU-L03) Document 01/01/19 01:00 NZW9153 (Rec: 01/01/19 01:01 UQQ4098 ICU-L03) Document 01/01/19 02:00 LYZ2821 (Rec: 01/01/19 02:18 QSR5625 ICU-L03) Document 01/01/19 02:55 GII5753 (Rec: 01/01/19 02:55 DPC6780 ICU-L03) Document 01/01/19 04:00 WOL4079 (Rec: 01/01/19 05:03 SMX4465 ICU-L03) Document 01/01/19 05:00 BGH5210 (Rec: 01/01/19 05:28 ZMX7755 ICU-L03) Document 01/01/19 06:00 FNE3215 (Rec: 01/01/19 07:10 UON7103 ICU-L03) Document 01/01/19 07:00 IET5795 (Rec: 01/01/19 07:13 RMX1959 ICU-L03) Document 01/01/19 08:40 TJU4151 (Rec: 01/01/19 08:40 KSM8743 ICU-M33) Document 01/01/19 09:53 ZHZ2017 (Rec: 01/01/19 09:54 WQP0343 ICU-M33) Document 01/01/19 11:30 XCC1486 (Rec: 01/01/19 11:30 BGE8120 ICU-C15) Document 01/01/19 12:00 COX5610 (Rec: 01/01/19 13:06 DXD8702 ICU-C15) Document 01/01/19 13:13 WBE9420 (Rec: 01/01/19 13:13 ZFD5776 ICU-C15) Document 01/01/19 14:19 BTQ7279 (Rec: 01/01/19 14:19 PEP0907 ICU-M33) Document 01/01/19 14:59 VDF1871 (Rec: 01/01/19 14:59 FVQ0856 ICU-C15) Document 01/01/19 17:14 QHO2862 (Rec: 01/01/19 17:14 RTA2803 ICU-C15) Document 01/01/19 19:00 XTY4891 (Rec: 01/01/19 22:18 YYY1702 ICU-C15) Document 01/01/19 20:00 SWU0971 (Rec: 01/01/19 22:18 LQF3808 ICU-C15) Document 01/01/19 21:00 KDH5460 (Rec: 01/01/19 22:18 IDA2969 ICU-C15) Document 01/01/19 22:00 DSD3408 (Rec: 01/01/19 22:18 GQR4611 ICU-C15) Document 01/01/19 22:43 DPK2251 (Rec: 01/01/19 22:43 RON3164 ICU-C10) Document 01/02/19 00:00 FPC1389 (Rec: 01/02/19 01:11 FOK5353 ICU-C10) Document 01/02/19 01:00 HBQ4173 (Rec: 01/02/19 01:11 XXB4410 ICU-C10) Document 01/02/19 02:00 LAY7465 (Rec: 01/02/19 02:02 QUZ3108 ICU-C10) Document 01/02/19 03:00 LTT6767 (Rec: 01/02/19 03:08 BRD9745 ICU-C10) Document 01/02/19 04:00 KHU9753 (Rec: 01/02/19 04:23 VWO8494 ICU-C10) Document 01/02/19 05:00 WEZ2697 (Rec: 01/02/19 06:29 ZAN0516 ICU-C10) Document 01/02/19 06:00 RDA7146 (Rec: 01/02/19 06:29 KNE7779 ICU-C10) Document 01/02/19 07:00 JCY9318 (Rec: 01/02/19 09:20 PXP1652 ICU-C12) Document 01/02/19 08:00 VJX9023 (Rec: 01/02/19 09:21 DOR4939 ICU-C12) Document 01/02/19 09:00 DAQ0510 (Rec: 01/02/19 09:21 IOA6559 ICU-C12) Document 01/02/19 10:00 KEO4293 (Rec: 01/02/19 10:04 NMQ0300 ICU-C12) Intake and Output Start: 01/02/19 11: 06 Freq: DAILY@0600,1400,2200 Status: Active Protocol: Created 01/02/19 11:06 HRR2819 (Rec: 01/02/19 11:06 AVL2486 ICU-C12) Document 01/02/19 12:00 YXR3171 (Rec: 01/02/19 12:16 GAS0224 ICU-C12) Document 01/02/19 13:00 JZA0392 (Rec: 01/02/19 14:48 VVD3974 ICU-C12) Document 01/02/19 14:00 WHN3328 (Rec: 01/02/19 14:48 QFW0011 ICU-C12) Document 01/02/19 14:48 BVN5604 (Rec: 01/02/19 14:48 SJF6113 ICU-C12) Document 01/02/19 15:56 WNO9924 (Rec: 01/02/19 15:56 DVJ9393 IMG-M07) Document 01/02/19 16:58 XRJ9294 (Rec: 01/02/19 16:58 UXZ8258 ICU-C12) Document 01/02/19 18:00 YWP8998 (Rec: 01/02/19 18:12 LBH2616 IMG-M07) Document 01/02/19 19:00 PBK2402 (Rec: 01/02/19 19:46 IKP0927 IMG-M07) Document 01/02/19 19:46 BBC5668 (Rec: 01/02/19 19:47 CQU9055 IMG-M07) Document 01/02/19 21:00 OIA6886 (Rec: 01/02/19 22:05 YEE3885 IMG-M07) Document 01/02/19 22:00 PNH2425 (Rec: 01/02/19 22:05 ANK5750 IMG-M07) Document 01/02/19 22:50 ASZ7995 (Rec: 01/02/19 22:50 RIG4619 ICU-C15) Document 01/03/19 00:00 IJW2444 (Rec: 01/03/19 00:03 IJP0491 IMG-M07) Document 01/03/19 01:00 MBB9010 (Rec: 01/03/19 01:09 PVN7801 ICU-C15) Document 01/03/19 01:51 THD6396 (Rec: 01/03/19 01:51 FKV7537 ICU-C15) Document 01/03/19 03:00 MMK2372 (Rec: 01/03/19 03:04 FSN0004 ICU-C15) Document 01/03/19 03:50 WUH5327 (Rec: 01/03/19 03:50 ISG0621 ICU-C15) Document 01/03/19 05:00 BZB1453 (Rec: 01/03/19 05:07 FVA8575 IMG-M07) Document 01/03/19 06:00 BFD3719 (Rec: 01/03/19 06:08 XHY8312 ICU-C15) Document 01/03/19 07:00 XQK5518 (Rec: 01/03/19 08:29 TJM2675 IMG-M07) Document 01/03/19 08:00 VZP5173 (Rec: 01/03/19 08:29 DVB9635 IMG-M07) Document 01/03/19 09:00 TVA1589 (Rec: 01/03/19 09:32 THP1365 IMG-M07) Document 01/03/19 10:00 XRW5419 (Rec: 01/03/19 10:26 FOZ3422 IMG-M07) Document 01/03/19 11:00 KUF1574 (Rec: 01/03/19 11:10 HTD2816 IMG-M07) Document 01/03/19 12:00 ICR9550 (Rec: 01/03/19 12:22 QFL6732 IMG-M07) Document 01/03/19 13:00 MMG2957 (Rec: 01/03/19 13:18 TZT7729 IMG-M07) Document 01/03/19 14:00 XCF5296 (Rec: 01/03/19 14:03 LEK7422 IMG-M07) Document 01/03/19 15:00 KIA0142 (Rec: 01/03/19 15:30 JDQ6428 IMG-M07) Document 01/03/19 16:00 XLA9984 (Rec: 01/03/19 16:34 SOA1268 IMG-M07) Document 01/03/19 17:00 IZV6135 (Rec: 01/03/19 17:26 IOX4018 IMG-M07) Document 01/03/19 18:00 GWJ6066 (Rec: 01/03/19 18:18 RQL1968 IMG-M07) Document 01/03/19 19:00 LWD7522 (Rec: 01/03/19 19:25 FZU1853 IMG-M07) Document 01/03/19 20:00 EEH8439 (Rec: 01/03/19 21:01 VXE9257 ICU-C12) Document 01/03/19 21:00 LPB2894 (Rec: 01/03/19 21:02 XWW2229 ICU-C12) Document 01/03/19 22:00 XDM5304 (Rec: 01/03/19 22:13 IZU3016 ICU-C12) Document 01/03/19 22:58 PTZ2011 (Rec: 01/03/19 23:00 PTP9600 ICU-C12) Document 01/03/19 23:04 AGU1379 (Rec: 01/03/19 23:12 OVB9260 ICU-C12) Document 01/04/19 00:00 KBL5493 (Rec: 01/04/19 00:07 NLI6477 IMG-M07) Document 01/04/19 01:00 NBV3984 (Rec: 01/04/19 01:26 HFJ5906 ICU-C12) Document 01/04/19 02:00 IDR1470 (Rec: 01/04/19 02:20 WLH0571 ICU-C12) Document 01/04/19 03:00 MGC8550 (Rec: 01/04/19 03:09 UNW9164 ICU-C12) Document 01/04/19 04:00 UQF9193 (Rec: 01/04/19 04:30 LRX4410 ICU-C12) Document 01/04/19 04:39 BUO8955 (Rec: 01/04/19 04:39 NAV3497 ICU-C12) Document 01/04/19 04:58 OAJ0247 (Rec: 01/04/19 05:01 OCB8329 ICU-C12) Document 01/04/19 06:20 QDG2601 (Rec: 01/04/19 06:20 KNQ7965 IMG-M07) Document 01/04/19 06:37 URK4796 (Rec: 01/04/19 06:38 BPZ8114 ICU-C12) Document 01/04/19 07:00 UHI8207 (Rec: 01/04/19 07:13 FYL2558 IMG-M07) Document 01/04/19 08:00 INV4803 (Rec: 01/04/19 08:03 XMH4087 IMG-M07) Document 01/04/19 09:00 HLH3442 (Rec: 01/04/19 09:24 UZS2224 IMG-M07) Document 01/04/19 10:00 EZI3988 (Rec: 01/04/19 10:20 FDM5089 IMG-M07) Document 01/04/19 11:00 CKY8602 (Rec: 01/04/19 11:04 BWY9616 IMG-M07) Document 01/04/19 11:54 MJL5806 (Rec: 01/04/19 11:54 LRS2945 IMG-M07) Document 01/04/19 13:00 IML8310 (Rec: 01/04/19 13:16 DUR3265 IMG-M07) Document 01/04/19 14:00 ETQ5314 (Rec: 01/04/19 14:18 ABE3195 IMG-M07) Document 01/04/19 15:00 NNS1590 (Rec: 01/04/19 15:51 SPO8045 IMG-M07) Document 01/04/19 16:00 LOM3364 (Rec: 01/04/19 16:30 GQU5725 IMG-M07) Document 01/04/19 17:00 GAO9912 (Rec: 01/04/19 17:01 OHV9417 IMG-M07) Document 01/04/19 18:00 JYJ5150 (Rec: 01/04/19 19:44 MAA0761 IMG-M07) Document 01/04/19 19:00 PSL3737 (Rec: 01/04/19 19:44 DPT2521 IMG-M07) Document 01/04/19 20:00 LBI5572 (Rec: 01/04/19 23:01 IQK2191 ICU-C16) Document 01/04/19 21:00 GKR8794 (Rec: 01/04/19 23:01 UNY0366 ICU-C16) Document 01/04/19 22:00 PBO8147 (Rec: 01/04/19 23:01 UUR2340 ICU-C16) Document 01/04/19 23:00 XRZ0849 (Rec: 01/04/19 23:10 UBG9660 ICU-C16) Document 01/05/19 00:00 VHJ9698 (Rec: 01/05/19 01:19 DJI5733 ICU-C16) Document 01/05/19 01:00 FAA9549 (Rec: 01/05/19 01:19 IKV1220 ICU-C16) Document 01/05/19 02:00 GDJ6335 (Rec: 01/05/19 02:20 RHK5060 ICU-C16) Document 01/05/19 03:00 HNS0714 (Rec: 01/05/19 03:08 OZE4784 ICU-C16) Document 01/05/19 04:00 IYG6992 (Rec: 01/05/19 05:24 LDZ3614 ICU-C16) Document 01/05/19 05:00 XDS7075 (Rec: 01/05/19 05:24 LIO6677 ICU-C16) Document 01/05/19 06:00 LRV7408 (Rec: 01/05/19 06:39 NND1284 ICU-C16) Document 01/05/19 08:00 LTI7322 (Rec: 01/05/19 10:18 DRX7555 ICU-C15) Document 01/05/19 10:00 ORG9650 (Rec: 01/05/19 10:59 TEQ1892 ICU-C15) Document 01/05/19 11:00 ERI6344 (Rec: 01/05/19 11:22 DLV4218 ICU-C15) Document 01/05/19 12:00 PYH5513 (Rec: 01/05/19 14:00 BFV6063 ICU-C15) Document 01/05/19 13:00 EIA3115 (Rec: 01/05/19 14:02 XDY2629 ICU-C15) Document 01/05/19 14:00 ENR1390 (Rec: 01/05/19 14:22 YVO6849 ICU-C15) Document 01/05/19 16:00 FHM0282 (Rec: 01/05/19 16:21 PYK0637 ICU-C15) Document 01/05/19 17:00 NLQ9075 (Rec: 01/05/19 17:22 JNF6851 ICU-C15) Document 01/05/19 17:56 BTC6073 (Rec: 01/05/19 17:58 KRF3291 ICU-C15) Document 01/05/19 20:00 JKB0542 (Rec: 01/05/19 20:47 DBQ6438 ICU-C16) Document 01/05/19 20:55 HDO1328 (Rec: 01/05/19 20:55 CSN3662 ICU-C16) Document 01/05/19 22:00 GYY9528 (Rec: 01/05/19 22:08 UFS1669 ICU-C16) Document 01/05/19 23:00 PFJ6002 (Rec: 01/05/19 23:07 XYD8872 ICU-C16) Document 01/06/19 00:00 CCQ6157 (Rec: 01/06/19 00:01 GKL4175 IMG-M07) Document 01/06/19 01:00 QOY9743 (Rec: 01/06/19 01:10 CNU3804 ICU-C16) Document 01/06/19 02:00 ONW6508 (Rec: 01/06/19 02:02 DMI7569 ICU-C16) Document 01/06/19 03:00 YCC5979 (Rec: 01/06/19 03:12 LJU3097 ICU-C16) Document 01/06/19 04:00 QBZ4426 (Rec: 01/06/19 04:59 YAL2899 ICU-C16) Document 01/06/19 05:00 JGB8082 (Rec: 01/06/19 05:05 BDI7332 ICU-C16) Document 01/06/19 05:57 ANH0950 (Rec: 01/06/19 05:59 SMM9492 IMG-M07) Document 01/06/19 07:00 LKI3016 (Rec: 01/06/19 08:37 XAM2018 ICU-C16) Document 01/06/19 08:00 ZTX0002 (Rec: 01/06/19 08:37 VQD5226 ICU-C16) Document 01/06/19 09:00 RIN3462 (Rec: 01/06/19 09:44 UWI3180 ICU-C16) Document 01/06/19 10:00 EEW8091 (Rec: 01/06/19 11:39 NUJ0976 ICU-L03) Document 01/06/19 11:00 ZTK4129 (Rec: 01/06/19 11:50 ZGO1203 IMG-M07) Document 01/06/19 11:50 HLB3677 (Rec: 01/06/19 11:50 JFP0258 IMG-M07) Document 01/06/19 13:00 MSC1677 (Rec: 01/06/19 13:38 FHX6395 ICU-C16) Document 01/06/19 13:38 HHT0968 (Rec: 01/06/19 13:38 RBS9504 ICU-C16) Document 01/06/19 16:00 DTP0148 (Rec: 01/06/19 16:17 TVU5524 TELE-C01) Document 01/06/19 22:00 VFP9083 (Rec: 01/06/19 22:17 JVH8169 TELE-C07) Document 01/07/19 06:00 KLU7833 (Rec: 01/07/19 06:12 HMW1228 TELE-C11) Document 01/07/19 14:00 RYM5816 (Rec: 01/07/19 17:56 XZZ0945 TELE-C06) Document 01/07/19 21:17 CAI7712 (Rec: 01/07/19 21:18 EIG6239 TELE-C10) Document 01/07/19 22:03 XHH7629 (Rec: 01/07/19 22:03 BBA5793 TELE-C10) Document 01/08/19 06:00 YWK7757 (Rec: 01/08/19 06:29 LBA4248 TELE-C10) Document 01/08/19 14:00 VPE4143 (Rec: 01/08/19 14:36 GEK1485 TELE-C05) Document 01/08/19 20:30 AGT0983 (Rec: 01/08/19 20:31 IIW3556 TELE-C11) Document 01/09/19 06:00 OEI5753 (Rec: 01/09/19 06:12 WXO3494 TELE-C11) Document 01/09/19 14:00 JJM3234 (Rec: 01/09/19 14:04 TAN8207 TELE-C01) Document 01/09/19 19:42 MVK7563 (Rec: 01/09/19 19:43 DEJ9812 TELE-C13) Document 01/10/19 06:00 VSQ8332 (Rec: 01/10/19 06:17 ZSZ6334 TELE-C01) Document 01/10/19 13:51 EFM2826 (Rec: 01/10/19 13:52 AQV1119 TELE-C08) Document 01/10/19 21:07 STY3015 (Rec: 01/10/19 21:07 JAB4124 TELE-C11) Document 01/11/19 05:59 JXH6037 (Rec: 01/11/19 06:03 SMW6168 TELE-C10) Document 01/11/19 14:00 IFX5020 (Rec: 01/11/19 15:33 RKC1147 TELE-C10) Document 01/11/19 22:00 MLK3734 (Rec: 01/11/19 23:22 PMO6921 TELE-C13) Document 01/12/19 06:00 WKW8258 (Rec: 01/12/19 07:26 AZU2005 TELE-C11) Document 01/12/19 14:00 XYN3166 (Rec: 01/12/19 14:46 GZC5290 TELE-C01) Document 01/12/19 22:00 PSS6244 (Rec: 01/12/19 22:47 ODQ3573 TELE-C01) Document 01/13/19 06:00 WWO1566 (Rec: 01/13/19 06:01 MUN8614 TELE-C01) - Physical Exam General Physical Exam Comment: warm and well perfused, and in no distress General: No Cyanosis, No Anemia, No Jaundice, No Clubbing Lungs and Chest: Yes: Chest Expansion Full, Chest Expansion Symetrica, Percussion Note Resonant, Vessicular Breath Sounds. No: Crackles, Wheezes Heart Rate and Rhythm: Regular Additional Cardiovascular: Yes: Normal Heart Sounds. No: Heart Murmur, Pedal Edema Abdominal Exam: Yes: Soft, Abdominal Tenderness - mild, Bowel Sounds Present. No: Distention, Guarding, Rebound Tenderness Results - Results Lab Results: Laboratory Results - last 24 hr 01/12/19 01/12/19 01/12/19 05:30 09:30 11:57 WBC 12.1 H RBC 3.88 L Hgb 10.6 L Hct 33 L MCV 84 MCH 27 MCHC 33 RDW 17 H Plt Count 312 MPV 9.3 Neut % (Auto) 75.7 Lymph % (Auto) 11.6 Floyd % (Auto) 10.8 Eos % (Auto) 1.2 Baso % (Auto) 0.7 Absolute Neuts (auto) 9.2 H Absolute Lymphs (auto) 1.4 Absolute Monos (auto) 1.3 H Absolute Eos (auto) 0.2 Absolute Basos (auto) 0.1 Absolute Nucleated RBC 0.0 Nucleated RBC % 0.0 Polychromasia 2+ Sodium 131 L Potassium 5.1 H Chloride 104 Carbon Dioxide 17 L Anion Gap 10 BUN 19 Creatinine 0.59 L Est GFR ( Amer) 171.9 Est GFR (Non-Af Amer) 142.1 BUN/Creatinine Ratio 32.2 H Glucose 118 H POC Glucose (mg/dL) 210 H Calcium 8.0 L Troponin I 0.09 H* C-Reactive Protein 10.19 H Cortisol 11.70 01/12/19 01/12/19 01/13/19 16:24 20:53 05:30 WBC 10.0 RBC 3.69 L Hgb 10.4 L Hct 31 L MCV 84 MCH 28 MCHC 34 RDW 17 H Plt Count 333 MPV 9.2 Neut % (Auto) 70.0 Lymph % (Auto) 14.9 Floyd % (Auto) 13.9 Eos % (Auto) 1.0 Baso % (Auto) 0.2 Absolute Neuts (auto) 7.0 Absolute Lymphs (auto) 1.5 Absolute Monos (auto) 1.4 H Absolute Eos (auto) 0.1 Absolute Basos (auto) 0.0 Absolute Nucleated RBC 0.0 Nucleated RBC % 0.0 Polychromasia Sodium Potassium Chloride Carbon Dioxide Anion Gap BUN Creatinine Est GFR ( Amer) Est GFR (Non-Af Amer) BUN/Creatinine Ratio Glucose POC Glucose (mg/dL) 183 H 123 H Calcium Troponin I C-Reactive Protein Cortisol 01/13/19 01/13/19 05:30 07:48 WBC RBC Hgb Hct MCV MCH MCHC RDW Plt Count MPV Neut % (Auto) Lymph % (Auto) Floyd % (Auto) Eos % (Auto) Baso % (Auto) Absolute Neuts (auto) Absolute Lymphs (auto) Absolute Monos (auto) Absolute Eos (auto) Absolute Basos (auto) Absolute Nucleated RBC Nucleated RBC % Polychromasia Sodium 135 Potassium 4.3 Chloride 105 Carbon Dioxide 23 Anion Gap 7 BUN 14 Creatinine 0.51 L Est GFR ( Amer) 203.4 Est GFR (Non-Af Amer) 168.1 BUN/Creatinine Ratio 27.5 H Glucose 116 H POC Glucose (mg/dL) 182 H Calcium 8.5 L Troponin I 0.07 H* C-Reactive Protein 7.07 Cortisol Assessment - Problem List Assessment: Patient Problems Atrial flutter (Acute) BPH with urinary obstruction (Acute) Cognitive changes (Acute) Cough (Acute) Hyperglycemia due to type 1 diabetes mellitus (Acute) Left lower lobe pneumonia (Acute) Weakness (Acute) Anemia (Chronic) Backache (Chronic) 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 His potassium is on target. He is no heart failure Cough (Acute) improved - CXR showed no infiltrates. BPH with urinary obstruction (Acute) de oliveira catheter in situ Cognitive changes (Acute) He is alert, oriented. 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 He is now ready for acute rehabilitation.
[2019-01-13] MEDS: Insulin LISPRO* 1 UNITS UNIT SUBCUT SCH ×4 (09:20→13:36)
[2019-01-13 12:17] VITALS: BP 108/67
--- NOTE | 2019-01-16 16:34 | DS ---
CC: Dr. Sunil Lindquist; Dr. Linda Nicholas, Neurology at [facility] in [place] * DISCHARGE SUMMARY: DATE OF ADMISSION: 12/31/18 DATE OF DISCHARGE: 01/13/19, to [facility]. PRESENTING COMPLAINT: Unresponsiveness at home, pneumonia, respiratory failure requiring mechanical ventilator support, and sepsis COMPLICATIONS: 1. BPH with urinary obstruction requiring Alvarez catheter placement. 2. Atrial flutter requiring DC conversion. 3. Cognitive changes. 4. Weakness. COMORBIDITIES: 1. Anemia. 2. Chronic back pain. 3. Type 1 diabetes mellitus with complications including peripheral neuropathy and diabetic retinopathy. 4. Limb girdle muscular dystrophy, progressive, unknown type. SECONDARY DIAGNOSES: 1. Chronic kidney disease stage 2. 2. Essential hypertension. 3. Hypercholesterolemia. 4. Vitiligo. PROCEDURES: On 12/31/18; intubation, central line placement, arterial line placement. 01/12/19, transesophageal echocardiogram followed by DC cardioversion of atrial flutter. DISPOSITION: Inpatient to [facility]. CONDITION AT TRANSFER: Weak, but stable. HISTORY: Andrea Ramirez is a 58-year-old right-handed white male. He has longstanding comorbidities that include type 1 diabetes complicated by retinopathy, neuropathy, and mild nephropathy; limb girdle muscular dystrophy of unknown kind, which is progressive and restriction to a motor wheelchair. His current presentation is documented in Kitty Orellana MD, admitting history and physical which is part of electronic record. He was found down in his apartment with 2 times 100 mcg fentanyl patches and no response to multiple doses of Narcan. In the emergency room, he was only partly responsive to painful stimuli. He was hypotensive, febrile, had a bolus of IV fluid. PHYSICAL EXAM: Temperature 100.4, pulse 97, respirations 19, blood pressure 100 /45, oximetry 92%. Unresponsive. Coarse crackles bilaterally and also expiratory crackles. Heart sounds were normal. No added sounds or murmurs. Abdomen was moderately dilated. Neurologically, unresponsive. INITIAL DIAGNOSES: 1. Acute hypoxic respiratory failure requiring intubation. 2. Sepsis. 3. Community-acquired left upper lobe pneumonia. 4. Sinus tachycardia secondary to sepsis. 5. Acute metabolic encephalopathy. 6. Lactic acidosis and likely diabetic ketoacidosis. INVESTIGATIONS AT PRESENTATION: White count 2.3, hemoglobin 9.8, hematocrit 29 , platelets 106, percent neutrophils 72.6. INR 1.09, APTT 48.5. Arterial blood gases, pH 7.3, bicarbonate 18.8, saturation 99.1, base excess -7.9 on a respirator. Initial chemistry: Sodium 135, potassium 4.3, chloride 105, bicarbonate 21, anion gap 9, BUN 37, creatinine 1.27, eGFR 58.7, glucose 271, lactic acid 2.7, calcium 8.1. LFTs normal. Total protein 5, albumin 3.1, globulin 1.9. Urinalysis was negative. Toxicology: Opioid screen was positive and benzodiazepine screen was positive. Negative for influenza A and B. IMAGING ON PRESENTATION: Chest x-ray: Air space opacification left mid-to- upper lung zone, concerning for pneumonia. CT scan of the brain: No acute intracranial abnormality. CT scan of the cervical spine: No fracture. CONSULTATIONS: On 01/11/19, Dr. Andres Chaidez. This is part of the electronic record. This was when the patient developed rapid atrial flutter. This required DC cardioversion following a transesophageal echocardiogram which was successful. HOSPITAL COURSE: Andrea Ramirez was in the intensive care unit under the care of clubhouse attendant from 12/31/18 until transferring to the medical floor on to telemetry bed. During that time in the ICU, I was not his attending physician. Initially, he was intubated. There was a concern that the fentanyl might have exacerbated his mental status. He was noted to be intubated. He was kept sedated during that period of time. He was treated for hypokalemia, low phosphorus and atelectasis. He was lethargic and his fentanyl patches were removed. He was on empiric antibiotic therapy and woke up once the fentanyl was removed. He was extubated. After transfer to my medical service, he was generally weak. He had episodes where he was disoriented, which was noted by the nursing staff and visitors . He was much weaker than at baseline. His cough cleared up and he was generally improving, but on 01/11/19, he developed rapid atrial flutter and required DC conversion which he tolerated well. On the day of discharge, he no longer had a cough. He was breathing well. No further rhythm disturbance on telemetry. Blood pressure and pulse rate were well controlled. Diabetes also had come under control. Mild abdominal discomfort but was having bowel movements. PHYSICAL EXAMINATION ON DAY OF DISCHARGE: Respirations 16, temperature 98.4, pulse rate 79, blood pressure 140/75, oximetry on room 97. He had no cyanosis, jaundice or clubbing. He had anemia, usual signs of vitiligo. Cardiovascular System: His pulse was regular, normal character and volume. Venous pressure not elevated. Heart sounds are normal. No added sounds or murmurs. He had a trace pedal edema. Respiratory System: His chest expansion was full and symmetrical. Percussion note resonant. Breath sounds vesicular. No crackles or wheezes. Abdomen: Mild distention, mild generalized tenderness. No masses or organomegaly. Bowel sounds present. Nervous System: He is alert and oriented. Conjugate eye movements. Cranial nerves II to XII intact. Normal speech. Arms and legs: He has severe weakness in both his arms and his legs but more so in his legs. ASSESSMENT AND PLAN: 1. Pneumonia. Respiratory failure, mechanical ventilation. He responded well to antibacterial treatment and on the day of discharge, had no respiratory distress and was not coughing. He is no longer febrile. His sepsis resolved quickly in the ICU. 2. Atrial flutter. This came on after a couple of days in the hospital and was treated with DC cardioversion. He was started on Multaq, metoprolol, and Eliquis. 3. Cognitive changes. These improved during this hospital stay. Initially, his unresponsiveness was partially due to large doses of opioids on top of his pneumonia and sepsis. He was becoming disoriented less towards the end, though he certainly did not appear to have his normal executive function. 4. Type 1 diabetes mellitus, complicated by neuropathy, retinopathy and mild nephropathy. His glycemic control improved during the hospitalization and he will be continued on his usual basal bolus regimen of insulin. 5. 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 This is a major comorbidity that slows his recovery. 6. Anemia, this is chronic. 7. Chronic back pain. This is the reason he is on opioids as an outpatient, which is managed by Dr. Sunil Lindquist. I have resisted restarting fentanyl. As he is being discharged to [facility], Dr. Lindquist will manage this. 8. Depression, not an issue during this hospitalization . 9. Essential hypertension. This was controlled. 10. Gastroesophageal reflux disease. This is stable. 11. Urinary retention. We tried taking out his Alvarez catheter but had to leave it in situ. This will be dealt with either by Dr. Lindquist or as an outpatient. 12. Hypercholesterolemia. Continue current medication. DISCHARGE MEDICATIONS: 1. Apixaban 5 mg twice daily. 2. Dronedarone 400 mg twice daily. 3. Glargine insulin 40 units daily. 4. Lispro insulin 1 unit for every 15 g of carbohydrate, plus 1 unit for every 50 points above 150. 5. Metoprolol tartrate 12.5 mg every 12 hours. 6. Oxycodone 10 mg every 4 hours as needed for moderate pain. 7. Potassium phosphate 500 mg twice daily. 8. Ramipril 10 mg daily. 9. Saline nasal spray 0.65% both nares as requested. 10. Trazodone 50 mg q.h.s. 11. Docusate sodium 100 mg every evening as needed for constipation. 12. Prochlorperazine 10 mg 4 times a day as needed for nausea. 12. Terazosin 5 mg q.h.s. 13. Atorvastatin 20 mg q.h.s. 14. Alprazolam 0.5 mg 4 times a day as needed for anxiety. 15. Escitalopram 20 mg daily. 16. Mirabegron 50 mg daily. 17. Ondansetron 8 mg every 6 hours as needed for nausea. 18. Omeprazole 40 mg q.h.s. 19. MiraLAX 17 g every day as needed for constipation. 20. Diclofenac 1% gel, 2 g topically as needed for local pain. 21. Bisacodyl 10 mg every day as needed. 22. Senna 17.2 mg daily as needed. [id number]/[facility] [place]: [id number] MTDD
== END 2019-01-13 15:13 | DRG 871 ==
LOC: ED 14:42 → ICU 17:26 → MEDTELE 01-06 09:03
PROVIDERS: ADMIT Internal Medicine Critical Care Medicine; ATTEND Internal Medicine
PROC: 03HB33Z Insertion of Infusion Device into Right Radial Artery, Percutaneous Approach (ICD-10-PCS; principal; 2018-12-31)
PROC: 05HN33Z Insertion of Infusion Device into Left Internal Jugular Vein, Percutaneous Approach (ICD-10-PCS; 2018-12-31)
PROC: B544ZZA Ultrasonography of Left Jugular Veins, Guidance (ICD-10-PCS; 2018-12-31)
PROC: 0BH17EZ Insertion of Endotracheal Airway into Trachea, Via Natural or Artificial Opening (ICD-10-PCS; 2018-12-31)
PROC: 5A1945Z Respiratory Ventilation, 24-96 Consecutive Hours (ICD-10-PCS; 2018-12-31)
PROC: 5A09357 Assistance with Respiratory Ventilation, Less than 24 Consecutive Hours, Continuous Positive Airway Pressure (ICD-10-PCS; 2019-01-03)
PROC: 5A2204Z Restoration of Cardiac Rhythm, Single (ICD-10-PCS; 2019-01-11)
DX: A41.9 Sepsis, unspecified organism (principal); J96.01 Acute respiratory failure with hypoxia; J18.9 Pneumonia, unspecified organism; G92 Toxic encephalopathy; R40.2342 Coma scale, best motor response, flexion withdrawal, at arrival to emergency department; R40.2112 Coma scale, eyes open, never, at arrival to emergency department; R40.2212 Coma scale, best verbal response, none, at arrival to emergency department; I48.92 Unspecified atrial flutter; J81.1 Chronic pulmonary edema; D61.818 Other pancytopenia; E87.2 Acidosis; J98.11 Atelectasis; F05 Delirium due to known physiological condition; F32.9 Major depressive disorder, single episode, unspecified; I95.2 Hypotension due to drugs; F41.9 Anxiety disorder, unspecified; E78.00 Pure hypercholesterolemia, unspecified; R79.89 Other specified abnormal findings of blood chemistry; G89.29 Other chronic pain; M54.9 Dorsalgia, unspecified; R19.7 Diarrhea, unspecified; E87.6 Hypokalemia; K59.00 Constipation, unspecified; E10.65 Type 1 diabetes mellitus with hyperglycemia; E10.22 Type 1 diabetes mellitus with diabetic chronic kidney disease; N18.2 Chronic kidney disease, stage 2 (mild); E10.42 Type 1 diabetes mellitus with diabetic polyneuropathy; I12.9 Hypertensive chronic kidney disease with stage 1 through stage 4 chronic kidney disease, or unspecified chronic kidney disease; K21.9 Gastro-esophageal reflux disease without esophagitis; E10.319 Type 1 diabetes mellitus with unspecified diabetic retinopathy without macular edema; L80 Vitiligo; N40.1 Benign prostatic hyperplasia with lower urinary tract symptoms; R33.9 Retention of urine, unspecified; I48.91 Unspecified atrial fibrillation; G71.09 Other specified muscular dystrophies; E10.21 Type 1 diabetes mellitus with diabetic nephropathy; D46.9 Myelodysplastic syndrome, unspecified; Z79.01 Long term (current) use of anticoagulants; Z87.440 Personal history of urinary (tract) infections; Z88.8 Allergy status to other drugs, medicaments and biological substances; Z79.4 Long term (current) use of insulin; Z79.899 Other long term (current) drug therapy
CPT/HCPCS: 36415; 36600; 70450; 71045; 72125; 80048; 80053; 80076; 80307; 81003; 81015; 82272; 82533; 82803; 82947; 83605; 83630; 83735; 84100; 84443; 84484; 85025; 85027; 85610; 85730; 86140; 87040; 87086; 87493; 87641; 92960; 93005; 93306; 94003; 94640; 94660; 96361; 96365; 96375; 97530; 99156; 99285; A9270-GY; C8929; G8978-GP-CN; G8979-GP-CJ; G8987-GO-CM; G8988-GO-CK; J0330; J0360; J0456; J0610; J0692; J0696; J1644; J1940; J2250; J2270; J2310; J2405; J2704; J3010; J3475; J3480; J7060; P9047

== ENCOUNTER 2019-01-13 10:20 | Inpatient (IN) | payer MEDICARE, MEDICAID ==
[2019-01-13] MEDS ORDERED: Acetaminophen TAB* 325 MG PO PRN (16:17)
--- OUTSIDE RECORDS SUMMARY | 2019-01-13 16:18 | XMS REPORT | Continuity of Care Document ---
:1960 External Reference #:[id number] Author Name Evie Rosado M.D. (transmitted by agent of provider Chelsea Enriquez) Address [address] [address] Care Team Providers Name Role Phone Narinder Muniz MD - Endocrinology, Care Team Information Warehouse Packer Diabetes & Metabolism Problems Active Problems Provider [...] Gentamicin Sulfate 1 drop to each eye Rafael, 0.3% every 4 hours KYARA Frazier Solution [...] Information Available Procedures Date Code Description Status 12/31/2018 93280 Arterial Line Completed 12/31/2018 63645 Insert Non-Tunneled Venous Catether Completed 12/31/2018 31469 Endo-Trachial Tube Completed 12/07/2018 27410 Inject/Drain Joint/Bursa Major W/O US Completed Medical Devices Description No Information Available Encounters Type Date Location Provider Dx Diagnosis Office Visit 12/30/2018 [facility] And Christopher Campoverde MD G47.30 Sleep apnea, 9:15a [facility] unspecified Library Historian R06.00 Dyspnea, unspecified Office Visit 12/07/2018 10:45a [facility] Bishop Roldan M25.512 Pain in left at [place] shoulder S46.012D Strain of musc/tend the rotator cuff of left shoulder, subs M75.42 Impingement syndrome of left shoulder Office Visit 11/02/2018 11:00a Maya Roldan M25.512 Pain in left Orthopedics at [facility] Office Visit 09/03/2018 12:30p Pulmonology And Tatiana G47.9 Sleep disorder, [facility] MD Jolly unspecified Library Historian G71.00 Muscular dystrophy, unspecified Assessments Date Code [...] in doing an in-house sleep study.Follow up:1-2 uotdivI98.00 Dyspnea, unspecifiedNew Xrays:Chest PA & Lat 2 [...]
--- OUTSIDE RECORDS SUMMARY | 2019-01-13 16:18 | XMS REPORT | Continuity of Care Document ---
:1960 External Reference #:[id number] Author Name Evie Rosado M.D. (transmitted by agent of provider Chelsea Enriquez) Address [address] [address] Care Team Providers Name Role Phone Naridner Muniz MD - Endocrinology, Care Team Information Wafer Fabrication Technician [phone] Diabetes & Metabolism Problems Active Problems Provider [...] Available Procedures Date Code Description Status 12/31/2018 02941 Arterial Line Completed 12/31/2018 17876 Insert Non-Tunneled Venous Catether Completed 12/31/2018 17066 Endo-Trachial Tube Completed 12/07/2018 12758 Inject/Drain Joint/Bursa Major W/O US Completed Medical Devices Description No Information Available Encounters Type Date Location Provider Dx Diagnosis Office Visit 12/30/2018 Pulmonology And Christopher Campoverde MD G47.30 Sleep apnea, 9:15a [facility] unspecified Manager Laboratory R06.00 Dyspnea, unspecified Office Visit 12/07/2018 10:45a [facility] Bishop Roldan M25.512 Pain in left at [place] shoulder S46.012D Strain of musc/tend the rotator cuff of left shoulder, subs M75.42 Impingement syndrome of left shoulder Office Visit 11/02/2018 11:00a Maya Roldan M25.512 Pain in left Orthopedics at [facility] Office Visit 09/03/2018 12:30p Pulmonology And Tatiana G47.9 Sleep disorder, [facility] unspecified Manager Laboratory G71.00 Muscular dystrophy, unspecified Assessments Date Code [...] in doing an in-house sleep study.Follow up:1-2 ijptkcO35.00 Dyspnea, unspecifiedNew Xrays:Chest PA & Lat 2 [...]
--- OUTSIDE RECORDS SUMMARY | 2019-01-13 16:18 | XMS REPORT | Continuity of Care Document ---
:1960 External Reference #:[id number] Author Name Evie Rosado M.D. (transmitted by agent of provider Chelsea Enriquez) Address [address] [address] Care Team Providers Name Role Phone Narinder Muniz MD - Endocrinology, Care Team Information Asp Web Developer Diabetes & Metabolism Problems Active Problems Provider [...] Available Procedures Date Code Description Status 12/31/2018 82657 Arterial Line Completed 12/31/2018 90808 Insert Non-Tunneled Venous Catether Completed 12/31/2018 08873 Endo-Trachial Tube Completed 12/07/2018 88631 Inject/Drain Joint/Bursa Major W/O US Completed Medical Devices Description No Information Available Encounters Type Date Location Provider Dx Diagnosis Office Visit 12/30/2018 Pulmonology And Christopher Campoverde MD G47.30 Sleep apnea, 9:15a [facility] unspecified 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 R06.00 Dyspnea, unspecified Office Visit 12/07/2018 10:45a [facility] Bishop Roldan M25.512 Pain in left at [place] shoulder S46.012D Strain of musc/tend the rotator cuff of left shoulder, subs M75.42 Impingement syndrome of left shoulder Office Visit 11/02/2018 11:00a Maya Roldan M25.512 Pain in left Orthopedics at [facility] Office Visit 09/03/2018 12:30p Pulmonology And Tatiana G47.9 Sleep disorder, [facility] unspecified 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 G71.00 Muscular dystrophy, unspecified Assessments Date Code [...] in doing an in-house sleep study.Follow up:1-2 talsemK12.00 Dyspnea, unspecifiedNew Xrays:Chest PA & Lat 2 [...]
[2019-01-13] MEDS ORDERED: Albuterol/Ipratropium NEB.SOL* Albuterol 2.5 MG/Ipratropium 0.5 MG 3 ML INH PRN (16:29)
[2019-01-13] MEDS: oxyCODONE TAB* 5 MG TAB PO PRN (16:37)
[2019-01-13] MEDS: Insulin LISPRO* 1 UNITS UNIT SUBCUT SCH ×3 (16:39→22:18)
[2019-01-13] MEDS: Insulin GLARGINE(*) 1 UNITS UNIT SUBCUT SCH (18:24)
[2019-01-13] MEDS: Atorvastatin* 20 MG TAB PO SCH (18:25)
[2019-01-13] MEDS: Potassium Acid Phosphate TAB* 500 MG PO SCH (20:51)
[2019-01-13] MEDS: Dronedarone TAB* 400 MG PO SCH (20:52)
[2019-01-13] MEDS: Metoprolol Tartrate TAB* 25 MG PO SCH (20:52)
[2019-01-13] MEDS: Docusate CAP* 100 MG PO SCH (20:52)
[2019-01-13] MEDS: Apixaban* 5 MG TAB PO SCH (20:52)
[2019-01-13] MEDS: Famotidine TAB* 20 MG PO SCH (20:52)
[2019-01-13] MEDS: Cefdinir cap* 300 MG CAP PO SCH (20:54)
--- NOTE | 2019-01-13 21:06 | HP ---
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 HISTORY OF PRESENT ILLNESS: Andrea Ramirez is a 58-year-old male. He has a medical history significant for limb-girdle muscular dystrophy diagnosed about [address] Dolly Higgins. Over the years, he has had increasing weakness and increasing joint pain as a result of his muscular dystrophy. He has been on high-dose opioids for many years now. His most recent dose was fentanyl patch 125 mcg an hour as well as oxycodone 30 mg every 3 hours. He is largely wheelchair bound, although he was able to transfer in and out of his wheelchair. On 12/31/18, he was found in his apartment down. EMS was called and he was responsive only to painful stimuli. He was hypotensive and febrile to 102.9. He was bolused IV fluids. He was brought to [facility]. A chest x-ray was done, which showed a left upper lobe infiltrate consistent with pneumonia. His white blood cell count was 2.3 on admission. He was bolused additional IV fluids and started on Rocephin and azithromycin. His oxygen saturation continued to decline and he was intubated and transferred to the intensive care unit. The patient continued to spike mild fevers. He was extubated late on 01/01/19. He was still having low-grade fevers. He was maintained on antibiotics. He did continue to become lethargic and his fentanyl patch was removed. He had a low potassium noted. He also appeared to go through withdrawal as he became somewhat delirious. He continued to spike low- grade temperatures. He had been on ceftriaxone and this was later changed to oral cefepime. His azithromycin completed. He had standing K-Phos ordered for hypokalemia. The patient otherwise was complaining of abdominal pain and diarrhea. Again, this could likely have been withdrawal symptoms. The patient developed hypotension plus tachycardia and an EKG was done, which showed he was in atrial fibrillation. He was started on a diltiazem drip, but his blood pressure would not support that. He was seen by Dr. Andres Chaidez. He was defibrillated and returned to sinus rhythm. He was put on anticoagulation and is currently on Eliquis. The patient otherwise seems slowly to improve. His potassium normalized. The patient as mentioned was formally able to transfer in and out of his wheelchair, but was too weak to do that now. He was felt to have physical therapy and occupational therapy needs. He is now being admitted for inpatient rehab so that he might return to independent living. PAST MEDICAL HISTORY: Significant for the aforementioned limb-girdle muscular dystrophy. He also has a history of diabetes, depression, hypertension, and urinary incontinence. PAST SURGICAL HISTORY: He had a left orchiectomy in 2011. FAMILY HISTORY: Non contributory CURRENT MEDICATIONS: Include: 1. Lantus insulin. 2. Altace. 3. Eliquis. 4. K-Phos. 5. Lipitor. 6. Lopressor. 7. Multaq. 8. Pepcid. 9. Senokot. 10. He is on oxycodone 10 mg every 4 hours. 11. Tramadol. ALLERGIES: To HYDROCHLOROTHIAZIDE, TRIAMTERENE, and STATINS. SOCIAL HISTORY: He is a nonsmoker, nondrinker. Lives by himself in a 1-story apartment at [facility]. He has 25 hours of aide time over the 7-day week. He does have an aide every day. He says normally he is able to transfer in and out of his wheelchair. He does have a power wheelchair at home. He has a son living nearby and an ex- who is involved in his care. REVIEW OF SYSTEMS: The patient reports some difficulty with abdominal pain and cramping. PHYSICAL EXAMINATION VITAL SIGNS: The patient's temperature is 97.7, blood pressure is 121/62, pulse 82, respirations 14. HEENT: His extraocular movements are intact. Tongue is midline. NECK: Supple. LUNGS: Sound clear to auscultation bilaterally. HEART: Sounds are regular. S1 and S2 are audible. ABDOMEN: Soft and nontender. EXTREMITIES: Lower extremities have decreased tone. Upper extremities have slightly decreased tone as well. His lower extremities are edematous. NEUROLOGIC: Sensation did appear to be intact. His muscle strength was about 2 /5 in his lower extremities, upper extremities were 4/5. FUNCTIONAL EXAM: He is dependent in transfers. ASSESSMENT: Limb-girdle muscular dystrophy with respiratory failure following pneumonia. PLAN: Integrate him into a comprehensive and therapeutic rehab program with the following goals: 1. Physical Therapy will work with the patient. They are going to work on transfer training. We are going to try to get his electric wheelchair brought into the hospital, so he can work on transferring in and out of his wheelchair. 2. Occupational Therapy will see the patient work on his activities of daily living including toileting and transfers onto a commode. 3. Speech Therapy will see the patient and screen him. His diet had been modified, but he is now on a mechanical ground diet with thin liquids. He appears to have lost a tooth during his intubation. 4. He is currently on Eliquis for atrial fibrillation and DVT prophylaxis. 5. For his atrial fibrillation, we will continue his Multaq and his Eliquis as well as the low-dose Lopressor. 6. For diabetes, we will continue Lantus insulin as well as sliding scale insulin. 7. Finish up his antibiotic, cefdinir. 8. For his pain, he is currently on oxycodone 10 mg every 4 hours as needed. We may need to add in clonidine to help deal with his withdrawal symptoms. 9. For his respiratory failure, we will continue the DuoNeb inhalers as needed. 10. director of volunteer services will be closely involved to make sure that any services and equipment the patient requires are in place prior to discharge. 11. He is a full code. His son is his surrogate decision maker. ESTIMATED LENGTH OF STAY: Two weeks. [id number]/[facility] #: [id number] SHERICE
[2019-01-13] MEDS: traMADol TAB* 50 MG PO PRN (22:10)
[2019-01-14] MEDS: traZODone TAB* 50 MG TAB PO PRN (00:09)
[2019-01-14] MEDS: oxyCODONE TAB* 5 MG TAB PO PRN ×4 (00:11→22:22)
[2019-01-14 05:04] LABS: Hematocrit 31 % (42-52); Mean Corpuscular HGB Conc 33 g/dL (31-36); Mean Corpuscular Hemoglobin 28 pg (27-31); Mean Corpuscular Volume 86 fL (80-94); Mean Platelet Volume 8.9 fL (7.4-10.4); Platelet Count 359 10^3/uL (150-450); Red Blood Count 3.57 10^6 /uL (4.18-5.48); Red Cell Distribution Width 17 % (10-15); White Blood Count 9.6 10^3/uL (3.5-10.8)
[2019-01-14 05:24] LABS: Albumin 3.3 g/dL (3.2-5.2); Albumin/Globulin Ratio 1.3 (1-3); Calcium 8.5 mg/dL (8.6-10.3); EGFR African American 208.1 (>60); Globulin 2.5 g/dL (2-4); Potassium 4.7 mmol/L (3.5-5.0); Total Bilirubin 0.6 mg/dL (0.2-1.0); Total Protein 5.8 g/dL (6.4-8.9)
[2019-01-14 05:31] LABS: ABS Basophils 0.1 10^3/ul (0-0.2); ABS Eosinophils 0.1 10^3/ul (0-0.6); ABS Lymphocytes 1.4 10^3/ul (1.0-4.8); ABS Monocytes 1.3 10^3/ul (0-0.8); ABS Neutrophils 6.8 10^3/ul (1.5-7.7); Eosinophil % 0.9 %; Lymphocyte % 14.3 %; Nucleated Red Blood Cells % 0.1
[2019-01-14] MEDS: Famotidine TAB* 20 MG PO SCH ×3 (06:44→21:30)
[2019-01-14] MEDS: Cefdinir cap* 300 MG CAP PO SCH ×2 (08:44→21:22)
[2019-01-14] MEDS: Docusate CAP* 100 MG PO SCH ×2 (08:44→21:29)
[2019-01-14] MEDS: Apixaban* 5 MG TAB PO SCH ×2 (08:44→21:20)
[2019-01-14] MEDS: Potassium Acid Phosphate TAB* 500 MG PO SCH ×2 (08:45→21:20)
[2019-01-14] MEDS: Ramipril CAP* 10 MG PO SCH (08:45)
[2019-01-14] MEDS: Dronedarone TAB* 400 MG PO SCH ×2 (08:45→21:20)
[2019-01-14] MEDS: Metoprolol Tartrate TAB* 25 MG PO SCH ×2 (08:45→21:22)
[2019-01-14] MEDS: Insulin LISPRO* 1 UNITS UNIT SUBCUT SCH ×4 (08:47→22:20)
--- NOTE | 2019-01-14 12:41 | PMRUTEAM ---
PMRU: Team Meeting Current Status: Occupational Therapy: Current Status Current Upper Body Dressing Dependent Status Current Lower Body Dressing Dependent Status Current Footwear Status Dependent Current Bathing Status Substantial/Maximal Current Grooming Status Partial/Moderate Current Toileting Status Dependent Current Toilet Transfer Status Dependent Current Eating Status Independent Nursing: Current Status Skin Deviation Description [-] - PHYSICAL THERAPY: CURRENT STATUS: Dependent transfers, bed mobility max assist, unable to ambulate, dependent wheelchair mobility Goals: PHYSICAL THERAPY: SPT to wheelchair with mod assist. Independent in electric wheelchair OCCUPATIONAL THERAPY: Mod assist UB dressing, max Assist LB dressing, partial/ mod assist bathing, partial/mod toileting SPEECH THERAPY: Least restrictive diet Care Plan: Care Plan Cardiovascular- Improve/Maintain Start: 01/13/19 22:32 Freq: DAILY@00,1900 Status: Active Target: 01/20/19 Protocol: Activity Type Activity Date Activity User E-Sign Co-Sign Detail Recorded Client Recorded Date Recorded By Document 01/14/19 00:49 [id number] 01/14/19 00:51 [id number] 01/14/19 00:49 PMRU Outcome: Cardiovascular Vital Signs q Shift for 48hrs Then BID Yes Daily Weight Ordered No Current Cardiovascular Outcome/Goal Maintain/ Achieve Baseline HR, BP , Perfusion Improve HR Within Prescribed Parameters Maintain/ Improve Perfusion Maintain/ Achieve Hemodynamic Stability Progression Toward Outcome/Goal Progressing DVT Prophylaxis- Improve/Maintain Start: 01/13/19 22:32 Freq: DAILY@0700,1900 Status: Active Target: 01/20/19 Protocol: Activity Type Activity Date Activity User E-Sign Co-Sign Detail Recorded Client Recorded Date Recorded By Document 01/14/19 00:49 [id number] 01/14/19 00:51 [id number] 01/14/19 00:49 PMRU Outcome: DVT Prophylaxis Current DVT Outcome/Goals Remains Free of DVT Free of complications from current DVT Complies with DVT Prophylaxis /Treatment Demonstrates Knowledge of DVT Prevention/ Treatment Progression Toward Outcome/Goals Progressing Discharge Planning - Improve/Maintain Start: 01/13/19 22:32 Freq: DAILY@0700,1900 Status: Active Target: 01/20/19 Protocol: Activity Type Activity Date Activity User E-Sign Co-Sign Detail Recorded Client Recorded Date Recorded By Document 01/14/19 00:49 [id number] 01/14/19 00:51 [id number] 01/14/19 00:49 PMRU Outcome: Discharge Planning Update Patient Family No Current Discharge Planning Outcome/Goals Demonstrates Understanding of Discharge Plan Progression Toward Outcome/Goals Progressing Education-Improve/Maintain Start: 01/13/19 22:32 Freq: DAILY@699,1899 Status: Active Target: 01/20/19 Protocol: Activity Type Activity Date Activity User E-Sign Co-Sign Detail Recorded Client Recorded Date Recorded By Document 01/14/19 00:49 [id number] 01/14/19 00:51 [id number] 01/14/19 00:49 PMRU Outcome: Education Current Education Outcome/Goals Demonstrate/ Verbalize Understanding of Written Discharge Instructions Demonstrates Skills Encourage Questions Progression Toward Outcome/Goals Progressing /GI-Improve/Maintain Start: 01/13/19 22:32 Freq: DAILY@699,1899 Status: Active Target: 01/20/19 Protocol: Activity Type Activity Date Activity User E-Sign Co-Sign Detail Recorded Client Recorded Date Recorded By Document 01/14/19 00:49 [id number] 01/14/19 00:51 [id number] 01/14/19 00:49 PMRU Outcome: Genitourinary/ Gastrointestinal Current Gastrointestinal Outcome/Goals Maintain/ Achieve Bowel Regularity in Accordance with Pt's Baseline Remain Free of Emesis Prevent Constipation Bowel Regularity at Home Laxatives as Ordered Progression Toward Outcome/Goals Progressing Current Genitourinary Outcome/Goals Maintain/ Achieve Urinary Continence Maintain/ Achieve Adequate Urinary Output Progression Toward Outcome/Goals Not Progressing Lack of Progression Comment pt has de oliveira cathetr in Medication Administration Start: 01/13/19 22:32 Freq: DAILY@ Status: Active Target: 01/20/19 Protocol: Activity Type Activity Date Activity User E-Sign Co-Sign Detail Recorded Client Recorded Date Recorded By Document 01/14/19 00:49 [id number] 01/14/19 00:51 [id number] 01/14/19 00:49 PMRU Outcome: Medication Administration Current Boarding Specialist Outcome/Goals Patient Independent with Medication Administration at Home Family/ Caregiver Administer Medications at Home Demonstrates Understanding Demonstrates Lovenox Administration Progression Towards Outcome/Goals Progressing Is Patient Going Home on Lovenox? No Metabolic Status- Improve/Maintain Start: 01/13/19 22:32 Freq: DAILY@ Status: Active Target: 01/20/19 Protocol: Activity Type Activity Date Activity User E-Sign Co-Sign Detail Recorded Client Recorded Date Recorded By Document 01/14/19 00:49 [id number] [id number] 01/14/19 00:51 [id number] 01/14/19 00:49 PMRU Outcome: Metabolic Status Have Fingersticks Been Ordered Yes Fingerstick Order Frequency AC & HS Current Metabolic Status Outcome/Goals Maintain/ Improve Metabolic Status Demonstrate Knowledge of Prevention/ Treatment of Metabolic Imbalances Progression Toward Outcome/Goals Progressing Nutrition/Swallowing- Improve/Maintain Start: 01/13/19 22:32 Freq: DAILY@ Status: Active Target: 01/20/19 Protocol: Activity Type Activity Date Activity User E-Sign Co-Sign Detail Recorded Client Recorded Date Recorded By Document 01/14/19 00:49 [id number] 01/14/19 00:51 [id number] 01/14/19 00:49 PMRU Outcome: Nutrition/Swallowing Current Nutrition/Swallowing Outcome/ Demonstrates Goals Adequate Hydration/ Prevents Dehydration Maintain/ Improve Nutritional Status Progression Toward Outcome/Goals Progressing Pain/Comfort- Improve/Maintain Start: 01/13/19 22:32 Freq: DAILY@ Status: Active Target: 01/20/19 Protocol: Activity Type Activity Date Activity User E-Sign Co-Sign Detail Recorded Client Recorded Date Recorded By Document 01/14/19 00:49 [id number] [id number] 01/14/19 00:51 [id number] 01/14/19 00:49 PMRU Outcome: Pain/Comfort Current Pain/Comfort Outcome/Goals Demonstrates Knowledge and Use of Available Comfort Measures Achieves Acceptable Comfort/Pain Level as Determined by Patient/Condit Maintain Comfort Level Allowing Patient to Fully Participate in Rehab Progression Toward Outcome/Goals Progressing Safety- Improve/Maintain Start: 01/13/19 16:23 Freq: DAILY@ Status: Active Target: 01/20/19 Protocol: Activity Type Activity Date Activity User E-Sign Co-Sign Detail Recorded Client Recorded Date Recorded By Document 01/14/19 00:49 [id number] [id number] 01/14/19 00:51 [id number] 01/14/19 00:49 PMRU Outcome: Safety Current Safety Outcome/Goals Cooperates with Safety Measures for Least Restrictive Environment Prevent Falls/ Injury Progression Toward Outcome/Goals Progressing - Interdisciplinary Staff Present Filbert Grower/Social Work Staff Present: Amirah Mei LMSW Nursing Staff Present: Laura Henriquez RN OT Staff Present: Kristen Jensen PT Staff Present: Elaina Cameron Medicine Note: Length of Stay: 3 1/2 weeks Anticipated Discharge Destination: Home Tentative Discharge Date: 02/09/19 Discharged to: Home
[2019-01-14 16:00] LABS: Urine Appearance Clear; Urine Bilirubin Negative (Negative); Urine Blood 2+ (Negative); Urine Color Yellow; Urine Glucose 3+(>=500 mg/dL) (Negative); Urine Ketones Trace (Negative); Urine Nitrite Negative (Negative); Urine Protein Negative (Negative); Urine Specific Gravity 1.009 (1.010-1.030); Urine Urobilinogen Negative (Negative)
[2019-01-14 16:07] LABS: Urine Bacteria Absent (Absent); Urine Red Blood Cell Trace(0-2/hpf) (Absent); Urine White Blood Cell Trace(0-5/hpf) (Absent)
--- NOTE | 2019-01-14 17:02 | PN ---
Progress Note Date of Service: 01/14/19 Note: LORENA DALLAS was visited. Therapy notes read and reviewed. He was discussed in interdisciplinary plan of care rounds. He still notes abdominal pain which can feel like cramping but can also be tenderness. His appetite is not great. No fever. No vomiting. WBC 9K. On Cefdinir. Current Medications: Active Medications Generic Name Dose Route Start Last Admin Trade Name Freq PRN Reason Stop Dose Admin Acetaminophen 650 mg 01/13/19 16:17 Tylenol Tab* PO Q6H PRN FEVER > 101 Albuterol/Ipratropium 1 neb 01/13/19 16:29 Duoneb (Albuterol 2.5 Mg/Ipratropium 0.5 Mg) INH Q4H PRN SOB/WHEEZING Apixaban 5 mg 01/13/19 21:00 01/14/19 08:44 Eliquis* PO 5 mg BID JANA Administration Atorvastatin Calcium 20 mg 01/13/19 17:00 01/13/19 18:25 Lipitor* PO 20 mg 1700 JANA Administration Cefdinir 300 mg 01/13/19 21:00 01/14/19 08:44 Cefdinir Cap* PO 01/15/19 23:59 300 mg BID JANA Administration Docusate Sodium 100 mg 01/13/19 21:00 01/14/19 08:44 Colace Cap* PO 100 mg BID JANA Administration Dronedarone 400 mg 01/13/19 21:00 01/14/19 08:45 Multaq Tab* PO 400 mg BID JANA Administration Famotidine 20 mg 01/13/19 21:00 01/14/19 08:41 Pepcid Tab* PO Not Given BID JANA Insulin Glargine 40 units 01/13/19 18:00 01/13/19 18:24 Lantus(*) SUBCUT 40 units Q24H JANA Administration Insulin Human Lispro 0 units 01/13/19 16:30 01/14/19 12:07 Humalog* SUBCUT 6 units ACHS JANA Administration Protocol Magnesium Hydroxide 30 ml 01/13/19 16:22 Milk Of Magnesia Liq* PO Q6H PRN CONSTIPATION Metoprolol Tartrate 12.5 mg 01/13/19 21:00 01/14/19 08:45 Lopressor Tab* PO 12.5 mg Q12HR JANA Administration Oxycodone HCl 10 mg 01/13/19 16:28 01/14/19 08:45 Roxycodone Tab* PO 10 mg Q4H PRN Administration PAIN - SEVERE Potassium Phosphate 500 mg 01/13/19 21:00 01/14/19 08:45 K Phos Original Tab* PO 500 mg BID JANA Administration Ramipril 10 mg 01/14/19 09:00 01/14/19 08:45 Altace Cap* PO 10 mg DAILY JANA Administration Senna 2 tab 01/13/19 16:17 Senokot 8.6 Mg Tab* PO BEDTIME PRN CONSTIPATION Tramadol HCl 50 mg 01/13/19 17:03 01/13/19 22:10 Ultram* PO 50 mg Q6H PRN Administration PAIN - MODERATE Trazodone HCl 50 mg 01/13/19 17:02 01/14/19 00:09 Desyrel Tab* PO 50 mg BEDTIME PRN Administration INSOMNIA Vital Signs: Vital Signs Temp Pulse Resp BP Pulse Ox 98.1 F 79 16 145/62 99 01/14/19 16:00 01/14/19 16:00 01/14/19 16:00 01/14/19 16:00 01/14/19 16:00 Lab Results: Laboratory Results - last 24 hr 01/13/19 01/13/19 01/13/19 16:37 20:31 21:24 WBC RBC Hgb Hct MCV MCH MCHC RDW Plt Count MPV Neut % (Auto) Lymph % (Auto) Lee % (Auto) Eos % (Auto) Baso % (Auto) Absolute Neuts (auto) Absolute Lymphs (auto) Absolute Monos (auto) Absolute Eos (auto) Absolute Basos (auto) Absolute Nucleated RBC Nucleated RBC % Sodium Potassium Chloride Carbon Dioxide Anion Gap BUN Creatinine Est GFR ( Amer) Est GFR (Non-Af Amer) BUN/Creatinine Ratio Glucose POC Glucose (mg/dL) 119 H 63 L 206 H Calcium Total Bilirubin AST ALT Alkaline Phosphatase Total Protein Albumin Globulin Albumin/Globulin Ratio Urine Color Urine Appearance Urine pH Ur Specific [place] Urine Protein Urine Ketones Urine Blood Urine Nitrate Urine Bilirubin Urine Urobilinogen Ur Leukocyte Esterase Urine WBC (Auto) Urine RBC (Auto) Urine Bacteria Urine Glucose 01/14/19 01/14/19 01/14/19 04:51 04:51 11:56 WBC 9.6 RBC 3.57 L Hgb 10.0 L Hct 31 L MCV 86 MCH 28 MCHC 33 RDW 17 H Plt Count 359 MPV 8.9 Neut % (Auto) 70.6 Lymph % (Auto) 14.3 Lee % (Auto) 13.1 Eos % (Auto) 0.9 Baso % (Auto) 1.1 Absolute Neuts (auto) 6.8 Absolute Lymphs (auto) 1.4 Absolute Monos (auto) 1.3 H Absolute Eos (auto) 0.1 Absolute Basos (auto) 0.1 Absolute Nucleated RBC 0.0 Nucleated RBC % 0.1 Sodium 133 L Potassium 4.7 Chloride 104 Carbon Dioxide 25 Anion Gap 4 BUN 14 Creatinine 0.50 L Est GFR ( Amer) 208.1 Est GFR (Non-Af Amer) 172.0 BUN/Creatinine Ratio 28.0 H Glucose 166 H POC Glucose (mg/dL) 235 H Calcium 8.5 L Total Bilirubin 0.60 AST 37 ALT 52 Alkaline Phosphatase 90 Total Protein 5.8 L Albumin 3.3 Globulin 2.5 Albumin/Globulin Ratio 1.3 Urine Color Urine Appearance Urine pH Ur Specific [place] Urine Protein Urine Ketones Urine Blood Urine Nitrate Urine Bilirubin Urine Urobilinogen Ur Leukocyte Esterase Urine WBC (Auto) Urine RBC (Auto) Urine Bacteria Urine Glucose 01/14/19 15:48 WBC RBC Hgb Hct MCV MCH MCHC RDW Plt Count MPV Neut % (Auto) Lymph % (Auto) Lee % (Auto) Eos % (Auto) Baso % (Auto) Absolute Neuts (auto) Absolute Lymphs (auto) Absolute Monos (auto) Absolute Eos (auto) Absolute Basos (auto) Absolute Nucleated RBC Nucleated RBC % Sodium Potassium Chloride Carbon Dioxide Anion Gap BUN Creatinine Est GFR ( Amer) Est GFR (Non-Af Amer) BUN/Creatinine Ratio Glucose POC Glucose (mg/dL) Calcium Total Bilirubin AST ALT Alkaline Phosphatase Total Protein Albumin Globulin Albumin/Globulin Ratio Urine Color Yellow Urine Appearance Clear Urine pH 6.0 Ur Specific [place] 1.009 L Urine Protein Negative Urine Ketones Trace A Urine Blood 2+ A Urine Nitrate Negative Urine Bilirubin Negative Urine Urobilinogen Negative Ur Leukocyte Esterase Negative Urine WBC (Auto) Trace(0-5/hpf) Urine RBC (Auto) Trace(0-2/hpf) Urine Bacteria Absent Urine Glucose 3+(>=500 mg/dl) A Exam: GENERAL: No distress LUNGS: CLear bilaterally HEART: Regular rhythm ABDOMEN: Soft. Diffusely tender. EXTREMITIES: Decreased tone joesph LEs NEUROLOGIC: A&O. Arm strength 4/5. LE Strength 2/5 Assessment/Plan: 1. Respiratory Failure, Pneumonia: Finishing up course of Antibiotics. DuoNeb PRN. PT/OT 2. Limb Girdle Muscular Dystrophy: PT/OT. Will try to get his power wheelchair from home 3. Atrial Fibrillation, S/P Cardioversion: Eliquis/Lopressor/Multaq 4. Diabetes: Lantus/SSI 5. Abdominal Pain: Abd series X ray. Pepcid 6. DVT Prophylaxis: Eliquis 7. Pain: His opiate dose was cut way back on the acute hospitalization. Continue oxycodone/Tramadol 8. Advance Directives: Full code 01/14/19 17:08 01/14/19 17:08 01/14/19 17:10
[2019-01-14] MEDS: Atorvastatin* 20 MG TAB PO SCH (18:08)
[2019-01-14] MEDS: Insulin GLARGINE(*) 1 UNITS UNIT SUBCUT SCH (18:42)
[2019-01-14] MEDS: Senna TAB 8.6 mg* TAB PO PRN (21:21)
[2019-01-15] MEDS: oxyCODONE TAB* 5 MG TAB PO PRN ×4 (05:48→21:36)
[2019-01-15] MEDS: Potassium Acid Phosphate TAB* 500 MG PO SCH ×2 (09:26→21:35)
[2019-01-15] MEDS: Docusate CAP* 100 MG PO SCH ×2 (09:26→21:29)
[2019-01-15] MEDS: Apixaban* 5 MG TAB PO SCH ×2 (09:26→21:31)
[2019-01-15] MEDS: Cefdinir cap* 300 MG CAP PO SCH ×2 (09:26→21:32)
[2019-01-15] MEDS: Famotidine TAB* 20 MG PO SCH ×2 (09:26→21:34)
[2019-01-15] MEDS: Metoprolol Tartrate TAB* 25 MG PO SCH ×2 (09:26→21:35)
[2019-01-15] MEDS: Dronedarone TAB* 400 MG PO SCH ×2 (09:26→21:31)
[2019-01-15] MEDS: Ramipril CAP* 10 MG PO SCH (09:28)
[2019-01-15] MEDS: Insulin LISPRO* 1 UNITS UNIT SUBCUT SCH ×4 (09:30→21:37)
[2019-01-15] MEDS: Insulin GLARGINE(*) 1 UNITS UNIT SUBCUT SCH (17:48)
[2019-01-15] MEDS: Atorvastatin* 20 MG TAB PO SCH (17:49)
[2019-01-15] MEDS: Magnesium Hydroxide LIQ* 30 ML UDC PO PRN (17:49)
[2019-01-15] MEDS ORDERED: oxyCODONE TAB* 5 MG TAB PO PRN (20:07)
--- NOTE | 2019-01-15 20:23 | PN ---
Progress Note Date of Service: 01/15/19 Note: LORENA DALLAS was visited. Therapy notes read and reviewed. He is complaining of a lot of back pain and pain in his hips unrelieved by 10 mg of Oxycodone. Prior to admission he was on 30 mg of oxycodone in addition to fentanyl patches. While I agree that his decreased mobility may obviate the need for high doses of opioids he was on, and that they represent a threat, I will increase the oxycodone to 15 mg. Abdominal x-ray unrevealing Current Medications: Active Medications Generic Name Dose Route Start Last Admin Trade Name Freq PRN Reason Stop Dose Admin Acetaminophen 650 mg 01/13/19 16:17 Tylenol Tab* PO Q6H PRN FEVER > 101 Albuterol/Ipratropium 1 neb 01/13/19 16:29 Duoneb (Albuterol 2.5 Mg/Ipratropium 0.5 Mg) INH Q4H PRN SOB/WHEEZING Apixaban 5 mg 01/13/19 21:00 01/15/19 09:26 Eliquis* PO 5 mg BID JANA Administration Atorvastatin Calcium 20 mg 01/13/19 17:00 01/15/19 17:49 Lipitor* PO 20 mg 1700 JANA Administration Cefdinir 300 mg 01/13/19 21:00 01/15/19 09:26 Cefdinir Cap* PO 01/15/19 23:59 300 mg BID JANA Administration Docusate Sodium 100 mg 01/13/19 21:00 01/15/19 09:26 Colace Cap* PO 100 mg BID JANA Administration Dronedarone 400 mg 01/13/19 21:00 01/15/19 09:26 Multaq Tab* PO 400 mg BID JANA Administration Famotidine 20 mg 01/13/19 21:00 01/15/19 09:26 Pepcid Tab* PO 20 mg BID JANA Administration Insulin Glargine 40 units 01/13/19 18:00 01/15/19 17:48 Lantus(*) SUBCUT 40 units Q24H JANA Administration Insulin Human Lispro 0 units 01/13/19 16:30 01/15/19 17:46 Humalog* SUBCUT 6 units ACHS JANA Administration Protocol Magnesium Hydroxide 30 ml 01/13/19 16:22 01/15/19 17:49 Milk Of Magnanthony Liq* PO 30 ml Q6H PRN Administration CONSTIPATION Metoprolol Tartrate 12.5 mg 01/13/19 21:00 01/15/19 09:26 Lopressor Tab* PO 12.5 mg Q12HR JANA Administration Oxycodone HCl 10 mg 01/15/19 20:07 Roxycodone Tab* PO Q4H PRN PAIN - MODERATE Oxycodone HCl 15 mg 01/15/19 20:08 Roxycodone Tab* PO Q4H PRN PAIN - SEVERE Potassium Phosphate 500 mg 01/13/19 21:00 01/15/19 09:26 K Phos Original Tab* PO 500 mg BID JANA Administration Ramipril 10 mg 01/14/19 09:00 01/15/19 09:28 Altace Cap* PO 10 mg DAILY JANA Administration Senna 2 tab 01/13/19 16:17 01/14/19 21:21 Senokot 8.6 Mg Tab* PO 2 tab BEDTIME PRN Administration CONSTIPATION Tramadol HCl 50 mg 01/13/19 17:03 01/13/19 22:10 Ultram* PO 50 mg Q6H PRN Administration PAIN - MODERATE Trazodone HCl 50 mg 01/13/19 17:02 01/14/19 00:09 Desyrel Tab* PO 50 mg BEDTIME PRN Administration INSOMNIA Vital Signs: Vital Signs Temp Pulse Resp BP Pulse Ox 99.1 F 81 16 149/78 99 01/15/19 15:00 01/15/19 15:00 01/15/19 17:37 01/15/19 15:00 01/15/19 15:47 Lab Results: Laboratory Results - last 24 hr 01/14/19 01/14/19 01/15/19 16:34 21:20 07:38 POC Glucose (mg/dL) 258 H 180 H 163 H 01/15/19 01/15/19 11:42 16:38 POC Glucose (mg/dL) 230 H 221 H Exam: GENERAL: No distress LUNGS: CLear bilaterally HEART: Regular rhythm ABDOMEN: Soft. Diffusely tender. EXTREMITIES: Decreased tone joesph LEs NEUROLOGIC: A&O. Arm strength 4/5. LE Strength 2/5 Assessment/Plan: 1. Respiratory Failure, Pneumonia: Finishing up course of Antibiotics. DuoNeb PRN. PT/OT 2. Limb Girdle Muscular Dystrophy: PT/OT. Will try to get his power wheelchair from home 3. Atrial Fibrillation, S/P Cardioversion: Eliquis/Lopressor/Multaq 4. Diabetes: Lantus/SSI 5. Abdominal Pain: Abd series X ray. Pepcid 6. DVT Prophylaxis: Eliquis 7. Pain: His opiate dose was cut way back on the acute hospitalization. Continue oxycodone/Tramadol, increase oxy to 15 8. Advance Directives: Full code 01/15/19 20:23
[2019-01-15] MEDS: Senna TAB 8.6 mg* TAB PO PRN (21:36)
[2019-01-16] MEDS: oxyCODONE TAB* 5 MG TAB PO PRN ×4 (02:48→21:24)
[2019-01-16] MEDS: Docusate CAP* 100 MG PO SCH ×2 (08:28→21:43)
[2019-01-16] MEDS: Apixaban* 5 MG TAB PO SCH ×2 (08:28→21:23)
[2019-01-16] MEDS: Famotidine TAB* 20 MG PO SCH ×2 (08:28→21:23)
[2019-01-16] MEDS: Potassium Acid Phosphate TAB* 500 MG PO SCH ×2 (08:29→21:23)
[2019-01-16] MEDS: Ramipril CAP* 10 MG PO SCH (08:29)
[2019-01-16] MEDS: Metoprolol Tartrate TAB* 25 MG PO SCH ×2 (08:29→21:23)
[2019-01-16] MEDS: Dronedarone TAB* 400 MG PO SCH ×2 (08:30→21:23)
[2019-01-16] MEDS: Insulin LISPRO* 1 UNITS UNIT SUBCUT SCH ×4 (08:31→21:44)
[2019-01-16] MEDS: Magnesium Hydroxide LIQ* 30 ML UDC PO PRN (08:32)
--- NOTE | 2019-01-16 16:11 | PN ---
Progress Note Date of Service: 01/16/19 Note: LORENA DALLAS was visited. Therapy notes read and reviewed. He is eating better and feels a little better today. Blood sugars are a little higher than they have been Current Medications: Active Medications Generic Name Dose Route Start Last Admin Trade Name Freq PRN Reason Stop Dose Admin Acetaminophen 650 mg 01/13/19 16:17 Tylenol Tab* PO Q6H PRN FEVER > 101 Albuterol/Ipratropium 1 neb 01/13/19 16:29 Duoneb (Albuterol 2.5 Mg/Ipratropium 0.5 Mg) INH Q4H PRN SOB/WHEEZING Apixaban 5 mg 01/13/19 21:00 01/16/19 08:28 Eliquis* PO 5 mg BID JANA Administration Atorvastatin Calcium 20 mg 01/13/19 17:00 01/15/19 17:49 Lipitor* PO 20 mg 1700 JANA Administration Docusate Sodium 100 mg 01/13/19 21:00 01/16/19 08:28 Colace Cap* PO 100 mg BID JANA Administration Dronedarone 400 mg 01/13/19 21:00 01/16/19 08:30 Multaq Tab* PO 400 mg BID JANA Administration Famotidine 20 mg 01/13/19 21:00 01/16/19 08:28 Pepcid Tab* PO 20 mg BID JANA Administration Insulin Glargine 40 units 01/13/19 18:00 01/15/19 17:48 Lantus(*) SUBCUT 40 units Q24H JANA Administration Insulin Human Lispro 0 units 01/13/19 16:30 01/16/19 12:50 Humalog* SUBCUT 12 units ACHS JANA Administration Protocol Magnesium Hydroxide 30 ml 01/13/19 16:22 01/16/19 08:32 Milk Of Magnesia Liq* PO 30 ml Q6H PRN Administration CONSTIPATION Metoprolol Tartrate 12.5 mg 01/13/19 21:00 01/16/19 08:29 Lopressor Tab* PO 12.5 mg Q12HR JANA Administration Oxycodone HCl 10 mg 01/15/19 20:07 Roxycodone Tab* PO Q4H PRN PAIN - MODERATE Oxycodone HCl 15 mg 01/15/19 20:08 01/16/19 15:54 Roxycodone Tab* PO 15 mg Q4H PRN Administration PAIN - SEVERE Potassium Phosphate 500 mg 01/13/19 21:00 01/16/19 08:29 K Phos Original Tab* PO 500 mg BID JANA Administration Ramipril 10 mg 01/14/19 09:00 01/16/19 08:29 Altace Cap* PO 10 mg DAILY JANA Administration Senna 2 tab 01/13/19 16:17 01/15/19 21:36 Senokot 8.6 Mg Tab* PO 2 tab BEDTIME PRN Administration CONSTIPATION Tramadol HCl 50 mg 01/13/19 17:03 01/13/19 22:10 Ultram* PO 50 mg Q6H PRN Administration PAIN - MODERATE Trazodone HCl 50 mg 01/13/19 17:02 01/14/19 00:09 Desyrel Tab* PO 50 mg BEDTIME PRN Administration INSOMNIA Vital Signs: Vital Signs Temp Pulse Resp BP Pulse Ox 98.9 F 80 18 143/67 98 01/16/19 05:35 01/16/19 05:35 01/16/19 15:54 01/16/19 05:35 01/16/19 08:00 Lab Results: Laboratory Results - last 24 hr 01/15/19 01/15/19 01/16/19 16:38 21:10 07:48 POC Glucose (mg/dL) 221 H 286 H 186 H Glucose Meter Confirm 01/16/19 01/16/19 11:54 12:17 POC Glucose (mg/dL) 402 H* Glucose Meter Confirm 348 H Exam: GENERAL: No distress LUNGS: CLear bilaterally HEART: Regular rhythm ABDOMEN: Soft. Not as tender. EXTREMITIES: Decreased tone joesph LEs NEUROLOGIC: A&O. Arm strength 4/5. LE Strength 2/5 Assessment/Plan: 1. Respiratory Failure, Pneumonia: Finishing up course of Antibiotics. DuoNeb PRN. PT/OT 2. Limb Girdle Muscular Dystrophy: PT/OT. Will try to get his power wheelchair from home 3. Atrial Fibrillation, S/P Cardioversion: Eliquis/Lopressor/Multaq 4. Diabetes: Lantus/SSI 5. Abdominal Pain: Abd series X ray. Pepcid 6. DVT Prophylaxis: Eliquis 7. Pain: His opiate dose was cut way back on the acute hospitalization. Continue oxycodone/Tramadol, increase oxy to 15 8. Advance Directives: Full code 01/16/19 16:11
[2019-01-16] MEDS: Atorvastatin* 20 MG TAB PO SCH (18:04)
[2019-01-16] MEDS: Insulin GLARGINE(*) 1 UNITS UNIT SUBCUT SCH (18:06)
[2019-01-16] MEDS: traZODone TAB* 50 MG TAB PO PRN (21:23)
[2019-01-16] MEDS: Senna TAB 8.6 mg* TAB PO PRN (21:24)
[2019-01-17] MEDS: oxyCODONE TAB* 5 MG TAB PO PRN ×5 (01:13→22:00)
[2019-01-17] MEDS: Insulin LISPRO* 1 UNITS UNIT SUBCUT SCH ×4 (09:30→20:47)
[2019-01-17] MEDS: traMADol TAB* 50 MG PO PRN (09:32)
[2019-01-17] MEDS: Apixaban* 5 MG TAB PO SCH ×2 (09:33→20:02)
[2019-01-17] MEDS: Ramipril CAP* 10 MG PO SCH (09:33)
[2019-01-17] MEDS: Docusate CAP* 100 MG PO SCH ×2 (09:33→20:05)
[2019-01-17] MEDS: Dronedarone TAB* 400 MG PO SCH ×2 (09:34→20:02)
[2019-01-17] MEDS: Metoprolol Tartrate TAB* 25 MG PO SCH ×2 (09:34→20:02)
[2019-01-17] MEDS: Famotidine TAB* 20 MG PO SCH ×2 (09:34→20:02)
[2019-01-17] MEDS: Potassium Acid Phosphate TAB* 500 MG PO SCH ×2 (09:34→20:02)
[2019-01-17] MEDS: Atorvastatin* 20 MG TAB PO SCH (17:20)
[2019-01-17] MEDS: Insulin GLARGINE(*) 1 UNITS UNIT SUBCUT SCH (18:01)
--- NOTE | 2019-01-17 19:24 | PN ---
Progress Note Date of Service: 01/17/19 Note: LORENA DALLAS was visited. Therapy notes read and reviewed. He is still complaining of gas pains and wants to try Simethicone. I wonder if Aurora marks is contributing Current Medications: Active Medications Generic Name Dose Route Start Last Admin Trade Name Freq PRN Reason Stop Dose Admin Acetaminophen 650 mg 01/13/19 16:17 Tylenol Tab* PO Q6H PRN FEVER > 101 Albuterol/Ipratropium 1 neb 01/13/19 16:29 Duoneb (Albuterol 2.5 Mg/Ipratropium 0.5 Mg) INH Q4H PRN SOB/WHEEZING Apixaban 5 mg 01/13/19 21:00 01/17/19 09:33 Eliquis* PO 5 mg BID JANA Administration Atorvastatin Calcium 20 mg 01/13/19 17:00 01/17/19 17:20 Lipitor* PO 20 mg 1700 JANA Administration Docusate Sodium 100 mg 01/13/19 21:00 01/17/19 09:33 Colace Cap* PO 100 mg BID JANA Administration Dronedarone 400 mg 01/13/19 21:00 01/17/19 09:34 Multaq Tab* PO 400 mg BID JANA Administration Famotidine 20 mg 01/13/19 21:00 01/17/19 09:34 Pepcid Tab* PO 20 mg BID JANA Administration Insulin Glargine 40 units 01/13/19 18:00 01/17/19 18:01 Lantus(*) SUBCUT 40 units Q24H JANA Administration Insulin Human Lispro 0 units 01/13/19 16:30 01/17/19 17:20 Humalog* SUBCUT 6 units ACHS JANA Administration Protocol Magnesium Hydroxide 30 ml 01/13/19 16:22 01/16/19 08:32 Milk Of Magnesia Liq* PO 30 ml Q6H PRN Administration CONSTIPATION Metoprolol Tartrate 12.5 mg 01/13/19 21:00 01/17/19 09:34 Lopressor Tab* PO 12.5 mg Q12HR JANA Administration Oxycodone HCl 10 mg 01/15/19 20:07 Roxycodone Tab* PO Q4H PRN PAIN - MODERATE Oxycodone HCl 15 mg 01/15/19 20:08 01/17/19 17:59 Roxycodone Tab* PO 15 mg Q4H PRN Administration PAIN - SEVERE Potassium Phosphate 500 mg 01/13/19 21:00 01/17/19 09:34 K Phos Original Tab* PO 500 mg BID JANA Administration Ramipril 10 mg 01/14/19 09:00 01/17/19 09:33 Altace Cap* PO 10 mg DAILY JANA Administration Senna 2 tab 01/13/19 16:17 01/16/19 21:24 Senokot 8.6 Mg Tab* PO 2 tab BEDTIME PRN Administration CONSTIPATION Simethicone 80 mg 01/17/19 18:14 Mylicon Tab* PO Q6H PRN INDIGESTION Tramadol HCl 50 mg 01/13/19 17:03 01/17/19 09:32 Ultram* PO 50 mg Q6H PRN Administration PAIN - MODERATE Trazodone HCl 50 mg 01/13/19 17:02 01/16/19 21:23 Desyrel Tab* PO 50 mg BEDTIME PRN Administration INSOMNIA Vital Signs: Vital Signs Temp Pulse Resp BP Pulse Ox 98.4 F 66 18 119/66 99 01/17/19 16:31 01/17/19 16:31 01/17/19 17:59 01/17/19 16:31 01/17/19 16:31 Lab Results: Laboratory Results - last 24 hr 01/16/19 01/17/19 01/17/19 20:56 07:40 11:26 POC Glucose (mg/dL) 250 H 145 H 273 H 01/17/19 16:16 POC Glucose (mg/dL) 234 H Exam: GENERAL: No distress LUNGS: CLear bilaterally HEART: Regular rhythm ABDOMEN: Soft. Not as tender. EXTREMITIES: Decreased tone joesph LEs NEUROLOGIC: A&O. Arm strength 4/5. LE Strength 2/5 Assessment/Plan: 1. Respiratory Failure, Pneumonia: Finishing up course of Antibiotics. DuoNeb PRN. PT/OT 2. Limb Girdle Muscular Dystrophy: PT/OT. Will try to get his power wheelchair from home 3. Atrial Fibrillation, S/P Cardioversion: Eliquis/Lopressor/Multaq 4. Diabetes: Lantus/SSI 5. Abdominal Pain: Abd series X ray unrevealing. Pepcid. Will see if I can stop K Phos 6. DVT Prophylaxis: Eliquis 7. Hypokalemia: Corrected. Will check labs to see if he still needs K Phos 8. Pain: His opiate dose was cut way back on the acute hospitalization. Continue oxycodone/Tramadol, increase oxy to 15 9. Advance Directives: Full code 01/17/19 19:24
[2019-01-17] MEDS: Simethicone TAB* 80 MG TAB.CHEW PO PRN (19:31)
[2019-01-17] MEDS: traZODone TAB* 50 MG TAB PO PRN (22:00)
[2019-01-18 05:01] LABS: BUN/Creatinine Ratio 46.5 (8-20); Calcium 8.7 mg/dL (8.6-10.3); EGFR African American 247.7 (>60); EGFR Non-African American 204.7 (>60); Potassium 4.4 mmol/L (3.5-5.0)
[2019-01-18] MEDS: oxyCODONE TAB* 5 MG TAB PO PRN ×4 (05:28→21:52)
[2019-01-18] MEDS: Insulin LISPRO* 1 UNITS UNIT SUBCUT SCH ×4 (07:48→21:46)
[2019-01-18] MEDS: Apixaban* 5 MG TAB PO SCH ×2 (08:06→21:02)
[2019-01-18] MEDS: Docusate CAP* 100 MG PO SCH ×2 (08:06→21:02)
[2019-01-18] MEDS: Famotidine TAB* 20 MG PO SCH ×2 (08:07→21:02)
[2019-01-18] MEDS: Dronedarone TAB* 400 MG PO SCH ×2 (08:07→21:02)
[2019-01-18] MEDS: Potassium Acid Phosphate TAB* 500 MG PO SCH (08:07)
[2019-01-18] MEDS: Metoprolol Tartrate TAB* 25 MG PO SCH ×2 (08:07→21:02)
[2019-01-18] MEDS: Ramipril CAP* 10 MG PO SCH (08:07)
--- NOTE | 2019-01-18 12:37 | PMRUTEAM ---
PMRU: Team Meeting Current Status: Physical Therapy: Current Status Current Rolling Status Partial/Moderate Current Supine <-> Sit Status Substantial/Maximal Current Sit <-> Stand Status Dependent Current Bed <-> Chair Status Dependent Transfer/Bed Mobility Papo Lift Recommended Devices Current Ambulation Assistance Not Applicable Status Current Stair Climbing Status Not Applicable Objective Comments Discussed plan to progress pt to sitting in manual w/c, pt stated he didn't feel "up for it" today, but will continue as able. Occupational Therapy: Current Status Current Upper Body Dressing Setup or Clean-up Assist Status Current Lower Body Dressing Dependent Status Current Footwear Status Dependent Current Bathing Status Substantial/Maximal Current Grooming Status Setup or Clean-up Assist Current Toileting Status Dependent Current Toilet Transfer Status Dependent Current Eating Status Independent Nursing: Current Status Skin Deviations [Gluteal Fold] Other Skin Deviations [Buttocks] Other Skin Deviation Description [-] - Skin Deviation Description [ area of peeling skin Gluteal Fold] Skin Deviation Description [ reddend Buttocks] Rec Therapy: Current Status Summary of Assessment and Recreation Therapy assessment complete and pt. is Clinical Impression aware of services. Pt. has been very open to leisure visits and pet therapy. Treatment Goals Pt. will engage in leisure activities while on the unit. Treatment Plan Provide recreation therapy services and encourage involvement. Goals: Physical Therapy: Goals Goals to Be Accomplished in ( 21-28 Days) Goal: Rolling Assistance Independent Goal Supine <-> Sit Status Independent Goal Sit <-> Stand Status Partial/Moderate Goal Bed <-> Chair Status Partial/Moderate Transfer/Bed Mobility Papo Lift Recommended Devices Goal: Picking Up Object Partial/Moderate Goal: Wheelchair Propulsion Independent Ability Wheelchair Distance (ft) 150 Goal: Home Exercise Program Independent Assistance Occupational Therapy: Goals Goals to be Completed in (Days 3-4 weeks ) Goal Upper Body Dressing Setup or Clean-up Assist Routine Goal Lower Body Dressing Dependent Routine Goal Footwear Status Dependent Goal Bathing Routine (OT) Partial/Moderate Goal Grooming Routine Independent Goal Toilet Hygiene and Substantial/Maximal Clothing Management Routine Goal Toilet Transfer Routine Partial/Moderate Goal Functional Transfers for Partial/Moderate ADL Goal Feeding Routine Independent Goal Light Housekeeping Tasks Dependent Nutrition: Goals Intervention Goals 1. Maintain adequate glycemic control per inpatient parameters w/o hypoglycemia. 2. Maintain adequate oral intake to support maintenance of lean body mass w/o contributing to undesirable weight gain. 3. Achieve/maintain regular bowel pattern w/o constipation or diarrhea. 4. Tolerates least restrictive texture w/o difficulty chewing or swallowing. Care Plan: Care Plan ADL's - Improve/Maintain Start: 01/13/19 22:32 Freq: DAILY@0700,1900 Status: Active Target: 01/20/19 Protocol: Activity Type Activity Date Activity User E-Sign Co-Sign Detail Recorded Client Recorded Date Recorded By Document 01/18/19 10:24 [id number] [email or web address] 01/18/19 10:24 [id number] 01/18/19 10:24 PMRU Outcome: ADL's/ADL Transfers Orders/Interventions Occupational Therapy Evaluation & Treatment Device Yes Address Deficits Secondary To: resp failure Patient to receive OT 5x/wk for 60-120 Therex min/day Self Care Management Group Therapy Neuromuscular ReEducation UE/LE ADL's with Assist Yes: maxA ADL Transfers with Assist Yes: modA Toileting: Transfers,Clothing Management Yes: ModA ,Hygeine w/Assist Light Kitchen/Laundry w/Assist Yes Progression Toward Outcome/Goals Not Progressing Lack of Progression Comment Pt demonstrates difficulty making functional progress 2* pain, limited motivation and self limitations. Cardiovascular- Improve/Maintain Start: 01/13/19 22:32 Freq: DAILY@699,[id number] Status: Active Target: 01/27/19 Protocol: Activity Type Activity Date Activity User E-Sign Co-Sign Detail Recorded Client Recorded Date Recorded By Document 01/18/19 07:00 [id number] [email or web address] 01/18/19 08:16 [id number] 01/18/19 07:00 PMRU Outcome: Cardiovascular Vital Signs q Shift for 48hrs Then BID Yes Daily Weight Ordered No Current Cardiovascular Outcome/Goal Maintain/ Achieve Baseline HR, BP , Perfusion Free of Abnormal Cardiac Symptoms Progression Toward Outcome/Goal Progressing DVT Prophylaxis- Improve/Maintain Start: 01/13/19 22:32 Freq: DAILY@0700,1900 Status: Active Target: 01/27/19 Protocol: Activity Type Activity Date Activity User E-Sign Co-Sign Detail Recorded Client Recorded Date Recorded By Document 01/18/19 07:00 [id number] [email or web address] 01/18/19 08:16 [id number] 01/18/19 07:00 PMRU Outcome: DVT Prophylaxis Current DVT Outcome/Goals Remains Free of DVT Complies with DVT Prophylaxis /Treatment Demonstrates Knowledge of DVT Prevention/ Treatment Progression Toward Outcome/Goals Progressing Discharge Planning - Improve/Maintain Start: 01/13/19 22:32 Freq: DAILY@0700,1900 Status: Active Target: 01/27/19 Protocol: Activity Type Activity Date Activity User E-Sign Co-Sign Detail Recorded Client Recorded Date Recorded By Document 01/18/19 07:00 [id number] [email or web address] 01/18/19 08:16 [id number] 01/18/19 07:00 PMRU Outcome: Discharge Planning Update Patient Family No Current Discharge Planning Outcome/Goals Demonstrates Understanding of Discharge Plan Homecare Referral - See Comment Progression Toward Outcome/Goals Progressing Education-Improve/Maintain Start: 01/13/19 22:32 Freq: DAILY@699,[id number] Status: Active Target: 01/27/19 Protocol: Activity Type Activity Date Activity User E-Sign Co-Sign Detail Recorded Client Recorded Date Recorded By Document 01/18/19 07:00 [id number] [email or web address] 01/18/19 08:16 [id number] 01/18/19 07:00 PMRU Outcome: Education Current Education Outcome/Goals Demonstrate/ Verbalize Understanding of Written Discharge Instructions Demonstrates Skills Encourage Questions Progression Toward Outcome/Goals Progressing /GI-Improve/Maintain Start: 01/13/19 22:32 Freq: DAILY@699,[id number] Status: Active Target: 01/27/19 Protocol: Activity Type Activity Date Activity User E-Sign Co-Sign Detail Recorded Client Recorded Date Recorded By Document 01/18/19 07:00 [id number] [email or web address] 01/18/19 08:16 [id number] 01/18/19 07:00 PMRU Outcome: Genitourinary/ Gastrointestinal Current Gastrointestinal Outcome/Goals Maintain/ Achieve Bowel Regularity in Accordance with Pt's Baseline Remain Free of Emesis Prevent Constipation Bowel Regularity at Home Laxatives as Ordered Progression Toward Outcome/Goals Progressing Current Genitourinary Outcome/Goals Maintain/ Achieve Urinary Continence Maintain/ Achieve Adequate Urinary Output Remain Free of Hospital- Acquired UTI Progression Toward Outcome/Goals Progressing Medication Administration Start: 01/13/19 22:32 Freq: DAILY@0700,1900 Status: Active Target: 01/27/19 Protocol: Activity Type Activity Date Activity User E-Sign Co-Sign Detail Recorded Client Recorded Date Recorded By Document 01/18/19 07:00 [id number] 01/18/19 08:16 [id number] 01/18/19 07:00 PMRU Outcome: Medication Administration Assess Patient Knowledge/Teach Med Yes Education for all Meds Current Motor And Controls 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 No Metabolic Status- Improve/Maintain Start: 01/13/19 22:32 Freq: DAILY@0700,1900 Status: Active Target: 01/27/19 Protocol: Activity Type Activity Date Activity User E-Sign Co-Sign Detail Recorded Client Recorded Date Recorded By Document 01/18/19 07:00 [id number] [email or web address] 01/18/19 08:16 [id number] 01/18/19 07:00 PMRU Outcome: Metabolic Status Have Fingersticks Been Ordered Yes Fingerstick Order Frequency AC & HS Current Metabolic Status Outcome/Goals Maintain/ Improve Metabolic Status Demonstrate Knowledge of Prevention/ Treatment of Metabolic Imbalances Progression Toward Outcome/Goals Not Progressing Lack of Progression Comment glucose levels continue to be elevated throughout the day Mobility- Improve/Maintain Start: 01/13/19 22:32 Freq: DAILY@699,0 Status: Active Target: 02/09/19 Protocol: Activity Type Activity Date Activity User E-Sign Co-Sign Detail Recorded Client Recorded Date Recorded By Document 01/15/19 12:15 [id number] [email or web address] 01/15/19 12:16 [id number] 01/15/19 12:15 PMRU Outcome: Mobility Physical Therapy Evaluation and Yes Treatment Activity OOB with Assistance Yes Device Yes: Papo/EZ- stand Assistance Yes: Max/ Dependent Patient to be seen 5x/wk for 60-120 min/ Therex day for: Mobility Training W/C Mobility Balance Other Current Mobility Outcome/Goals Maintain/ Achieve Baseline Mobility Status Improve Mobility Status Demonstrates Proper Use of Assistive Devices Free from Complications of Immobility Progression Toward Outcome/Goals Goal Initiation Bed Mobility Yes: Ind Transfers Yes: Partial/ Mod A W/C Mobility x ft Yes: Ind in power wheelchair x150ft With HEP Yes: Ind Nutrition/Swallowing- Improve/Maintain Start: 01/13/19 22:32 Freq: DAILY@0700,1900 Status: Active Target: 01/27/19 Protocol: Activity Type Activity Date Activity User E-Sign Co-Sign Detail Recorded Client Recorded Date Recorded By Document 01/18/19 07:00 [id number] [email or web address] 01/18/19 08:16 [id number] 01/18/19 07:00 PMRU Outcome: Nutrition/Swallowing Current Nutrition/Swallowing Outcome/ Demonstrates Goals Adequate Hydration/ Prevents Dehydration Maintain/ Improve Nutritional Status Progression Toward Outcome/Goals Progressing Pain/Comfort- Improve/Maintain Start: 01/13/19 22:32 Freq: DAILY@0700,1900 Status: Active Target: 01/27/19 Protocol: Activity Type Activity Date Activity User E-Sign Co-Sign Detail Recorded Client Recorded Date Recorded By Document 01/18/19 07:00 [id number] [email or web address] 01/18/19 08:16 [id number] 01/18/19 07:00 PMRU Outcome: Pain/Comfort Current Pain/Comfort Outcome/Goals Demonstrates Knowledge and Use of Available Comfort Measures Achieves Acceptable Comfort/Pain Level as Determined by Patient/Condit Maintain Comfort Level Allowing Patient to Fully Participate in Rehab Progression Toward Outcome/Goals Progressing Rec Therapy- Improve/Maintain Start: 01/13/19 22:32 Freq: DAILY@0700,1900 Status: Active Target: 02/09/19 Protocol: Activity Type Activity Date Activity User E-Sign Co-Sign Detail Recorded Client Recorded Date Recorded By Document 01/14/19 13:46 [id number] [email or web address] 01/14/19 13:46 [id number] 01/14/19 13:46 PMRU Outcome: Recreation Therapy Current Rec Ther Outcome/Goals Complete Rec Therapy Assessment Meet with Patient Regularly for Support Encourage Leisure Involvement Progression Toward Outcome/Goals Goal Initiation Safety- Improve/Maintain Start: 01/13/19 16:23 Freq: DAILY@0700,1900 Status: Active Target: 01/27/19 Protocol: Activity Type Activity Date Activity User E-Sign Co-Sign Detail Recorded Client Recorded Date Recorded By Document 01/18/19 07:00 [id number] [email or web address] 01/18/19 08:16 [id number] 01/18/19 07:00 PMRU Outcome: Safety Current Safety Outcome/Goals Remain Free of Injury or Harm Cooperates with Safety Measures for Least Restrictive Environment Prevent Falls/ Injury Progression Toward Outcome/Goals Progressing - Interdisciplinary Staff Present Creel Cleaner/Social Work Staff Present: Amirah Mei LMSW Nursing Staff Present: Laura Henriquez RN OT Staff Present: Kristen Jensen PT Staff Present: Brice Vázquez PTA Rec Therapy Staff Present: Patito Morales Medicine Note: Length of Stay: 3 weeks and 1 day Anticipated Discharge Destination: Home/[facility] Tentative Discharge Date: 02/09/19 Discharged to: Home
[2019-01-18] MEDS: Atorvastatin* 20 MG TAB PO SCH (16:31)
[2019-01-18] MEDS: Simethicone TAB* 80 MG TAB.CHEW PO PRN (16:31)
[2019-01-18] MEDS: Insulin GLARGINE(*) 1 UNITS UNIT SUBCUT SCH (17:27)
--- NOTE | 2019-01-18 18:39 | PN ---
Progress Note Date of Service: 01/18/19 Note: LORENA DALLAS was visited. Therapy notes read and reviewed. He was discussed in interdisciplinary team rounds. His wheelchair will be coming Thursday. He still has abdominal pain. Not sure if it is K Phos or withdrawal or other problems Current Medications: Active Medications Generic Name Dose Route Start Last Admin Trade Name Freq PRN Reason Stop Dose Admin Acetaminophen 650 mg 01/13/19 16:17 Tylenol Tab* PO Q6H PRN FEVER > 101 Albuterol/Ipratropium 1 neb 01/13/19 16:29 Duoneb (Albuterol 2.5 Mg/Ipratropium 0.5 Mg) INH Q4H PRN SOB/WHEEZING Apixaban 5 mg 01/13/19 21:00 01/18/19 08:06 Eliquis* PO 5 mg BID JANA Administration Atorvastatin Calcium 20 mg 01/13/19 17:00 01/18/19 16:31 Lipitor* PO 20 mg 1700 JANA Administration Docusate Sodium 100 mg 01/13/19 21:00 01/18/19 08:06 Colace Cap* PO Not Given BID JANA Dronedarone 400 mg 01/13/19 21:00 01/18/19 08:07 Multaq Tab* PO 400 mg BID JANA Administration Famotidine 20 mg 01/13/19 21:00 01/18/19 08:07 Pepcid Tab* PO 20 mg BID JANA Administration Insulin Glargine 40 units 01/13/19 18:00 01/18/19 17:27 Lantus(*) SUBCUT 40 units Q24H JANA Administration Insulin Human Lispro 0 units 01/13/19 16:30 01/18/19 17:26 Humalog* SUBCUT 12 units ACHS JANA Administration Protocol Magnesium Hydroxide 30 ml 01/13/19 16:22 01/16/19 08:32 Milk Of Magnesia Liq* PO 30 ml Q6H PRN Administration CONSTIPATION Metoprolol Tartrate 12.5 mg 01/13/19 21:00 01/18/19 08:07 Lopressor Tab* PO 12.5 mg Q12HR JANA Administration Oxycodone HCl 10 mg 01/15/19 20:07 Roxycodone Tab* PO Q4H PRN PAIN - MODERATE Oxycodone HCl 15 mg 01/15/19 20:08 01/18/19 17:29 Roxycodone Tab* PO 15 mg Q4H PRN Administration PAIN - SEVERE Potassium Phosphate 500 mg 01/19/19 09:00 K Phos Original Tab* PO DAILY JANA Ramipril 10 mg 01/14/19 09:00 01/18/19 08:07 Altace Cap* PO 10 mg DAILY JANA Administration Senna 2 tab 01/13/19 16:17 01/16/19 21:24 Senokot 8.6 Mg Tab* PO 2 tab BEDTIME PRN Administration CONSTIPATION Simethicone 80 mg 01/17/19 18:14 01/18/19 16:31 Mylicon Tab* PO 80 mg Q6H PRN Administration INDIGESTION Tramadol HCl 50 mg 01/13/19 17:03 01/17/19 09:32 Ultram* PO 50 mg Q6H PRN Administration PAIN - MODERATE Trazodone HCl 50 mg 01/13/19 17:02 01/17/19 22:00 Desyrel Tab* PO 50 mg BEDTIME PRN Administration INSOMNIA Vital Signs: Vital Signs Temp Pulse Resp BP Pulse Ox 98.9 F 82 16 118/70 97 01/18/19 15:57 01/18/19 15:57 01/18/19 17:29 01/18/19 15:57 01/18/19 18:25 Lab Results: Laboratory Results - last 24 hr 01/17/19 01/18/19 01/18/19 20:08 04:19 07:39 Sodium 138 Potassium 4.4 Chloride 105 Carbon Dioxide 25 Anion Gap 8 BUN 20 Creatinine 0.43 L Est GFR ( Amer) 247.7 Est GFR (Non-Af Amer) 204.7 BUN/Creatinine Ratio 46.5 H Glucose 88 POC Glucose (mg/dL) 311 H 97 Calcium 8.7 01/18/19 01/18/19 12:27 16:34 Sodium Potassium Chloride Carbon Dioxide Anion Gap BUN Creatinine Est GFR ( Amer) Est GFR (Non-Af Amer) BUN/Creatinine Ratio Glucose POC Glucose (mg/dL) 249 H 309 H Calcium Exam: GENERAL: No distress LUNGS: CLear bilaterally HEART: Regular rhythm ABDOMEN: Soft. Not as tender. EXTREMITIES: Decreased tone joesph LEs NEUROLOGIC: A&O. Arm strength 4/5. LE Strength 2/5 Assessment/Plan: 1. Respiratory Failure, Pneumonia: Finishing up course of Antibiotics. DuoNeb PRN. PT/OT 2. Limb Girdle Muscular Dystrophy: PT/OT. Power wheelchair from home due to arrive Thursday 3. Atrial Fibrillation, S/P Cardioversion: Eliquis/Lopressor/Multaq 4. Diabetes: Lantus/SSI 5. Abdominal Pain: Abd series X ray unrevealing. Pepcid. Will see if I can stop K Phos 6. DVT Prophylaxis: Eliquis 7. Hypokalemia: Corrected. Will d/c K phos and start Klor-con 8. Pain: His opiate dose was cut way back on the acute hospitalization. Continue oxycodone/Tramadol, increased oxy to 15 9. Advance Directives: Full code 01/18/19 18:39
[2019-01-18] MEDS: traZODone TAB* 50 MG TAB PO PRN (21:52)
[2019-01-19] MEDS: oxyCODONE TAB* 5 MG TAB PO PRN ×4 (05:48→21:27)
[2019-01-19] MEDS: Simethicone TAB* 80 MG TAB.CHEW PO PRN ×2 (08:20→16:43)
[2019-01-19] MEDS: Insulin LISPRO* 1 UNITS UNIT SUBCUT SCH ×4 (08:20→21:36)
[2019-01-19] MEDS: Metoprolol Tartrate TAB* 25 MG PO SCH ×2 (08:22→19:58)
[2019-01-19] MEDS: Potassium Chlor TAB* 10 MEQ TAB.ER PO SCH (08:22)
[2019-01-19] MEDS: Ramipril CAP* 10 MG PO SCH (08:22)
[2019-01-19] MEDS: Famotidine TAB* 20 MG PO SCH ×2 (08:22→19:58)
[2019-01-19] MEDS: Apixaban* 5 MG TAB PO SCH ×2 (08:22→19:58)
[2019-01-19] MEDS: Dronedarone TAB* 400 MG PO SCH ×2 (08:23→19:58)
[2019-01-19] MEDS: Docusate CAP* 100 MG PO SCH ×2 (08:24→20:03)
[2019-01-19] MEDS ORDERED: Potassium Acid Phosphate TAB* 500 MG PO SCH (09:00)
[2019-01-19] MEDS: Atorvastatin* 20 MG TAB PO SCH (17:11)
--- NOTE | 2019-01-19 17:12 | PN ---
Progress Note Date of Service: 01/19/19 Note: LORENA DALLAS was visited. Therapy notes read and reviewed. He was formerly on Xanax 0.5 mg and requests to go back on it. I will order 0.25 mg for now. Otherwise doing ok Current Medications: Active Medications Generic Name Dose Route Start Last Admin Trade Name Freq PRN Reason Stop Dose Admin Acetaminophen 650 mg 01/13/19 16:17 Tylenol Tab* PO Q6H PRN FEVER > 101 Albuterol/Ipratropium 1 neb 01/13/19 16:29 Duoneb (Albuterol 2.5 Mg/Ipratropium 0.5 Mg) INH Q4H PRN SOB/WHEEZING Alprazolam 0.25 mg 01/19/19 17:02 Xanax Tab* PO Q8H PRN ANXIETY Apixaban 5 mg 01/13/19 21:00 01/19/19 08:22 Eliquis* PO 5 mg BID JANA Administration Atorvastatin Calcium 20 mg 01/13/19 17:00 01/18/19 16:31 Lipitor* PO 20 mg 1700 JANA Administration Docusate Sodium 100 mg 01/13/19 21:00 01/19/19 08:24 Colace Cap* PO Not Given BID JANA Dronedarone 400 mg 01/13/19 21:00 01/19/19 08:23 Multaq Tab* PO 400 mg BID JANA Administration Famotidine 20 mg 01/13/19 21:00 01/19/19 08:22 Pepcid Tab* PO 20 mg BID JANA Administration Insulin Glargine 40 units 01/13/19 18:00 01/18/19 17:27 Lantus(*) SUBCUT 40 units Q24H JANA Administration Insulin Human Lispro 0 units 01/13/19 16:30 01/19/19 13:18 Humalog* SUBCUT 6 units ACHS JANA Administration Protocol Magnesium Hydroxide 30 ml 01/13/19 16:22 01/16/19 08:32 Milk Of Magnesia Liq* PO 30 ml Q6H PRN Administration CONSTIPATION Metoprolol Tartrate 12.5 mg 01/13/19 21:00 01/19/19 08:22 Lopressor Tab* PO 12.5 mg Q12HR JANA Administration Oxycodone HCl 10 mg 01/15/19 20:07 Roxycodone Tab* PO Q4H PRN PAIN - MODERATE Oxycodone HCl 15 mg 01/15/19 20:08 01/19/19 16:41 Roxycodone Tab* PO 15 mg Q4H PRN Administration PAIN - SEVERE Potassium Chloride 10 meq 01/19/19 09:00 01/19/19 08:22 Klor Con Er Tab* PO 10 meq DAILY JANA Administration Ramipril 10 mg 01/14/19 09:00 01/19/19 08:22 Altace Cap* PO 10 mg DAILY JANA Administration Senna 2 tab 01/13/19 16:17 01/16/19 21:24 Senokot 8.6 Mg Tab* PO 2 tab BEDTIME PRN Administration CONSTIPATION Simethicone 80 mg 01/17/19 18:14 01/19/19 16:43 Mylicon Tab* PO 80 mg Q6H PRN Administration INDIGESTION Tramadol HCl 50 mg 01/13/19 17:03 01/17/19 09:32 Ultram* PO 50 mg Q6H PRN Administration PAIN - MODERATE Trazodone HCl 50 mg 01/13/19 17:02 01/18/19 21:52 Desyrel Tab* PO 50 mg BEDTIME PRN Administration INSOMNIA Vital Signs: Vital Signs Temp Pulse Resp BP Pulse Ox 98.1 F 81 18 99/61 98 01/19/19 15:50 01/19/19 15:50 01/19/19 16:41 01/19/19 15:50 01/19/19 15:50 Lab Results: Laboratory Results - last 24 hr 01/18/19 01/19/19 01/19/19 21:07 07:34 11:43 POC Glucose (mg/dL) 233 H 143 H 269 H 01/19/19 16:24 POC Glucose (mg/dL) 359 H Exam: GENERAL: No distress LUNGS: CLear bilaterally HEART: Regular rhythm ABDOMEN: Soft. Not as tender. EXTREMITIES: Decreased tone joesph LEs NEUROLOGIC: A&O. Arm strength 4/5. LE Strength 2/5 Assessment/Plan: 1. Respiratory Failure, Pneumonia: Finishing up course of Antibiotics. DuoNeb PRN. PT/OT 2. Limb Girdle Muscular Dystrophy: PT/OT. Power wheelchair from home due to arrive Thursday 3. Atrial Fibrillation, S/P Cardioversion: Eliquis/Lopressor/Multaq 4. Diabetes: Lantus/SSI 5. Abdominal Pain: Abd series X ray unrevealing. Pepcid. Will see if I can stop K Phos 6. DVT Prophylaxis: Eliquis 7. Hypokalemia: Corrected. Will d/c K phos and start Klor-con 8. Pain: His opiate dose was cut way back on the acute hospitalization. Continue oxycodone/Tramadol, increased oxy to 15 9. Anxiety: Resume Xanax 0.25 Q8H 10. Advance Directives: Full code 01/19/19 17:12
[2019-01-19] MEDS: Insulin GLARGINE(*) 1 UNITS UNIT SUBCUT SCH (18:01)
[2019-01-19] MEDS: ALPRAZolam TAB* 0.25 MG PO PRN (21:27)
[2019-01-19] MEDS: traZODone TAB* 50 MG TAB PO PRN (21:27)
[2019-01-20] MEDS: oxyCODONE TAB* 5 MG TAB PO PRN ×5 (02:38→21:38)
--- NOTE | 2019-01-20 06:01 | PN ---
Progress Note Date of Service: 01/20/19 Note: LORENA DALLAS was visited. Therapy notes read and reviewed. Got Xanax last night and feels ok. Otherwise stable. Slept well. Chair due to arrive tomorrow Current Medications: Active Medications Generic Name Dose Route Start Last Admin Trade Name Freq PRN Reason Stop Dose Admin Acetaminophen 650 mg 01/13/19 16:17 Tylenol Tab* PO Q6H PRN FEVER > 101 Albuterol/Ipratropium 1 neb 01/13/19 16:29 Duoneb (Albuterol 2.5 Mg/Ipratropium 0.5 Mg) INH Q4H PRN SOB/WHEEZING Alprazolam 0.25 mg 01/19/19 17:02 01/19/19 21:27 Xanax Tab* PO 0.25 mg Q8H PRN Administration ANXIETY Apixaban 5 mg 01/13/19 21:00 01/19/19 19:58 Eliquis* PO 5 mg BID JANA Administration Atorvastatin Calcium 20 mg 01/13/19 17:00 01/19/19 17:11 Lipitor* PO 20 mg 1700 JANA Administration Docusate Sodium 100 mg 01/13/19 21:00 01/19/19 20:03 Colace Cap* PO Not Given BID JANA Dronedarone 400 mg 01/13/19 21:00 01/19/19 19:58 Multaq Tab* PO 400 mg BID JANA Administration Famotidine 20 mg 01/13/19 21:00 01/19/19 19:58 Pepcid Tab* PO 20 mg BID JANA Administration Insulin Glargine 40 units 01/13/19 18:00 01/19/19 18:01 Lantus(*) SUBCUT 40 units Q24H JANA Administration Insulin Human Lispro 0 units 01/13/19 16:30 01/19/19 21:36 Humalog* SUBCUT 9 units ACHS JANA Administration Protocol Magnesium Hydroxide 30 ml 01/13/19 16:22 01/16/19 08:32 Milk Of Magnesia Liq* PO 30 ml Q6H PRN Administration CONSTIPATION Metoprolol Tartrate 12.5 mg 01/13/19 21:00 01/19/19 19:58 Lopressor Tab* PO 12.5 mg Q12HR JANA Administration Oxycodone HCl 10 mg 01/15/19 20:07 Roxycodone Tab* PO Q4H PRN PAIN - MODERATE Oxycodone HCl 15 mg 01/15/19 20:08 01/20/19 02:38 Roxycodone Tab* PO 15 mg Q4H PRN Administration PAIN - SEVERE Potassium Chloride 10 meq 01/19/19 09:00 01/19/19 08:22 Klor Con Er Tab* PO 10 meq DAILY JANA Administration Ramipril 10 mg 01/14/19 09:00 01/19/19 08:22 Altace Cap* PO 10 mg DAILY JANA Administration Senna 2 tab 01/13/19 16:17 01/16/19 21:24 Senokot 8.6 Mg Tab* PO 2 tab BEDTIME PRN Administration CONSTIPATION Simethicone 80 mg 01/17/19 18:14 01/19/19 16:43 Mylicon Tab* PO 80 mg Q6H PRN Administration INDIGESTION Tramadol HCl 50 mg 01/13/19 17:03 01/17/19 09:32 Ultram* PO 50 mg Q6H PRN Administration PAIN - MODERATE Trazodone HCl 50 mg 01/13/19 17:02 01/19/19 21:27 Desyrel Tab* PO 50 mg BEDTIME PRN Administration INSOMNIA Vital Signs: Vital Signs Temp Pulse Resp BP Pulse Ox 98.1 F 81 18 99/61 98 01/19/19 15:50 01/19/19 15:50 01/20/19 02:38 01/19/19 15:50 01/19/19 17:50 Lab Results: Laboratory Results - last 24 hr 01/19/19 01/19/19 01/19/19 07:34 11:43 16:24 POC Glucose (mg/dL) 143 H 269 H 359 H 01/19/19 20:03 POC Glucose (mg/dL) 299 H Exam: GENERAL: No distress LUNGS: CLear bilaterally HEART: Regular rhythm ABDOMEN: Soft. Not as tender. EXTREMITIES: Decreased tone joesph LEs NEUROLOGIC: A&O. Arm strength 4/5. LE Strength 2/5 Assessment/Plan: 1. Respiratory Failure, Pneumonia: Finishing up course of Antibiotics. DuoNeb PRN. PT/OT 2. Limb Girdle Muscular Dystrophy: PT/OT. Power wheelchair from home due to arrive Thursday 3. Atrial Fibrillation, S/P Cardioversion: Eliquis/Lopressor/Multaq 4. Diabetes: Lantus/SSI 5. Abdominal Pain: Abd series X ray unrevealing. Pepcid. 6. DVT Prophylaxis: Eliquis 7. Hypokalemia: Corrected. Will d/c K phos and start Klor-con 8. Pain: His opiate dose was cut way back on the acute hospitalization. Continue oxycodone/Tramadol, increased oxy to 15 9. Anxiety: Resume Xanax 0.25 Q8H 10. Advance Directives: Full code 01/20/19 06:01 01/20/19 06:02
[2019-01-20] MEDS: Potassium Chlor TAB* 10 MEQ TAB.ER PO SCH (08:58)
[2019-01-20] MEDS: Famotidine TAB* 20 MG PO SCH ×2 (08:58→20:10)
[2019-01-20] MEDS: Apixaban* 5 MG TAB PO SCH ×2 (08:58→20:10)
[2019-01-20] MEDS: Ramipril CAP* 10 MG PO SCH (08:59)
[2019-01-20] MEDS: Docusate CAP* 100 MG PO SCH ×2 (08:59→20:13)
[2019-01-20] MEDS: traMADol TAB* 50 MG PO PRN (08:59)
[2019-01-20] MEDS: Metoprolol Tartrate TAB* 25 MG PO SCH ×2 (08:59→20:12)
[2019-01-20] MEDS: Insulin LISPRO* 1 UNITS UNIT SUBCUT SCH ×4 (09:00→21:55)
[2019-01-20] MEDS: Dronedarone TAB* 400 MG PO SCH ×2 (09:02→20:10)
[2019-01-20] MEDS: Simethicone TAB* 80 MG TAB.CHEW PO PRN ×2 (09:10→17:41)
[2019-01-20] MEDS: Atorvastatin* 20 MG TAB PO SCH (17:23)
[2019-01-20] MEDS: Insulin GLARGINE(*) 1 UNITS UNIT SUBCUT SCH (18:44)
[2019-01-20] MEDS: Senna TAB 8.6 mg* TAB PO PRN (20:10)
[2019-01-20] MEDS: ALPRAZolam TAB* 0.25 MG PO PRN (21:38)
[2019-01-20] MEDS: traZODone TAB* 50 MG TAB PO PRN (21:38)
[2019-01-21] MEDS: oxyCODONE TAB* 5 MG TAB PO PRN ×5 (02:05→21:26)
[2019-01-21 06:08] LABS: ABS Basophils 0.1 10^3/ul (0-0.2); ABS Eosinophils 0.2 10^3/ul (0-0.6); ABS Lymphocytes 1.3 10^3/ul (1.0-4.8); ABS Monocytes 0.5 10^3/ul (0-0.8); ABS Neutrophils 3.6 10^3/ul (1.5-7.7); Hematocrit 28 % (42-52); Hemoglobin 9.3 g/dL (14.0-18.0); Lymphocyte % 22.3 %; Mean Corpuscular HGB Conc 34 g/dL (31-36); Mean Corpuscular Hemoglobin 29 pg (27-31); Mean Corpuscular Volume 86 fL (80-94); Mean Platelet Volume 8.1 fL (7.4-10.4); Platelet Count 237 10^3/uL (150-450); Red Blood Count 3.25 10^6 /uL (4.18-5.48); Red Cell Distribution Width 18 % (10-15); White Blood Count 5.6 10^3/uL (3.5-10.8)
[2019-01-21 06:26] LABS: Albumin 3.1 g/dL (3.2-5.2); Albumin/Globulin Ratio 1.6 (1-3); Calcium 8.4 mg/dL (8.6-10.3); EGFR African American 241.2 (>60); EGFR Non-African American 199.3 (>60); Globulin 1.9 g/dL (2-4); Potassium 4.1 mmol/L (3.5-5.0); Total Bilirubin 0.7 mg/dL (0.2-1.0)
[2019-01-21] MEDS: Insulin LISPRO* 1 UNITS UNIT SUBCUT SCH ×4 (08:01→21:28)
[2019-01-21] MEDS: Metoprolol Tartrate TAB* 25 MG PO SCH ×2 (08:06→21:27)
[2019-01-21] MEDS: Ramipril CAP* 10 MG PO SCH (08:07)
[2019-01-21] MEDS: Docusate CAP* 100 MG PO SCH ×2 (08:07→21:26)
[2019-01-21] MEDS: Famotidine TAB* 20 MG PO SCH ×2 (08:08→21:24)
[2019-01-21] MEDS: Simethicone TAB* 80 MG TAB.CHEW PO PRN ×2 (08:08→17:42)
[2019-01-21] MEDS: Apixaban* 5 MG TAB PO SCH ×2 (08:08→21:25)
[2019-01-21] MEDS: traMADol TAB* 50 MG PO PRN (08:08)
[2019-01-21] MEDS: Dronedarone TAB* 400 MG PO SCH ×2 (08:08→21:24)
[2019-01-21] MEDS: Potassium Chlor TAB* 10 MEQ TAB.ER PO SCH (08:12)
--- NOTE | 2019-01-21 17:05 | PN ---
Progress Note Date of Service: 01/21/19 Note: LORENA DALLAS was visited. Therapy notes read and reviewed. His wheelchair did not make it as the scheduled ride did not get to his house. Otherwise he is doing ok. Current Medications: Active Medications Generic Name Dose Route Start Last Admin Trade Name Freq PRN Reason Stop Dose Admin Acetaminophen 650 mg 01/13/19 16:17 Tylenol Tab* PO Q6H PRN FEVER > 101 Albuterol/Ipratropium 1 neb 01/13/19 16:29 Duoneb (Albuterol 2.5 Mg/Ipratropium 0.5 Mg) INH Q4H PRN SOB/WHEEZING Alprazolam 0.25 mg 01/19/19 17:02 01/20/19 21:38 Xanax Tab* PO 0.25 mg Q8H PRN Administration ANXIETY Apixaban 5 mg 01/13/19 21:00 01/21/19 08:08 Eliquis* PO 5 mg BID JANA Administration Atorvastatin Calcium 20 mg 01/13/19 17:00 01/20/19 17:23 Lipitor* PO 20 mg 1700 JANA Administration Docusate Sodium 100 mg 01/13/19 21:00 01/21/19 08:07 Colace Cap* PO 100 mg BID JANA Administration Dronedarone 400 mg 01/13/19 21:00 01/21/19 08:08 Multaq Tab* PO 400 mg BID JANA Administration Famotidine 20 mg 01/13/19 21:00 01/21/19 08:08 Pepcid Tab* PO 20 mg BID JANA Administration Insulin Glargine 40 units 01/13/19 18:00 01/20/19 18:44 Lantus(*) SUBCUT 40 units Q24H JANA Administration Insulin Human Lispro 0 units 01/13/19 16:30 01/21/19 12:24 Humalog* SUBCUT 6 units ACHS JANA Administration Protocol Magnesium Hydroxide 30 ml 01/13/19 16:22 01/16/19 08:32 Milk Of Magnesia Liq* PO 30 ml Q6H PRN Administration CONSTIPATION Metoprolol Tartrate 12.5 mg 01/13/19 21:00 01/21/19 08:06 Lopressor Tab* PO 12.5 mg Q12HR JANA Administration Oxycodone HCl 10 mg 01/15/19 20:07 Roxycodone Tab* PO Q4H PRN PAIN - MODERATE Oxycodone HCl 15 mg 01/15/19 20:08 01/21/19 16:09 Roxycodone Tab* PO 15 mg Q4H PRN Administration PAIN - SEVERE Potassium Chloride 10 meq 01/19/19 09:00 01/21/19 08:12 Klor Con Er Tab* PO 10 meq DAILY JANA Administration Ramipril 10 mg 01/14/19 09:00 01/21/19 08:07 Altace Cap* PO 10 mg DAILY JANA Administration Senna 2 tab 01/13/19 16:17 01/20/19 20:10 Senokot 8.6 Mg Tab* PO 2 tab BEDTIME PRN Administration CONSTIPATION Simethicone 80 mg 01/17/19 18:14 01/21/19 08:08 Mylicon Tab* PO 80 mg Q6H PRN Administration INDIGESTION Tramadol HCl 50 mg 01/13/19 17:03 01/21/19 08:08 Ultram* PO 50 mg Q6H PRN Administration PAIN - MODERATE Trazodone HCl 50 mg 01/13/19 17:02 01/20/19 21:38 Desyrel Tab* PO 50 mg BEDTIME PRN Administration INSOMNIA Vital Signs: Vital Signs Temp Pulse Resp BP Pulse Ox 98.5 F 76 16 135/78 99 01/21/19 16:30 01/21/19 16:30 01/21/19 16:57 01/21/19 16:30 01/21/19 16:57 Lab Results: Laboratory Results - last 24 hr 01/20/19 01/20/19 01/20/19 07:49 11:57 16:50 WBC RBC Hgb Hct MCV MCH MCHC RDW Plt Count MPV Neut % (Auto) Lymph % (Auto) [place] % (Auto) Eos % (Auto) Baso % (Auto) Absolute Neuts (auto) Absolute Lymphs (auto) Absolute Monos (auto) Absolute Eos (auto) Absolute Basos (auto) Absolute Nucleated RBC Nucleated RBC % Sodium Potassium Chloride Carbon Dioxide Anion Gap BUN Creatinine Est GFR ( Amer) Est GFR (Non-Af Amer) BUN/Creatinine Ratio Glucose POC Glucose (mg/dL) 160 H 314 H 186 H Calcium Total Bilirubin AST ALT Alkaline Phosphatase Total Protein Albumin Globulin Albumin/Globulin Ratio 01/20/19 01/21/19 01/21/19 20:22 05:58 05:58 WBC 5.6 RBC 3.25 L Hgb 9.3 L Hct 28 L MCV 86 MCH 29 MCHC 34 RDW 18 H Plt Count 237 MPV 8.1 Neut % (Auto) 63.5 Lymph % (Auto) 22.3 [place] % (Auto) 9.1 Eos % (Auto) 3.0 Baso % (Auto) 2.1 Absolute Neuts (auto) 3.6 Absolute Lymphs (auto) 1.3 Absolute Monos (auto) 0.5 Absolute Eos (auto) 0.2 Absolute Basos (auto) 0.1 Absolute Nucleated RBC 0.0 Nucleated RBC % 0.0 Sodium 137 Potassium 4.1 Chloride 105 Carbon Dioxide 26 Anion Gap 6 BUN 22 Creatinine 0.44 L Est GFR ( Amer) 241.2 Est GFR (Non-Af Amer) 199.3 BUN/Creatinine Ratio 50.0 H Glucose 88 POC Glucose (mg/dL) 362 H Calcium 8.4 L Total Bilirubin 0.70 AST 21 ALT 38 Alkaline Phosphatase 74 Total Protein 5.0 L Albumin 3.1 L Globulin 1.9 L Albumin/Globulin Ratio 1.6 01/21/19 12:03 WBC RBC Hgb Hct MCV MCH MCHC RDW Plt Count MPV Neut % (Auto) Lymph % (Auto) [place] % (Auto) Eos % (Auto) Baso % (Auto) Absolute Neuts (auto) Absolute Lymphs (auto) Absolute Monos (auto) Absolute Eos (auto) Absolute Basos (auto) Absolute Nucleated RBC Nucleated RBC % Sodium Potassium Chloride Carbon Dioxide Anion Gap BUN Creatinine Est GFR ( Amer) Est GFR (Non-Af Amer) BUN/Creatinine Ratio Glucose POC Glucose (mg/dL) 213 H Calcium Total Bilirubin AST ALT Alkaline Phosphatase Total Protein Albumin Globulin Albumin/Globulin Ratio Exam: GENERAL: No distress LUNGS: CLear bilaterally HEART: Regular rhythm ABDOMEN: Soft. Not as tender. EXTREMITIES: Decreased tone joesph LEs NEUROLOGIC: A&O. Arm strength 4/5. LE Strength 2/5 Assessment/Plan: 1. Respiratory Failure, Pneumonia: Finishing up course of Antibiotics. DuoNeb PRN. PT/OT 2. Limb Girdle Muscular Dystrophy: PT/OT. Power wheelchair did not arrive 3. Atrial Fibrillation, S/P Cardioversion: Eliquis/Lopressor/Multaq 4. Diabetes: Lantus/SSI 5. Abdominal Pain: Abd series X ray unrevealing. Pepcid. Better 6. DVT Prophylaxis: Eliquis 7. Hypokalemia: Corrected. Will d/c K phos and start Klor-con 8. Pain: His opiate dose was cut way back on the acute hospitalization. Continue oxycodone/Tramadol, increased oxy to 15 9. Anxiety: Resumed Xanax 0.25 Q8H PRN 10. Advance Directives: Full code 01/21/19 17:06
[2019-01-21] MEDS: Insulin GLARGINE(*) 1 UNITS UNIT SUBCUT SCH (17:28)
[2019-01-21] MEDS: Atorvastatin* 20 MG TAB PO SCH (17:28)
[2019-01-21] MEDS: traZODone TAB* 50 MG TAB PO PRN (21:24)
[2019-01-21] MEDS: ALPRAZolam TAB* 0.25 MG PO PRN (21:24)
[2019-01-22] MEDS: oxyCODONE TAB* 5 MG TAB PO PRN ×5 (01:46→22:05)
[2019-01-22] MEDS: Insulin LISPRO* 1 UNITS UNIT SUBCUT SCH ×4 (08:08→22:00)
[2019-01-22] MEDS: Dronedarone TAB* 400 MG PO SCH ×2 (08:09→21:58)
[2019-01-22] MEDS: Ramipril CAP* 10 MG PO SCH (08:09)
[2019-01-22] MEDS: Famotidine TAB* 20 MG PO SCH ×2 (08:10→21:57)
[2019-01-22] MEDS: Docusate CAP* 100 MG PO SCH ×2 (08:10→21:57)
[2019-01-22] MEDS: Apixaban* 5 MG TAB PO SCH ×2 (08:10→21:58)
[2019-01-22] MEDS: Metoprolol Tartrate TAB* 25 MG PO SCH ×2 (08:10→21:58)
[2019-01-22] MEDS: traMADol TAB* 50 MG PO PRN ×2 (08:10→19:22)
[2019-01-22] MEDS: Potassium Chlor TAB* 10 MEQ TAB.ER PO SCH (08:10)
[2019-01-22] MEDS: Simethicone TAB* 80 MG TAB.CHEW PO PRN (10:09)
[2019-01-22] MEDS: Atorvastatin* 20 MG TAB PO SCH (17:41)
[2019-01-22] MEDS: Insulin GLARGINE(*) 1 UNITS UNIT SUBCUT SCH (17:43)
--- NOTE | 2019-01-22 21:10 | PN ---
Progress Note Date of Service: 01/22/19 Note: LORENA DALLAS was visited. Therapy notes read and reviewed. OT would like him to have a trapeze for his bed. His blood sugars remain high. He states he was on Metformin at home-will resume. Current Medications: Active Medications Generic Name Dose Route Start Last Admin Trade Name Freq PRN Reason Stop Dose Admin Acetaminophen 650 mg 01/13/19 16:17 Tylenol Tab* PO Q6H PRN FEVER > 101 Albuterol/Ipratropium 1 neb 01/13/19 16:29 Duoneb (Albuterol 2.5 Mg/Ipratropium 0.5 Mg) INH Q4H PRN SOB/WHEEZING Alprazolam 0.25 mg 01/19/19 17:02 01/21/19 21:24 Xanax Tab* PO 0.25 mg Q8H PRN Administration ANXIETY Apixaban 5 mg 01/13/19 21:00 01/22/19 08:10 Eliquis* PO 5 mg BID JANA Administration Atorvastatin Calcium 20 mg 01/13/19 17:00 01/22/19 17:41 Lipitor* PO 20 mg 1700 JANA Administration Docusate Sodium 100 mg 01/13/19 21:00 01/22/19 08:10 Colace Cap* PO 100 mg BID JANA Administration Dronedarone 400 mg 01/13/19 21:00 01/22/19 08:09 Multaq Tab* PO 400 mg BID JANA Administration Famotidine 20 mg 01/13/19 21:00 01/22/19 08:10 Pepcid Tab* PO 20 mg BID JANA Administration Insulin Glargine 40 units 01/13/19 18:00 01/22/19 17:43 Lantus(*) SUBCUT 40 units Q24H JANA Administration Insulin Human Lispro 0 units 01/13/19 16:30 01/22/19 17:41 Humalog* SUBCUT 9 units ACHS JANA Administration Protocol Magnesium Hydroxide 30 ml 01/13/19 16:22 01/16/19 08:32 Milk Of Magnesia Liq* PO 30 ml Q6H PRN Administration CONSTIPATION Metformin HCl 500 mg 01/23/19 08:00 Glucophage* PO 0800,1700 JANA Metoprolol Tartrate 12.5 mg 01/13/19 21:00 01/22/19 08:10 Lopressor Tab* PO 12.5 mg Q12HR JANA Administration Oxycodone HCl 15 mg 01/22/19 20:57 Roxycodone Tab* PO Q4H PRN PAIN - SEVERE Potassium Chloride 10 meq 01/19/19 09:00 01/22/19 08:10 Klor Con Er Tab* PO 10 meq DAILY JANA Administration Ramipril 10 mg 01/14/19 09:00 01/22/19 08:09 Altace Cap* PO 10 mg DAILY JANA Administration Senna 2 tab 01/13/19 16:17 01/20/19 20:10 Senokot 8.6 Mg Tab* PO 2 tab BEDTIME PRN Administration CONSTIPATION Simethicone 80 mg 01/17/19 18:14 01/22/19 10:09 Mylicon Tab* PO 80 mg Q6H PRN Administration INDIGESTION Tramadol HCl 50 mg 01/13/19 17:03 01/22/19 19:22 Ultram* PO 50 mg Q6H PRN Administration PAIN - MODERATE Trazodone HCl 50 mg 01/13/19 17:02 01/21/19 21:24 Desyrel Tab* PO 50 mg BEDTIME PRN Administration INSOMNIA Vital Signs: Vital Signs Temp Pulse Resp BP Pulse Ox 98.1 F 75 16 147/59 99 01/22/19 20:14 01/22/19 20:14 01/22/19 20:14 01/22/19 20:14 01/22/19 20:14 Lab Results: Laboratory Results - last 24 hr 01/21/19 01/22/19 01/22/19 20:22 07:26 11:44 POC Glucose (mg/dL) 131 H 230 H 205 H 01/22/19 16:41 POC Glucose (mg/dL) 300 H Exam: GENERAL: No distress LUNGS: CLear bilaterally HEART: Regular rhythm ABDOMEN: Soft. Not as tender. EXTREMITIES: Decreased tone joesph LEs NEUROLOGIC: A&O. Arm strength 4/5. LE Strength 2/5 Assessment/Plan: 1. Respiratory Failure, Pneumonia: Finishing up course of Antibiotics. DuoNeb PRN. PT/OT 2. Limb Girdle Muscular Dystrophy: PT/OT. Power wheelchair did not arrive 3. Atrial Fibrillation, S/P Cardioversion: Eliquis/Lopressor/Multaq 4. Diabetes: Lantus/SSI 5. Abdominal Pain: Abd series X ray unrevealing. Pepcid. Better 6. DVT Prophylaxis: Eliquis 7. Hypokalemia: Corrected. Will d/c K phos and start Klor-con 8. Pain: His opiate dose was cut way back on the acute hospitalization. Continue oxycodone/Tramadol, increased oxy to 15 9. Anxiety: Resumed Xanax 0.25 Q8H PRN 10. Advance Directives: Full code 01/22/19 21:10
[2019-01-22] MEDS: traZODone TAB* 50 MG TAB PO PRN (21:57)
[2019-01-22] MEDS: ALPRAZolam TAB* 0.25 MG PO PRN (21:58)
[2019-01-23] MEDS: oxyCODONE TAB* 5 MG TAB PO PRN ×4 (05:00→21:24)
[2019-01-23] MEDS: Potassium Chlor TAB* 10 MEQ TAB.ER PO SCH (10:03)
[2019-01-23] MEDS: Docusate CAP* 100 MG PO SCH ×2 (10:03→21:23)
[2019-01-23] MEDS: Ramipril CAP* 10 MG PO SCH (10:03)
[2019-01-23] MEDS: metFORMIN* 500 MG TAB PO SCH ×2 (10:03→17:31)
[2019-01-23] MEDS: Metoprolol Tartrate TAB* 25 MG PO SCH ×2 (10:04→21:25)
[2019-01-23] MEDS: Famotidine TAB* 20 MG PO SCH ×2 (10:04→21:23)
[2019-01-23] MEDS: Apixaban* 5 MG TAB PO SCH ×2 (10:04→21:23)
[2019-01-23] MEDS: Insulin LISPRO* 1 UNITS UNIT SUBCUT SCH ×4 (10:04→21:24)
[2019-01-23] MEDS: Dronedarone TAB* 400 MG PO SCH ×2 (10:04→21:23)
[2019-01-23] MEDS: Simethicone TAB* 80 MG TAB.CHEW PO PRN (12:31)
[2019-01-23] MEDS: traMADol TAB* 50 MG PO PRN (12:34)
--- NOTE | 2019-01-23 17:29 | PN ---
Progress Note Date of Service: 01/23/19 Note: LORENA DALLAS was visited. Nursing notes read and reviewed. He continues to report a vague diffuse abdominal pain with a lack of appetite. His vitals are fine, he eats ok. I thought initially it was withdrawal or his potassium pills. Not sure if it is a medicine (Multaq is new, as is Eliquis) or a different process. Current Medications: Active Medications Generic Name Dose Route Start Last Admin Trade Name Freq PRN Reason Stop Dose Admin Acetaminophen 650 mg 01/13/19 16:17 Tylenol Tab* PO Q6H PRN FEVER > 101 Albuterol/Ipratropium 1 neb 01/13/19 16:29 Duoneb (Albuterol 2.5 Mg/Ipratropium 0.5 Mg) INH Q4H PRN SOB/WHEEZING Alprazolam 0.25 mg 01/19/19 17:02 01/22/19 21:58 Xanax Tab* PO 0.25 mg Q8H PRN Administration ANXIETY Apixaban 5 mg 01/13/19 21:00 01/23/19 10:04 Eliquis* PO 5 mg BID JANA Administration Atorvastatin Calcium 20 mg 01/13/19 17:00 01/22/19 17:41 Lipitor* PO 20 mg 1700 JANA Administration Docusate Sodium 100 mg 01/13/19 21:00 01/23/19 10:03 Colace Cap* PO 100 mg BID JANA Administration Dronedarone 400 mg 01/13/19 21:00 01/23/19 10:04 Multaq Tab* PO 400 mg BID JANA Administration Famotidine 20 mg 01/13/19 21:00 01/23/19 10:04 Pepcid Tab* PO 20 mg BID JANA Administration Insulin Glargine 40 units 01/13/19 18:00 01/22/19 17:43 Lantus(*) SUBCUT 40 units Q24H JANA Administration Insulin Human Lispro 0 units 01/13/19 16:30 01/23/19 12:32 Humalog* SUBCUT 9 units ACHS JANA Administration Protocol Magnesium Hydroxide 30 ml 01/13/19 16:22 01/16/19 08:32 Milk Of Magnesia Liq* PO 30 ml Q6H PRN Administration CONSTIPATION Metformin HCl 500 mg 01/23/19 08:00 01/23/19 10:03 Glucophage* PO 500 mg 0800,1700 JANA Administration Metoprolol Tartrate 12.5 mg 01/13/19 21:00 01/23/19 10:04 Lopressor Tab* PO 12.5 mg Q12HR JANA Administration Oxycodone HCl 15 mg 01/22/19 20:57 01/23/19 15:50 Roxycodone Tab* PO 15 mg Q4H PRN Administration PAIN - SEVERE Potassium Chloride 10 meq 01/19/19 09:00 01/23/19 10:03 Klor Con Er Tab* PO 10 meq DAILY JANA Administration Ramipril 10 mg 01/14/19 09:00 01/23/19 10:03 Altace Cap* PO 10 mg DAILY JANA Administration Senna 2 tab 01/13/19 16:17 01/20/19 20:10 Senokot 8.6 Mg Tab* PO 2 tab BEDTIME PRN Administration CONSTIPATION Simethicone 80 mg 01/17/19 18:14 01/23/19 12:31 Mylicon Tab* PO 80 mg Q6H PRN Administration INDIGESTION Tramadol HCl 50 mg 01/13/19 17:03 01/23/19 12:34 Ultram* PO 50 mg Q6H PRN Administration PAIN - MODERATE Trazodone HCl 50 mg 01/13/19 17:02 01/22/19 21:57 Desyrel Tab* PO 50 mg BEDTIME PRN Administration INSOMNIA Vital Signs: Vital Signs Temp Pulse Resp BP Pulse Ox 98.5 F 90 12 145/67 97 01/23/19 04:55 01/23/19 10:05 01/23/19 15:50 01/23/19 04:55 01/23/19 07:00 Lab Results: Laboratory Results - last 24 hr 01/22/19 01/22/19 01/23/19 16:41 20:13 07:37 POC Glucose (mg/dL) 300 H 335 H 142 H 01/23/19 11:51 POC Glucose (mg/dL) 265 H Exam: GENERAL: No distress LUNGS: CLear bilaterally HEART: Regular rhythm ABDOMEN: Soft. Diffusely tender tender. EXTREMITIES: Decreased tone joesph LEs NEUROLOGIC: A&O. Arm strength 4/5. LE Strength 2/5 Assessment/Plan: 1. Respiratory Failure, Pneumonia: Finishing up course of Antibiotics. DuoNeb PRN. PT/OT 2. Limb Girdle Muscular Dystrophy: PT/OT. Power wheelchair did not arrive 3. Atrial Fibrillation, S/P Cardioversion: Eliquis/Lopressor/Multaq 4. Diabetes: Lantus/SSI 5. Abdominal Pain: Abd series X ray unrevealing. Pepcid. Better 6. DVT Prophylaxis: Eliquis 7. Hypokalemia: Corrected. Will d/c K phos and start Klor-con 8. Pain: His opiate dose was cut way back on the acute hospitalization. Continue oxycodone/Tramadol, increased oxy to 15 9. Anxiety: Resumed Xanax 0.25 Q8H PRN 10. Advance Directives: Full code 01/23/19 17:30
[2019-01-23] MEDS: Insulin GLARGINE(*) 1 UNITS UNIT SUBCUT SCH (17:34)
[2019-01-23] MEDS: Atorvastatin* 20 MG TAB PO SCH (17:35)
[2019-01-23] MEDS: ALPRAZolam TAB* 0.25 MG PO PRN (21:30)
[2019-01-23] MEDS: traZODone TAB* 50 MG TAB PO PRN (21:30)
[2019-01-24] MEDS: oxyCODONE TAB* 5 MG TAB PO PRN ×5 (04:25→21:57)
[2019-01-24] MEDS: Insulin LISPRO* 1 UNITS UNIT SUBCUT SCH ×4 (09:05→20:45)
[2019-01-24] MEDS: Metoprolol Tartrate TAB* 25 MG PO SCH ×2 (10:31→21:55)
[2019-01-24] MEDS: Potassium Chlor TAB* 10 MEQ TAB.ER PO SCH (10:32)
[2019-01-24] MEDS: Docusate CAP* 100 MG PO SCH ×2 (10:32→21:59)
[2019-01-24] MEDS: Apixaban* 5 MG TAB PO SCH ×2 (10:32→21:56)
[2019-01-24] MEDS: Dronedarone TAB* 400 MG PO SCH ×2 (10:32→21:54)
[2019-01-24] MEDS: Ramipril CAP* 10 MG PO SCH (10:32)
[2019-01-24] MEDS: metFORMIN* 500 MG TAB PO SCH ×2 (10:32→17:48)
[2019-01-24] MEDS: Famotidine TAB* 20 MG PO SCH ×2 (10:32→22:12)
[2019-01-24] MEDS: traMADol TAB* 50 MG PO PRN (11:50)
[2019-01-24] MEDS: Simethicone TAB* 80 MG TAB.CHEW PO PRN (16:07)
[2019-01-24] MEDS: Atorvastatin* 20 MG TAB PO SCH (17:48)
[2019-01-24] MEDS: Insulin GLARGINE(*) 1 UNITS UNIT SUBCUT SCH (18:28)
--- NOTE | 2019-01-24 20:12 | PN ---
Progress Note Date of Service: 01/24/19 Note: LORENA DALLAS was visited. Therapy notes read and reviewed. He continues to have abdominal pain. Will ask GI to see tomorrow. Could this be a reaction from Multaq? Current Medications: Active Medications Generic Name Dose Route Start Last Admin Trade Name Freq PRN Reason Stop Dose Admin Acetaminophen 650 mg 01/13/19 16:17 Tylenol Tab* PO Q6H PRN FEVER > 101 Albuterol/Ipratropium 1 neb 01/13/19 16:29 Duoneb (Albuterol 2.5 Mg/Ipratropium 0.5 Mg) INH Q4H PRN SOB/WHEEZING Alprazolam 0.25 mg 01/19/19 17:02 01/23/19 21:30 Xanax Tab* PO 0.25 mg Q8H PRN Administration ANXIETY Apixaban 5 mg 01/13/19 21:00 01/24/19 10:32 Eliquis* PO 5 mg BID JANA Administration Atorvastatin Calcium 20 mg 01/13/19 17:00 01/24/19 17:48 Lipitor* PO 20 mg 1700 JANA Administration Docusate Sodium 100 mg 01/13/19 21:00 01/24/19 10:32 Colace Cap* PO 100 mg BID JANA Administration Dronedarone 400 mg 01/13/19 21:00 01/24/19 10:32 Multaq Tab* PO 400 mg BID JANA Administration Famotidine 20 mg 01/13/19 21:00 01/24/19 10:32 Pepcid Tab* PO 20 mg BID JANA Administration Insulin Glargine 40 units 01/13/19 18:00 01/24/19 18:28 Lantus(*) SUBCUT 40 units Q24H JANA Administration Insulin Human Lispro 0 units 01/13/19 16:30 01/24/19 16:48 Humalog* SUBCUT Not Given ACHS JANA Protocol Magnesium Hydroxide 30 ml 01/13/19 16:22 01/16/19 08:32 Milk Of Magnesia Liq* PO 30 ml Q6H PRN Administration CONSTIPATION Metformin HCl 500 mg 01/23/19 08:00 01/24/19 17:48 Glucophage* PO 500 mg 0800,1700 JANA Administration Metoprolol Tartrate 12.5 mg 01/13/19 21:00 01/24/19 10:31 Lopressor Tab* PO 12.5 mg Q12HR JANA Administration Oxycodone HCl 15 mg 01/22/19 20:57 01/24/19 18:10 Roxycodone Tab* PO 15 mg Q4H PRN Administration PAIN - SEVERE Potassium Chloride 10 meq 01/19/19 09:00 01/24/19 10:32 Klor Con Er Tab* PO 10 meq DAILY JANA Administration Ramipril 10 mg 01/14/19 09:00 01/24/19 10:32 Altace Cap* PO 10 mg DAILY JANA Administration Senna 2 tab 01/13/19 16:17 01/20/19 20:10 Senokot 8.6 Mg Tab* PO 2 tab BEDTIME PRN Administration CONSTIPATION Simethicone 80 mg 01/17/19 18:14 01/24/19 16:07 Mylicon Tab* PO 80 mg Q6H PRN Administration INDIGESTION Tramadol HCl 50 mg 01/13/19 17:03 01/24/19 11:50 Ultram* PO 50 mg Q6H PRN Administration PAIN - MODERATE Trazodone HCl 50 mg 01/13/19 17:02 01/23/19 21:30 Desyrel Tab* PO 50 mg BEDTIME PRN Administration INSOMNIA Vital Signs: Vital Signs Temp Pulse Resp BP Pulse Ox 98.3 F 68 19 121/74 99 01/24/19 15:56 01/24/19 15:56 01/24/19 18:10 01/24/19 15:56 01/24/19 19:50 Lab Results: Laboratory Results - last 24 hr 01/23/19 01/24/19 01/24/19 20:13 07:38 11:39 POC Glucose (mg/dL) 241 H 97 219 H 01/24/19 16:35 POC Glucose (mg/dL) 118 H Exam: GENERAL: No distress LUNGS: CLear bilaterally HEART: Regular rhythm ABDOMEN: Soft. Diffusely tender tender. EXTREMITIES: Decreased tone joesph LEs NEUROLOGIC: A&O. Arm strength 4/5. LE Strength 2/5 Assessment/Plan: 1. Respiratory Failure, Pneumonia: Finishing up course of Antibiotics. DuoNeb PRN. PT/OT 2. Limb Girdle Muscular Dystrophy: PT/OT. Power wheelchair did not arrive 3. Atrial Fibrillation, S/P Cardioversion: Eliquis/Lopressor/Multaq 4. Diabetes: Lantus/SSI 5. Abdominal Pain: Abd series X ray unrevealing. Worse today. Will ask GI or hospitalists to see. Pepcid. Better 6. DVT Prophylaxis: Eliquis 7. Hypokalemia: Corrected. Will d/c K phos and start Klor-con 8. Pain: His opiate dose was cut way back on the acute hospitalization. Continue oxycodone/Tramadol, increased oxy to 15 9. Anxiety: Resumed Xanax 0.25 Q8H PRN 10. Advance Directives: Full code 01/24/19 20:13
[2019-01-24] MEDS: ALPRAZolam TAB* 0.25 MG PO PRN (21:54)
[2019-01-24] MEDS: traZODone TAB* 50 MG TAB PO PRN (21:54)
[2019-01-24] MEDS: Famotidine SUSP ORALSYR 8 MG/ML PO SCH (22:08)
[2019-01-25] MEDS: oxyCODONE TAB* 5 MG TAB PO PRN ×5 (02:58→22:07)
[2019-01-25] MEDS: Apixaban* 5 MG TAB PO SCH ×2 (08:21→20:21)
[2019-01-25] MEDS: metFORMIN* 500 MG TAB PO SCH ×2 (08:21→17:10)
[2019-01-25] MEDS: Dronedarone TAB* 400 MG PO SCH ×2 (08:23→20:21)
[2019-01-25] MEDS: Metoprolol Tartrate TAB* 25 MG PO SCH ×2 (08:23→20:21)
[2019-01-25] MEDS: Potassium Chlor TAB* 10 MEQ TAB.ER PO SCH (08:23)
[2019-01-25] MEDS: Ramipril CAP* 10 MG PO SCH (08:23)
[2019-01-25] MEDS: Famotidine SUSP ORALSYR 8 MG/ML PO SCH ×2 (08:37→20:22)
[2019-01-25] MEDS: Insulin LISPRO* 1 UNITS UNIT SUBCUT SCH ×4 (08:45→20:55)
[2019-01-25] MEDS: Docusate CAP* 100 MG PO SCH ×2 (08:46→20:02)
--- NOTE | 2019-01-25 13:04 | PMRUTEAM ---
PMRU: Team Meeting Current Status: Physical Therapy: Current Status Current Rolling Status Partial/Moderate Current Supine <-> Sit Status Dependent Current Sit <-> Stand Status Dependent Current Bed <-> Chair Status Dependent Transfer/Bed Mobility Papo Lift Recommended Devices Current Ambulation Assistance Not attempted Status Current Wheelchair Propulsion Dependent Ability Status Current Stair Climbing Status Not Applicable Current Curb Assistance Status Not Applicable Objective Comments Discussed plan to work on standing from elevated EOM with assistance this date. Pt reports "not feeling up for it today" but agreeable to making it part of the treatment plan tomorrow. Occupational Therapy: Current Status Current Upper Body Dressing Setup or Clean-up Assist Status Current Lower Body Dressing Dependent Status Current Footwear Status Dependent Current Bathing Status Substantial/Maximal Current Grooming Status Partial/Moderate Current Toileting Status Dependent Current Toilet Transfer Status Dependent Current Eating Status Independent Nursing: Current Status Skin Deviations [Bilateral Rash Groin] Skin Deviations [Gluteal Fold] Other Skin Deviations [Buttocks] Other Skin Deviation Description [-] - Skin Deviation Description [ mild erythema in groin folds Bilateral Groin] Skin Deviation Description [ area of peeling skin Gluteal Fold] Skin Deviation Description [ appears benign during pericare given after BM this Buttocks] morning Bladder Current Status Alvarez in place Bowel Current Status Papo lift to commode Nutrition Current Status 75% of meal Medication Current Status takes pain meds for chronic pain Rec Therapy: Current Status Summary of Assessment and Recreation Therapy assessment complete and pt. is Clinical Impression aware of services. Pt. has been very open to leisure visits and pet therapy. Pt. commonly observed engaging in independent leisure in his room. Treatment Goals Pt. will engage in leisure activities while on the unit. Treatment Plan Provide recreation therapy services and encourage involvement. Social Work: Current Status Discharge Plan Return home with VNS and additional family support . He states that his niece will be moving in with him at d/c and his ex- will continue to act as his PRINCIPAL GIFTS OFFICER, Potential for Family Training TBD Anticipated Discharge Home Destination Discharge With with home care svs and family support Nutrition: Current Status Monitoring Pt tolerating consistent carb diet, regular texture, w/good intake - avg 66% at meals. Also receives and accepts glucerna supplements TID. Last BM 01/17. Denies GI s/sx such as n/v/c/abd pain. Labs/meds rev'd. No futher nutrition intervention indicated at this time. Goals: Physical Therapy: Goals Goals to Be Accomplished in ( 21-28 Days) Goal: Rolling Assistance Independent Goal Supine <-> Sit Status Independent Goal Sit <-> Stand Status Partial/Moderate Goal Bed <-> Chair Status Partial/Moderate Transfer/Bed Mobility Papo Lift Recommended Devices Goal: Picking Up Object Partial/Moderate Goal: Wheelchair Propulsion Independent Ability Wheelchair Distance (ft) 150 Goal: Stairs Assistance Not Applicable Goal: Home Exercise Program Independent Assistance Occupational Therapy: Goals Goals to be Completed in (Days 3-4 weeks ) Goal Upper Body Dressing Setup or Clean-up Assist Routine Goal Lower Body Dressing Dependent Routine Goal Footwear Status Dependent Goal Bathing Routine (OT) Partial/Moderate Goal Grooming Routine Independent Goal Toilet Hygiene and Substantial/Maximal Clothing Management Routine Goal Toilet Transfer Routine Partial/Moderate Goal Functional Transfers for Partial/Moderate ADL Goal Feeding Routine Independent Goal Light Housekeeping Tasks Dependent Nutrition: Goals Intervention Goals 1. Maintain adequate glycemic control per inpatient parameters w/o hypoglycemia. 2. Maintain adequate oral intake to support maintenance of lean body mass w/o contributing to undesirable weight gain. 3. Achieve/maintain regular bowel pattern w/o constipation or diarrhea. 4. Tolerates least restrictive texture w/o difficulty chewing or swallowing. Social Work: Goals Discharge Plan Return home with VNS and additional family support . He states that his niece will be moving in with him at d/c and his ex- will continue to act as his PRINCIPAL GIFTS OFFICER, Potential for Family Training TBD Anticipated Discharge Home Destination Discharge With with home care svs and family support Nursing: Goals Bladder Goal Sensation to void Bowel Goal EZ stand to commode Nutrition Goal 100% of meal Medication Goal independent Care Plan: Care Plan ADL's - Improve/Maintain Start: 01/13/19 22:32 Freq: DAILY@0700,1900 Status: Active Target: 01/20/19 Protocol: Activity Type Activity Date Activity User E-Sign Co-Sign Detail Recorded Client Recorded Date Recorded By Document 01/24/19 14:00 [id number] 01/24/19 14:01 [id number] 01/24/19 14:00 PMRU Outcome: ADL's/ADL Transfers Orders/Interventions Occupational Therapy Evaluation & Treatment Device Yes Address Deficits Secondary To: resp failure Patient to receive OT 5x/wk for 60-120 Therex min/day Self Care Management Group Therapy Neuromuscular ReEducation UE/LE ADL's with Assist Yes: maxA ADL Transfers with Assist Yes: modA Toileting: Transfers,Clothing Management Yes: ModA ,Hygeine w/Assist Light Kitchen/Laundry w/Assist Yes Progression Toward Outcome/Goals Not Progressing Lack of Progression Comment Pt is motivated and making steady progress . He continues to require signifciant assist for his ADL routine. Cardiovascular- Improve/Maintain Start: 01/13/19 22:32 Freq: DAILY@699,190 Status: Active Target: 01/27/19 Protocol: Activity Type Activity Date Activity User E-Sign Co-Sign Detail Recorded Client Recorded Date Recorded By Document 01/25/19 07:00 [id number] [id number] 01/25/19 08:36 [id number] 01/25/19 07:00 PMRU Outcome: Cardiovascular Vital Signs q Shift for 48hrs Then BID Yes Daily Weight Ordered No Current Cardiovascular Outcome/Goal Maintain/ Achieve Baseline HR, BP , Perfusion Maintain/ Achieve Hemodynamic Stability Free of Abnormal Cardiac Symptoms Progression Toward Outcome/Goal Progressing Outcomes/Goals Met Maintain/ Achieve Baseline HR, BP , Perfusion Maintain/ Achieve Hemodynamic Stability Free of Abnormal Cardiac Symptoms DVT Prophylaxis- Improve/Maintain Start: 01/13/19 22:32 Freq: DAILY@ Status: Active Target: 01/27/19 Protocol: Activity Type Activity Date Activity User E-Sign Co-Sign Detail Recorded Client Recorded Date Recorded By Document 01/25/19 07:00 [id number] 01/25/19 08:36 [id number] 01/25/19 07:00 PMRU Outcome: DVT Prophylaxis Current DVT Outcome/Goals Remains Free of DVT Complies with DVT Prophylaxis /Treatment Demonstrates Knowledge of DVT Prevention/ Treatment Progression Toward Outcome/Goals Progressing Outcome/Goals Met Remains Free of DVT Discharge Planning - Improve/Maintain Start: 01/13/19 22:32 Freq: DAILY@ Status: Active Target: 01/27/19 Protocol: Activity Type Activity Date Activity User E-Sign Co-Sign Detail Recorded Client Recorded Date Recorded By Document 01/25/19 07:00 [id number] [email or web address] 01/25/19 08:36 [id number] 01/25/19 07:00 PMRU Outcome: Discharge Planning Update Patient Family No Current Discharge Planning Outcome/Goals Demonstrates Understanding of Discharge Plan Homecare Referral - See Comment Progression Toward Outcome/Goals Progressing Education-Improve/Maintain Start: 01/13/19 22:32 Freq: DAILY@[id number] Status: Active Target: 01/27/19 Protocol: Activity Type Activity Date Activity User E-Sign Co-Sign Detail Recorded Client Recorded Date Recorded By Document 01/25/19 07:00 [id number] [email or web address] 01/25/19 08:36 [id number] 01/25/19 07:00 PMRU Outcome: Education Current Education Outcome/Goals Demonstrate/ Verbalize Understanding of Written Discharge Instructions Demonstrates Skills Encourage Questions Progression Toward Outcome/Goals Progressing /GI-Improve/Maintain Start: 01/13/19 22:32 Freq: DAILY@ Status: Active Target: 01/27/19 Protocol: Activity Type Activity Date Activity User E-Sign Co-Sign Detail Recorded Client Recorded Date Recorded By Document 01/25/19 07:00 [id number] 01/25/19 08:36 [id number] 01/25/19 07:00 PMRU Outcome: Genitourinary/ Gastrointestinal Current Gastrointestinal Outcome/Goals Maintain/ Achieve Bowel Regularity in Accordance with Pt's Baseline Remain Free of Emesis Prevent Constipation Laxatives as Ordered Progression Toward Outcome/Goals Progressing Outcome/Goals Met Maintain/ Achieve Bowel Regularity in Accordance with Pt's Baseline Remain Free of Emesis Prevent Constipation Current Genitourinary Outcome/Goals Maintain/ Achieve Adequate Urinary Output Remain Free of Hospital- Acquired UTI Progression Toward Outcome/Goals Progressing Outcome/Goals Met Maintain/ Achieve Adequate Urinary Output Remain Free of Hospital- Acquired UTI Outcome/Goals Met Comment Alvarez draining clear, yellow urine. 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 No Metabolic Status- Improve/Maintain Start: 01/13/19 22:32 Freq: DAILY@0700,1900 Status: Active Target: 01/27/19 Protocol: Activity Type Activity Date Activity User E-Sign Co-Sign Detail Recorded Client Recorded Date Recorded By Document 01/25/19 07:00 [id number] 01/25/19 08:36 [id number] 01/25/19 07:00 PMRU Outcome: Metabolic Status Have Fingersticks Been Ordered Yes Fingerstick Order Frequency AC & HS Current Metabolic Status Outcome/Goals Maintain/ Improve Metabolic Status Demonstrate Knowledge of Prevention/ Treatment of Metabolic Imbalances Progression Toward Outcome/Goals Progressing Outcome/Goals Met Maintain/ Improve Metabolic Status Demonstrate Knowledge of Prevention/ Treatment of Metabolic Imbalances Mobility- Improve/Maintain Start: 01/13/19 22:32 Freq: DAILY@[id number] Status: Active Target: 02/09/19 Protocol: Activity Type Activity Date Activity User E-Sign Co-Sign Detail Recorded Client Recorded Date Recorded By Document 01/15/19 12:15 [id number] 01/15/19 12:16 [id number] 01/15/19 12:15 PMRU Outcome: Mobility Physical Therapy Evaluation and Yes Treatment Activity OOB with Assistance Yes Device Yes: Papo/EZ- stand Assistance Yes: Max/ Dependent Patient to be seen 5x/wk for 60-120 min/ Therex day for: Mobility Training W/C Mobility Balance Other Current Mobility Outcome/Goals Maintain/ Achieve Baseline Mobility Status Improve Mobility Status Demonstrates Proper Use of Assistive Devices Free from Complications of Immobility Progression Toward Outcome/Goals Goal Initiation Bed Mobility Yes: Ind Transfers Yes: Partial/ Mod A W/C Mobility x ft Yes: Ind in power wheelchair x150ft With HEP Yes: Ind Nutrition/Swallowing- Improve/Maintain Start: 01/13/19 22:32 Freq: DAILY@0700,1900 Status: Active Target: 01/27/19 Protocol: Activity Type Activity Date Activity User E-Sign Co-Sign Detail Recorded Client Recorded Date Recorded By Document 01/25/19 07:00 [id number] [email or web address] 01/25/19 08:36 [id number] 01/25/19 07:00 PMRU Outcome: Nutrition/Swallowing Current Nutrition/Swallowing Outcome/ Demonstrates Goals Adequate Hydration/ Prevents Dehydration Maintain/ Improve Nutritional Status Progression Toward Outcome/Goals Progressing Outcome/Goals Met Demonstrates Adequate Hydration/ Prevents Dehydration Pain/Comfort- Improve/Maintain Start: 01/13/19 22:32 Freq: DAILY@0700,1900 Status: Complete Target: 01/27/19 Protocol: Activity Type Activity Date Activity User E-Sign Co-Sign Detail Recorded Client Recorded Date Recorded By Document 01/19/19 15:58 [id number] [email or web address] 01/19/19 15:59 [id number] 01/19/19 15:58 PMRU Outcome: Pain/Comfort Current Pain/Comfort Outcome/Goals Demonstrates Knowledge and Use of Available Comfort Measures Achieves Acceptable Comfort/Pain Level as Determined by Patient/Condit Maintain Comfort Level Allowing Patient to Fully Participate in Rehab Progression Toward Outcome/Goals Goals Met Outcome/Goals Met Demonstrates Knowledge and Use of Available Comfort Measures Maintain Comfort Level Allowing Patient to Fully Participate in Rehab Rec Therapy- Improve/Maintain Start: 01/13/19 22:32 Freq: DAILY@699,[id number] Status: Active Target: 02/09/19 Protocol: Activity Type Activity Date Activity User E-Sign Co-Sign Detail Recorded Client Recorded Date Recorded By Document 01/19/19 15:17 [id number] [email or web address] 01/19/19 15:19 [id number] 01/19/19 15:17 PMRU Outcome: Recreation Therapy Current Rec Ther Outcome/Goals Complete Rec Therapy Assessment Meet with Patient Regularly for Support Encourage Leisure Involvement Progression Toward Outcome/Goals Goals Met Lack of Progression Comment pt. has been social and interactive during leisure visits, pt. has been engaged in independent leisure such as watching videos on his phone. pt. 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 pt. has been cooperative and appropriate. Outcome/Goals Met Complete Rec Therapy Assessment Outcome/Goals Met Comment recreation assessment complete. Safety- Improve/Maintain Start: 01/13/19 16:23 Freq: DAILY@0700,1900 Status: Active Target: 01/27/19 Protocol: Activity Type Activity Date Activity User E-Sign Co-Sign Detail Recorded Client Recorded Date Recorded By Document 01/25/19 07:00 [id number] 01/25/19 08:36 [id number] 01/25/19 07:00 PMRU Outcome: Safety Current Safety Outcome/Goals Remain Free of Injury or Harm Cooperates with Safety Measures for Least Restrictive Environment Prevent Falls/ Injury Progression Toward Outcome/Goals Progressing Outcome/Goals Met Remain Free of Injury or Harm Cooperates with Safety Measures for Least Restrictive Environment Prevent Falls/ Injury - Interdisciplinary Staff Present Shop Mechanic Helper/Social Work Staff Present: Salena Israel LMSW Nursing Staff Present: Demetria Wayne LPN OT Staff Present: Kristen Jensen PT Staff Present: Korina Vera Medicine Note: Length of Stay: 15 days Anticipated Discharge Destination: Home Tentative Discharge Date: 02/09/19 Discharged to: Home?
[2019-01-25] MEDS: Atorvastatin* 20 MG TAB PO SCH (17:10)
[2019-01-25] MEDS: Simethicone TAB* 80 MG TAB.CHEW PO PRN (17:10)
[2019-01-25] MEDS: Insulin GLARGINE(*) 1 UNITS UNIT SUBCUT SCH (18:05)
--- NOTE | 2019-01-25 19:35 | PN ---
Progress Note Date of Service: 01/25/19 Note: LORENA DALLAS was visited. Therapy notes read and reviewed. He was discussed ininterdisciplinary team rounds. He continues to complain of diffuse abdominal pain. I have asked GI to eval Current Medications: Active Medications Generic Name Dose Route Start Last Admin Trade Name Freq PRN Reason Stop Dose Admin Acetaminophen 650 mg 01/13/19 16:17 Tylenol Tab* PO Q6H PRN FEVER > 101 Albuterol/Ipratropium 1 neb 01/13/19 16:29 Duoneb (Albuterol 2.5 Mg/Ipratropium 0.5 Mg) INH Q4H PRN SOB/WHEEZING Alprazolam 0.25 mg 01/19/19 17:02 01/24/19 21:54 Xanax Tab* PO 0.25 mg Q8H PRN Administration ANXIETY Apixaban 5 mg 01/13/19 21:00 01/25/19 08:21 Eliquis* PO 5 mg BID JANA Administration Atorvastatin Calcium 20 mg 01/13/19 17:00 01/25/19 17:10 Lipitor* PO 20 mg 1700 JANA Administration Docusate Sodium 100 mg 01/13/19 21:00 01/25/19 08:46 Colace Cap* PO Not Given BID JANA Dronedarone 400 mg 01/13/19 21:00 01/25/19 08:23 Multaq Tab* PO 400 mg BID JANA Administration Famotidine 20 mg 01/24/19 22:00 01/25/19 08:37 Pepcid Susp 8mg/Ml PO 20 mg BID JANA Administration Insulin Glargine 40 units 01/13/19 18:00 01/25/19 18:05 Lantus(*) SUBCUT 40 units Q24H JANA Administration Insulin Human Lispro 0 units 01/13/19 16:30 01/25/19 17:12 Humalog* SUBCUT 2 units ACHS JANA Administration Protocol Magnesium Hydroxide 30 ml 01/13/19 16:22 01/16/19 08:32 Milk Of Magnesia Liq* PO 30 ml Q6H PRN Administration CONSTIPATION Metformin HCl 500 mg 01/23/19 08:00 01/25/19 17:10 Glucophage* PO 500 mg 0800,1700 JANA Administration Metoprolol Tartrate 12.5 mg 01/13/19 21:00 01/25/19 08:23 Lopressor Tab* PO 12.5 mg Q12HR JANA Administration Oxycodone HCl 15 mg 01/22/19 20:57 01/25/19 18:04 Roxycodone Tab* PO 15 mg Q4H PRN Administration PAIN - SEVERE Potassium Chloride 10 meq 01/19/19 09:00 01/25/19 08:23 Klor Con Er Tab* PO 10 meq DAILY JANA Administration Ramipril 10 mg 01/14/19 09:00 01/25/19 08:23 Altace Cap* PO 10 mg DAILY JANA Administration Senna 2 tab 01/13/19 16:17 01/20/19 20:10 Senokot 8.6 Mg Tab* PO 2 tab BEDTIME PRN Administration CONSTIPATION Simethicone 80 mg 01/17/19 18:14 01/25/19 17:10 Mylicon Tab* PO 80 mg Q6H PRN Administration INDIGESTION Tramadol HCl 50 mg 01/13/19 17:03 01/24/19 11:50 Ultram* PO 50 mg Q6H PRN Administration PAIN - MODERATE Trazodone HCl 50 mg 01/13/19 17:02 01/24/19 21:54 Desyrel Tab* PO 50 mg BEDTIME PRN Administration INSOMNIA Vital Signs: Vital Signs Temp Pulse Resp BP Pulse Ox 98.5 F 72 18 143/70 99 01/25/19 16:00 01/25/19 16:00 01/25/19 18:25 01/25/19 16:00 01/25/19 16:00 Lab Results: Laboratory Results - last 24 hr 01/24/19 01/25/19 01/25/19 20:12 07:44 12:05 POC Glucose (mg/dL) 211 H 109 H 152 H 01/25/19 16:12 POC Glucose (mg/dL) 135 H Exam: GENERAL: No distress LUNGS: CLear bilaterally HEART: Regular rhythm ABDOMEN: Soft. Diffusely tender. EXTREMITIES: Decreased tone joesph LEs NEUROLOGIC: A&O. Arm strength 4/5. LE Strength 2/5 Assessment/Plan: 1. Respiratory Failure, Pneumonia: Finishing up course of Antibiotics. DuoNeb PRN. PT/OT 2. Limb Girdle Muscular Dystrophy: PT/OT. Power wheelchair did not arrive 3. Atrial Fibrillation, S/P Cardioversion: Eliquis/Lopressor/Multaq 4. Diabetes: Lantus/SSI 5. Abdominal Pain: Abd series X ray unrevealing. Worse today. Will ask GI or hospitalists to see. Pepcid. Better 6. DVT Prophylaxis: Eliquis 7. Hypokalemia: Corrected. Will d/c K phos and start Klor-con 8. Pain: His opiate dose was cut way back on the acute hospitalization. Continue oxycodone/Tramadol, increased oxy to 15 9. Anxiety: Resumed Xanax 0.25 Q8H PRN 10. Advance Directives: Full code 01/25/19 19:37
[2019-01-25] MEDS: traZODone TAB* 50 MG TAB PO PRN (22:06)
[2019-01-25] MEDS: ALPRAZolam TAB* 0.25 MG PO PRN (22:06)
[2019-01-26] MEDS: oxyCODONE TAB* 5 MG TAB PO PRN ×4 (03:21→21:05)
[2019-01-26] MEDS: metFORMIN* 500 MG TAB PO SCH ×2 (09:22→18:39)
[2019-01-26] MEDS: Insulin LISPRO* 1 UNITS UNIT SUBCUT SCH ×4 (09:22→21:03)
[2019-01-26] MEDS: Ramipril CAP* 10 MG PO SCH (10:42)
[2019-01-26] MEDS: Docusate CAP* 100 MG PO SCH ×2 (10:42→20:59)
[2019-01-26] MEDS: Metoprolol Tartrate TAB* 25 MG PO SCH ×2 (10:42→21:01)
[2019-01-26] MEDS: Apixaban* 5 MG TAB PO SCH ×2 (10:42→21:06)
[2019-01-26] MEDS: Potassium Chlor TAB* 10 MEQ TAB.ER PO SCH (10:42)
[2019-01-26] MEDS: Dronedarone TAB* 400 MG PO SCH ×2 (10:43→20:59)
[2019-01-26] MEDS: Famotidine SUSP ORALSYR 8 MG/ML PO SCH (10:45)
[2019-01-26] MEDS: Atorvastatin* 20 MG TAB PO SCH (17:09)
--- NOTE | 2019-01-26 17:17 | CONS ---
CONSULTATION NOTE: DATE OF CONSULT: 01/26/19 REQUESTING PROVIDER: Dr. Lindquist. REASON FOR CONSULT: Abdominal pain. HISTORY OF PRESENT ILLNESS: Mr. Andrea Ramirez is a 58-year-old gentleman with a medical history notable for muscular dystrophy, chronic narcotic use, constipation, type 1 diabetes, depression/anxiety, and hypertension, who is currently in rehab unit after hospitalization for pneumonia. Briefly, Mr Ramirez was admitted initially last month after being found down in his apartment. He was hypotensive and febrile. Imaging demonstrated a pneumonia. He was given fluids and antibiotics. He required intubation and transfer to the ICU for respiratory failure. He has since stabilized clinically and has been moved to the rehab floor. He has complained of ongoing GI symptoms for which GI is now being consulted. On interview, Mr. Ramirez reports that during his hospitalization he developed significant abdominal discomfort related to gas and bloating. He describes feeling a gurgling and a bubbling sound/sensation in his abdomen. He reports decreased appetite as well as significant early satiety. He has had nausea without vomiting. Describes an epigastric burning sensation with some associated reflux symptoms. He also reports flatulence. He has been having a bowel movement every day to every few days. Stools have not been particularly hard or loose. He has not seen any blood, although he states that he would not necessarily be aware if there was blood. He has been on famotidine for a number of months. The patient had an abdominal x-ray performed on 01/14/19, which demonstrated stool throughout the colon. No more recent imaging. PAST MEDICAL HISTORY: 1. Limb-girdle muscular dystrophy. 2. Type 1 diabetes. 3. Depression. 4. Hypertension. 5. Chronic narcotic use. 6. Constipation related to narcotic use. PAST SURGICAL HISTORY: Left orchiectomy. MEDICATIONS: 1. Tylenol 650 every 6 hours as needed. 2. Senna as needed. 3. DuoNeb as needed. 4. Insulin. 5. Atorvastatin 20 mg daily. 6. Trazodone 50 mg at bedtime as needed. 7. Tramadol 50 mg every 6 hours as needed. 8. Eliquis 5 mg twice daily. 9. Colace 100 mg twice daily. 10. Dronedarone 400 mg twice daily. 11. Metoprolol 12.5 mg every 12 hours. 12. Ramipril 10 mg daily. 13. Simethicone 80 mg every 6 hours as needed. 14. Potassium 10 mEq daily. 15. Alprazolam 0.25 mg every 8 hours as needed. 16. Oxycodone 15 mg every 4 hours as needed. 17. Metformin 500 mg twice a day. 18. Pepcid 20 mg twice a day. ALLERGIES: HYDROCHLOROTHIAZIDE, STATINS, TRIAMTERENE. FAMILY HISTORY: No known GI or liver disease per the patient. SOCIAL HISTORY: The patient lives at [facility] in [place]. He has an aide daily. He is able to transfer in and out of his wheelchair. He is a nonsmoker. No significant alcohol use. No drug use. REVIEW OF SYSTEMS: The patient reports chronic musculoskeletal pain related to his muscular dystrophy. He feels the pain has been worse because his narcotics have been decreased. He was on chronic fentanyl patch, which has been discontinued. His oxycodone dose has also been decreased. No other significant symptoms other than mentioned above on full review of systems. PHYSICAL EXAM: Vital Signs: Afebrile, heart rate in the 70s, blood pressure 130s/60s, 98% on room air. General: Pleasant gentleman, in no acute distress. Resting comfortably in bed. HEENT: Mucous membranes moist. Pulmonary: Breathing comfortably. Heart: Regular rate and rhythm. Abdomen: Soft and not significantly distended. The patient has voluntary guarding and is quite tender diffusely, although perhaps a bit more in the upper abdomen. No rebound tenderness. Neurologic: A and O x3. Complete neuro exam not performed. DIAGNOSTIC STUDIES/LAB DATA: Labs reviewed. Labs last checked on 01/21/19. Creatinine normal at that time. AST and ALT 21 and 38 respectively. Albumin 3.1. Hemoglobin 9.3 and hematocrit 28, MCV 86. Imaging: An abdominal x-ray was ordered on 01/14/19 demonstrated stool throughout the colon with no dilated loops of bowel. IMPRESSION AND RECOMMENDATIONS: Mr. Ramirez is a 58-year-old gentleman with muscular dystrophy, type 1 diabetes, chronic narcotic use, hypertension, who was admitted last month for pneumonia complicated by respiratory failure requiring brief ventilatory support. The patient has now been transferred to the rehab unit. He complains of significant gastrointestinal symptoms limiting his ability to eat. The patient describes increased intestinal gas/flatulence as well as upper gastrointestinal symptoms of early satiety, nausea, epigastric burning, and reflux. I suspect that there is at least a component of reflux given his description of symptoms. Differential also includes esophagitis (risk factor includes daily potassium) and peptic ulcer disease. Last abdominal imaging demonstrated a large amount of stool seen throughout the colon, although the patient reports moving his bowels fairly regularly. I would consider updating abdominal imaging. If significant stool burden persists, then I would recommend intensifying bowel regimen as it is possible this is contributing to gaseous symptoms. The patient had received antibiotics during his hospitalization for pneumonia, which can result in intestinal dysbiosis leading to increased gas and discomfort symptoms. As Dr Lindquist mentioned at time of consult, patient is on a new medication, Dronaderone, which has abdominal pain, nausea, and dyspepsia listed as adverse effect in 2-5% of patients. It is also reasonable then to consider med effect as a contributory factor. 1. Recommend updating CBC, comp, amylase/lipase. Check H pylori stool antigen. 2. Recommend abdominal x-ray to evaluate for fecal loading. 3. Recommend switching Pepcid to pantoprazole 40 mg twice daily. 4. Recommend starting probiotic daily. 5. Recommend an abdominal ultrasound to evaluate for any gallbladder disease given the significant upper gastrointestinal complaints. 6. Continue the docusate twice daily for now. If there is a significant stool burden seen on the x-ray, then I would plan to start MiraLAX once daily at minimum. 7. If symptoms persist over the next few days despite treatment with acid suppression, then I would consider empiric treatment for intestinal dysbiosis with Xifaxan 550 mg 3 times daily for 2 weeks. 8. If symptoms fail to improve over the next day or two, then I would also consider a CT abdomen and pelvis particularly as he is quite tender on exam. It would be advisable to hold the metformin for 48 hours in anticipation of possible CT as mentioned by Dr. Lindquist during our discussion earlier today. 9. Recommend diet as tolerated. Thank you very much for this consult. GI will continue to follow along. [id number]/[facility] #: [id number] [facility] CAMPUSCarlee
[2019-01-26] MEDS: Insulin GLARGINE(*) 1 UNITS UNIT SUBCUT SCH (18:41)
--- NOTE | 2019-01-26 19:18 | PN ---
Progress Note Date of Service: 01/26/19 Note: LORENA DALLAS was visited. Therapy notes read and reviewed. He was seen by Dr. Hyman and she made recommendations including a new abdominal series x- ray, a GB ultrasound, a macrobiotic, and a PPI instead of Pepcid. Will also check labs including amylase/lipase. He otherwise is doing okay Current Medications: Active Medications Generic Name Dose Route Start Last Admin Trade Name Freq PRN Reason Stop Dose Admin Acetaminophen 650 mg 01/13/19 16:17 Tylenol Tab* PO Q6H PRN FEVER > 101 Albuterol/Ipratropium 1 neb 01/13/19 16:29 Duoneb (Albuterol 2.5 Mg/Ipratropium 0.5 Mg) INH Q4H PRN SOB/WHEEZING Alprazolam 0.25 mg 01/19/19 17:02 01/25/19 22:06 Xanax Tab* PO 0.25 mg Q8H PRN Administration ANXIETY Apixaban 5 mg 01/13/19 21:00 01/26/19 10:42 Eliquis* PO 5 mg BID JANA Administration Atorvastatin Calcium 20 mg 01/13/19 17:00 01/26/19 17:09 Lipitor* PO 20 mg 1700 JANA Administration Docusate Sodium 100 mg 01/13/19 21:00 01/26/19 10:42 Colace Cap* PO 100 mg BID JANA Administration Dronedarone 400 mg 01/13/19 21:00 01/26/19 10:43 Multaq Tab* PO 400 mg BID JANA Administration Insulin Glargine 40 units 01/13/19 18:00 01/26/19 18:41 Lantus(*) SUBCUT 40 units Q24H JANA Administration Insulin Human Lispro 0 units 01/13/19 16:30 01/26/19 17:09 Humalog* SUBCUT 3 units ACHS JANA Administration Protocol Lactobacillus Rhamnosus 1 tab 01/26/19 21:00 Lactobacillus Acidophilus* PO BID JANA Magnesium Hydroxide 30 ml 01/13/19 16:22 01/16/19 08:32 Milk Of Magnesia Liq* PO 30 ml Q6H PRN Administration CONSTIPATION Metoprolol Tartrate 12.5 mg 01/13/19 21:00 01/26/19 10:42 Lopressor Tab* PO 12.5 mg Q12HR JANA Administration Oxycodone HCl 15 mg 01/22/19 20:57 01/26/19 17:08 Roxycodone Tab* PO 15 mg Q4H PRN Administration PAIN - SEVERE Pantoprazole Sodium 40 mg 01/26/19 21:00 Protonix Tab* PO BID JANA Potassium Chloride 10 meq 01/19/19 09:00 01/26/19 10:42 Klor Con Er Tab* PO 10 meq DAILY JANA Administration Ramipril 10 mg 01/14/19 09:00 01/26/19 10:42 Altace Cap* PO 10 mg DAILY JANA Administration Senna 2 tab 01/13/19 16:17 01/20/19 20:10 Senokot 8.6 Mg Tab* PO 2 tab BEDTIME PRN Administration CONSTIPATION Simethicone 80 mg 01/17/19 18:14 01/25/19 17:10 Mylicon Tab* PO 80 mg Q6H PRN Administration INDIGESTION Tramadol HCl 50 mg 01/13/19 17:03 01/24/19 11:50 Ultram* PO 50 mg Q6H PRN Administration PAIN - MODERATE Trazodone HCl 50 mg 01/13/19 17:02 01/25/19 22:06 Desyrel Tab* PO 50 mg BEDTIME PRN Administration INSOMNIA Vital Signs: Vital Signs Temp Pulse Resp BP Pulse Ox 98.5 F 80 14 139/78 99 01/26/19 16:34 01/26/19 16:34 01/26/19 17:08 01/26/19 16:34 01/26/19 16:34 Lab Results: Laboratory Results - last 24 hr 01/25/19 01/26/19 01/26/19 20:21 09:06 09:27 POC Glucose (mg/dL) 107 H 67 L 72 01/26/19 01/26/19 01/26/19 10:42 12:02 16:31 POC Glucose (mg/dL) 92 209 H 151 H Exam: GENERAL: No distress LUNGS: CLear bilaterally HEART: Regular rhythm ABDOMEN: Soft. Diffusely tender. EXTREMITIES: Decreased tone joesph LEs NEUROLOGIC: A&O. Arm strength 4/5. LE Strength 2/5 Assessment/Plan: 1. Respiratory Failure, Pneumonia: Finishing up course of Antibiotics. DuoNeb PRN. PT/OT 2. Limb Girdle Muscular Dystrophy: PT/OT. Power wheelchair did not arrive 3. Atrial Fibrillation, S/P Cardioversion: Eliquis/Lopressor/Multaq 4. Diabetes: Lantus/SSI 5. Abdominal Pain: Abd series X ray repeated. GB U/S. PPI. Macrobiotic. May need CT scan of abdomen 6. DVT Prophylaxis: Eliquis 7. Hypokalemia: Corrected. Will d/c K phos and start Klor-con 8. Pain: His opiate dose was cut way back on the acute hospitalization. Continue oxycodone/Tramadol, increased oxy to 15 9. Anxiety: Resumed Xanax 0.25 Q8H PRN 10. Advance Directives: Full code 01/26/19 19:18
[2019-01-26] MEDS: Lactobacillus Acidophilus* 1 TAB PO SCH (20:57)
[2019-01-26] MEDS: traZODone TAB* 50 MG TAB PO PRN (20:59)
[2019-01-26] MEDS: Pantoprazole TAB * 40 MG TAB PO SCH (20:59)
[2019-01-26] MEDS: ALPRAZolam TAB* 0.25 MG PO PRN (21:00)
[2019-01-27] MEDS: oxyCODONE TAB* 5 MG TAB PO PRN ×4 (03:05→21:14)
[2019-01-27 05:21] LABS: Albumin 3.1 g/dL (3.2-5.2); Albumin/Globulin Ratio 1.6 (1-3); BUN/Creatinine Ratio 37.1 (8-20); Calcium 8.5 mg/dL (8.6-10.3); EGFR African American 314.1 (>60); EGFR Non-African American 259.6 (>60); Potassium 3.6 mmol/L (3.5-5.0); Total Protein 5.1 g/dL (6.4-8.9)
[2019-01-27] MEDS: Insulin LISPRO* 1 UNITS UNIT SUBCUT SCH ×4 (07:37→21:58)
[2019-01-27] MEDS: Apixaban* 5 MG TAB PO SCH ×2 (10:42→21:17)
[2019-01-27] MEDS: Docusate CAP* 100 MG PO SCH ×2 (10:42→21:16)
[2019-01-27] MEDS: Lactobacillus Acidophilus* 1 TAB PO SCH ×2 (10:43→21:16)
[2019-01-27] MEDS: Dronedarone TAB* 400 MG PO SCH ×2 (10:43→21:16)
[2019-01-27] MEDS: Pantoprazole TAB * 40 MG TAB PO SCH ×2 (10:44→21:16)
[2019-01-27] MEDS: Potassium Chlor TAB* 10 MEQ TAB.ER PO SCH (10:44)
[2019-01-27] MEDS: Metoprolol Tartrate TAB* 25 MG PO SCH ×2 (10:44→21:16)
[2019-01-27] MEDS: Ramipril CAP* 10 MG PO SCH (10:44)
[2019-01-27] MEDS: Atorvastatin* 20 MG TAB PO SCH (17:26)
--- NOTE | 2019-01-27 17:55 | PN ---
Progress Note - Progress Note Date of Service: 01/27/19 Note: GI Follow up Note Patient seen and examined. Still having same pain today. No black or blood in stool. On PPI now. States moving bowels daily, occasional incomplete evacuation. VS: 126/60, P-72, R-16, T-98.4 Gen: alert and oriented x3 HEENT: At/nc, perrla, eomi, no jvp CVS: RRR s1s2 Resp: cta b/l Abd: soft, diffuse ttp, bs+ , no guarding or rebound Psych: appropriate mood and affect Lab Amylase/Lipase negative Hgb 10->9.3 RUQ U/S: unremarkable Xray: non obstructive gas, minimal stool burden on my read Impression Abdominal pain Normocytic anemia Rec: Given ongoing exam and tenderness will get CT abd/pelvis. Continue with PPI therapy, Avoid NSAIDs if possible Poor candidate for endoscopy given muscular dystrophy with recent respiratory failure Narinder Perea DO 01/27/19 1600
--- NOTE | 2019-01-27 18:01 | PN ---
Progress Note Date of Service: 01/27/19 Note: LORENA DALLAS was visited. Therapy notes read and reviewed. Still with diffuse abdominal pain. His exam remains with diffuse tenderness. Work up so far has yielded little: GB ultrasound unrevealing, amylase and lipase normal, labs otherwise ok. He did have a CT scan two years ago for abdominal pain. This will be repeated tomorrow. Now on PPI, macrobiotic. Current Medications: Active Medications Generic Name Dose Route Start Last Admin Trade Name Freq PRN Reason Stop Dose Admin Acetaminophen 650 mg 01/13/19 16:17 Tylenol Tab* PO Q6H PRN FEVER > 101 Albuterol/Ipratropium 1 neb 01/13/19 16:29 Duoneb (Albuterol 2.5 Mg/Ipratropium 0.5 Mg) INH Q4H PRN SOB/WHEEZING Alprazolam 0.25 mg 01/19/19 17:02 01/26/19 21:00 Xanax Tab* PO 0.25 mg Q8H PRN Administration ANXIETY Apixaban 5 mg 01/13/19 21:00 01/27/19 10:42 Eliquis* PO 5 mg BID JANA Administration Atorvastatin Calcium 20 mg 01/13/19 17:00 01/27/19 17:26 Lipitor* PO 20 mg 1700 JANA Administration Docusate Sodium 100 mg 01/13/19 21:00 01/27/19 10:42 Colace Cap* PO 100 mg BID JANA Administration Dronedarone 400 mg 01/13/19 21:00 01/27/19 10:43 Multaq Tab* PO 400 mg BID JANA Administration Insulin Glargine 40 units 01/13/19 18:00 01/26/19 18:41 Lantus(*) SUBCUT 40 units Q24H JANA Administration Insulin Human Lispro 0 units 01/13/19 16:30 01/27/19 17:15 Humalog* SUBCUT Not Given ACHS [facility] Protocol Lactobacillus Rhamnosus 1 tab 01/26/19 21:00 01/27/19 10:43 Lactobacillus Acidophilus* PO 1 tab BID JANA Administration Magnesium Hydroxide 30 ml 01/13/19 16:22 01/16/19 08:32 Milk Of Magnesia Liq* PO 30 ml Q6H PRN Administration CONSTIPATION Metoprolol Tartrate 12.5 mg 01/13/19 21:00 01/27/19 10:44 Lopressor Tab* PO 12.5 mg Q12HR JANA Administration Oxycodone HCl 15 mg 01/22/19 20:57 01/27/19 14:26 Roxycodone Tab* PO 15 mg Q4H PRN Administration PAIN - SEVERE Pantoprazole Sodium 40 mg 01/26/19 21:00 01/27/19 10:44 Protonix Tab* PO 40 mg BID JANA Administration Potassium Chloride 10 meq 01/19/19 09:00 01/27/19 10:44 Klor Con Er Tab* PO 10 meq DAILY JANA Administration Ramipril 10 mg 01/14/19 09:00 01/27/19 10:44 Altace Cap* PO 10 mg DAILY JANA Administration Senna 2 tab 01/13/19 16:17 01/20/19 20:10 Senokot 8.6 Mg Tab* PO 2 tab BEDTIME PRN Administration CONSTIPATION Simethicone 80 mg 01/17/19 18:14 01/25/19 17:10 Mylicon Tab* PO 80 mg Q6H PRN Administration INDIGESTION Tramadol HCl 50 mg 01/13/19 17:03 01/24/19 11:50 Ultram* PO 50 mg Q6H PRN Administration PAIN - MODERATE Trazodone HCl 50 mg 01/13/19 17:02 01/26/19 20:59 Desyrel Tab* PO 50 mg BEDTIME PRN Administration INSOMNIA Vital Signs: Vital Signs Temp Pulse Resp BP Pulse Ox 98.4 F 72 22 126/60 98 01/27/19 15:54 01/27/19 15:54 01/27/19 15:54 01/27/19 15:54 01/27/19 17:28 Lab Results: Laboratory Results - last 24 hr 01/26/19 01/27/19 01/27/19 20:22 04:45 07:34 Sodium 139 Potassium 3.6 Chloride 108 Carbon Dioxide 25 Anion Gap 6 BUN 13 Creatinine 0.35 L Est GFR ( Amer) 314.1 Est GFR (Non-Af Amer) 259.6 BUN/Creatinine Ratio 37.1 H Glucose 84 POC Glucose (mg/dL) 204 H 81 Calcium 8.5 L Total Bilirubin 1.00 AST 18 ALT 29 Alkaline Phosphatase 68 Total Protein 5.1 L Albumin 3.1 L Globulin 2.0 Albumin/Globulin Ratio 1.6 Amylase 35 Lipase 12 01/27/19 01/27/19 12:08 16:38 Sodium Potassium Chloride Carbon Dioxide Anion Gap BUN Creatinine Est GFR ( Amer) Est GFR (Non-Af Amer) BUN/Creatinine Ratio Glucose POC Glucose (mg/dL) 129 H 80 Calcium Total Bilirubin AST ALT Alkaline Phosphatase Total Protein Albumin Globulin Albumin/Globulin Ratio Amylase Lipase Exam: GENERAL: No distress LUNGS: CLear bilaterally HEART: Regular rhythm ABDOMEN: Soft. Diffusely tender. EXTREMITIES: Decreased tone joesph LEs NEUROLOGIC: A&O. Arm strength 4/5. LE Strength 2/5 Assessment/Plan: 1. Respiratory Failure, Pneumonia: DuoNeb PRN. PT/OT 2. Limb Girdle Muscular Dystrophy: PT/OT. Power wheelchair did not arrive 3. Atrial Fibrillation, S/P Cardioversion: Eliquis/Lopressor/Multaq 4. Diabetes: Lantus/SSI 5. Abdominal Pain: Abd series X ray shows some stool. GB U/S unrevealing. PPI. Macrobiotic. Will get CT scan of abdomen 6. DVT Prophylaxis: Eliquis 7. Hypokalemia: Corrected. Will d/c K phos and start Klor-con 8. Pain: His opiate dose was cut way back on the acute hospitalization. Continue oxycodone/Tramadol, increased oxy to 15 9. Anxiety: Resumed Xanax 0.25 Q8H PRN 10. Advance Directives: Full code 01/27/19 18:02 01/27/19 18:03
[2019-01-27] MEDS: Insulin GLARGINE(*) 1 UNITS UNIT SUBCUT SCH (19:10)
[2019-01-28] MEDS: oxyCODONE TAB* 5 MG TAB PO PRN ×5 (01:38→21:55)
[2019-01-28] MEDS: ALPRAZolam TAB* 0.25 MG PO PRN ×2 (02:06→21:32)
[2019-01-28] MEDS: traZODone TAB* 50 MG TAB PO PRN ×2 (02:06→21:32)
[2019-01-28 06:09] LABS: ABS Basophils 0.1 10^3/ul (0-0.2); ABS Eosinophils 0.2 10^3/ul (0-0.6); ABS Lymphocytes 1.2 10^3/ul (1.0-4.8); ABS Monocytes 0.5 10^3/ul (0-0.8); ABS Neutrophils 2.8 10^3/ul (1.5-7.7); Eosinophil % 4.8 %; Hematocrit 30 % (42-52); Hemoglobin 10.2 g/dL (14.0-18.0); Mean Corpuscular HGB Conc 34 g/dL (31-36); Mean Corpuscular Hemoglobin 29 pg (27-31); Mean Corpuscular Volume 85 fL (80-94); Mean Platelet Volume 8.8 fL (7.4-10.4); Nucleated Red Blood Cells % 0.1; Platelet Count 188 10^3/uL (150-450); Red Blood Count 3.55 10^6 /uL (4.18-5.48); Red Cell Distribution Width 18 % (10-15); White Blood Count 4.8 10^3/uL (3.5-10.8)
[2019-01-28 06:29] LABS: Albumin 3.3 g/dL (3.2-5.2); Albumin/Globulin Ratio 1.8 (1-3); BUN/Creatinine Ratio 28.6 (8-20); Calcium 8.5 mg/dL (8.6-10.3); EGFR African American 254.5 (>60); EGFR Non-African American 210.3 (>60); Globulin 1.8 g/dL (2-4); Potassium 3.4 mmol/L (3.5-5.0); Total Protein 5.1 g/dL (6.4-8.9)
[2019-01-28] MEDS: Insulin LISPRO* 1 UNITS UNIT SUBCUT SCH ×4 (07:03→21:23)
[2019-01-28] MEDS ORDERED: Iodixanol* (CONTRAST) 320 MG/ML 100 ML SDV IV ONE (10:12)
--- NOTE | 2019-01-28 11:00 | PN ---
Progress Note Date of Service: 01/28/19 Note: LORENA DALLAS was visited. Nursing and therapy notes read and reviewed. CT abd/pelvis in process. Last night had high FS at HS and got some juice in the middle of the night. No chest pain or shortness of breath. Abdomen continues to be diffusely tender. Current Medications: Active Medications Generic Name Dose Route Start Last Admin Trade Name Freq PRN Reason Stop Dose Admin Acetaminophen 650 mg 01/13/19 16:17 Tylenol Tab* PO Q6H PRN FEVER > 101 Albuterol/Ipratropium 1 neb 01/13/19 16:29 Duoneb (Albuterol 2.5 Mg/Ipratropium 0.5 Mg) INH Q4H PRN SOB/WHEEZING Alprazolam 0.25 mg 01/19/19 17:02 01/28/19 02:06 Xanax Tab* PO 0.25 mg Q8H PRN Administration ANXIETY Apixaban 5 mg 01/13/19 21:00 01/27/19 21:17 Eliquis* PO 5 mg BID JANA Administration Atorvastatin Calcium 20 mg 01/13/19 17:00 01/27/19 17:26 Lipitor* PO 20 mg 1700 JANA Administration Docusate Sodium 100 mg 01/13/19 21:00 01/27/19 21:16 Colace Cap* PO 100 mg BID JANA Administration Dronedarone 400 mg 01/13/19 21:00 01/27/19 21:16 Multaq Tab* PO 400 mg BID JANA Administration Insulin Glargine 40 units 01/13/19 18:00 01/27/19 19:10 Lantus(*) SUBCUT 40 units Q24H JANA Administration Insulin Human Lispro 0 units 01/13/19 16:30 01/28/19 07:03 Humalog* SUBCUT Not Given ACHS [facility] Protocol Lactobacillus Rhamnosus 1 tab 01/26/19 21:00 01/27/19 21:16 Lactobacillus Acidophilus* PO 1 tab BID JANA Administration Magnesium Hydroxide 30 ml 01/13/19 16:22 01/16/19 08:32 Milk Of Magnesia Liq* PO 30 ml Q6H PRN Administration CONSTIPATION Metoprolol Tartrate 12.5 mg 01/13/19 21:00 01/27/19 21:16 Lopressor Tab* PO 12.5 mg Q12HR JANA Administration Oxycodone HCl 15 mg 01/22/19 20:57 01/28/19 08:11 Roxycodone Tab* PO 15 mg Q4H PRN Administration PAIN - SEVERE Pantoprazole Sodium 40 mg 01/26/19 21:00 01/27/19 21:16 Protonix Tab* PO 40 mg BID JANA Administration Potassium Chloride 10 meq 01/19/19 09:00 01/27/19 10:44 Klor Con Er Tab* PO 10 meq DAILY JANA Administration Ramipril 10 mg 01/14/19 09:00 01/27/19 10:44 Altace Cap* PO 10 mg DAILY JANA Administration Senna 2 tab 01/13/19 16:17 01/20/19 20:10 Senokot 8.6 Mg Tab* PO 2 tab BEDTIME PRN Administration CONSTIPATION Simethicone 80 mg 01/17/19 18:14 01/25/19 17:10 Mylicon Tab* PO 80 mg Q6H PRN Administration INDIGESTION Tramadol HCl 50 mg 01/13/19 17:03 01/24/19 11:50 Ultram* PO 50 mg Q6H PRN Administration PAIN - MODERATE Trazodone HCl 50 mg 01/13/19 17:02 01/28/19 02:06 Desyrel Tab* PO 50 mg BEDTIME PRN Administration INSOMNIA Vital Signs: Vital Signs Temp Pulse Resp BP Pulse Ox 98.5 F 77 12 122/61 98 01/28/19 06:00 01/28/19 06:00 01/28/19 08:15 01/28/19 06:00 01/28/19 06:00 Lab Results: Laboratory Results - last 24 hr 01/27/19 01/27/19 01/27/19 07:34 12:08 16:38 WBC RBC Hgb Hct MCV MCH MCHC RDW Plt Count MPV Neut % (Auto) Lymph % (Auto) [place] % (Auto) Eos % (Auto) Baso % (Auto) Absolute Neuts (auto) Absolute Lymphs (auto) Absolute Monos (auto) Absolute Eos (auto) Absolute Basos (auto) Absolute Nucleated RBC Nucleated RBC % Sodium Potassium Chloride Carbon Dioxide Anion Gap BUN Creatinine Est GFR ( Amer) Est GFR (Non-Af Amer) BUN/Creatinine Ratio Glucose POC Glucose (mg/dL) 81 129 H 80 Glucose Meter Confirm Calcium Total Bilirubin AST ALT Alkaline Phosphatase Total Protein Albumin Globulin Albumin/Globulin Ratio 01/27/19 01/27/19 01/28/19 21:00 21:20 01:52 WBC RBC Hgb Hct MCV MCH MCHC RDW Plt Count MPV Neut % (Auto) Lymph % (Auto) [place] % (Auto) Eos % (Auto) Baso % (Auto) Absolute Neuts (auto) Absolute Lymphs (auto) Absolute Monos (auto) Absolute Eos (auto) Absolute Basos (auto) Absolute Nucleated RBC Nucleated RBC % Sodium Potassium Chloride Carbon Dioxide Anion Gap BUN Creatinine Est GFR ( Amer) Est GFR (Non-Af Amer) BUN/Creatinine Ratio Glucose POC Glucose (mg/dL) 424 H* 114 H Glucose Meter Confirm 380 H Calcium Total Bilirubin AST ALT Alkaline Phosphatase Total Protein Albumin Globulin Albumin/Globulin Ratio 01/28/19 01/28/19 05:51 05:51 WBC 4.8 RBC 3.55 L Hgb 10.2 L Hct 30 L MCV 85 MCH 29 MCHC 34 RDW 18 H Plt Count 188 MPV 8.8 Neut % (Auto) 59.2 Lymph % (Auto) 25.0 [place] % (Auto) 10.0 Eos % (Auto) 4.8 Baso % (Auto) 1.0 Absolute Neuts (auto) 2.8 Absolute Lymphs (auto) 1.2 Absolute Monos (auto) 0.5 Absolute Eos (auto) 0.2 Absolute Basos (auto) 0.1 Absolute Nucleated RBC 0.0 Nucleated RBC % 0.1 Sodium 141 Potassium 3.4 L Chloride 108 Carbon Dioxide 27 Anion Gap 6 BUN 12 Creatinine 0.42 L Est GFR ( Amer) 254.5 Est GFR (Non-Af Amer) 210.3 BUN/Creatinine Ratio 28.6 H Glucose 88 POC Glucose (mg/dL) Glucose Meter Confirm Calcium 8.5 L Total Bilirubin 1.00 AST 18 ALT 29 Alkaline Phosphatase 75 Total Protein 5.1 L Albumin 3.3 Globulin 1.8 L Albumin/Globulin Ratio 1.8 Exam: GENERAL: No acute distress. Alert and appropriate. LUNGS: Clear to auscultation bilaterally. HEART: Regular rate and rhythm ABDOMEN: Soft. Diffusely tender. + bowel sounds. Non-distended. EXTREMITIES: Decreased tone bilateral LEs. No edema. NEUROLOGIC: A&O. Motor 4/5 BUE and 2/5 BLE with normal sensation x4. Assessment/Plan: 1. Respiratory Failure, Pneumonia: DuoNeb PRN. PT/OT 2. Limb Girdle Muscular Dystrophy: PT/OT. Power wheelchair did not arrive 3. Atrial Fibrillation, S/P Cardioversion: Eliquis/Lopressor/Multaq 4. Diabetes: Lantus/SSI. Resume metformin 48h after CT (Thursday). 5. Abdominal Pain: Abd series X ray shows some stool. GB U/S unrevealing. PPI. Macrobiotic. Will get CT scan of abdomen 6. DVT Prophylaxis: Eliquis 7. Hypokalemia: Increase KCL to 20mEq starting tomorrow and give extra 20mEq today. Recheck Thursday 8. Pain: His opiate dose was cut way back on the acute hospitalization. Continue oxycodone/Tramadol, increased oxy to 15 9. Anxiety: Resumed Xanax 0.25 Q8H PRN 10. Advance Directives: Full code 01/28/19 11:02
[2019-01-28] MEDS ORDERED: Potassium Chlor TAB* 20 MEQ TAB.ER PO ONE (11:05)
[2019-01-28] MEDS: Apixaban* 5 MG TAB PO SCH ×2 (11:21→21:00)
[2019-01-28] MEDS: Docusate CAP* 100 MG PO SCH ×2 (11:21→21:00)
[2019-01-28] MEDS: Metoprolol Tartrate TAB* 25 MG PO SCH ×2 (11:21→21:00)
[2019-01-28] MEDS: Lactobacillus Acidophilus* 1 TAB PO SCH ×2 (11:21→21:00)
[2019-01-28] MEDS: Pantoprazole TAB * 40 MG TAB PO SCH ×2 (11:22→21:00)
[2019-01-28] MEDS: Ramipril CAP* 10 MG PO SCH (11:22)
[2019-01-28] MEDS: Dronedarone TAB* 400 MG PO SCH ×2 (11:22→21:00)
[2019-01-28] MEDS: Potassium Chlor TAB* 10 MEQ TAB.ER PO SCH (11:44)
[2019-01-28] MEDS: Atorvastatin* 20 MG TAB PO SCH (16:27)
[2019-01-28] MEDS: Insulin GLARGINE(*) 1 UNITS UNIT SUBCUT SCH (18:05)
[2019-01-29] MEDS: oxyCODONE TAB* 5 MG TAB PO PRN ×5 (04:42→21:31)
[2019-01-29] MEDS: Potassium Chlor TAB* 10 MEQ TAB.ER PO SCH (08:11)
[2019-01-29] MEDS: Ramipril CAP* 10 MG PO SCH (08:13)
[2019-01-29] MEDS: Lactobacillus Acidophilus* 1 TAB PO SCH ×2 (08:13→20:25)
[2019-01-29] MEDS: Apixaban* 5 MG TAB PO SCH ×2 (08:14→20:23)
[2019-01-29] MEDS: Metoprolol Tartrate TAB* 25 MG PO SCH ×2 (08:14→20:26)
[2019-01-29] MEDS: Pantoprazole TAB * 40 MG TAB PO SCH ×2 (08:15→20:23)
[2019-01-29] MEDS: Docusate CAP* 100 MG PO SCH ×2 (08:16→20:23)
[2019-01-29] MEDS: Dronedarone TAB* 400 MG PO SCH ×2 (08:16→20:24)
[2019-01-29] MEDS: Insulin LISPRO* 1 UNITS UNIT SUBCUT SCH ×4 (08:17→21:29)
--- NOTE | 2019-01-29 09:51 | PN ---
Progress Note Date of Service: 01/29/19 Note: LORENA DALLAS was visited. Nursing and therapy notes read and reviewed. No new symptoms today. Ongoing abdominal discomfort. No chest pain or shortness of breath. Current Medications: Active Medications Generic Name Dose Route Start Last Admin Trade Name Freq PRN Reason Stop Dose Admin Acetaminophen 650 mg 01/13/19 16:17 Tylenol Tab* PO Q6H PRN FEVER > 101 Albuterol/Ipratropium 1 neb 01/13/19 16:29 Duoneb (Albuterol 2.5 Mg/Ipratropium 0.5 Mg) INH Q4H PRN SOB/WHEEZING Alprazolam 0.25 mg 01/19/19 17:02 01/28/19 21:32 Xanax Tab* PO 0.25 mg Q8H PRN Administration ANXIETY Apixaban 5 mg 01/13/19 21:00 01/29/19 08:14 Eliquis* PO 5 mg BID JANA Administration Atorvastatin Calcium 20 mg 01/13/19 17:00 01/28/19 16:27 Lipitor* PO 20 mg 1700 JANA Administration Docusate Sodium 100 mg 01/13/19 21:00 01/29/19 08:16 Colace Cap* PO Not Given BID JANA Dronedarone 400 mg 01/13/19 21:00 01/29/19 08:16 Multaq Tab* PO 400 mg BID JANA Administration Insulin Glargine 40 units 01/13/19 18:00 01/28/19 18:05 Lantus(*) SUBCUT 40 units Q24H JANA Administration Insulin Human Lispro 0 units 01/13/19 16:30 01/29/19 08:17 Humalog* SUBCUT 2 units ACHS JANA Administration Protocol Lactobacillus Rhamnosus 1 tab 01/26/19 21:00 01/29/19 08:13 Lactobacillus Acidophilus* PO 1 tab BID JANA Administration Magnesium Hydroxide 30 ml 01/13/19 16:22 01/16/19 08:32 Milk Of Magnesia Liq* PO 30 ml Q6H PRN Administration CONSTIPATION Metoprolol Tartrate 12.5 mg 01/13/19 21:00 01/29/19 08:14 Lopressor Tab* PO 12.5 mg Q12HR JANA Administration Oxycodone HCl 15 mg 01/22/19 20:57 01/29/19 08:57 Roxycodone Tab* PO 15 mg Q4H PRN Administration PAIN - SEVERE Pantoprazole Sodium 40 mg 01/26/19 21:00 01/29/19 08:15 Protonix Tab* PO 40 mg BID JANA Administration Potassium Chloride 20 meq 01/29/19 09:00 01/29/19 08:11 Klor Con Er Tab* PO 20 meq DAILY JANA Administration Ramipril 10 mg 01/14/19 09:00 01/29/19 08:13 Altace Cap* PO 10 mg DAILY JANA Administration Senna 2 tab 01/13/19 16:17 01/20/19 20:10 Senokot 8.6 Mg Tab* PO 2 tab BEDTIME PRN Administration CONSTIPATION Simethicone 80 mg 01/17/19 18:14 01/25/19 17:10 Mylicon Tab* PO 80 mg Q6H PRN Administration INDIGESTION Tramadol HCl 50 mg 01/13/19 17:03 01/24/19 11:50 Ultram* PO 50 mg Q6H PRN Administration PAIN - MODERATE Trazodone HCl 50 mg 01/13/19 17:02 01/28/19 21:32 Desyrel Tab* PO 50 mg BEDTIME PRN Administration INSOMNIA Vital Signs: Vital Signs Temp Pulse Resp BP Pulse Ox 98.3 F 74 18 129/62 99 01/29/19 05:09 01/29/19 05:09 01/29/19 08:57 01/29/19 05:09 01/29/19 08:00 Lab Results: Laboratory Results - last 24 hr 01/28/19 01/28/19 01/28/19 11:05 16:27 21:12 POC Glucose (mg/dL) 84 191 H 296 H 01/29/19 07:32 POC Glucose (mg/dL) 143 H Exam: GENERAL: No acute distress. Alert and appropriate. LUNGS: Clear to auscultation bilaterally. HEART: Regular rate and rhythm ABDOMEN: Soft. Diffusely tender. + bowel sounds. Non-distended. EXTREMITIES: Decreased tone bilateral LEs. No edema. NEUROLOGIC: A&O. Motor 4/5 BUE and 2/5 BLE with normal sensation x4. Assessment/Plan: 1. Respiratory Failure, Pneumonia: DuoNeb PRN. PT/OT 2. Limb Girdle Muscular Dystrophy: PT/OT. Power wheelchair has arrived. 3. Atrial Fibrillation, S/P Cardioversion: Eliquis/Lopressor/Multaq 4. Diabetes: Lantus/SSI. Resume metformin 48h after CT (Thursday). 5. Abdominal Pain: Abd series X ray shows some stool. GB U/S unrevealing. PPI. Macrobiotic. CT scan of abdomen/pelvis 01/28/19 showed left renal mass 1.7cm. Had similar mass on CT 2016 and 2017 that was 1.4cm. It was not seen on renal u/ s on 08/20/16 (after CT). Dr. Macias to see in Dr. Muniz's absence, but f/u for renal mass likely an outpatient issue. He does not recall this prior finding and evaluation. His abdominal pain is likely muscular and related to muscular dystrophy, deconditioning and reduced pain medications. 6. DVT Prophylaxis: Eliquis 7. Hypokalemia: KCL to 20mEq started 01/29. Recheck Thursday 8. Pain: His opiate dose was cut way back on the acute hospitalization. Continue oxycodone/Tramadol, increased oxy to 15 9. Anxiety: Resumed Xanax 0.25 Q8H PRN 10. Advance Directives: Full code 01/29/19 09:47
[2019-01-29] MEDS ORDERED: Iodixanol* (CONTRAST) 320 MG/ML 100 ML SDV IV ONE (11:43)
[2019-01-29] MEDS: Atorvastatin* 20 MG TAB PO SCH (16:36)
[2019-01-29] MEDS: Insulin GLARGINE(*) 1 UNITS UNIT SUBCUT SCH (18:26)
[2019-01-29] MEDS: RiFAXimin* 550 MG TAB PO SCH (20:25)
[2019-01-29] MEDS: traZODone TAB* 50 MG TAB PO PRN (21:31)
[2019-01-29] MEDS: ALPRAZolam TAB* 0.25 MG PO PRN (21:31)
[2019-01-30] MEDS: oxyCODONE TAB* 5 MG TAB PO PRN ×5 (04:19→22:38)
[2019-01-30 05:54] LABS: BUN/Creatinine Ratio 42.1 (8-20); Calcium 8.2 mg/dL (8.6-10.3); EGFR African American 285.7 (>60); EGFR Non-African American 236.1 (>60); Potassium 3.8 mmol/L (3.5-5.0)
[2019-01-30] MEDS: Insulin LISPRO* 1 UNITS UNIT SUBCUT SCH ×4 (07:20→22:08)
[2019-01-30] MEDS: Docusate CAP* 100 MG PO SCH ×2 (08:01→22:06)
[2019-01-30] MEDS: Metoprolol Tartrate TAB* 25 MG PO SCH ×2 (08:05→22:05)
[2019-01-30] MEDS: Ramipril CAP* 10 MG PO SCH (08:06)
[2019-01-30] MEDS: RiFAXimin* 550 MG TAB PO SCH ×3 (08:06→22:06)
[2019-01-30] MEDS: Apixaban* 5 MG TAB PO SCH ×2 (08:06→22:04)
[2019-01-30] MEDS: Pantoprazole TAB * 40 MG TAB PO SCH ×2 (08:06→22:04)
[2019-01-30] MEDS: Potassium Chlor TAB* 10 MEQ TAB.ER PO SCH (08:06)
[2019-01-30] MEDS: Dronedarone TAB* 400 MG PO SCH ×2 (08:07→22:05)
[2019-01-30] MEDS: Lactobacillus Acidophilus* 1 TAB PO SCH ×2 (08:07→22:04)
--- NOTE | 2019-01-30 10:54 | PN ---
Progress Note Date of Service: 01/30/19 Note: LORENA DALLAS was visited. Nusing notes read and reviewed. No new symptoms overnight. Abdominal pain the same. No chest pain or shortness of breath. Current Medications: Active Medications Generic Name Dose Route Start Last Admin Trade Name Freq PRN Reason Stop Dose Admin Acetaminophen 650 mg 01/13/19 16:17 Tylenol Tab* PO Q6H PRN FEVER > 101 Albuterol/Ipratropium 1 neb 01/13/19 16:29 Duoneb (Albuterol 2.5 Mg/Ipratropium 0.5 Mg) INH Q4H PRN SOB/WHEEZING Alprazolam 0.25 mg 01/19/19 17:02 01/29/19 21:31 Xanax Tab* PO 0.25 mg Q8H PRN Administration ANXIETY Apixaban 5 mg 01/13/19 21:00 01/30/19 08:06 Eliquis* PO 5 mg BID JANA Administration Atorvastatin Calcium 20 mg 01/13/19 17:00 01/29/19 16:36 Lipitor* PO 20 mg 1700 JANA Administration Docusate Sodium 100 mg 01/13/19 21:00 01/30/19 08:01 Colace Cap* PO Not Given BID JANA Dronedarone 400 mg 01/13/19 21:00 01/30/19 08:07 Multaq Tab* PO 400 mg BID JANA Administration Insulin Glargine 40 units 01/13/19 18:00 01/29/19 18:26 Lantus(*) SUBCUT 40 units Q24H JANA Administration Insulin Human Lispro 0 units 01/13/19 16:30 01/30/19 07:20 Humalog* SUBCUT Not Given ACHS [facility] Protocol Lactobacillus Rhamnosus 1 tab 01/26/19 21:00 01/30/19 08:07 Lactobacillus Acidophilus* PO 1 tab BID JANA Administration Magnesium Hydroxide 30 ml 01/13/19 16:22 01/16/19 08:32 Milk Of Magnesia Liq* PO 30 ml Q6H PRN Administration CONSTIPATION Metformin HCl 500 mg 01/30/19 17:00 Glucophage* PO 0800,1700 JANA Metoprolol Tartrate 12.5 mg 01/13/19 21:00 01/30/19 08:05 Lopressor Tab* PO 12.5 mg Q12HR JANA Administration Oxycodone HCl 15 mg 01/22/19 20:57 01/30/19 09:06 Roxycodone Tab* PO 15 mg Q4H PRN Administration PAIN - SEVERE Pantoprazole Sodium 40 mg 01/26/19 21:00 01/30/19 08:06 Protonix Tab* PO 40 mg BID JANA Administration Potassium Chloride 20 meq 01/29/19 09:00 01/30/19 08:06 Klor Con Er Tab* PO 20 meq DAILY JANA Administration Ramipril 10 mg 01/14/19 09:00 01/30/19 08:06 Altace Cap* PO 10 mg DAILY JANA Administration Rifaximin 550 mg 01/29/19 21:00 01/30/19 08:06 Xifaxan* PO 02/12/19 23:00 550 mg TID JANA Administration Senna 2 tab 01/13/19 16:17 01/20/19 20:10 Senokot 8.6 Mg Tab* PO 2 tab BEDTIME PRN Administration CONSTIPATION Simethicone 80 mg 01/17/19 18:14 01/25/19 17:10 Mylicon Tab* PO 80 mg Q6H PRN Administration INDIGESTION Tramadol HCl 50 mg 01/13/19 17:03 01/24/19 11:50 Ultram* PO 50 mg Q6H PRN Administration PAIN - MODERATE Trazodone HCl 50 mg 01/13/19 17:02 01/29/19 21:31 Desyrel Tab* PO 50 mg BEDTIME PRN Administration INSOMNIA Vital Signs: Vital Signs Temp Pulse Resp BP Pulse Ox 97.9 F 77 18 116/58 98 01/30/19 04:25 01/30/19 04:25 01/30/19 09:06 01/30/19 04:25 01/30/19 08:00 Lab Results: Laboratory Results - last 24 hr 01/29/19 01/29/19 01/29/19 11:32 16:36 20:30 Sodium Potassium Chloride Carbon Dioxide Anion Gap BUN Creatinine Est GFR ( Amer) Est GFR (Non-Af Amer) BUN/Creatinine Ratio Glucose POC Glucose (mg/dL) 131 H 254 H 269 H Calcium 01/30/19 05:26 Sodium 140 Potassium 3.8 Chloride 109 Carbon Dioxide 26 Anion Gap 5 BUN 16 Creatinine 0.38 L Est GFR ( Amer) 285.7 Est GFR (Non-Af Amer) 236.1 BUN/Creatinine Ratio 42.1 H Glucose 74 POC Glucose (mg/dL) Calcium 8.2 L Exam: GENERAL: No acute distress. Alert and appropriate. LUNGS: Clear to auscultation bilaterally. HEART: Regular rate and rhythm ABDOMEN: Soft. Diffusely tender. + bowel sounds. Non-distended. EXTREMITIES: Decreased tone bilateral LEs. No edema. NEUROLOGIC: A&O. Motor 4/5 BUE and 2/5 BLE with normal sensation x4. Assessment/Plan: 1. Respiratory Failure, Pneumonia: DuoNeb PRN. PT/OT 2. Limb Girdle Muscular Dystrophy: PT/OT. Power wheelchair has arrived. 3. Atrial Fibrillation, S/P Cardioversion: Eliquis/Lopressor/Multaq 4. Diabetes: Lantus/SSI. Resume metformin tonight. 5. Abdominal Pain: Abd series X ray shows some stool. GB U/S unrevealing. PPI. Macrobiotic. CT scan of abdomen/pelvis 01/28/19 showed left renal mass 1.7cm, but not a cause for his more diffuse pain. His abdominal pain is likely muscular and related to muscular dystrophy, deconditioning and reduced pain medications. Question intestinal dysbiosis per prior GI consult so trial of Xifaxan 550mg tid for 2 weeks after d/w Dr. Macias yesterday. 6. DVT Prophylaxis: Eliquis 7. Hypokalemia: KCL to 20mEq started 01/29. Potassium now normal. 8. Pain: His opiate dose was cut way back on the acute hospitalization. Continue oxycodone/Tramadol, increased oxy to 15 9. Anxiety: Resumed Xanax 0.25 Q8H PRN 10. Advance Directives: Full code 11. Left renal mass: CT renal protocol 01/29/19 confirmed left renal mass 1.7cm. It is larger compared to past CT. Dr. Macias recommends urology consultation. His regular urologist is Dr. 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 Call him for consult this week. 01/30/19 10:48
[2019-01-30] MEDS: Atorvastatin* 20 MG TAB PO SCH (17:35)
[2019-01-30] MEDS: metFORMIN* 500 MG TAB PO SCH (17:35)
[2019-01-30] MEDS: Insulin GLARGINE(*) 1 UNITS UNIT SUBCUT SCH (18:39)
[2019-01-30] MEDS: traZODone TAB* 50 MG TAB PO PRN (22:40)
[2019-01-30] MEDS: ALPRAZolam TAB* 0.25 MG PO PRN (22:40)
[2019-01-31] MEDS: oxyCODONE TAB* 5 MG TAB PO PRN ×5 (04:19→20:54)
[2019-01-31] MEDS: metFORMIN* 500 MG TAB PO SCH ×2 (07:39→18:00)
[2019-01-31] MEDS: Insulin LISPRO* 1 UNITS UNIT SUBCUT SCH ×4 (07:41→20:55)
[2019-01-31] MEDS: Ramipril CAP* 10 MG PO SCH (08:03)
[2019-01-31] MEDS: Metoprolol Tartrate TAB* 25 MG PO SCH ×2 (08:03→20:27)
[2019-01-31] MEDS: RiFAXimin* 550 MG TAB PO SCH ×3 (08:03→20:22)
[2019-01-31] MEDS: Docusate CAP* 100 MG PO SCH ×2 (08:03→20:23)
[2019-01-31] MEDS: Lactobacillus Acidophilus* 1 TAB PO SCH ×2 (08:03→20:22)
[2019-01-31] MEDS: Pantoprazole TAB * 40 MG TAB PO SCH ×2 (08:03→20:22)
[2019-01-31] MEDS: Dronedarone TAB* 400 MG PO SCH ×2 (08:04→20:22)
[2019-01-31] MEDS: Apixaban* 5 MG TAB PO SCH ×2 (08:04→20:22)
[2019-01-31] MEDS: Potassium Chlor TAB* 10 MEQ TAB.ER PO SCH (08:05)
[2019-01-31] MEDS: Insulin GLARGINE(*) 1 UNITS UNIT SUBCUT SCH (18:00)
[2019-01-31] MEDS: Atorvastatin* 20 MG TAB PO SCH (18:00)
--- NOTE | 2019-01-31 18:24 | PN ---
Progress Note Date of Service: 01/31/19 Note: LORENA DALLAS was visited. Therapy notes read and reviewed. He was seen by Dr. Olea of urology for renal mass. Dr. Olea recommends continued observation of mass, renal ultrasound in 6 months. Also seen by Dr. Chaidez for paroxysmal atrial fibrillation. EKG shows sinus. Cardiology follow up as outpatient Current Medications: Active Medications Generic Name Dose Route Start Last Admin Trade Name Freq PRN Reason Stop Dose Admin Acetaminophen 650 mg 01/13/19 16:17 Tylenol Tab* PO Q6H PRN FEVER > 101 Albuterol/Ipratropium 1 neb 01/13/19 16:29 Duoneb (Albuterol 2.5 Mg/Ipratropium 0.5 Mg) INH Q4H PRN SOB/WHEEZING Alprazolam 0.25 mg 01/19/19 17:02 01/30/19 22:40 Xanax Tab* PO 0.25 mg Q8H PRN Administration ANXIETY Apixaban 5 mg 01/13/19 21:00 01/31/19 08:04 Eliquis* PO 5 mg BID JANA Administration Atorvastatin Calcium 20 mg 01/13/19 17:00 01/31/19 18:00 Lipitor* PO 20 mg 1700 JANA Administration Docusate Sodium 100 mg 01/13/19 21:00 01/31/19 08:03 Colace Cap* PO 100 mg BID JANA Administration Dronedarone 400 mg 01/13/19 21:00 01/31/19 08:04 Multaq Tab* PO 400 mg BID JANA Administration Insulin Glargine 40 units 01/13/19 18:00 01/31/19 18:00 Lantus(*) SUBCUT 40 units Q24H JANA Administration Insulin Human Lispro 0 units 01/13/19 16:30 01/31/19 17:57 Humalog* SUBCUT 3 units ACHS JANA Administration Protocol Lactobacillus Rhamnosus 1 tab 01/26/19 21:00 01/31/19 08:03 Lactobacillus Acidophilus* PO 1 tab BID JANA Administration Magnesium Hydroxide 30 ml 01/13/19 16:22 01/16/19 08:32 Milk Of Magnesia Liq* PO 30 ml Q6H PRN Administration CONSTIPATION Metformin HCl 500 mg 01/30/19 17:00 01/31/19 18:00 Glucophage* PO 500 mg 0800,1700 JANA Administration Metoprolol Tartrate 12.5 mg 01/13/19 21:00 01/31/19 08:03 Lopressor Tab* PO 12.5 mg Q12HR JANA Administration Oxycodone HCl 15 mg 01/22/19 20:57 01/31/19 16:12 Roxycodone Tab* PO 15 mg Q4H PRN Administration PAIN - SEVERE Pantoprazole Sodium 40 mg 01/26/19 21:00 01/31/19 08:03 Protonix Tab* PO 40 mg BID JANA Administration Potassium Chloride 20 meq 01/29/19 09:00 01/31/19 08:05 Klor Con Er Tab* PO 20 meq DAILY JANA Administration Ramipril 10 mg 01/14/19 09:00 01/31/19 08:03 Altace Cap* PO 10 mg DAILY JANA Administration Rifaximin 550 mg 01/29/19 21:00 01/31/19 14:37 Xifaxan* PO 02/12/19 23:00 550 mg TID JANA Administration Senna 2 tab 01/13/19 16:17 01/20/19 20:10 Senokot 8.6 Mg Tab* PO 2 tab BEDTIME PRN Administration CONSTIPATION Simethicone 80 mg 01/17/19 18:14 01/25/19 17:10 Mylicon Tab* PO 80 mg Q6H PRN Administration INDIGESTION Tramadol HCl 50 mg 01/13/19 17:03 01/24/19 11:50 Ultram* PO 50 mg Q6H PRN Administration PAIN - MODERATE Trazodone HCl 50 mg 01/13/19 17:02 01/30/19 22:40 Desyrel Tab* PO 50 mg BEDTIME PRN Administration INSOMNIA Vital Signs: Vital Signs Temp Pulse Resp BP Pulse Ox 97.8 F 72 16 111/66 99 01/31/19 15:05 01/31/19 15:05 01/31/19 16:12 01/31/19 15:40 01/31/19 16:22 Lab Results: Laboratory Results - last 24 hr 01/30/19 01/30/19 16:23 21:29 POC Glucose (mg/dL) 299 H 232 H Exam: GENERAL: No acute distress. Alert and appropriate. LUNGS: Clear to auscultation bilaterally. HEART: Regular rate and rhythm ABDOMEN: Soft. Diffusely tender. + bowel sounds. Non-distended. EXTREMITIES: Decreased tone bilateral LEs. No edema. NEUROLOGIC: A&O. Motor 4/5 BUE and 2/5 BLE with normal sensation x4. Assessment/Plan: 1. Respiratory Failure, Pneumonia: DuoNeb PRN. PT/OT 2. Limb Girdle Muscular Dystrophy: PT/OT. Power wheelchair has arrived. 3. Atrial Fibrillation, S/P Cardioversion: Eliquis/Lopressor/Multaq. Saw Dr. Chaidez, had EKG, follow up Dr. Chaidez as outpatient 4. Diabetes: Lantus/SSI. Resumed metformin. 5. Abdominal Pain: Abd series X ray shows some stool. GB U/S unrevealing. PPI. Macrobiotic. CT scan of abdomen/pelvis 01/28/19 showed left renal mass 1.7cm, but not a cause for his more diffuse pain. His abdominal pain is likely muscular and related to muscular dystrophy, deconditioning and reduced pain medications. Question intestinal dysbiosis per prior GI consult so trial of Xifaxan 550mg tid for 2 weeks after d/w Dr. Macias 6. DVT Prophylaxis: Eliquis 7. Hypokalemia: KCL to 20mEq started 01/29. Potassium now normal. 8. Pain: His opiate dose was cut way back on the acute hospitalization. Continue oxycodone/Tramadol, increased oxy to 15 9. Anxiety: Resumed Xanax 0.25 Q8H PRN 10. Advance Directives: Full code 11. Left renal mass: Dr. Olea saw today, recommends continued observation, renal ultrasound in 6 months. 01/31/19 18:24
--- NOTE | 2019-01-31 19:09 | CONS ---
CONSULTATION NOTE: DATE OF CONSULT: 01/31/19 LOCATION: The patient is in the rehab unit of the hospital. REASON FOR CONSULT: I was asked by Dr. Ling to see this 58-year-old white male because of a solid left renal mass. HISTORY OF PRESENT ILLNESS: I have been following Mr. Ramirez because of a neurogenic bladder and chronic urinary retention. He has muscular dystrophy, which has been progressive. He was recently admitted to the hospital because of unresponsiveness possibly as a result of pain medications, and was noted to be hypotensive and febrile. He was noted to have a left upper lobe infiltrate consistent with pneumonia. He was treated aggressively with antibiotics and required intubation in the intensive care unit. He ultimately recovered and has been doing relatively well. He is on the rehab unit until he gets stronger to go back home. The patient had a CT of the abdomen,which showed a 1.7 cm enhancing mass in the superior pole of the left kidney. There was a concern that this represented a malignant tumor. consultation was obtained. I had seen Mr. Ramirez in the past, and he was noted on previous CT's to have a small solid mass in the left kidney. I went back over his CT scans, and in July 2016, the mass was seen and reported, and measured 1.4 cm both by ultrasound and by CT. On his recent CT 3 days ago, the CT scan showed the mass to be 1.7 cm. No other abnormalities were noted in his kidneys. The patient is on Alvarez catheter drainage for his retention and neurogenic bladder. PLAN/RECOMMENDATION: Considering the minimal increase in the size of the mass from 1.4 to 1.7 cm over 2-1/2 years and considering the patient's comorbidities and the fact that he is a poor surgical risk, my recommendation is continued observation and I would recommend obtaining a renal ultrasound in 6 months for followup. The size of the mass should be asymptomatic and even if it is malignant, it will not require any treatment unless it is faster growing, or reaches 4 cm in size. I discussed the above with the patient, answered his questions. [id number] #: [id number] SHERICE
[2019-01-31] MEDS: ALPRAZolam TAB* 0.25 MG PO PRN (20:53)
[2019-01-31] MEDS: traZODone TAB* 50 MG TAB PO PRN (23:24)
[2019-02-01] MEDS: oxyCODONE TAB* 5 MG TAB PO PRN ×5 (01:22→21:39)
[2019-02-01] MEDS: metFORMIN* 500 MG TAB PO SCH ×2 (07:22→16:32)
[2019-02-01] MEDS: Insulin LISPRO* 1 UNITS UNIT SUBCUT SCH ×4 (07:42→21:34)
[2019-02-01] MEDS: Metoprolol Tartrate TAB* 25 MG PO SCH ×3 (09:43→21:32)
[2019-02-01] MEDS: Potassium Chlor TAB* 10 MEQ TAB.ER PO SCH ×2 (09:44→16:18)
[2019-02-01] MEDS: Lactobacillus Acidophilus* 1 TAB PO SCH ×3 (09:44→21:32)
[2019-02-01] MEDS: Pantoprazole TAB * 40 MG TAB PO SCH ×3 (09:44→21:32)
[2019-02-01] MEDS: Apixaban* 5 MG TAB PO SCH ×3 (09:44→21:31)
[2019-02-01] MEDS: Dronedarone TAB* 400 MG PO SCH ×3 (09:44→21:33)
[2019-02-01] MEDS: Docusate CAP* 100 MG PO SCH ×3 (09:45→21:32)
[2019-02-01] MEDS: RiFAXimin* 550 MG TAB PO SCH ×4 (09:46→21:31)
[2019-02-01] MEDS: traMADol TAB* 50 MG PO PRN (10:02)
[2019-02-01] MEDS: ALPRAZolam TAB* 0.25 MG PO PRN ×2 (10:04→21:32)
[2019-02-01] MEDS: Prochlorperazine TAB* 10 MG PO PRN (11:53)
--- NOTE | 2019-02-01 12:33 | PMRUTEAM ---
PMRU: Team Meeting Current Status: Physical Therapy: Current Status Current Rolling Status Substantial/Maximal Current Supine <-> Sit Status Substantial/Maximal Current Sit <-> Stand Status Dependent Current Bed <-> Chair Status Dependent Transfer/Bed Mobility Papo Lift Recommended Devices Current Picking Up Object Dependent Status Current Car Transfer Status Dependent Current Ambulation Assistance Not Applicable Status Manual Wheelchair Control/ Right UE Technique Current Wheelchair Propulsion Supervision/Touching Ability Status Wheelchair Distance (ft) >300' Current Stair Climbing Status Not Applicable Current Curb Assistance Status Not Applicable Objective Comments Pt's ex-, niece and sister present for formal hands on family/discharge training with use of papo lift/sling and bed mobility. Occupational Therapy: Current Status Current Upper Body Dressing Partial/Moderate Status Upper Body Dressing Progress Juan to pull shirt over head occasionally Current Lower Body Dressing Dependent Status Current Footwear Status Dependent Current Bathing Status Partial/Moderate Current Grooming Status Setup or Clean-up Assist Current Toileting Status Dependent Current Toilet Transfer Status Dependent Current Eating Status Independent Nursing: Current Status Skin Deviations [Bilateral Rash Groin] Skin Deviations [Gluteal Fold] Other Skin Deviations [Buttocks] Other Skin Deviation Description [-] - Skin Deviation Description [ sl reddened Bilateral Groin] Skin Deviation Description [ area of peeling skin Gluteal Fold] Skin Deviation Description [ healing well Buttocks] Bladder Current Status Alvarez removed Bowel Current Status Papo lift to commode Nutrition Current Status 75% of meal Medication Current Status takes pain meds for chronic pain Rec Therapy: Current Status Summary of Assessment and Recreation Therapy assessment complete and pt. is Clinical Impression aware of services. Pt. has been very open to leisure visits and participates in pet therapy visits regularly. Pt has declined formal recreational activities, but is active in independent leisure interests. Treatment Goals Pt. will engage in leisure activities while on the unit. Treatment Plan Provide recreation therapy services and encourage involvement. Social Work: Current Status Discharge Plan Return home with home care services and family support Potential for Family Training pt's family has participated in discharge training Anticipated Discharge Home Destination Anticipated Discharge needs papo lift Destination Comment Discharge With home care svs and family support Nutrition: Current Status Monitoring Pt continues on consistent carb diet, small portions, consuming avg 79% x past 3 days; po intake improving. Cont to have BMs q 1-2 days without diarrhea; last BM 01/31. FSBGs: 62-299; Lantus dose unchanged since 01/13 (40 units). Metformin started 01/30. K 3.4 --> 3.8; after supplementation. Skin remains intact. Will follow for continued improvement. Goals: Physical Therapy: Goals Goals to Be Accomplished in ( 21-28 Days) Goal: Rolling Assistance Independent Goal Supine <-> Sit Status Independent Goal Sit <-> Stand Status Partial/Moderate Goal Bed <-> Chair Status Dependent Transfer/Bed Mobility Papo Lift Recommended Devices Goal: Picking Up Object Partial/Moderate Goal: Car Transfer Status Dependent Goal: Ambulation Assistance Not Applicable Goal: Wheelchair Propulsion Independent Ability Wheelchair Distance (ft) >300' Goal: Stairs Assistance Not Applicable Goal: Home Exercise Program Independent Assistance Occupational Therapy: Goals Goals to be Completed in (Days 3-4 weeks ) Goal Upper Body Dressing Setup or Clean-up Assist Routine Goal Lower Body Dressing Dependent Routine Goal Footwear Status Dependent Goal Bathing Routine (OT) Partial/Moderate Goal Grooming Routine Setup or Clean-up Assist Goal Toilet Hygiene and Substantial/Maximal Clothing Management Routine Goal Toilet Transfer Routine Dependent Toilet Transfer Assistive papo Devices Goal Functional Transfers for Dependent ADL Functional Transfers for ADl papo Assistive Devices Goal Feeding Routine Independent Goal Light Housekeeping Tasks Dependent Nutrition: Goals Intervention Goals 1. Maintain adequate glycemic control per inpatient parameters w/o hypoglycemia. 2. Maintain adequate oral intake to support maintenance of lean body mass w/o contributing to undesirable weight gain. 3. Achieve/maintain regular bowel pattern w/o constipation or diarrhea. 4. Tolerates least restrictive texture w/o difficulty chewing or swallowing. Social Work: Goals Discharge Plan Return home with home care services and family support Potential for Family Training pt's family has participated in discharge training Anticipated Discharge Home Destination Anticipated Discharge needs papo lift Destination Comment Discharge With home care svs and family support Nursing: Goals Bladder Goal independently voids in urinal Bowel Goal EZ stand to commode Nutrition Goal 100% of meal Medication Goal independent Care Plan: Care Plan ADL's - Improve/Maintain Start: 01/13/19 22:32 Freq: DAILY@0700,1900 Status: Active Target: 01/20/19 Protocol: Activity Type Activity Date Activity User E-Sign Co-Sign Detail Recorded Client Recorded Date Recorded By Document 01/24/19 14:00 [id number] 01/24/19 14:01 [id number] 01/24/19 14:00 PMRU Outcome: ADL's/ADL Transfers Orders/Interventions Occupational Therapy Evaluation & Treatment Device Yes Address Deficits Secondary To: resp failure Patient to receive OT 5x/wk for 60-120 Therex min/day Self Care Management Group Therapy Neuromuscular ReEducation UE/LE ADL's with Assist Yes: maxA ADL Transfers with Assist Yes: modA Toileting: Transfers,Clothing Management Yes: ModA ,Hygeine w/Assist Light Kitchen/Laundry w/Assist Yes Progression Toward Outcome/Goals Not Progressing Lack of Progression Comment Pt is motivated and making steady progress . He continues to require signifciant assist for his ADL routine. Cardiovascular- Improve/Maintain Start: 01/13/19 22:32 Freq: DAILY@0700,1900 Status: Active Target: 02/09/19 Protocol: Activity Type Activity Date Activity User E-Sign Co-Sign Detail Recorded Client Recorded Date Recorded By Document 02/01/19 07:00 [id number] [id number] 02/01/19 07:48 [id number] 02/01/19 07:00 PMRU Outcome: Cardiovascular Vital Signs q Shift for 48hrs Then BID Yes Daily Weight Ordered No Current Cardiovascular Outcome/Goal Maintain/ Achieve Baseline HR, BP , Perfusion Maintain/ Achieve Hemodynamic Stability Free of Abnormal Cardiac Symptoms Progression Toward Outcome/Goal Progressing Outcomes/Goals Met Maintain/ Achieve Baseline HR, BP , Perfusion Maintain/ Achieve Hemodynamic Stability Free of Abnormal Cardiac Symptoms DVT Prophylaxis- Improve/Maintain Start: 01/13/19 22:32 Freq: DAILY@0700,1900 Status: Active Target: 02/09/19 Protocol: Activity Type Activity Date Activity User E-Sign Co-Sign Detail Recorded Client Recorded Date Recorded By Document 02/01/19 07:00 [id number] [id number] 02/01/19 07:48 [id number] 02/01/19 07:00 PMRU Outcome: DVT Prophylaxis Current DVT Outcome/Goals Remains Free of DVT Complies with DVT Prophylaxis /Treatment Demonstrates Knowledge of DVT Prevention/ Treatment Progression Toward Outcome/Goals Progressing Outcome/Goals Met Remains Free of DVT Discharge Planning - Improve/Maintain Start: 01/13/19 22:32 Freq: DAILY@0700,1900 Status: Active Target: 02/09/19 Protocol: Activity Type Activity Date Activity User E-Sign Co-Sign Detail Recorded Client Recorded Date Recorded By Document 02/01/19 07:00 [id number] [id number] 02/01/19 07:48 [id number] 02/01/19 07:00 PMRU Outcome: Discharge Planning Update Patient Family No Current Discharge Planning Outcome/Goals Demonstrates Understanding of Discharge Plan Homecare Referral - See Comment Progression Toward Outcome/Goals Progressing Education-Improve/Maintain Start: 01/13/19 22:32 Freq: DAILY@0700,1900 Status: Active Target: 02/09/19 Protocol: Activity Type Activity Date Activity User E-Sign Co-Sign Detail Recorded Client Recorded Date Recorded By Document 02/01/19 07:00 [id number] 02/01/19 07:48 [id number] 02/01/19 07:00 PMRU Outcome: Education Current Education Outcome/Goals Demonstrate/ Verbalize Understanding of Written Discharge Instructions Demonstrates Skills Encourage Questions Progression Toward Outcome/Goals Progressing /GI-Improve/Maintain Start: 01/13/19 22:32 Freq: DAILY@0700,1900 Status: Active Target: 02/09/19 Protocol: Activity Type Activity Date Activity User E-Sign Co-Sign Detail Recorded Client Recorded Date Recorded By Document 02/01/19 07:00 [id number] 02/01/19 07:48 [id number] 02/01/19 07:00 PMRU Outcome: Genitourinary/ Gastrointestinal Current Gastrointestinal Outcome/Goals Maintain/ Achieve Bowel Regularity in Accordance with Pt's Baseline Remain Free of Emesis Prevent Constipation Laxatives as Ordered Progression Toward Outcome/Goals Progressing Current Genitourinary Outcome/Goals Maintain/ Achieve Adequate Urinary Output Remain Free of Hospital- Acquired UTI Progression Toward Outcome/Goals Progressing Medication Administration Start: 01/13/19 22:32 Freq: DAILY@0700,1900 Status: Active Target: 02/09/19 Protocol: Activity Type Activity Date Activity User E-Sign Co-Sign Detail Recorded Client Recorded Date Recorded By Document 02/01/19 07:00 [id number] 02/01/19 07:48 [id number] 02/01/19 07:00 PMRU Outcome: Medication Administration Assess Patient Knowledge/Teach Med Yes Education for all Meds Current Occupational Therapist Aide Outcome/Goals Patient Independent with Medication Administration at Home Demonstrates Understanding Progression Towards Outcome/Goals Progressing Outcome/Goals Met Demonstrates Understanding Is Patient Going Home on Lovenox? No Metabolic Status- Improve/Maintain Start: 01/13/19 22:32 Freq: DAILY@699,1899 Status: Active Target: 02/09/19 Protocol: Activity Type Activity Date Activity User E-Sign Co-Sign Detail Recorded Client Recorded Date Recorded By Document 02/01/19 07:00 [id number] 02/01/19 07:48 [id number] 02/01/19 07:00 PMRU Outcome: Metabolic Status Have Fingersticks Been Ordered Yes Fingerstick Order Frequency AC & HS Current Metabolic Status Outcome/Goals Maintain/ Improve Metabolic Status Demonstrate Knowledge of Prevention/ Treatment of Metabolic Imbalances Progression Toward Outcome/Goals Progressing Outcome/Goals Met Maintain/ Improve Metabolic Status Demonstrate Knowledge of Prevention/ Treatment of Metabolic Imbalances Mobility- Improve/Maintain Start: 01/13/19 22:32 Freq: DAILY@ Status: Active Target: 02/09/19 Protocol: Activity Type Activity Date Activity User E-Sign Co-Sign Detail Recorded Client Recorded Date Recorded By Document 01/31/19 14:54 [id number] 01/31/19 14:54 [id number] 01/31/19 14:54 PMRU Outcome: Mobility Physical Therapy Evaluation and Yes Treatment Activity OOB with Assistance Yes Device Yes: Papo/EZ- stand Assistance Yes: Max/ Dependent Patient to be seen 5x/wk for 60-120 min/ Therex day for: Mobility Training W/C Mobility Balance Other Current Mobility Outcome/Goals Maintain/ Achieve Baseline Mobility Status Improve Mobility Status Demonstrates Proper Use of Assistive Devices Free from Complications of Immobility Progression Toward Outcome/Goals Progressing Bed Mobility Yes: Ind Transfers Yes: Partial/ Mod A W/C Mobility x ft Yes: Ind in power wheelchair x150ft With HEP Yes: Ind Nutrition/Swallowing- Improve/Maintain Start: 01/13/19 22:32 Freq: DAILY@699,1899 Status: Active Target: 02/09/19 Protocol: Activity Type Activity Date Activity User E-Sign Co-Sign Detail Recorded Client Recorded Date Recorded By Document 02/01/19 07:00 [id number] 02/01/19 07:48 [id number] 02/01/19 07:00 PMRU Outcome: Nutrition/Swallowing Current Nutrition/Swallowing Outcome/ Demonstrates Goals Adequate Hydration/ Prevents Dehydration Maintain/ Improve Nutritional Status Progression Toward Outcome/Goals Progressing Pain/Comfort- Improve/Maintain Start: 01/13/19 22:32 Freq: DAILY@0700,1900 Status: Complete Target: 01/27/19 Protocol: Activity Type Activity Date Activity User E-Sign Co-Sign Detail Recorded Client Recorded Date Recorded By Document 01/19/19 15:58 [id number] [id number] 01/19/19 15:59 [id number] 01/19/19 15:58 PMRU Outcome: Pain/Comfort Current Pain/Comfort Outcome/Goals Demonstrates Knowledge and Use of Available Comfort Measures Achieves Acceptable Comfort/Pain Level as Determined by Patient/Condit Maintain Comfort Level Allowing Patient to Fully Participate in Rehab Progression Toward Outcome/Goals Goals Met Outcome/Goals Met Demonstrates Knowledge and Use of Available Comfort Measures Maintain Comfort Level Allowing Patient to Fully Participate in Rehab Rec Therapy- Improve/Maintain Start: 01/13/19 22:32 Freq: DAILY@07,1899 Status: Active Target: 02/09/19 Protocol: Activity Type Activity Date Activity User E-Sign Co-Sign Detail Recorded Client Recorded Date Recorded By Document 01/31/19 15:45 [id number] 01/31/19 15:52 [id number] 01/31/19 15:45 PMRU Outcome: Recreation Therapy Current Rec Ther Outcome/Goals Complete Rec Therapy Assessment Meet with Patient Regularly for Support Encourage Leisure Involvement Progression Toward Outcome/Goals Progressing Lack of Progression Comment Pt continues to enjoy leisure visits from staff, pleasant and interactive during visits. Pt participating regularly with pet therapy and independent leisure interests such as watching movies, using his phone and Ipad. Pt declines formal recreational activities at this time. Outcome/Goals Met Complete Rec Therapy Assessment Outcome/Goals Met Comment Recreation assessment complete. Safety- Improve/Maintain Start: 01/13/19 16:23 Freq: DAILY@0700,1900 Status: Active Target: 02/09/19 Protocol: Activity Type Activity Date Activity User E-Sign Co-Sign Detail Recorded Client Recorded Date Recorded By Document 02/01/19 07:00 [id number] [email or web address] 02/01/19 07:48 [id number] 02/01/19 07:00 PMRU Outcome: Safety Current Safety Outcome/Goals Remain Free of Injury or Harm Cooperates with Safety Measures for Least Restrictive Environment Prevent Falls/ Injury Progression Toward Outcome/Goals Progressing - Interdisciplinary Staff Present Draw Press Operator/Social Work Staff Present: Salena Israel LMSW Nursing Staff Present: Andrews Gonzalez RN OT Staff Present: Kristen Jensen PT Staff Present: Korina Contreras Therapy Staff Present: Patito Morales Medicine Note: Length of Stay: 7 days Anticipated Discharge Destination: Home Tentative Discharge Date: 02/08/19 Discharged to: Home
[2019-02-01] MEDS: Ramipril CAP* 10 MG PO SCH (13:20)
[2019-02-01] MEDS: Atorvastatin* 20 MG TAB PO SCH (16:31)
[2019-02-01] MEDS: Insulin GLARGINE(*) 1 UNITS UNIT SUBCUT SCH (17:38)
--- NOTE | 2019-02-01 19:38 | PN ---
Progress Note Date of Service: 02/01/19 Note: LORENA DALLAS was visited. Therapy notes read and reviewed. He was discussed in interdisciplinary team rounds. He is complaining of more pain inhis hips and his back and would like more oxycodone. He had nausea today that was relieved by Compazine Current Medications: Active Medications Generic Name Dose Route Start Last Admin Trade Name Freq PRN Reason Stop Dose Admin Acetaminophen 650 mg 01/13/19 16:17 Tylenol Tab* PO Q6H PRN FEVER > 101 Albuterol/Ipratropium 1 neb 01/13/19 16:29 Duoneb (Albuterol 2.5 Mg/Ipratropium 0.5 Mg) INH Q4H PRN SOB/WHEEZING Alprazolam 0.25 mg 01/19/19 17:02 02/01/19 10:04 Xanax Tab* PO 0.25 mg Q8H PRN Administration ANXIETY Apixaban 5 mg 01/13/19 21:00 02/01/19 13:20 Eliquis* PO 5 mg BID JANA Administration Atorvastatin Calcium 20 mg 01/13/19 17:00 02/01/19 16:31 Lipitor* PO 20 mg 1700 JANA Administration Docusate Sodium 100 mg 01/13/19 21:00 02/01/19 16:16 Colace Cap* PO Not Given BID JANA Dronedarone 400 mg 01/13/19 21:00 02/01/19 13:20 Multaq Tab* PO 400 mg BID JANA Administration Insulin Glargine 40 units 01/13/19 18:00 02/01/19 17:38 Lantus(*) SUBCUT 40 units Q24H JANA Administration Insulin Human Lispro 0 units 01/13/19 16:30 02/01/19 17:38 Humalog* SUBCUT 6 units ACHS JANA Administration Protocol Lactobacillus Rhamnosus 1 tab 01/26/19 21:00 02/01/19 16:16 Lactobacillus Acidophilus* PO Not Given BID JANA Magnesium Hydroxide 30 ml 01/13/19 16:22 01/16/19 08:32 Milk Of Magnesia Liq* PO 30 ml Q6H PRN Administration CONSTIPATION Metformin HCl 500 mg 01/30/19 17:00 02/01/19 16:32 Glucophage* PO 500 mg 0800,1700 JANA Administration Metoprolol Tartrate 12.5 mg 01/13/19 21:00 02/01/19 13:21 Lopressor Tab* PO 12.5 mg Q12HR JANA Administration Oxycodone HCl 15 mg 01/22/19 20:57 02/01/19 17:44 Roxycodone Tab* PO 15 mg Q4H PRN Administration PAIN - SEVERE Pantoprazole Sodium 40 mg 01/26/19 21:00 02/01/19 16:17 Protonix Tab* PO Not Given BID JANA Potassium Chloride 20 meq 01/29/19 09:00 02/01/19 16:18 Klor Con Er Tab* PO Not Given DAILY JANA Prochlorperazine 10 mg 02/01/19 10:49 02/01/19 11:53 Compazine Tab* PO 10 mg Q6HR PRN Administration NAUSEA Ramipril 10 mg 01/14/19 09:00 02/01/19 13:20 Altace Cap* PO 10 mg DAILY JANA Administration Rifaximin 550 mg 01/29/19 21:00 02/01/19 16:26 Xifaxan* PO 02/12/19 23:00 550 mg TID JANA Administration Senna 2 tab 01/13/19 16:17 01/20/19 20:10 Senokot 8.6 Mg Tab* PO 2 tab BEDTIME PRN Administration CONSTIPATION Simethicone 80 mg 01/17/19 18:14 01/25/19 17:10 Mylicon Tab* PO 80 mg Q6H PRN Administration INDIGESTION Tramadol HCl 50 mg 01/13/19 17:03 02/01/19 10:02 Ultram* PO 50 mg Q6H PRN Administration PAIN - MODERATE Trazodone HCl 50 mg 01/13/19 17:02 01/31/19 23:24 Desyrel Tab* PO 50 mg BEDTIME PRN Administration INSOMNIA Vital Signs: Vital Signs Temp Pulse Resp BP Pulse Ox 98.4 F 72 16 129/74 100 02/01/19 16:00 02/01/19 16:00 02/01/19 17:50 02/01/19 17:54 02/01/19 17:50 Lab Results: Laboratory Results - last 24 hr 01/31/19 01/31/19 01/31/19 07:31 11:49 16:19 POC Glucose (mg/dL) 103 H 210 H 176 H 01/31/19 02/01/19 02/01/19 20:28 07:36 09:42 POC Glucose (mg/dL) 231 H 62 L 195 H Exam: GENERAL: No acute distress. Alert and appropriate. LUNGS: Clear to auscultation bilaterally. HEART: Regular rate and rhythm ABDOMEN: Soft. Diffusely tender. + bowel sounds. Non-distended. EXTREMITIES: Decreased tone bilateral LEs. No edema. NEUROLOGIC: A&O. Motor 4/5 BUE and 2/5 BLE with normal sensation x4. Assessment/Plan: 1. Respiratory Failure, Pneumonia: DuoNeb PRN. PT/OT 2. Limb Girdle Muscular Dystrophy: PT/OT. Power wheelchair has arrived. 3. Atrial Fibrillation, S/P Cardioversion: Eliquis/Lopressor/Multaq. Saw Dr. Chaidez, had EKG, follow up Dr. Chaidez as outpatient 4. Diabetes: Lantus/SSI. Resumed metformin. 5. Abdominal Pain: Abd series X ray shows some stool. GB U/S unrevealing. PPI. Macrobiotic. CT scan of abdomen/pelvis 01/28/19 showed left renal mass 1.7cm, but not a cause for his more diffuse pain. His abdominal pain is likely muscular and related to muscular dystrophy, deconditioning and reduced pain medications. Question intestinal dysbiosis per prior GI consult so trial of Xifaxan 550mg tid for 2 weeks after d/w Dr. Macias 6. DVT Prophylaxis: Eliquis 7. Hypokalemia: KCL to 20mEq started 01/29. Potassium now normal. 8. Pain: His opiate dose was cut way back on the acute hospitalization. Continue oxycodone/Tramadol, increased oxy to 15. Will consider increasing or a ERITREAN 9. Anxiety: Resumed Xanax 0.25 Q8H PRN 10. Advance Directives: Full code 11. Left renal mass: Dr. Olea saw today, recommends continued observation, renal ultrasound in 6 months. 02/01/19 19:39
[2019-02-01] MEDS: traZODone TAB* 50 MG TAB PO PRN (21:33)
[2019-02-02] MEDS: oxyCODONE TAB* 5 MG TAB PO PRN ×5 (02:05→21:17)
[2019-02-02] MEDS: Prochlorperazine TAB* 10 MG PO PRN (08:19)
[2019-02-02] MEDS: Pantoprazole TAB * 40 MG TAB PO SCH ×2 (10:51→21:09)
[2019-02-02] MEDS: Apixaban* 5 MG TAB PO SCH ×2 (10:51→21:09)
[2019-02-02] MEDS: metFORMIN* 500 MG TAB PO SCH ×2 (10:51→17:19)
[2019-02-02] MEDS: Docusate CAP* 100 MG PO SCH ×2 (10:51→21:09)
[2019-02-02] MEDS: Metoprolol Tartrate TAB* 25 MG PO SCH ×2 (10:52→21:11)
[2019-02-02] MEDS: Potassium Chlor TAB* 10 MEQ TAB.ER PO SCH (10:52)
[2019-02-02] MEDS: Ramipril CAP* 10 MG PO SCH (10:52)
[2019-02-02] MEDS: RiFAXimin* 550 MG TAB PO SCH ×3 (10:53→21:10)
[2019-02-02] MEDS: Dronedarone TAB* 400 MG PO SCH ×2 (10:53→21:10)
[2019-02-02] MEDS: Lactobacillus Acidophilus* 1 TAB PO SCH ×2 (10:53→21:11)
[2019-02-02] MEDS: Insulin LISPRO* 1 UNITS UNIT SUBCUT SCH ×4 (11:53→21:30)
[2019-02-02] MEDS: Atorvastatin* 20 MG TAB PO SCH (17:19)
--- NOTE | 2019-02-02 17:50 | PN ---
Progress Note Date of Service: 02/02/19 Note: LORENA DALLAS was visited. Therapy notes read and reviewed. He is doing okay but remains impaired. He does complain of pain in his hips. Nausea better Current Medications: Active Medications Generic Name Dose Route Start Last Admin Trade Name Freq PRN Reason Stop Dose Admin Acetaminophen 650 mg 01/13/19 16:17 Tylenol Tab* PO Q6H PRN FEVER > 101 Albuterol/Ipratropium 1 neb 01/13/19 16:29 Duoneb (Albuterol 2.5 Mg/Ipratropium 0.5 Mg) INH Q4H PRN SOB/WHEEZING Alprazolam 0.25 mg 01/19/19 17:02 02/01/19 21:32 Xanax Tab* PO 0.25 mg Q8H PRN Administration ANXIETY Apixaban 5 mg 01/13/19 21:00 02/02/19 10:51 Eliquis* PO 5 mg BID JANA Administration Atorvastatin Calcium 20 mg 01/13/19 17:00 02/02/19 17:19 Lipitor* PO 20 mg 1700 JANA Administration Docusate Sodium 100 mg 01/13/19 21:00 02/02/19 10:51 Colace Cap* PO 100 mg BID JANA Administration Dronedarone 400 mg 01/13/19 21:00 02/02/19 10:53 Multaq Tab* PO 400 mg BID JANA Administration Insulin Glargine 40 units 01/13/19 18:00 02/01/19 17:38 Lantus(*) SUBCUT 40 units Q24H JANA Administration Insulin Human Lispro 0 units 01/13/19 16:30 02/02/19 17:17 Humalog* SUBCUT 6 units ACHS JANA Administration Protocol Lactobacillus Rhamnosus 1 tab 01/26/19 21:00 02/02/19 10:53 Lactobacillus Acidophilus* PO 1 tab BID JANA Administration Magnesium Hydroxide 30 ml 01/13/19 16:22 01/16/19 08:32 Milk Of Magnesia Liq* PO 30 ml Q6H PRN Administration CONSTIPATION Metformin HCl 500 mg 01/30/19 17:00 02/02/19 17:19 Glucophage* PO 500 mg 0800,1700 JANA Administration Metoprolol Tartrate 12.5 mg 01/13/19 21:00 02/02/19 10:52 Lopressor Tab* PO 12.5 mg Q12HR JANA Administration Oxycodone HCl 15 mg 01/22/19 20:57 02/02/19 15:50 Roxycodone Tab* PO 15 mg Q4H PRN Administration PAIN - SEVERE Pantoprazole Sodium 40 mg 01/26/19 21:00 02/02/19 10:51 Protonix Tab* PO 40 mg BID JANA Administration Potassium Chloride 20 meq 01/29/19 09:00 02/02/19 10:52 Klor Con Er Tab* PO 20 meq DAILY JANA Administration Prochlorperazine 10 mg 02/01/19 10:49 02/02/19 08:19 Compazine Tab* PO 10 mg Q6HR PRN Administration NAUSEA Ramipril 10 mg 01/14/19 09:00 02/02/19 10:52 Altace Cap* PO 10 mg DAILY JANA Administration Rifaximin 550 mg 01/29/19 21:00 02/02/19 14:04 Xifaxan* PO 02/12/19 23:00 550 mg TID JANA Administration Senna 2 tab 01/13/19 16:17 01/20/19 20:10 Senokot 8.6 Mg Tab* PO 2 tab BEDTIME PRN Administration CONSTIPATION Simethicone 80 mg 01/17/19 18:14 01/25/19 17:10 Mylicon Tab* PO 80 mg Q6H PRN Administration INDIGESTION Tramadol HCl 50 mg 01/13/19 17:03 02/01/19 10:02 Ultram* PO 50 mg Q6H PRN Administration PAIN - MODERATE Trazodone HCl 50 mg 01/13/19 17:02 02/01/19 21:33 Desyrel Tab* PO 50 mg BEDTIME PRN Administration INSOMNIA Vital Signs: Vital Signs Temp Pulse Resp BP Pulse Ox 98.5 F 76 14 138/72 100 02/02/19 17:03 02/02/19 17:03 02/02/19 17:30 02/02/19 17:03 02/02/19 17:30 Lab Results: Laboratory Results - last 24 hr 02/01/19 02/01/19 02/01/19 11:53 16:32 20:16 POC Glucose (mg/dL) 185 H 206 H 167 H 02/02/19 02/02/19 02/02/19 07:24 08:40 12:02 POC Glucose (mg/dL) 63 L 149 H 214 H Exam: GENERAL: No acute distress. Alert and appropriate. LUNGS: Clear to auscultation bilaterally. HEART: Regular rate and rhythm ABDOMEN: Soft. Diffusely tender. + bowel sounds. Non-distended. EXTREMITIES: Decreased tone bilateral LEs. No edema. NEUROLOGIC: A&O. Motor 4/5 BUE and 2/5 BLE with normal sensation x4. Assessment/Plan: 1. Respiratory Failure, Pneumonia: DuoNeb PRN. PT/OT 2. Limb Girdle Muscular Dystrophy: PT/OT. Power wheelchair has arrived. 3. Atrial Fibrillation, S/P Cardioversion: Eliquis/Lopressor/Multaq. Saw Dr. Chaidez, had EKG, follow up Dr. Chaidez as outpatient 4. Diabetes: Lantus/SSI. Resumed metformin. 5. Abdominal Pain: Abd series X ray shows some stool. GB U/S unrevealing. PPI. Macrobiotic. CT scan of abdomen/pelvis 01/28/19 showed left renal mass 1.7cm, but not a cause for his more diffuse pain. His abdominal pain is likely muscular and related to muscular dystrophy, deconditioning and reduced pain medications. Question intestinal dysbiosis per prior GI consult so trial of Xifaxan 550mg tid for 2 weeks after d/w Dr. Macias 6. DVT Prophylaxis: Eliquis 7. Hypokalemia: KCL to 20mEq started 01/29. Potassium now normal. 8. Pain: His opiate dose was cut way back on the acute hospitalization. Continue oxycodone/Tramadol, increased oxy to 15. Will consider increasing or a ENGLISH 9. Anxiety: Resumed Xanax 0.25 Q8H PRN 10. Advance Directives: Full code 11. Left renal mass: Dr. Olea recommends continued observation, renal ultrasound in 6 months. 02/02/19 17:50
[2019-02-02] MEDS: Insulin GLARGINE(*) 1 UNITS UNIT SUBCUT SCH (18:08)
[2019-02-02] MEDS: traZODone TAB* 50 MG TAB PO PRN (21:06)
[2019-02-02] MEDS: ALPRAZolam TAB* 0.25 MG PO PRN (21:07)
[2019-02-03] MEDS: oxyCODONE TAB* 5 MG TAB PO PRN ×5 (02:24→23:20)
[2019-02-03] MEDS: Insulin LISPRO* 1 UNITS UNIT SUBCUT SCH ×4 (07:30→21:26)
[2019-02-03] MEDS: Pantoprazole TAB * 40 MG TAB PO SCH ×2 (08:26→22:42)
[2019-02-03] MEDS: metFORMIN* 500 MG TAB PO SCH ×2 (08:26→18:09)
[2019-02-03] MEDS: Prochlorperazine TAB* 10 MG PO PRN (08:26)
[2019-02-03] MEDS: Potassium Chlor TAB* 10 MEQ TAB.ER PO SCH (10:18)
[2019-02-03] MEDS: RiFAXimin* 550 MG TAB PO SCH ×3 (10:18→21:27)
[2019-02-03] MEDS: Lactobacillus Acidophilus* 1 TAB PO SCH ×2 (10:18→21:26)
[2019-02-03] MEDS: Apixaban* 5 MG TAB PO SCH ×2 (10:19→21:27)
[2019-02-03] MEDS: Metoprolol Tartrate TAB* 25 MG PO SCH ×2 (10:19→21:27)
[2019-02-03] MEDS: Ramipril CAP* 10 MG PO SCH (10:19)
[2019-02-03] MEDS: Docusate CAP* 100 MG PO SCH ×2 (10:19→21:26)
[2019-02-03] MEDS: Dronedarone TAB* 400 MG PO SCH ×2 (10:21→21:27)
--- NOTE | 2019-02-03 17:47 | PN ---
Progress Note Date of Service: 02/03/19 Note: LORENA DALLAS was visited. Therapy notes read and reviewed. He was measured for a new [id number] wheelchair from [employer] today. He needs a TIS because he cannot do pressure relief. He needs a reclining seat back and elevating leg rests to prevent contracture formation. He obviously is too weak to propel a manual wheelchair. He is reporting more pain as he spends more time up. Will add MS Contin 30 BID. He cannot go back tot he fentanyl patch. Current Medications: Active Medications Generic Name Dose Route Start Last Admin Trade Name Freq PRN Reason Stop Dose Admin Acetaminophen 650 mg 01/13/19 16:17 Tylenol Tab* PO Q6H PRN FEVER > 101 Albuterol/Ipratropium 1 neb 01/13/19 16:29 Duoneb (Albuterol 2.5 Mg/Ipratropium 0.5 Mg) INH Q4H PRN SOB/WHEEZING Alprazolam 0.25 mg 01/19/19 17:02 02/02/19 21:07 Xanax Tab* PO 0.25 mg Q8H PRN Administration ANXIETY Apixaban 5 mg 01/13/19 21:00 02/03/19 10:19 Eliquis* PO 5 mg BID JANA Administration Atorvastatin Calcium 20 mg 01/13/19 17:00 02/02/19 17:19 Lipitor* PO 20 mg 1700 JANA Administration Docusate Sodium 100 mg 01/13/19 21:00 02/03/19 10:19 Colace Cap* PO 100 mg BID JANA Administration Dronedarone 400 mg 01/13/19 21:00 02/03/19 10:21 Multaq Tab* PO 400 mg BID JANA Administration Insulin Glargine 40 units 01/13/19 18:00 02/02/19 18:08 Lantus(*) SUBCUT 40 units Q24H JANA Administration Insulin Human Lispro 0 units 01/13/19 16:30 02/03/19 13:25 Humalog* SUBCUT 12 units ACHS JANA Administration Protocol Lactobacillus Rhamnosus 1 tab 01/26/19 21:00 02/03/19 10:18 Lactobacillus Acidophilus* PO 1 tab BID JANA Administration Magnesium Hydroxide 30 ml 01/13/19 16:22 01/16/19 08:32 Milk Of Magnesia Liq* PO 30 ml Q6H PRN Administration CONSTIPATION Metformin HCl 500 mg 01/30/19 17:00 02/03/19 08:26 Glucophage* PO 500 mg 0800,1700 JANA Administration Metoprolol Tartrate 12.5 mg 01/13/19 21:00 02/03/19 10:19 Lopressor Tab* PO 12.5 mg Q12HR JANA Administration Morphine Sulfate 30 mg 02/03/19 20:00 Ms Contin(*) PO Q12H JANA Oxycodone HCl 15 mg 01/22/19 20:57 02/03/19 15:26 Roxycodone Tab* PO 15 mg Q4H PRN Administration PAIN - SEVERE Pantoprazole Sodium 40 mg 02/03/19 21:00 Protonix Tab* PO 0600,2100 [facility] Potassium Chloride 20 meq 01/29/19 09:00 02/03/19 10:18 Klor Con Er Tab* PO 20 meq DAILY JANA Administration Prochlorperazine 10 mg 02/01/19 10:49 02/03/19 08:26 Compazine Tab* PO 10 mg Q6HR PRN Administration NAUSEA Ramipril 10 mg 01/14/19 09:00 02/03/19 10:19 Altace Cap* PO 10 mg DAILY JANA Administration Rifaximin 550 mg 01/29/19 21:00 02/03/19 15:26 Xifaxan* PO 02/12/19 23:00 550 mg TID JANA Administration Senna 2 tab 01/13/19 16:17 01/20/19 20:10 Senokot 8.6 Mg Tab* PO 2 tab BEDTIME PRN Administration CONSTIPATION Simethicone 80 mg 01/17/19 18:14 01/25/19 17:10 Mylicon Tab* PO 80 mg Q6H PRN Administration INDIGESTION Tramadol HCl 50 mg 01/13/19 17:03 02/01/19 10:02 Ultram* PO 50 mg Q6H PRN Administration PAIN - MODERATE Trazodone HCl 50 mg 01/13/19 17:02 02/02/19 21:06 Desyrel Tab* PO 50 mg BEDTIME PRN Administration INSOMNIA Vital Signs: Vital Signs Temp Pulse Resp BP Pulse Ox 98.2 F 82 18 135/69 100 02/03/19 16:00 02/03/19 16:00 02/03/19 16:00 02/03/19 16:00 02/03/19 16:00 Lab Results: Laboratory Results - last 24 hr 02/02/19 02/02/19 02/03/19 16:43 21:21 07:26 POC Glucose (mg/dL) 206 H 214 H 73 02/03/19 02/03/19 11:45 16:57 POC Glucose (mg/dL) 342 H 209 H Exam: GENERAL: No acute distress. Alert and appropriate. LUNGS: Clear to auscultation bilaterally. HEART: Regular rate and rhythm ABDOMEN: Soft. Diffusely tender. + bowel sounds. Non-distended. EXTREMITIES: Decreased tone bilateral LEs. No edema. NEUROLOGIC: A&O. Motor 4/5 BUE and 2/5 BLE with normal sensation x4. Assessment/Plan: 1. Respiratory Failure, Pneumonia: DuoNeb PRN. PT/OT 2. Limb Girdle Muscular Dystrophy: PT/OT. Power wheelchair has arrived. 3. Atrial Fibrillation, S/P Cardioversion: Eliquis/Lopressor/Multaq. Saw Dr. Chaidez, had EKG, follow up Dr. Chaidez as outpatient 4. Diabetes: Lantus/SSI. Resumed metformin. 5. Abdominal Pain: Abd series X ray shows some stool. GB U/S unrevealing. PPI. Macrobiotic. CT scan of abdomen/pelvis 01/28/19 showed left renal mass 1.7cm, but not a cause for his more diffuse pain. His abdominal pain is likely muscular and related to muscular dystrophy, deconditioning and reduced pain medications. Question intestinal dysbiosis per prior GI consult so trial of Xifaxan 550mg tid for 2 weeks after d/w Dr. Macias 6. DVT Prophylaxis: Eliquis 7. Hypokalemia: KCL to 20mEq started 01/29. Potassium now normal. 8. Pain: His opiate dose was cut way back on the acute hospitalization. Continue oxycodone/Tramadol, increased oxy to 15. Will add a DUY, MS Contin 30 BID 9. Anxiety: Resumed Xanax 0.25 Q8H PRN 10. Advance Directives: Full code 11. Left renal mass: Dr. Olea recommends continued observation, renal ultrasound in 6 months. 02/03/19 17:47
[2019-02-03] MEDS: Atorvastatin* 20 MG TAB PO SCH (18:09)
[2019-02-03] MEDS: Insulin GLARGINE(*) 1 UNITS UNIT SUBCUT SCH (18:10)
[2019-02-03] MEDS: Morphine TAB Extended Release (*) 30 MG TAB.ER PO SCH (19:35)
[2019-02-03] MEDS: ALPRAZolam TAB* 0.25 MG PO PRN (22:43)
[2019-02-03] MEDS: traZODone TAB* 50 MG TAB PO PRN (23:20)
[2019-02-04] MEDS: oxyCODONE TAB* 5 MG TAB PO PRN ×4 (03:43→22:00)
[2019-02-04] MEDS: Pantoprazole TAB * 40 MG TAB PO SCH ×2 (05:16→21:02)
[2019-02-04 05:24] LABS: ABS Basophils 0.1 10^3/ul (0-0.2); ABS Eosinophils 0.3 10^3/ul (0-0.6); ABS Lymphocytes 1.1 10^3/ul (1.0-4.8); ABS Monocytes 0.5 10^3/ul (0-0.8); ABS Neutrophils 2.3 10^3/ul (1.5-7.7); Hematocrit 27 % (42-52); Lymphocyte % 26.7 %; Mean Corpuscular HGB Conc 34 g/dL (31-36); Mean Corpuscular Hemoglobin 28 pg (27-31); Mean Corpuscular Volume 84 fL (80-94); Mean Platelet Volume 8.8 fL (7.4-10.4); Nucleated Red Blood Cells % 0.3; Platelet Count 190 10^3/uL (150-450); Red Blood Count 3.18 10^6 /uL (4.18-5.48); Red Cell Distribution Width 16 % (10-15); White Blood Count 4.3 10^3/uL (3.5-10.8)
[2019-02-04 05:51] LABS: Albumin/Globulin Ratio 1.6 (1-3); BUN/Creatinine Ratio 33.3 (8-20); EGFR Non-African American 194.2 (>60); Globulin 1.9 g/dL (2-4); Potassium 3.8 mmol/L (3.5-5.0); Total Bilirubin 0.6 mg/dL (0.2-1.0); Total Protein 4.9 g/dL (6.4-8.9)
[2019-02-04] MEDS: Insulin LISPRO* 1 UNITS UNIT SUBCUT SCH ×4 (08:06→21:59)
[2019-02-04] MEDS: Potassium Chlor TAB* 10 MEQ TAB.ER PO SCH (08:25)
[2019-02-04] MEDS: Dronedarone TAB* 400 MG PO SCH ×2 (08:25→20:31)
[2019-02-04] MEDS: Docusate CAP* 100 MG PO SCH ×2 (08:25→20:32)
[2019-02-04] MEDS: RiFAXimin* 550 MG TAB PO SCH ×3 (08:25→20:31)
[2019-02-04] MEDS: Lactobacillus Acidophilus* 1 TAB PO SCH ×2 (08:26→20:30)
[2019-02-04] MEDS: metFORMIN* 500 MG TAB PO SCH ×2 (08:26→17:30)
[2019-02-04] MEDS: Metoprolol Tartrate TAB* 25 MG PO SCH ×2 (08:26→20:32)
[2019-02-04] MEDS: Morphine TAB Extended Release (*) 30 MG TAB.ER PO SCH ×2 (08:26→20:28)
[2019-02-04] MEDS: Apixaban* 5 MG TAB PO SCH ×2 (08:26→20:28)
[2019-02-04] MEDS: Ramipril CAP* 10 MG PO SCH (08:26)
--- NOTE | 2019-02-04 15:55 | PN ---
Progress Note Date of Service: 02/04/19 Note: LORENA DALLAS was visited. Therapy notes read and reviewed. He feels better with the added long acting opioid. He has no other complaints. Current Medications: Active Medications Generic Name Dose Route Start Last Admin Trade Name Freq PRN Reason Stop Dose Admin Acetaminophen 650 mg 01/13/19 16:17 Tylenol Tab* PO Q6H PRN FEVER > 101 Albuterol/Ipratropium 1 neb 01/13/19 16:29 Duoneb (Albuterol 2.5 Mg/Ipratropium 0.5 Mg) INH Q4H PRN SOB/WHEEZING Alprazolam 0.25 mg 01/19/19 17:02 02/03/19 22:43 Xanax Tab* PO 0.25 mg Q8H PRN Administration ANXIETY Apixaban 5 mg 01/13/19 21:00 02/04/19 08:26 Eliquis* PO 5 mg BID JANA Administration Atorvastatin Calcium 20 mg 01/13/19 17:00 02/03/19 18:09 Lipitor* PO 20 mg 1700 JANA Administration Docusate Sodium 100 mg 01/13/19 21:00 02/04/19 08:25 Colace Cap* PO 100 mg BID JANA Administration Dronedarone 400 mg 01/13/19 21:00 02/04/19 08:25 Multaq Tab* PO 400 mg BID JANA Administration Insulin Glargine 40 units 01/13/19 18:00 02/03/19 18:10 Lantus(*) SUBCUT 40 units Q24H AJNA Administration Insulin Human Lispro 0 units 01/13/19 16:30 02/04/19 13:08 Humalog* SUBCUT 3 units ACHS JANA Administration Protocol Lactobacillus Rhamnosus 1 tab 01/26/19 21:00 02/04/19 08:26 Lactobacillus Acidophilus* PO 1 tab BID JANA Administration Magnesium Hydroxide 30 ml 01/13/19 16:22 01/16/19 08:32 Milk Of Magnesia Liq* PO 30 ml Q6H PRN Administration CONSTIPATION Metformin HCl 500 mg 01/30/19 17:00 02/04/19 08:26 Glucophage* PO 500 mg 0800,1700 JANA Administration Metoprolol Tartrate 12.5 mg 01/13/19 21:00 02/04/19 08:26 Lopressor Tab* PO 12.5 mg Q12HR JANA Administration Morphine Sulfate 30 mg 02/03/19 20:00 02/04/19 08:26 Ms Contin(*) PO 30 mg Q12H JANA Administration Oxycodone HCl 15 mg 01/22/19 20:57 02/04/19 13:10 Roxycodone Tab* PO 15 mg Q4H PRN Administration PAIN - SEVERE Pantoprazole Sodium 40 mg 02/03/19 21:00 02/04/19 05:16 Protonix Tab* PO 40 mg 0600,2100 JANA Administration Potassium Chloride 20 meq 01/29/19 09:00 02/04/19 08:25 Klor Con Er Tab* PO 20 meq DAILY JANA Administration Prochlorperazine 10 mg 02/01/19 10:49 02/03/19 08:26 Compazine Tab* PO 10 mg Q6HR PRN Administration NAUSEA Ramipril 10 mg 01/14/19 09:00 02/04/19 08:26 Altace Cap* PO 10 mg DAILY JANA Administration Rifaximin 550 mg 01/29/19 21:00 02/04/19 14:31 Xifaxan* PO 02/12/19 23:00 550 mg TID JANA Administration Senna 2 tab 01/13/19 16:17 01/20/19 20:10 Senokot 8.6 Mg Tab* PO 2 tab BEDTIME PRN Administration CONSTIPATION Simethicone 80 mg 01/17/19 18:14 01/25/19 17:10 Mylicon Tab* PO 80 mg Q6H PRN Administration INDIGESTION Tramadol HCl 50 mg 01/13/19 17:03 02/01/19 10:02 Ultram* PO 50 mg Q6H PRN Administration PAIN - MODERATE Trazodone HCl 50 mg 01/13/19 17:02 02/03/19 23:20 Desyrel Tab* PO 50 mg BEDTIME PRN Administration INSOMNIA Vital Signs: Vital Signs Temp Pulse Resp BP Pulse Ox 98.2 F 68 18 136/83 99 02/04/19 05:33 02/04/19 05:33 02/04/19 13:11 02/04/19 05:33 02/04/19 05:33 Lab Results: Laboratory Results - last 24 hr 02/03/19 02/03/19 02/04/19 16:57 20:56 05:09 WBC 4.3 RBC 3.18 L Hgb 9.0 L Hct 27 L MCV 84 MCH 28 MCHC 34 RDW 16 H Plt Count 190 MPV 8.8 Neut % (Auto) 54.0 Lymph % (Auto) 26.7 [place] % (Auto) 12.0 Eos % (Auto) 6.0 Baso % (Auto) 1.3 Absolute Neuts (auto) 2.3 Absolute Lymphs (auto) 1.1 Absolute Monos (auto) 0.5 Absolute Eos (auto) 0.3 Absolute Basos (auto) 0.1 Absolute Nucleated RBC 0.0 Nucleated RBC % 0.3 Sodium Potassium Chloride Carbon Dioxide Anion Gap BUN Creatinine Est GFR ( Amer) Est GFR (Non-Af Amer) BUN/Creatinine Ratio Glucose POC Glucose (mg/dL) 209 H 205 H Calcium Total Bilirubin AST ALT Alkaline Phosphatase Total Protein Albumin Globulin Albumin/Globulin Ratio 02/04/19 05:09 WBC RBC Hgb Hct MCV MCH MCHC RDW Plt Count MPV Neut % (Auto) Lymph % (Auto) [place] % (Auto) Eos % (Auto) Baso % (Auto) Absolute Neuts (auto) Absolute Lymphs (auto) Absolute Monos (auto) Absolute Eos (auto) Absolute Basos (auto) Absolute Nucleated RBC Nucleated RBC % Sodium 138 Potassium 3.8 Chloride 108 Carbon Dioxide 26 Anion Gap 4 BUN 15 Creatinine 0.45 L Est GFR ( Amer) 235.0 Est GFR (Non-Af Amer) 194.2 BUN/Creatinine Ratio 33.3 H Glucose 91 POC Glucose (mg/dL) Calcium 8.0 L Total Bilirubin 0.60 AST 13 ALT 19 Alkaline Phosphatase 54 Total Protein 4.9 L Albumin 3.0 L Globulin 1.9 L Albumin/Globulin Ratio 1.6 Exam: GENERAL: No acute distress. Alert and appropriate. LUNGS: Clear to auscultation bilaterally. HEART: Regular rate and rhythm ABDOMEN: Soft. Diffusely tender. + bowel sounds. Non-distended. EXTREMITIES: Decreased tone bilateral LEs. No edema. NEUROLOGIC: A&O. Motor 4/5 BUE and 2/5 BLE with normal sensation x4. Assessment/Plan: 1. Respiratory Failure, Pneumonia: DuoNeb PRN. PT/OT 2. Limb Girdle Muscular Dystrophy: PT/OT. Power wheelchair has arrived. Have ordered a new TIS power WC but this will take a while 3. Atrial Fibrillation, S/P Cardioversion: Eliquis/Lopressor/Multaq. Saw Dr. Chaidez, had EKG, follow up Dr. Chaidez as outpatient 4. Diabetes: Lantus/SSI. Resumed metformin. 5. Abdominal Pain: Work up negative: Abd series X ray shows some stool. GB U/S unrevealing.CT scan of abdomen/pelvis 01/28/19 showed left renal mass 1.7cm, but abdominal pain is likely muscular and related to muscular dystrophy, deconditioning and reduced pain medications. GI raised the possibility of intestinal dysbiosis so trial of Xifaxan 550mg tid for 2 weeks after d/w Dr. Macias 6. DVT Prophylaxis: Eliquis 7. Hypokalemia: KCL to 20mEq started 01/29. Potassium now normal. 8. Pain: His opiate dose was cut way back on the acute hospitalization. Continue oxycodone/Tramadol, increased oxy to 15. Added MS Contin 30 BID 9. Anxiety: Resumed Xanax 0.25 Q8H PRN 10. Advance Directives: Full code 11. Left renal mass: Dr. Olea recommends continued observation, renal ultrasound in 6 months. 02/04/19 15:55
[2019-02-04] MEDS: Atorvastatin* 20 MG TAB PO SCH (17:30)
[2019-02-04] MEDS: Insulin GLARGINE(*) 1 UNITS UNIT SUBCUT SCH (18:56)
[2019-02-04] MEDS: traZODone TAB* 50 MG TAB PO PRN (21:02)
[2019-02-04] MEDS: ALPRAZolam TAB* 0.25 MG PO PRN (21:02)
[2019-02-05] MEDS: Pantoprazole TAB * 40 MG TAB PO SCH ×2 (05:12→22:19)
[2019-02-05] MEDS: oxyCODONE TAB* 5 MG TAB PO PRN ×5 (05:12→23:06)
[2019-02-05] MEDS: Insulin LISPRO* 1 UNITS UNIT SUBCUT SCH ×4 (07:26→22:19)
[2019-02-05] MEDS: Morphine TAB Extended Release (*) 30 MG TAB.ER PO SCH ×2 (08:35→20:53)
[2019-02-05] MEDS: Metoprolol Tartrate TAB* 25 MG PO SCH ×2 (08:35→20:54)
[2019-02-05] MEDS: Potassium Chlor TAB* 10 MEQ TAB.ER PO SCH (08:35)
[2019-02-05] MEDS: Dronedarone TAB* 400 MG PO SCH ×2 (08:36→20:53)
[2019-02-05] MEDS: Lactobacillus Acidophilus* 1 TAB PO SCH ×2 (08:36→20:52)
[2019-02-05] MEDS: metFORMIN* 500 MG TAB PO SCH ×2 (08:36→17:32)
[2019-02-05] MEDS: RiFAXimin* 550 MG TAB PO SCH ×3 (08:36→20:53)
[2019-02-05] MEDS: Apixaban* 5 MG TAB PO SCH ×2 (08:36→20:53)
[2019-02-05] MEDS: Ramipril CAP* 10 MG PO SCH (08:36)
[2019-02-05] MEDS: Docusate CAP* 100 MG PO SCH ×2 (08:36→20:53)
--- NOTE | 2019-02-05 17:28 | PN ---
Progress Note Date of Service: 02/05/19 Note: LORENA DALLAS was visited. Therapy notes read and reviewed. He feels much better since MS Elen added. Looks good. Current Medications: Active Medications Generic Name Dose Route Start Last Admin Trade Name Freq PRN Reason Stop Dose Admin Acetaminophen 650 mg 01/13/19 16:17 Tylenol Tab* PO Q6H PRN FEVER > 101 Albuterol/Ipratropium 1 neb 01/13/19 16:29 Duoneb (Albuterol 2.5 Mg/Ipratropium 0.5 Mg) INH Q4H PRN SOB/WHEEZING Alprazolam 0.25 mg 01/19/19 17:02 02/04/19 21:02 Xanax Tab* PO 0.25 mg Q8H PRN Administration ANXIETY Apixaban 5 mg 01/13/19 21:00 02/05/19 08:36 Eliquis* PO 5 mg BID JANA Administration Atorvastatin Calcium 20 mg 01/13/19 17:00 02/04/19 17:30 Lipitor* PO 20 mg 1700 JANA Administration Docusate Sodium 100 mg 01/13/19 21:00 02/05/19 08:36 Colace Cap* PO 100 mg BID JANA Administration Dronedarone 400 mg 01/13/19 21:00 02/05/19 08:36 Multaq Tab* PO 400 mg BID JANA Administration Insulin Glargine 40 units 01/13/19 18:00 02/04/19 18:56 Lantus(*) SUBCUT 40 units Q24H JANA Administration Insulin Human Lispro 0 units 01/13/19 16:30 02/05/19 12:05 Humalog* SUBCUT 3 units ACHS JANA Administration Protocol Lactobacillus Rhamnosus 1 tab 01/26/19 21:00 02/05/19 08:36 Lactobacillus Acidophilus* PO 1 tab BID JANA Administration Magnesium Hydroxide 30 ml 01/13/19 16:22 01/16/19 08:32 Milk Of Magnesia Liq* PO 30 ml Q6H PRN Administration CONSTIPATION Metformin HCl 500 mg 01/30/19 17:00 02/05/19 08:36 Glucophage* PO 500 mg 0800,1700 JANA Administration Metoprolol Tartrate 12.5 mg 01/13/19 21:00 02/05/19 08:35 Lopressor Tab* PO 12.5 mg Q12HR JANA Administration Morphine Sulfate 30 mg 02/03/19 20:00 02/05/19 08:35 Ms Contin(*) PO 30 mg Q12H JANA Administration Oxycodone HCl 15 mg 01/22/19 20:57 02/05/19 14:12 Roxycodone Tab* PO 15 mg Q4H PRN Administration PAIN - SEVERE Pantoprazole Sodium 40 mg 02/03/19 21:00 02/05/19 05:12 Protonix Tab* PO 40 mg 0600,2100 JANA Administration Potassium Chloride 20 meq 01/29/19 09:00 02/05/19 08:35 Klor Con Er Tab* PO 20 meq DAILY JANA Administration Prochlorperazine 10 mg 02/01/19 10:49 02/03/19 08:26 Compazine Tab* PO 10 mg Q6HR PRN Administration NAUSEA Ramipril 10 mg 01/14/19 09:00 02/05/19 08:36 Altace Cap* PO 10 mg DAILY JANA Administration Rifaximin 550 mg 01/29/19 21:00 02/05/19 13:55 Xifaxan* PO 02/12/19 23:00 550 mg TID JANA Administration Senna 2 tab 01/13/19 16:17 01/20/19 20:10 Senokot 8.6 Mg Tab* PO 2 tab BEDTIME PRN Administration CONSTIPATION Simethicone 80 mg 01/17/19 18:14 01/25/19 17:10 Mylicon Tab* PO 80 mg Q6H PRN Administration INDIGESTION Tramadol HCl 50 mg 01/13/19 17:03 02/01/19 10:02 Ultram* PO 50 mg Q6H PRN Administration PAIN - MODERATE Trazodone HCl 50 mg 01/13/19 17:02 02/04/19 21:02 Desyrel Tab* PO 50 mg BEDTIME PRN Administration INSOMNIA Vital Signs: Vital Signs Temp Pulse Resp BP Pulse Ox 98.4 F 66 16 129/68 97 02/05/19 05:14 02/05/19 05:14 02/05/19 17:01 02/05/19 05:14 02/05/19 07:33 Lab Results: Laboratory Results - last 24 hr 12/13/19 12/13/19 12/13/19 07:14 11:53 16:13 POC Glucose (mg/dL) 68 L 196 H 190 H 02/04/19 02/05/19 02/05/19 21:02 07:21 11:37 POC Glucose (mg/dL) 214 H 79 194 H Exam: GENERAL: No acute distress. Alert and appropriate. LUNGS: Clear to auscultation bilaterally. HEART: Regular rate and rhythm ABDOMEN: Soft. Diffusely tender. + bowel sounds. Non-distended. EXTREMITIES: Decreased tone bilateral LEs. No edema. NEUROLOGIC: A&O. Motor 4/5 BUE and 2/5 BLE with normal sensation x4. Assessment/Plan: 1. Respiratory Failure, Pneumonia: DuoNeb PRN. PT/OT 2. Limb Girdle Muscular Dystrophy: PT/OT. Power wheelchair has arrived. Have ordered a new TIS power WC but this will take a while 3. Atrial Fibrillation, S/P Cardioversion: Eliquis/Lopressor/Multaq. Saw Dr. Chaidez, had EKG, follow up Dr. Chaidez as outpatient 4. Diabetes: Lantus/SSI. Resumed metformin. 5. Abdominal Pain: Work up negative: Abd series X ray shows some stool. GB U/S neg.CT scan of abdomen/pelvis 01/28/19 showed left renal mass 1.7cm, but abdominal pain is likely muscular and related to muscular dystrophy, deconditioning and reduced pain medications. GI raised the possibility of intestinal dysbiosis so trial of Xifaxan 550mg tid for 2 weeks after d/w Dr. Macias. Pain is gone since starting MS Contin. Will likely stop Xifaxan 6. DVT Prophylaxis: Eliquis 7. Hypokalemia: KCL to 20mEq started 01/29. Potassium now normal. 8. Pain: His opiate dose was cut way back on the acute hospitalization. Continue oxycodone/Tramadol, increased oxy to 15. Added MS Contin 30 BID 9. Anxiety: Resumed Xanax 0.25 Q8H PRN 10. Advance Directives: Full code 11. Left renal mass: Dr. Olea recommends continued observation, renal ultrasound in 6 months. 02/05/19 17:28
[2019-02-05] MEDS: Insulin GLARGINE(*) 1 UNITS UNIT SUBCUT SCH (17:32)
[2019-02-05] MEDS: Atorvastatin* 20 MG TAB PO SCH (17:32)
[2019-02-05] MEDS: ALPRAZolam TAB* 0.25 MG PO PRN (20:53)
[2019-02-05] MEDS: traZODone TAB* 50 MG TAB PO PRN (20:55)
[2019-02-06] MEDS: Pantoprazole TAB * 40 MG TAB PO SCH ×2 (06:22→21:21)
[2019-02-06] MEDS: oxyCODONE TAB* 5 MG TAB PO PRN ×4 (06:33→21:21)
[2019-02-06] MEDS: Insulin LISPRO* 1 UNITS UNIT SUBCUT SCH ×4 (07:50→21:08)
[2019-02-06] MEDS: Apixaban* 5 MG TAB PO SCH ×2 (07:57→21:05)
[2019-02-06] MEDS: Potassium Chlor TAB* 10 MEQ TAB.ER PO SCH (07:57)
[2019-02-06] MEDS: metFORMIN* 500 MG TAB PO SCH ×2 (07:57→16:40)
[2019-02-06] MEDS: Docusate CAP* 100 MG PO SCH ×2 (07:57→21:05)
[2019-02-06] MEDS: Metoprolol Tartrate TAB* 25 MG PO SCH ×2 (07:57→21:06)
[2019-02-06] MEDS: Morphine TAB Extended Release (*) 30 MG TAB.ER PO SCH ×2 (07:57→20:57)
[2019-02-06] MEDS: Dronedarone TAB* 400 MG PO SCH ×2 (07:58→21:06)
[2019-02-06] MEDS: RiFAXimin* 550 MG TAB PO SCH ×3 (07:59→21:05)
[2019-02-06] MEDS: Ramipril CAP* 10 MG PO SCH (07:59)
[2019-02-06] MEDS: Lactobacillus Acidophilus* 1 TAB PO SCH ×2 (08:00→21:05)
[2019-02-06] MEDS: Magnesium Hydroxide LIQ* 30 ML UDC PO PRN (12:36)
[2019-02-06] MEDS: Prochlorperazine TAB* 10 MG PO PRN (13:58)
[2019-02-06] MEDS: Atorvastatin* 20 MG TAB PO SCH (16:41)
[2019-02-06] MEDS: Insulin GLARGINE(*) 1 UNITS UNIT SUBCUT SCH (17:46)
--- NOTE | 2019-02-06 20:33 | PN ---
Progress Note Date of Service: 02/06/19 Note: LORENA DALLAS was visited. Therapy notes read and reviewed. His Blood sugars have been running on the low side. Will cut back Lantus. Otherwise ok Current Medications: Active Medications Generic Name Dose Route Start Last Admin Trade Name Freq PRN Reason Stop Dose Admin Acetaminophen 650 mg 01/13/19 16:17 Tylenol Tab* PO Q6H PRN FEVER > 101 Albuterol/Ipratropium 1 neb 01/13/19 16:29 Duoneb (Albuterol 2.5 Mg/Ipratropium 0.5 Mg) INH Q4H PRN SOB/WHEEZING Alprazolam 0.25 mg 01/19/19 17:02 02/05/19 20:53 Xanax Tab* PO 0.25 mg Q8H PRN Administration ANXIETY Apixaban 5 mg 01/13/19 21:00 02/06/19 07:57 Eliquis* PO 5 mg BID JANA Administration Atorvastatin Calcium 20 mg 01/13/19 17:00 02/06/19 16:41 Lipitor* PO 20 mg 1700 JANA Administration Docusate Sodium 100 mg 01/13/19 21:00 02/06/19 07:57 Colace Cap* PO 100 mg BID JANA Administration Dronedarone 400 mg 01/13/19 21:00 02/06/19 07:58 Multaq Tab* PO 400 mg BID JANA Administration Insulin Glargine 40 units 01/13/19 18:00 02/06/19 17:46 Lantus(*) SUBCUT 40 units Q24H JANA Administration Insulin Human Lispro 0 units 01/13/19 16:30 02/06/19 17:47 Humalog* SUBCUT 2 units ACHS JANA Administration Protocol Lactobacillus Rhamnosus 1 tab 01/26/19 21:00 02/06/19 08:00 Lactobacillus Acidophilus* PO 1 tab BID JANA Administration Magnesium Hydroxide 30 ml 01/13/19 16:22 02/06/19 12:36 Milk Of Magnesia Liq* PO 30 ml Q6H PRN Administration CONSTIPATION Metformin HCl 500 mg 01/30/19 17:00 02/06/19 16:40 Glucophage* PO 500 mg 0800,1700 JANA Administration Metoprolol Tartrate 12.5 mg 01/13/19 21:00 02/06/19 07:57 Lopressor Tab* PO 12.5 mg Q12HR JANA Administration Morphine Sulfate 30 mg 02/03/19 20:00 02/06/19 07:57 Ms Contin(*) PO 30 mg Q12H JANA Administration Oxycodone HCl 15 mg 01/22/19 20:57 02/06/19 16:40 Roxycodone Tab* PO 15 mg Q4H PRN Administration PAIN - SEVERE Pantoprazole Sodium 40 mg 02/03/19 21:00 02/06/19 06:22 Protonix Tab* PO 40 mg 0600,2100 JANA Administration Potassium Chloride 20 meq 01/29/19 09:00 02/06/19 07:57 Klor Con Er Tab* PO 20 meq DAILY JANA Administration Prochlorperazine 10 mg 02/01/19 10:49 02/06/19 13:58 Compazine Tab* PO 10 mg Q6HR PRN Administration NAUSEA Ramipril 10 mg 01/14/19 09:00 02/06/19 07:59 Altace Cap* PO 10 mg DAILY JANA Administration Rifaximin 550 mg 01/29/19 21:00 02/06/19 13:58 Xifaxan* PO 02/12/19 23:00 550 mg TID JANA Administration Senna 2 tab 01/13/19 16:17 01/20/19 20:10 Senokot 8.6 Mg Tab* PO 2 tab BEDTIME PRN Administration CONSTIPATION Simethicone 80 mg 01/17/19 18:14 01/25/19 17:10 Mylicon Tab* PO 80 mg Q6H PRN Administration INDIGESTION Trazodone HCl 50 mg 01/13/19 17:02 02/05/19 20:55 Desyrel Tab* PO 50 mg BEDTIME PRN Administration INSOMNIA Vital Signs: Vital Signs Temp Pulse Resp BP Pulse Ox 98.1 F 66 16 134/71 98 02/06/19 15:42 02/06/19 15:42 02/06/19 16:40 02/06/19 15:42 02/06/19 16:44 Lab Results: Laboratory Results - last 24 hr 02/05/19 02/05/19 02/06/19 16:36 20:52 07:31 POC Glucose (mg/dL) 118 H 167 H 53 L 02/06/19 02/06/19 02/06/19 08:27 11:36 16:40 POC Glucose (mg/dL) 88 148 H 133 H Exam: GENERAL: No acute distress. Alert and appropriate. LUNGS: Clear to auscultation bilaterally. HEART: Regular rate and rhythm ABDOMEN: Soft. Diffusely tender. + bowel sounds. Non-distended. EXTREMITIES: Decreased tone bilateral LEs. No edema. NEUROLOGIC: A&O. Motor 4/5 BUE and 2/5 BLE with normal sensation x4. Assessment/Plan: 1. Respiratory Failure, Pneumonia: DuoNeb PRN. PT/OT 2. Limb Girdle Muscular Dystrophy: PT/OT. Power wheelchair has arrived. Have ordered a new TIS power WC but this will take a while 3. Atrial Fibrillation, S/P Cardioversion: Eliquis/Lopressor/Multaq. Saw Dr. Chaidez, had EKG, follow up Dr. Chaidez as outpatient 4. Diabetes: Lantus/SSI. Resumed metformin. 5. Abdominal Pain: Work up negative: Abd series X ray shows some stool. GB U/S neg.CT scan of abdomen/pelvis 01/28/19 showed left renal mass 1.7cm, but abdominal pain is likely muscular and related to muscular dystrophy, deconditioning and reduced pain medications. GI raised the possibility of intestinal dysbiosis so trial of Xifaxan 550mg tid for 2 weeks after d/w Dr. Macias. Pain is gone since starting MS Contin. Will likely stop Xifaxan 6. DVT Prophylaxis: Eliquis 7. Hypokalemia: KCL to 20mEq started 01/29. Potassium now normal. 8. Pain: His opiate dose was cut way back on the acute hospitalization. Continue oxycodone/Tramadol, increased oxy to 15. Added MS Contin 30 BID 9. Anxiety: Resumed Xanax 0.25 Q8H PRN 10. Advance Directives: Full code 11. Left renal mass: Dr. Olea recommends continued observation, renal ultrasound in 6 months. 02/06/19 20:33
[2019-02-06] MEDS: traZODone TAB* 50 MG TAB PO PRN (21:05)
[2019-02-06] MEDS: ALPRAZolam TAB* 0.25 MG PO PRN (21:06)
[2019-02-07] MEDS: oxyCODONE TAB* 5 MG TAB PO PRN ×5 (01:50→21:50)
[2019-02-07] MEDS: Pantoprazole TAB * 40 MG TAB PO SCH ×2 (05:30→21:49)
[2019-02-07] MEDS: Insulin LISPRO* 1 UNITS UNIT SUBCUT SCH ×4 (07:43→21:53)
[2019-02-07] MEDS: Dronedarone TAB* 400 MG PO SCH ×2 (08:35→21:48)
[2019-02-07] MEDS: Metoprolol Tartrate TAB* 25 MG PO SCH ×2 (08:36→21:49)
[2019-02-07] MEDS: Lactobacillus Acidophilus* 1 TAB PO SCH ×2 (08:36→21:51)
[2019-02-07] MEDS: metFORMIN* 500 MG TAB PO SCH ×2 (08:36→17:48)
[2019-02-07] MEDS: Potassium Chlor TAB* 10 MEQ TAB.ER PO SCH (08:36)
[2019-02-07] MEDS: Apixaban* 5 MG TAB PO SCH ×2 (08:36→21:49)
[2019-02-07] MEDS: RiFAXimin* 550 MG TAB PO SCH ×3 (08:36→21:48)
[2019-02-07] MEDS: Docusate CAP* 100 MG PO SCH ×2 (08:36→21:48)
[2019-02-07] MEDS: Ramipril CAP* 10 MG PO SCH (08:36)
[2019-02-07] MEDS: Morphine TAB Extended Release (*) 30 MG TAB.ER PO SCH ×2 (08:37→20:14)
[2019-02-07] MEDS: Prochlorperazine TAB* 10 MG PO PRN ×2 (08:40→14:25)
--- NOTE | 2019-02-07 17:12 | PN ---
Progress Note Date of Service: 02/07/19 Note: LORENA DALLAS was visited. Therapy notes read and reviewed. Was quite nauseated today. He started MS Contin 5 days ago so I am not sure that is the issue. Will watch. Blood sugars were low due to poor PO Current Medications: Active Medications Generic Name Dose Route Start Last Admin Trade Name Freq PRN Reason Stop Dose Admin Acetaminophen 650 mg 01/13/19 16:17 Tylenol Tab* PO Q6H PRN FEVER > 101 Albuterol/Ipratropium 1 neb 01/13/19 16:29 Duoneb (Albuterol 2.5 Mg/Ipratropium 0.5 Mg) INH Q4H PRN SOB/WHEEZING Alprazolam 0.25 mg 01/19/19 17:02 02/06/19 21:06 Xanax Tab* PO 0.25 mg Q8H PRN Administration ANXIETY Apixaban 5 mg 01/13/19 21:00 02/07/19 08:36 Eliquis* PO 5 mg BID JANA Administration Atorvastatin Calcium 20 mg 01/13/19 17:00 02/06/19 16:41 Lipitor* PO 20 mg 1700 JANA Administration Docusate Sodium 100 mg 01/13/19 21:00 02/07/19 08:36 Colace Cap* PO 100 mg BID JANA Administration Dronedarone 400 mg 01/13/19 21:00 02/07/19 08:35 Multaq Tab* PO 400 mg BID JANA Administration Insulin Glargine 34 units 02/07/19 18:00 Lantus(*) SUBCUT Q24H JANA Insulin Human Lispro 0 units 01/13/19 16:30 02/07/19 12:52 Humalog* SUBCUT Not Given ACHS [facility] Protocol Lactobacillus Rhamnosus 1 tab 01/26/19 21:00 02/07/19 08:36 Lactobacillus Acidophilus* PO 1 tab BID JANA Administration Magnesium Hydroxide 30 ml 01/13/19 16:22 02/06/19 12:36 Milk Of Magnesia Liq* PO 30 ml Q6H PRN Administration CONSTIPATION Metformin HCl 500 mg 01/30/19 17:00 02/07/19 08:36 Glucophage* PO 500 mg 0800,1700 JANA Administration Metoprolol Tartrate 12.5 mg 01/13/19 21:00 02/07/19 08:36 Lopressor Tab* PO 12.5 mg Q12HR JANA Administration Morphine Sulfate 30 mg 02/03/19 20:00 02/07/19 08:37 Ms Contin(*) PO 30 mg Q12H JANA Administration Oxycodone HCl 15 mg 01/22/19 20:57 02/07/19 14:25 Roxycodone Tab* PO 15 mg Q4H PRN Administration PAIN - SEVERE Pantoprazole Sodium 40 mg 02/03/19 21:00 02/07/19 05:30 Protonix Tab* PO 40 mg 0600,2100 JANA Administration Potassium Chloride 20 meq 01/29/19 09:00 02/07/19 08:36 Klor Con Er Tab* PO 20 meq DAILY JANA Administration Prochlorperazine 10 mg 02/01/19 10:49 02/07/19 14:25 Compazine Tab* PO 10 mg Q6HR PRN Administration NAUSEA Ramipril 10 mg 02/08/19 09:00 Altace Cap* PO DAILY JANA Rifaximin 550 mg 01/29/19 21:00 02/07/19 14:25 Xifaxan* PO 02/12/19 23:00 550 mg TID JANA Administration Senna 2 tab 01/13/19 16:17 01/20/19 20:10 Senokot 8.6 Mg Tab* PO 2 tab BEDTIME PRN Administration CONSTIPATION Simethicone 80 mg 01/17/19 18:14 01/25/19 17:10 Mylicon Tab* PO 80 mg Q6H PRN Administration INDIGESTION Trazodone HCl 50 mg 01/13/19 17:02 02/06/19 21:05 Desyrel Tab* PO 50 mg BEDTIME PRN Administration INSOMNIA Vital Signs: Vital Signs Temp Pulse Resp BP Pulse Ox 98.4 F 78 16 134/72 95 02/07/19 06:30 02/07/19 06:30 02/07/19 16:25 02/07/19 06:30 02/07/19 06:30 Lab Results: Laboratory Results - last 24 hr 02/06/19 02/06/19 02/06/19 20:11 21:14 21:40 POC Glucose (mg/dL) 70 46 L 61 L 02/06/19 02/07/19 02/07/19 22:52 07:42 12:16 POC Glucose (mg/dL) 132 H 65 L 161 H 02/07/19 16:03 POC Glucose (mg/dL) 224 H Exam: GENERAL: No acute distress. Alert and appropriate. LUNGS: Clear to auscultation bilaterally. HEART: Regular rate and rhythm ABDOMEN: Soft. Diffusely tender. + bowel sounds. Non-distended. EXTREMITIES: Decreased tone bilateral LEs. No edema. NEUROLOGIC: A&O. Motor 4/5 BUE and 2/5 BLE with normal sensation x4. Assessment/Plan: 1. Respiratory Failure, Pneumonia: DuoNeb PRN. PT/OT 2. Limb Girdle Muscular Dystrophy: PT/OT. Power wheelchair has arrived. Have ordered a new TIS power WC but this will take a while 3. Atrial Fibrillation, S/P Cardioversion: Eliquis/Lopressor/Multaq. Saw Dr. Chaidez, had EKG, follow up Dr. Chaidez as outpatient 4. Diabetes: Lantus/SSI. Resumed metformin. 5. Abdominal Pain: Work up negative: Abd series X ray shows some stool. GB U/S neg.CT scan of abdomen/pelvis 01/28/19 showed left renal mass 1.7cm, but abdominal pain is likely muscular and related to muscular dystrophy, deconditioning and reduced pain medications. GI raised the possibility of intestinal dysbiosis so trial of Xifaxan 550mg tid for 2 weeks after d/w Dr. Macias. Pain is gone since starting MS Contin. Will likely stop Xifaxan 6. DVT Prophylaxis: Eliquis 7. Hypokalemia: KCL to 20mEq started 01/29. Potassium now normal. 8. Pain: His opiate dose was cut way back on the acute hospitalization. Continue oxycodone/Tramadol, increased oxy to 15. Added MS Contin 30 BID 9. Anxiety: Resumed Xanax 0.25 Q8H PRN 10. Advance Directives: Full code 11. Left renal mass: Dr. Olea recommends continued observation, renal ultrasound in 6 months. 02/06/19 20:33
[2019-02-07] MEDS: Atorvastatin* 20 MG TAB PO SCH (17:49)
[2019-02-07] MEDS ORDERED: Insulin GLARGINE(*) 1 UNITS UNIT SUBCUT SCH (18:00)
[2019-02-07] MEDS: traZODone TAB* 50 MG TAB PO PRN (21:49)
[2019-02-08] MEDS: oxyCODONE TAB* 5 MG TAB PO PRN ×3 (02:30→11:53)
[2019-02-08] MEDS: Pantoprazole TAB * 40 MG TAB PO SCH (06:50)
[2019-02-08 06:53] VITALS: BP 130/57
[2019-02-08] MEDS: Insulin LISPRO* 1 UNITS UNIT SUBCUT SCH ×2 (07:37→12:06)
[2019-02-08] MEDS: Lactobacillus Acidophilus* 1 TAB PO SCH (08:35)
[2019-02-08] MEDS: metFORMIN* 500 MG TAB PO SCH (08:36)
[2019-02-08] MEDS: Potassium Chlor TAB* 10 MEQ TAB.ER PO SCH (08:36)
[2019-02-08] MEDS: Dronedarone TAB* 400 MG PO SCH (08:36)
[2019-02-08] MEDS: Apixaban* 5 MG TAB PO SCH (08:36)
[2019-02-08] MEDS: RiFAXimin* 550 MG TAB PO SCH ×2 (08:36→13:47)
[2019-02-08] MEDS: Metoprolol Tartrate TAB* 25 MG PO SCH (08:37)
[2019-02-08] MEDS: Docusate CAP* 100 MG PO SCH (08:37)
[2019-02-08] MEDS: Morphine TAB Extended Release (*) 30 MG TAB.ER PO SCH (08:38)
[2019-02-08] MEDS ORDERED: Ramipril CAP* 5 MG PO SCH (09:00)
--- NOTE | 2019-02-10 22:46 | DS ---
CC: Dr. Narinder Muniz * DISCHARGE SUMMARY: DATE OF ADMISSION: 01/13/19 DATE OF DISCHARGE: 02/08/19 DISCHARGE DIAGNOSES: 1. Pneumonia. 2. Respiratory failure. 3. Severe sepsis. 4. Limb girdle muscular dystrophy. 5. Diabetes mellitus. 6. Anxiety. 7. Atrial fibrillation. 8. Abdominal pain. 9. Chronic opiate use. HISTORY OF PRESENT ILLNESS AND HOSPITAL COURSE: For complete history of the events leading up to his rehab stay, please see the history and physical dictated by me on 01/13/19. While on the rehab unit, the patient initially had abdominal pain. It was felt that this might be secondary to opiate withdrawal symptoms from his opiate dose being cut back while on the acute hospital service. However, the abdominal pain continued. He had an abdominal x-ray which showed some stool, but was otherwise unrevealing. A gastroenterology consultation was done in 01/26/[address] Hyman. She recommended getting a CAT scan of his abdomen as well as a gallbladder ultrasound and an amylase and lipase. Gallbladder ultrasound, amylase and lipase were negative. The patient had a CAT scan of his abdomen and pelvis on 01/28/19, which did show a 1.7 cm, structure in the superior pole of the left kidney. He had an urology consultation with Dr. Olea who noted that this mass had been seen on a previous CAT scan 2 years prior and that the increase in size from 1.4 cm to 1.7 cm over two and a half years, was nothing to worry about. Dr. Olea recommended a repeat renal ultrasound in 6 months. The patient as he became more active, had a great increase in his pain. His oxycodone which was 10 mg every 4 hours on admission was increased to 15 mg every 4 hours as needed. The patient continued to report pain and was put on MS Contin 30 mg twice a day in addition to his oxycodone. When this was done, his abdominal pain resolved. It did come back slightly toward the end of his rehab stay. The patient was seen for an evaluation for a new power wheelchair. His current power wheelchair was more than 5 years old. It did not have a tilt mechanism. In the intervening 5 years because of Caldwell' muscular dystrophy, he has gotten progressively weaker and is no longer able to do pressure relief. He cannot propel a manual wheelchair. He is no longer ambulatory and no longer really able to transfer without assistance. He requires a new power wheelchair with a power tilt mechanism. He is also developing contractures in his hips from being in the wheelchair so much that requires an elevating leg rest and a power recline option in his seat to open up his hip angle. The patient otherwise was medically stable. He was seen by Physical Therapy and Occupational Therapy and made good gains with both disciplines. With physical therapy at the time of admission, the patient was dependent for transfers. He was not able to ambulate. He was dependent for bed mobility. By the time of discharge, he remained dependent for transfers using a Papo lift. The patient remained unable to ambulate. With occupational therapy at the time of admission, the patient was dependent for upper body dressing, dependent for lower body dressing , dependent for donning and doffing footwear, dependent for toilet transfers, dependent for toileting. By the time of discharge, the patient remained dependent for toileting, setup for upper body dressing, dependent for lower body dressing, dependent for footwear, and dependent for toilet transfers. The patient's family and aides came in for family training prior to discharge. The patient was discharged to home on 02/08/19. The patient currently has 25 hours a week of aide time through Medicaid. Clearly the decline in his functioning which has occurred over the past 2 years requires an increase in the amount of aide time that he is able to get. We will try to pursue this through Medicaid. DISPOSITION: Home, to his apartment at [facility]. CONDITION ON DISCHARGE: Fair. DISCHARGE DIET: Consistent carbohydrate. DISCHARGE MEDICATIONS: Included: 1. Lantus insulin 30 units once a day. He is on carb counting for lispro insulin with every meal. 2. Xanax 0.25 mg every 8 hours as needed not to exceed 2 per day. 3. Eliquis 5 mg orally twice daily. 4. Multaq 400 mg orally twice daily. 5. Metformin 500 mg at 8 a.m. and 5 p.m. 6. Lopressor 12.5 mg twice daily. 7. MS Contin 30 mg orally twice a day. 8. Oxycodone 15 mg every 4 hours as needed. 9. Potassium chloride 20 mEq orally daily. 10. Altace 10 mg orally daily. 11. Trazodone 50 mg at bedtime. 12. He is also on Lipitor 20 mg at bedtime. 13. Omeprazole 40 mg every evening. SERVICES AFTER DISCHARGE: He will have visiting nurse service, he will have home nursing, home physical therapy, and a home health aide. He also has 25 hours of home health aide time through Medicaid. FOLLOWUP: Follow up with his primary care doctor, Dr. Narinder Muniz as well as Dr. Andres Chaidez, his tech brazer tester regarding his atrial fibrillation. TIME SPENT: Time spent for this discharge was approximately 50 minutes, greater than half of that was spent with the patient explaining post rehabilitation therapies, services, and followup. [id number]/CPS #: [id number] SHERICE
== END 2019-02-08 13:55 | disposition home health service (06) | DRG 91 ==
LOC: PMRU 15:00
PROVIDERS: ADMIT Physical Medicine & Rehabilitation; ATTEND Physical Medicine & Rehabilitation
PROC: F07Z5ZZ Bed Mobility Treatment (ICD-10-PCS; principal; 2019-01-13)
PROC: F07Z9ZZ Gait Training/Functional Ambulation Treatment (ICD-10-PCS; 2019-01-13)
PROC: F07Z8ZZ Transfer Training Treatment (ICD-10-PCS; 2019-01-13)
PROC: F07Z4ZZ Wheelchair Mobility Treatment (ICD-10-PCS; 2019-01-13)
PROC: F08Z0ZZ Bathing/Showering Techniques Treatment (ICD-10-PCS; 2019-01-13)
PROC: F08Z1ZZ Dressing Techniques Treatment (ICD-10-PCS; 2019-01-13)
PROC: F08Z3ZZ Feeding/Eating Treatment (ICD-10-PCS; 2019-01-13)
PROC: F08Z2ZZ Grooming/Personal Hygiene Treatment (ICD-10-PCS; 2019-01-13)
DX: G71.09 Other specified muscular dystrophies (principal); J18.9 Pneumonia, unspecified organism; J96.90 Respiratory failure, unspecified, unspecified whether with hypoxia or hypercapnia; I48.91 Unspecified atrial fibrillation; E10.9 Type 1 diabetes mellitus without complications; E87.6 Hypokalemia; F32.9 Major depressive disorder, single episode, unspecified; I10 Essential (primary) hypertension; R19.09 Other intra-abdominal and pelvic swelling, mass and lump; N31.9 Neuromuscular dysfunction of bladder, unspecified; N39.498 Other specified urinary incontinence; Z79.01 Long term (current) use of anticoagulants; Z79.4 Long term (current) use of insulin; Z79.891 Long term (current) use of opiate analgesic; Z79.899 Other long term (current) drug therapy; Z88.8 Allergy status to other drugs, medicaments and biological substances; Z99.3 Dependence on wheelchair
CPT/HCPCS: 36415; 74019; 74170; 74177; 76705; 80048; 80053; 81003; 81015; 82150; 82947; 83690; 85025; 87086; 93005; A9270-GY; Q0164; Q9967

== ENCOUNTER 2019-02-10 07:49 | Emergency (ER) | payer MEDICARE, MEDICAID ==
--- NOTE | 2019-02-10 08:14 | ED ---
Adult Trauma - HPI Summary HPI Summary: 58-year-old male presents after a fall today. He states that he was dropped out of a ramses lift. He landed on his back and head. He denies any neck pain. Denies loss conscious. He is on eliquis. He sees his is worse when takes deep breath. He also admits to right-sided abdominal pain. He has chronic back pain since that has normal. She has history of muscular dystrophy and does not ambulate. Denies any pain. Denies any upper extremity pain. She admits to chronic nausea. No vomiting. He denies any change in vision. no history of resp illness. - History of Current Complaint Chief Complaint: EDFall Stated Complaint: PAIN PER EMS Time Seen by Provider: 02/10/19 07:57 Pain Intensity: 10 - Additional Pertinent History Primary Care Physician: [id number] - Allergy/Home Medications Allergies/Adverse Reactions: Allergies Allergy/AdvReac Type Severity Reaction Status Date / Time No Known Allergies Allergy Verified 02/10/19 08:06 Home Medications: Home Medications Metoprolol Tartrate TAB* [Lopressor TAB*] 12.5 mg PO BID 02/10/19 [History Confirmed 02/10/19] PMH/Surg Hx/FS Hx/Imm Hx Endocrine/Hematology History: Reports: Hx Diabetes Denies: Hx Systemic Lupus Erythematosus, Hx Anemia Cardiovascular History: Reports: Hx Hypercholesterolemia, Hx Hypertension Denies: Hx Angina, Hx Congestive Heart Failure, Hx Coronary Artery Disease, Hx Myocardial Infarction Comment Only: Other Cardiovascular Problems/Disorders - DIABETIC, MS Respiratory History: Denies: Hx Asthma, Hx Chronic Obstructive Pulmonary Disease (COPD) GI History: Reports: Hx Gastroesophageal Reflux Disease Denies: Hx Jaundice, Other GI Disorders - hx of gastoenteritis History: Reports: Other Problems/Disorders - urinary incontinence. UTI Denies: Hx Chronic Renal Failure, Hx Dialysis, Hx Kidney Stones, Hx Renal Disease Musculoskeletal History: Reports: Hx Back Problems, Other Musculoskeletal History - chronic pain, muscular dystrophy Denies: Hx Rheumatoid Arthritis Sensory History: Denies: Hx Contacts or Glasses, Hx Hearing Aid Opthamlomology History: Denies: Hx Contacts or Glasses Neurological History: Reports: Other Neuro Impairments/Disorders - muscular dystrophy Denies: Hx Headaches Psychiatric History: Reports: Hx Anxiety, Hx Depression - Cancer History Hx Chemotherapy: No - Surgical History Surgery Procedure, Year, and Place: LEFT ORCHIECTOMY benign 2012 [facility] Hx Anesthesia Reactions: No Infectious Disease History: No Infectious Disease History: Denies: Traveled Outside the [place] in Last 30 Days - Family History Known Family History: Positive: Respiratory Disease - COPD, Other - colon CA - Social History Alcohol Use: unable to assess Substance Use Type: Reports: None Substance Use Comment - Amount & Last Used: fentanyl patch and oxycodone Smoking Status (MU): Never Smoked Tobacco Have You Smoked in the Last Year: No Review of Systems Negative: Fever Positive: Other - right side rib pain Positive: Shortness Of Breath Positive: Abdominal Pain Positive: Headache All Other Systems Reviewed And Are Negative: Yes Physical Exam Triage Information Reviewed: Yes Vital Signs On Initial Exam: Initial Vitals Temp Pulse Resp BP Pulse Ox 97.9 F 71 16 170/86 97 02/10/19 07:54 02/10/19 07:54 02/10/19 07:54 02/10/19 07:54 02/10/19 07:54 Vital Signs Reviewed: Yes Appearance: Positive: Well-Appearing Skin: Positive: Warm, Dry Head/Face: Positive: Normal Head/Face Inspection Eyes: Positive: Normal, EOMI, CHANTEL, Conjunctiva Clear ENT: Positive: Normal ENT inspection, Pharynx normal, TMs normal Neck: Positive: Other: - nontender neck, full ROM neck Respiratory/Lung Sounds: Positive: Clear to Auscultation, Breath Sounds Present , Other - tenderness right ribs, no step off Cardiovascular: Positive: Normal, RRR Abdomen Description: Positive: Soft, Other: - tenderness right abd Bowel Sounds: Positive: Present Musculoskeletal: Positive: Limited @ - able to wiggles toes, Other - tenderness lower back Neurological: Positive: Sensory/Motor Intact, Alert, Oriented to Person Place, Time, CN Intact II-III Psychiatric: Positive: Normal Procedures - Sedation Patient Received Moderate/Deep Sedation with Procedure: No Diagnostics - Vital Signs Vital Signs Temp Pulse Resp BP Pulse Ox 02/10/19 07:54 97.9 F 71 16 170/86 97 - Laboratory Result Diagrams: 02/10/19 08:25 02/10/19 08:25 Lab Statement: Any lab studies that have been ordered have been reviewed, and results considered in the medical decision making process. - Radiology brain Radiology Interpretation Completed By: Radiologist Summary of Radiographic Findings: IMPRESSION: NO ACUTE INTRACRANIAL PATHOLOGY. neck Radiology Interpretation Completed By: Radiologist Summary of Radiographic Findings: IMPRESSION: DEGENERATIVE DISC DISEASE. NO ACUTE OSSEOUS INJURY TO THE CERVICAL SPINE. chest, abd Radiology Interpretation Completed By: Radiologist Summary of Radiographic Findings: ABDOMEN PELVIS IMPRESSION: #. No CT evidence for traumatic visceral injury or osseous fracture. #. 1.5 cm solid enhancing mass at the superior pole cortex of the LEFT kidney as on the recent prior exam. #. Diffuse advanced skeletal muscle atrophy corresponding with history of muscular dystroph Adult Trauma Course/Dx - Course Course Of Treatment: 58-year-old male presents after a fall today. He states that he was dropped out of a ramses lift. He landed on his back and head. He denies any neck pain. Denies loss conscious. He is on eliquis. He sees his is worse when takes deep breath. He also admits to right-sided abdominal pain. He has chronic back pain since that has normal. She has history of muscular dystrophy and does not ambulate. Denies any pain. Denies any upper extremity pain. She admits to chronic nausea. No vomiting. He denies any change in vision. On exam normal neuro exam. Nontender neck. Tenderness lower back. Right-sided rib tenderness. Lungs CTA. has abdominal tenderness on right side. CT shows no fracture for neck or brain. CT chest and abd no fracture. will give incentive spirometry. told follow up with primary. patient understand and agrees with plan. - Diagnoses Differential Diagnosis/HQI/PQRI: Positive: Contusion(s), Fracture, Hematoma(s) Provider Diagnoses: Fall, Rib contusion, Abdominal pain, Head injury Discharge ED - Sign-Out/Discharge Documenting (check all that apply): Patient Departure - Discharge Plan Condition: Good Disposition: HOME Patient Education Materials: Head Injury (ED), Rib Contusion (ED) Referrals: Narinder Muniz MD [Primary Care Provider] - Additional Instructions: Take deep breath throughout the day Take Tylenol for pain every 6 hours, use normal pain medications Follow up with primary care physician within 5 days Return to ED if develop new productive cough, fever, or any new or worsening symptoms - Billing Disposition and Condition Condition: GOOD Disposition: Home - Attestation Statements Provider Attestation: pt seen by midlevel provider independently, based on their assessment, it was not necessary to present the case to me but I was available for consultation. I did not form a physician-patient relationship with the patient. The chart however, has been reviewed. am signing this note strictly in an administrative capacity.
--- OUTSIDE RECORDS SUMMARY | 2019-02-10 08:21 | XMS REPORT ---
:1960 Author Organization [facility] Care Team Providers Name Role Phone Unavailable Unavailable Unavailable Problems This patient has no known problems. Allergies, Adverse Reactions, Alerts Allergy Allergy Status Severity Reaction(s) Onset Inactive Treating Comments Name Type Date Date Clinician Unknown None Active Unknown None Unknown No Known Allergies For This Patient Medications Ordered Filled Start Stop Current Ordering Indication Dosage Frequency Signature Comments Components Medication Medication Date Date Medication? Clinician (SIG) Name Name No Known No Known No None None None Medications Medications For This For This Patient Patient Procedures This patient has no known procedures. Results This patient has no known results.
--- OUTSIDE RECORDS SUMMARY | 2019-02-10 08:21 | XMS REPORT ---
:1960 Author Organization [facility] Care Team Providers Name Role Phone Unavailable [...]
--- OUTSIDE RECORDS SUMMARY | 2019-02-10 08:21 | XMS REPORT | Continuity of Care Document ---
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 Diabetes & Metabolism Problems Active Problems Provider [...] Information Available Procedures Date Code Description Status 01/12/2019 08260 ECHO Transthorasic Realtime 2D W Doppler & Color Flow Hosp Completed 01/11/2019 06064 Cardioversion Completed 12/31/2018 74363 Arterial Line Completed 12/31/2018 69448 Insert Non-Tunneled Venous Catether Completed 12/31/2018 24431 Endo-Trachial Tube Completed 12/07/2018 88910 Inject/Drain Joint/Bursa Major W/O US Completed Medical Devices Description No Information Available Encounters Type Date Location Provider Dx Diagnosis Office Visit 01/12/2019 [facility] Diogenes Wells I48.92 Unspecified atrial 12:52p Madhav Benz J18.9 Pneumonia, unspecified organism R79.89 Other specified abnormal findings of blood chemistry Office Visit 01/11/2019 12:03p [facility] Andres Valladares I48.92 Unspecified Of Kenji Chaidez M.D. atrial flutter I95.9 Hypotension, unspecified Office Visit 01/06/2019 11:11a [facility] Peterson Thomas J96.00 Acute respiratory M.D. failure, unsp w hypoxia or hypercapnia J18.9 Pneumonia, unspecified organism F41.9 Anxiety disorder, unspecified K59.00 Constipation, unspecified E87.6 Hypokalemia R53.81 Other malaise D46.9 Myelodysplastic syndrome, unspecified I10 Essential (primary) hypertension E11.65 Type 2 diabetes mellitus with hyperglycemia Office Visit 01/05/2019 11:10a [facility] Peterson Thomas J96.00 Acute respiratory M.D. failure, unsp w hypoxia or hypercapnia J18.9 Pneumonia, unspecified organism E87.6 Hypokalemia F41.9 Anxiety disorder, unspecified K59.00 Constipation, unspecified R53.81 Other malaise D46.9 Myelodysplastic syndrome, unspecified I10 Essential (primary) hypertension Office Visit 01/04/2019 11:10a [facility] Peterson Thomas, R41.82 Altered mental M.D. status, unspecified J18.9 Pneumonia, unspecified organism K59.00 Constipation, unspecified Office Visit 01/03/2019 11:10a [facility] Peterson Thomas J96.90 Respiratory M.D. failure, unsp, unsp w hypoxia or hypercapnia R41.82 Altered mental status, unspecified J18.9 Pneumonia, unspecified organism K59.00 Constipation, unspecified Office Visit 01/02/2019 11:09a [facility] Peterson Thomas J96.00 Acute respiratory M.D. failure, unsp w hypoxia or hypercapnia R41.82 Altered mental status, unspecified E87.6 Hypokalemia J98.11 Atelectasis Office Visit 01/01/2019 11:09a [facility] Peterson Thomas J96.00 Acute respiratory M.D. failure, unsp w hypoxia or hypercapnia Office Visit 12/31/2018 11:08a [facility] Kitty Reyes96.01 Acute respiratory MD Esteban failure with hypoxia A41.9 Sepsis, unspecified organism R00.0 Tachycardia, unspecified J18.1 Lobar pneumonia, unspecified organism J81.0 Acute pulmonary edema E10.9 Type 1 diabetes mellitus without complications G92 Toxic encephalopathy M54.9 Dorsalgia, unspecified F32.9 Major depressive disorder, single episode, unspecified F41.9 Anxiety disorder, unspecified Office Visit 12/30/2018 9:15a Pulmonology And Christopher Hamid, G47.30 Sleep apnea, Sleep Services Of unspecified 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 R06.00 Dyspnea, unspecified Office Visit 12/07/2018 10:45a [facility] Bishop Roldan, M25.512 Pain in left at [facility] shoulder S46.012D Strain of musc/tend the rotator cuff of left shoulder, subs M75.42 Impingement syndrome of left shoulder Office Visit 11/02/2018 11:00a [facility] Bishop Roldan, M25.512 Pain in left Orthopedics at [place] shoulder [facility] Office Visit 09/03/2018 12:30p Pulmonology And Tatiana G47.9 Sleep disorder, Sleep Services Of MD Jolly unspecified 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 G71.00 Muscular dystrophy, unspecified Assessments Date Code Description Provider 01/12/2019 I48.92 Unspecified atrial flutter Diogenes Benz M.D. 01/12/2019 R94.31 Abnormal electrocardiogram [ECG] [EKG] Diogenes Benz M.D. 01/12/2019 J18.9 Pneumonia, unspecified organism Diogenes Benz M.D. 01/12/2019 R79.89 Other specified abnormal findings of Diogenes Benz M.D. blood chemistry 01/11/2019 I48.92 Unspecified atrial flutter Andres Chaidez M.D. 01/11/2019 I95.9 Hypotension, unspecified Andres Chaidez M.D. 01/06/2019 J96.00 Acute respiratory failure, unspecified Peterson Thomas M.D. whether with hypoxia or hypercapnia 01/06/2019 J18.9 Pneumonia, unspecified organism Peterson Thomas M.D. 01/06/2019 F41.9 Anxiety disorder, unspecified Peterson Thomas M.D. 01/06/2019 K59.00 Constipation, unspecified Peterson Thomas M.D. 01/06/2019 E87.6 Hypokalemia Peterson Thomas M.D. 01/06/2019 R53.81 Other nehemiasaise Peterson Thomas M.D. 01/06/2019 D46.9 Myelodysplastic syndrome, unspecified Peterson Thomas M.D. 01/06/2019 I10 Essential (primary) hypertension Peterson Thomas M.D. 01/06/2019 E11.65 Type 2 diabetes mellitus with Peterson Thomas M.D. hyperglycemia 01/05/2019 J96.00 Acute respiratory failure, unspecified Peterson Thomas M.D. whether with hypoxia or hypercapnia 01/05/2019 J18.9 Pneumonia, unspecified organism Peterson Thomas M.D. 01/05/2019 E87.6 Hypokalemia Peterson Thomas M.D. 01/05/2019 F41.9 Anxiety disorder, unspecified Peterson Thomas M.D. 01/05/2019 K59.00 Constipation, unspecified Peterson Thomas M.D. 01/05/2019 R53.81 Other malaise Peterson Thomas M.D. 01/05/2019 D46.9 Myelodysplastic syndrome, unspecified Peterson Thomas M.D. 01/05/2019 I10 Essential (primary) hypertension Peterson Thomas M.D. 01/04/2019 R41.82 Altered mental status, unspecified Peterson Thomas M.D. 01/04/2019 J18.9 Pneumonia, unspecified organism Peterson Thomas M.D. 01/04/2019 K59.00 Constipation, unspecified Peterson Thomas M.D. 01/03/2019 J96.90 Respiratory failure, unspecified, Peterson Thomas M.D. unspecified whether with hypoxia or hypercapnia 01/03/2019 R41.82 Altered mental status, unspecified Peterson Thomas M.D. 01/03/2019 J18.9 Pneumonia, unspecified organism Peterson Thomas M.D. 01/03/2019 K59.00 Constipation, unspecified Peterson Thomas M.D. 01/02/2019 J96.00 Acute respiratory failure, unspecified Peterson Thomas M.D. whether with hypoxia or hypercapnia 01/02/2019 R41.82 Altered mental status, unspecified Peterson Thomas M.D. 01/02/2019 E87.6 Hypokalemia Peterson Thomas M.D. 01/02/2019 J98.11 Atelectasis Peterson Thomas M.D. 01/01/2019 J96.00 Acute respiratory failure, unspecified Peterson Thomas M.D. whether with hypoxia or hypercapnia 12/31/2018 J96.01 Acute respiratory failure with hypoxia Kitty Orellana MD 12/31/2018 A41.9 Sepsis, unspecified organism Kitty Orellana MD 12/31/2018 R00.0 Tachycardia, unspecified Kitty Orellana MD 12/31/2018 J18.1 Lobar pneumonia, unspecified organism Kitty Orellana MD 12/31/2018 J81.0 Acute pulmonary edema Kitty Orellana MD 12/31/2018 E10.9 Type 1 diabetes mellitus without Kitty Orellana MD complications 12/31/2018 G92 Toxic encephalopathy Kitty Orellana MD 12/31/2018 M54.9 Dorsalgia, unspecified Kitty Orellana MD 12/31/2018 F32.9 Major depressive disorder, single Kitty Orellana MD episode, unspecified 12/31/2018 F41.9 Anxiety disorder, unspecified Kitty Orellana MD 12/30/2018 G47.30 Sleep apnea, unspecified Christopher Campoverde [...] in doing an in-house sleep study.Follow up:1-2 zrjigsP11.00 Dyspnea, unspecifiedNew Xrays:Chest PA & Lat 2 [...]
--- OUTSIDE RECORDS SUMMARY | 2019-02-10 08:21 | XMS REPORT ---
:1960 Author Organization [facility] Care Team Providers Name Role Phone Unavailable Unavailable Unavailable Problems Condition Condition Condition Status Onset Resolution Last Treating Comments Name Details Category Date Date Treatment Clinician Date Pneumonia, Pneumonia, Diagnosis Active 2018-02 DIAMOND unspecified unspecified 03-29 [facility] organism organism #[id number] Allergies, Adverse Reactions, Alerts Allergy Allergy Status [...]
[2019-02-10] MEDS: Morphine 4 MG/ML VIAL (1 ml) 4 MG/ML VIAL IV ONE ×2 (08:25→12:34)
[2019-02-10] MEDS: Ondansetron INJ* 2 MG/ML VIAL IV ONE (08:25)
[2019-02-10 08:37] LABS: ABS Eosinophils 0.1 10^3/ul (0-0.6); ABS Lymphocytes 0.8 10^3/ul (1.0-4.8); ABS Monocytes 0.4 10^3/ul (0-0.8); ABS Neutrophils 3.8 10^3/ul (1.5-7.7); Eosinophil % 2.6 %; Hematocrit 32 % (42-52); Hemoglobin 10.5 g/dL (14.0-18.0); Lymphocyte % 15.2 %; Mean Corpuscular HGB Conc 33 g/dL (31-36); Mean Corpuscular Hemoglobin 28 pg (27-31); Mean Corpuscular Volume 84 fL (80-94); Mean Platelet Volume 8.9 fL (7.4-10.4); Nucleated Red Blood Cells % 0.2; Platelet Count 266 10^3/uL (150-450); Red Blood Count 3.78 10^6 /uL (4.18-5.48); Red Cell Distribution Width 17 % (10-15); White Blood Count 5.2 10^3/uL (3.5-10.8)
[2019-02-10 08:48] LABS: Albumin 3.5 g/dL (3.2-5.2); Albumin/Globulin Ratio 1.6 (1-3); BUN/Creatinine Ratio 45.5 (8-20); Calcium 8.5 mg/dL (8.6-10.3); EGFR African American 241.2 (>60); EGFR Non-African American 199.3 (>60); Globulin 2.2 g/dL (2-4); Total Bilirubin 0.5 mg/dL (0.2-1.0); Total Protein 5.7 g/dL (6.4-8.9)
[2019-02-10 09:00] LABS: INR 1.12 (0.82-1.09)
[2019-02-10 09:30] LABS: Potassium 4.2 mmol/L (3.5-5.0)
[2019-02-10] MEDS: Iodixanol* (CONTRAST) 320 MG/ML 100 ML SDV IV ONE (09:43)
[2019-02-10 10:25] LABS: Urine Appearance Clear; Urine Bilirubin Negative (Negative); Urine Blood Negative (Negative); Urine Color Yellow; Urine Glucose 1+(50 mg/dL) (Negative); Urine Ketones Negative (Negative); Urine Nitrite Negative (Negative); Urine Protein Negative (Negative); Urine Specific Gravity 1.018 (1.010-1.030); Urine Urobilinogen Negative (Negative)
[2019-02-10 13:01] VITALS: BP 167/92
== END 2019-02-10 13:04 | disposition home or self-care (01) ==
LOC: ED 07:49
DX: S20.219A Contusion of unspecified front wall of thorax, initial encounter (principal); S09.90XA Unspecified injury of head, initial encounter; R10.9 Unspecified abdominal pain; W31.89XA Contact with other specified machinery, initial encounter; Y92.9 Unspecified place or not applicable; G71.00 Muscular dystrophy, unspecified; E11.9 Type 2 diabetes mellitus without complications; E78.00 Pure hypercholesterolemia, unspecified; I10 Essential (primary) hypertension; K21.9 Gastro-esophageal reflux disease without esophagitis; F41.9 Anxiety disorder, unspecified; F32.9 Major depressive disorder, single episode, unspecified; Z79.01 Long term (current) use of anticoagulants; Z79.899 Other long term (current) drug therapy
CPT/HCPCS: 36415; 70450; 71260; 72125; 72131; 74177; 80053; 81003; 83605; 85025; 85610; 96374; 96375; 96376; 99284; J2270; J2405; Q9967

== ENCOUNTER 2022-09-26 09:54 | Inpatient (IN) ==
[2022-09-26] MEDS ORDERED: NS 0.9% 1000 ml BAG 1,000 ML IV ONE (10:11)
[2022-09-26 10:26] LABS: Hematocrit 36.1 % (38-53); Mean Corpuscular Hemoglobin 24.8 pg (27-33); Mean Corpuscular Hgb Conc 33.2 g/dL (31-36); Mean Corpuscular Volume 74.7 fL (80-97); Mean Platelet Volume 9.2 fL (7.5-11.2); Platelet Count 194 10^3/uL (150-450); Red Blood Count 4.83 10^6/uL (4.06-5.63); Red Cell Distribution Width 20.8 % (12-17); White Blood Count 11.9 10^3/uL (3.6-10.2)
[2022-09-26 10:33] LABS: PCO2 Arterial 34 mmHg (35-45); PO2 Arterial 90 mmHg (80-100)
[2022-09-26 10:43] LABS: ALT 23 U/L (7-52); AST 20 U/L (13-39); Albumin 3.7 g/dL (3.2-5.2); Albumin/Globulin Ratio 1.1 (1-3); Alkaline Phosphatase 78 U/L (35-149); Anion Gap 13 mmol/L (2-16); Blood Urea Nitrogen 25 mg/dL (6-24); C Reactive Protein 277.87 mg/L (<8.01); CO2 Carbon Dioxide 27 mmol/L (22-32); Chloride 99 mmol/L (101-111); Creatinine, Serum 0.61 mg/dL (0.67-1.17); Globulin 3.5 g/dL (2-4); Glucose 159 mg/dL (70-100); Lipase < 10 U/L (11.0-82.0); Magnesium 1.8 mg/dL (1.9-2.7); Potassium 3.1 mmol/L (3.5-5.0); Sodium 139 mmol/L (135-145); Total Protein 7.2 g/dL (6.4-8.9)
[2022-09-26 10:49] LABS: High Sens Troponin Baseline 273 pg/mL (<20)
[2022-09-26] MEDS ORDERED: Iodixanol (CONTRAST) 320 MG/ML 100 ML SDV IV ONE (11:13)
[2022-09-26 11:35] LABS: Platelet Morphology Large
[2022-09-26 11:45] LABS: Microcytosis 2+
[2022-09-26 11:49] LABS: ABS Lymphocytes 0.4 10^3/uL (1.0-4.8); ABS Monocytes 0.8 10^3/uL (0.0-1.1); ABS Neutrophils 10.6 10^3/uL (1.5-7.6); ABS Nucleated RBC 0.01 10^3/ul; Lymphocyte % 3.6 %; Nucleated Red Blood Cells % 0.1 /100 WBC (0.0-0.4)
[2022-09-26] MEDS ORDERED: KCL 20 MEQ/100 ML IVPREMIX 20 MEQ/100 ML BAG IV ONE (11:56)
[2022-09-26 11:57] LABS: Albumin 3.4 g/dL (3.2-5.2); Albumin/Globulin Ratio 1.1 (1-3); Calcium 8.5 mg/dL (8.6-10.3); Creatinine, Serum 0.56 mg/dL (0.67-1.17); Direct Bilirubin 0.2 mg/dL (0.03-0.18); Globulin 3.1 g/dL (2-4); HDL Cholesterol 60.1 mg/dL; Indirect Bilirubin 0.6 mg/dL (0.3-1.0); Potassium 2.9 mmol/L (3.5-5.0); Total Bilirubin 0.8 mg/dL (0.2-1.0); Total Protein 6.5 g/dL (6.4-8.9); eGFR CKD-EPI 112.8 (>60)
[2022-09-26] MEDS ORDERED: cefTRIAXone 1 gm/50 mL D5W 1 GM/50 ML BAG IV ONE (11:57)
[2022-09-26] MEDS ORDERED: Piperacillin/Tazobac 3.375 BAG 3.375 GM/100 ML BAG IV ONE (11:58)
[2022-09-26 12:03] LABS: High Sensitivity Troponin 1 Hr 305 pg/mL (<20); INR 1.86 (0.88-1.18)
[2022-09-26 13:16] LABS: Urine Appearance Clear; Urine Bilirubin Negative (Negative); Urine Blood 1+ (Negative); Urine Color Yellow; Urine Glucose 2+(150 mg/dL) (Negative); Urine Ketones Trace (Negative); Urine Nitrite Negative (Negative); Urine Protein 1+(30 mg/dL) (Negative); Urine Specific Gravity 1.021 (1.002-1.030); Urine Urobilinogen Negative (Negative)
[2022-09-26 13:47] LABS: Urine Bacteria Absent (Absent); Urine Red Blood Cell 3+(>10/hpf) (Absent); Urine White Blood Cell Trace(0-5/hpf) (Absent)
[2022-09-26] MEDS ORDERED: Acetaminophen IV 1 GM/100ML 1,000 MG/100 ML BAG IV ONE (14:54)
[2022-09-26 15:15] LABS: PCO2 Arterial 33 mmHg (35-45); PO2 Arterial 78 mmHg (80-100)
[2022-09-26 15:55] LABS: High Sensitivity Troponin 3 Hr 338 pg/mL (<20)
[2022-09-26] MEDS ORDERED: Magnesium Sulfate 2 gm BAG 2 GM/50 ML BAG IVPB ONE (15:58)
[2022-09-26] MEDS ORDERED: Labetalol IV 5 MG/ML 20 ml VIAL IV PUSH ONE ×2 (16:08→21:52)
[2022-09-26] MEDS ORDERED: Lactated Ringers 1000 ml BAG 1,000 ML IV ONE (16:09)
[2022-09-26] MEDS: Enoxaparin 100 MG/ML SYR SUBCUT SCH (16:48)
[2022-09-26] MEDS: DOXYcycline 100 MG in NS 0.9% 250 ml 250 ML IVPB SCH (17:34)
[2022-09-26] MEDS ORDERED: Ondansetron 4 mg VIAL 2 MG/ML 2 ml VIAL IV ONE (17:37)
[2022-09-26] MEDS: Insulin GLARGINE 100 un/ml 10 ml VIAL SUBCUT SCH (18:32)
[2022-09-26] MEDS: Acetaminophen IV 1 GM/100ML 1,000 MG/100 ML BAG IV PRN (19:22)
[2022-09-26] MEDS: Ondansetron 4 mg VIAL 2 MG/ML 2 ml VIAL IV PRN (23:03)
[2022-09-27] MEDS: Acetaminophen IV 1 GM/100ML 1,000 MG/100 ML BAG IV PRN ×3 (03:35→23:56)
[2022-09-27] MEDS: DOXYcycline 100 MG in NS 0.9% 250 ml 250 ML IVPB SCH ×2 (03:39→15:18)
[2022-09-27] MEDS: niCARdipine 0.1MG/ML IVPREMIX 20 MG/200 ML BAG IV SCH ×2 (04:25→06:43)
[2022-09-27] MEDS ORDERED: niCARdipine 0.1MG/ML IVPREMIX 20 MG/200 ML BAG IV SCH (05:00)
[2022-09-27 05:25] LABS: Hemoglobin 11.7 g/dL (13.2-16.3); Mean Corpuscular Hemoglobin 24.9 pg (27-33); Mean Corpuscular Hgb Conc 33.5 g/dL (31-36); Mean Corpuscular Volume 74.3 fL (80-97); Mean Platelet Volume 9.3 fL (7.5-11.2); Platelet Count 187 10^3/uL (150-450); Red Blood Count 4.71 10^6/uL (4.06-5.63); Red Cell Distribution Width 21.4 % (12-17); White Blood Count 17.6 10^3/uL (3.6-10.2)
[2022-09-27 05:29] LABS: Albumin 3.2 g/dL (3.2-5.2); Calcium 8.3 mg/dL (8.6-10.3); Creatinine, Serum 0.44 mg/dL (0.67-1.17); Globulin 3.3 g/dL (2-4); Magnesium 1.8 mg/dL (1.9-2.7); Total Protein 6.5 g/dL (6.4-8.9); eGFR CKD-EPI 121.4 (>60)
[2022-09-27 05:49] LABS: Potassium 2.6 mmol/L (3.5-5.0)
[2022-09-27] MEDS ORDERED: Potassium Chloride LIQUID 20 MEQ/15 ML LIQUID PO ONE (05:50)
[2022-09-27 06:23] LABS: ABS Lymphocytes 0.4 10^3/uL (1.0-4.8); ABS Monocytes 0.4 10^3/uL (0.0-1.1); ABS Neutrophils 16.8 10^3/uL (1.5-7.6); ABS Nucleated RBC 0.01 10^3/ul; Lymphocyte % 2.2 %
[2022-09-27] MEDS: KCL 20 MEQ/100 ML IVPREMIX 20 MEQ/100 ML BAG IV SCH ×6 (06:53→23:19)
[2022-09-27] MEDS ORDERED: Magnesium Sulfate IV 1GM/100ML 1 GM/100 ML BAG IV ONE (06:54)
[2022-09-27] MEDS ORDERED: Piperacillin/Tazobac 3.375 BAG 3.375 GM/100 ML BAG IV ONE (06:57)
[2022-09-27] MEDS ORDERED: Zosyn per Pharmacy NOTE FOLLOW UP SCH (07:00)
[2022-09-27] MEDS: Enoxaparin 100 MG/ML SYR SUBCUT SCH ×2 (08:06→20:04)
[2022-09-27] MEDS: Insulin GLARGINE 100 un/ml 10 ml VIAL SUBCUT SCH (08:06)
[2022-09-27] MEDS: Ondansetron 4 mg VIAL 2 MG/ML 2 ml VIAL IV PRN (08:47)
[2022-09-27] MEDS ORDERED: Glycerin ADULT 2.4 gm SUPP PR PRN (09:47)
[2022-09-27] MEDS ORDERED: Mineral Oil ENEMA 118 ML/BOTTLE BOTTLE PR ONE (10:51)
[2022-09-27] MEDS: ZOSYN 3.375 GM Q8H per EXTENDED INFUSION IV SCH ×2 (11:11→20:03)
[2022-09-27] MEDS ORDERED: Prochlorperazine 5 mg/ml 2 ml VIAL (10 mg) IV PRN (11:48)
[2022-09-27] MEDS ORDERED: Gadoteridol (CONTRAST) 279.3 MG/ML 10 ML IV ONE (14:15)
[2022-09-27] MEDS ORDERED: Gadoteridol (CONTRAST) 279.3 MG/ML 10 ML IV SCH (14:16)
[2022-09-27 15:47] LABS: Calcium 7.1 mg/dL (8.6-10.3); Creatinine, Serum 0.42 mg/dL (0.67-1.17); eGFR CKD-EPI 123.1 (>60)
[2022-09-27 16:26] LABS: Potassium 2.7 mmol/L (3.5-5.0)
[2022-09-27 17:00] LABS: Magnesium 1.7 mg/dL (1.9-2.7)
[2022-09-27] MEDS ORDERED: D5LR 20 MEQ KCL 1000 ml BAG 1,000 ML IV SCH (17:00)
[2022-09-27] MEDS ORDERED: D5W NS 0.9% 20Meq KCL 1000 ml 1,000 ML IV SCH (17:00)
[2022-09-27] MEDS ORDERED: Insulin Infusion 100unit/100mL 100 UNIT/100 ML BAG IV SCH (17:00)
[2022-09-27] MEDS ORDERED: Magnesium Sulfate IV 3 GM in NS 0.9% 100 ml BAG 100 ML IVPB ONE (17:11)
[2022-09-27] MEDS: Dextrose 50% Syringe 50 ml 25 GM/50 ML SYRINGE IV PUSH PRN (21:28)
[2022-09-27] MEDS: D5LR 20 MEQ KCL 1000 ml BAG 1,000 ML IV SCH (22:40)
[2022-09-28] MEDS: D5LR 20 MEQ KCL 1000 ml BAG 1,000 ML IV SCH ×3 (00:08→15:11)
[2022-09-28] MEDS: KCL 20 MEQ/100 ML IVPREMIX 20 MEQ/100 ML BAG IV SCH ×2 (01:43→03:59)
[2022-09-28 01:53] LABS: Calcium 7.9 mg/dL (8.6-10.3); Creatinine, Serum 0.53 mg/dL (0.67-1.17); Magnesium 2.2 mg/dL (1.9-2.7); Potassium 3.8 mmol/L (3.5-5.0); eGFR CKD-EPI 114.7 (>60)
[2022-09-28] MEDS: Dextrose 50% Syringe 50 ml 25 GM/50 ML SYRINGE IV PUSH PRN (02:20)
[2022-09-28] MEDS: ZOSYN 3.375 GM Q8H per EXTENDED INFUSION IV SCH (03:03)
[2022-09-28 04:18] LABS: ABS Lymphocytes 0.5 10^3/uL (1.0-4.8); ABS Monocytes 0.7 10^3/uL (0.0-1.1); ABS Neutrophils 18.1 10^3/uL (1.5-7.6); ABS Nucleated RBC 0.01 10^3/ul; Eosinophil % 0.1 %; Hematocrit 30.6 % (38-53); Hemoglobin 10.1 g/dL (13.2-16.3); Lymphocyte % 2.8 %; Mean Corpuscular Hemoglobin 24.4 pg (27-33); Mean Corpuscular Hgb Conc 33.1 g/dL (31-36); Mean Corpuscular Volume 73.8 fL (80-97); Mean Platelet Volume 8.8 fL (7.5-11.2); Nucleated Red Blood Cells % 0.1 /100 WBC (0.0-0.4); Platelet Count 190 10^3/uL (150-450); Red Blood Count 4.14 10^6/uL (4.06-5.63); Red Cell Distribution Width 21.6 % (12-17); White Blood Count 19.4 10^3/uL (3.6-10.2)
[2022-09-28 04:31] LABS: Calcium 7.7 mg/dL (8.6-10.3); Creatinine, Serum 0.57 mg/dL (0.67-1.17); Magnesium 2.1 mg/dL (1.9-2.7); Potassium 4.3 mmol/L (3.5-5.0); eGFR CKD-EPI 112.2 (>60)
[2022-09-28] MEDS: DOXYcycline 100 MG in NS 0.9% 250 ml 250 ML IVPB SCH ×2 (05:57→16:17)
[2022-09-28] MEDS: Insulin Infusion 100unit/100mL 100 UNIT/100 ML BAG IV SCH ×2 (06:21→12:03)
[2022-09-28] MEDS: Enoxaparin 100 MG/ML SYR SUBCUT SCH ×2 (07:36→20:19)
[2022-09-28] MEDS: Insulin GLARGINE 100 un/ml 10 ml VIAL SUBCUT SCH (07:36)
[2022-09-28] MEDS ORDERED: Morphine ER 30 mg TAB ** extended release PO ONE (09:05)
[2022-09-28] MEDS: Senna TAB 8.6 mg TAB PO SCH (09:35)
[2022-09-28 10:46] LABS: Ferritin 129.1 ng/mL (24-336)
[2022-09-28] MEDS: cefTRIAXone 1 gm/50 mL D5W 1 GM/50 ML BAG IV SCH (10:56)
[2022-09-28 14:27] LABS: Calcium 7.5 mg/dL (8.6-10.3); Creatinine, Serum 0.47 mg/dL (0.67-1.17)
[2022-09-28] MEDS: Morphine ER 30 mg TAB ** extended release PO SCH ×3 (14:53→15:18)
[2022-09-28] MEDS: HYDROmorphone 1 MG/1 ML SYRINGE IV PRN (14:56)
[2022-09-28] MEDS ORDERED: Furosemide 40 mg/4 ml IV VIAL IV ONE (15:20)
[2022-09-28] MEDS ORDERED: Morphine ER 30 mg TAB ** extended release PO SCH (16:00)
[2022-09-28] MEDS: Labetalol IV 5 MG/ML 20 ml VIAL IV PUSH PRN (17:14)
[2022-09-28] MEDS: Acetaminophen IV 1 GM/100ML 1,000 MG/100 ML BAG IV PRN (19:48)
[2022-09-28] MEDS: Polyethylene Glycol 3350 17 GM PACKET PO SCH (20:26)
[2022-09-29] MEDS: Morphine ER 30 mg TAB ** extended release PO SCH ×4 (01:29→21:19)
[2022-09-29] MEDS: Labetalol IV 5 MG/ML 20 ml VIAL IV PUSH PRN ×2 (03:07→22:34)
[2022-09-29] MEDS: DOXYcycline 100 MG in NS 0.9% 250 ml 250 ML IVPB SCH ×2 (03:38→17:23)
[2022-09-29 05:30] LABS: ABS Lymphocytes 0.9 10^3/uL (1.0-4.8); ABS Monocytes 0.5 10^3/uL (0.0-1.1); ABS Neutrophils 16.5 10^3/uL (1.5-7.6); ABS Nucleated RBC 0.01 10^3/ul; Hematocrit 32.2 % (38-53); Hemoglobin 10.7 g/dL (13.2-16.3); Lymphocyte % 4.9 %; Mean Corpuscular Hemoglobin 24.6 pg (27-33); Mean Corpuscular Hgb Conc 33.2 g/dL (31-36); Mean Platelet Volume 9.3 fL (7.5-11.2); Platelet Count 180 10^3/uL (150-450); Red Blood Count 4.35 10^6/uL (4.06-5.63); Red Cell Distribution Width 21.9 % (12-17); White Blood Count 17.9 10^3/uL (3.6-10.2)
[2022-09-29 05:44] LABS: Calcium 7.7 mg/dL (8.6-10.3); Creatinine, Serum 0.42 mg/dL (0.67-1.17); Magnesium 1.6 mg/dL (1.9-2.7); Phosphorus 1.6 mg/dL (2.5-5.0); Potassium 3.4 mmol/L (3.5-5.0); eGFR CKD-EPI 123.1 (>60)
[2022-09-29] MEDS ORDERED: Magnesium Sulfate 2 gm BAG 2 GM/50 ML BAG IVPB ONE ×3 (07:44→18:54)
[2022-09-29] MEDS ORDERED: KCL 20 MEQ/100 ML IVPREMIX 20 MEQ/100 ML BAG IV ONE (07:45)
[2022-09-29] MEDS: Enoxaparin 100 MG/ML SYR SUBCUT SCH ×2 (08:49→21:20)
[2022-09-29] MEDS: Insulin GLARGINE 100 un/ml 10 ml VIAL SUBCUT SCH (08:50)
[2022-09-29] MEDS: HYDROmorphone 1 MG/1 ML SYRINGE IV PRN (08:51)
[2022-09-29] MEDS: Senna TAB 8.6 mg TAB PO SCH (08:52)
[2022-09-29] MEDS: Polyethylene Glycol 3350 17 GM PACKET PO SCH ×2 (08:52→21:20)
[2022-09-29] MEDS ORDERED: Potassium Acid Phos 500 mg TAB PO SCH (09:00)
[2022-09-29] MEDS ORDERED: Potassium & Sodium Phos 250 mg = 1 PACKET PO SCH (09:00)
[2022-09-29] MEDS ORDERED: KCL 20 MEQ/100 ML IVPREMIX 20 MEQ/100 ML BAG IV SCH (09:45)
[2022-09-29] MEDS ORDERED: Potassium Phosphate IV 15 MMOL in NS 0.9% 250 ml 250 ML IVPB ONE (10:30)
[2022-09-29] MEDS ORDERED: Potassium Chloride LIQUID 20 MEQ/15 ML LIQUID PO ONE (11:16)
[2022-09-29] MEDS: cefTRIAXone 1 gm/50 mL D5W 1 GM/50 ML BAG IV SCH (11:23)
[2022-09-29 18:45] LABS: Calcium 7.8 mg/dL (8.6-10.3); Creatinine, Serum 0.44 mg/dL (0.67-1.17); Magnesium 1.8 mg/dL (1.9-2.7); Phosphorus 3.1 mg/dL (2.5-5.0); Potassium 3.5 mmol/L (3.5-5.0); eGFR CKD-EPI 121.4 (>60)
[2022-09-29] MEDS ORDERED: Potassium Chlor 20 meq TAB.ER PO ONE ×2 (18:55→19:04)
[2022-09-30] MEDS: DOXYcycline 100 MG in NS 0.9% 250 ml 250 ML IVPB SCH ×2 (04:23→16:15)
[2022-09-30 04:28] LABS: ABS Eosinophils 0.1 10^3/uL (0.0-0.5); ABS Lymphocytes 0.9 10^3/uL (1.0-4.8); ABS Monocytes 0.5 10^3/uL (0.0-1.1); ABS Neutrophils 9.2 10^3/uL (1.5-7.6); ABS Nucleated RBC 0.04 10^3/ul; Eosinophil % 0.6 %; Hematocrit 28.6 % (38-53); Hemoglobin 9.6 g/dL (13.2-16.3); Lymphocyte % 8.7 %; Mean Corpuscular Hemoglobin 25.2 pg (27-33); Mean Corpuscular Hgb Conc 33.7 g/dL (31-36); Mean Corpuscular Volume 74.7 fL (80-97); Mean Platelet Volume 8.8 fL (7.5-11.2); Nucleated Red Blood Cells % 0.4 /100 WBC (0.0-0.4); Platelet Count 158 10^3/uL (150-450); Red Blood Count 3.82 10^6/uL (4.06-5.63); Red Cell Distribution Width 21.4 % (12-17); White Blood Count 10.8 10^3/uL (3.6-10.2)
[2022-09-30 04:41] LABS: Blood Urea Nitrogen 11 mg/dL (6-24); CO2 Carbon Dioxide 23 mmol/L (22-32); Chloride 102 mmol/L (101-111); Creatinine, Serum 0.39 mg/dL (0.67-1.17); Glucose 116 mg/dL (70-100); Sodium 134 mmol/L (135-145); eGFR CKD-EPI 125.9 (>60)
[2022-09-30 04:45] LABS: Anion Gap 9 mmol/L (2-16)
[2022-09-30 05:31] LABS: Phosphorus 2.7 mg/dL (2.5-5.0); Potassium Redraw 3.9 mmol/L (3.5-5.0)
[2022-09-30] MEDS: Morphine ER 30 mg TAB ** extended release PO SCH ×3 (07:55→20:37)
[2022-09-30] MEDS: Enoxaparin 100 MG/ML SYR SUBCUT SCH (07:58)
[2022-09-30] MEDS: Senna TAB 8.6 mg TAB PO SCH ×2 (07:58→08:09)
[2022-09-30] MEDS: Polyethylene Glycol 3350 17 GM PACKET PO SCH ×2 (08:09→20:08)
[2022-09-30] MEDS: Insulin GLARGINE 100 un/ml 10 ml VIAL SUBCUT SCH (08:25)
[2022-09-30] MEDS: Labetalol IV 5 MG/ML 20 ml VIAL IV PUSH PRN (08:31)
[2022-09-30] MEDS: cefTRIAXone 1 gm/50 mL D5W 1 GM/50 ML BAG IV SCH (11:58)
[2022-10-01] MEDS: DOXYcycline 100 MG in NS 0.9% 250 ml 250 ML IVPB SCH (03:05)
[2022-10-01 04:51] LABS: Hematocrit 24.7 % (38-53); Hemoglobin 8.4 g/dL (13.2-16.3); Mean Corpuscular Hemoglobin 25.3 pg (27-33); Mean Corpuscular Hgb Conc 33.8 g/dL (31-36); Mean Corpuscular Volume 74.8 fL (80-97); Mean Platelet Volume 8.9 fL (7.5-11.2); Platelet Count 148 10^3/uL (150-450); Red Cell Distribution Width 21.4 % (12-17)
[2022-10-01 05:06] LABS: Calcium 7.4 mg/dL (8.6-10.3); Creatinine, Serum 0.53 mg/dL (0.67-1.17); Magnesium 1.9 mg/dL (1.9-2.7); Phosphorus 2.4 mg/dL (2.5-5.0); Potassium 3.6 mmol/L (3.5-5.0); eGFR CKD-EPI 114.7 (>60)
[2022-10-01 05:30] LABS: ABS Basophils 0.1 10^3/uL (0.0-0.1); ABS Eosinophils 0.2 10^3/uL (0.0-0.5); ABS Lymphocytes 0.9 10^3/uL (1.0-4.8); ABS Monocytes 0.6 10^3/uL (0.0-1.1); ABS Neutrophils 6.2 10^3/uL (1.5-7.6); Eosinophil % 2.4 %; Lymphocyte % 11.4 %; Nucleated Red Blood Cells % 0.1 /100 WBC (0.0-0.4)
[2022-10-01] MEDS: Labetalol IV 5 MG/ML 20 ml VIAL IV PUSH PRN (06:29)
[2022-10-01] MEDS: Senna TAB 8.6 mg TAB PO SCH (08:26)
[2022-10-01] MEDS: Morphine ER 30 mg TAB ** extended release PO SCH ×3 (08:26→20:24)
[2022-10-01] MEDS: Insulin GLARGINE 100 un/ml 10 ml VIAL SUBCUT SCH (08:27)
[2022-10-01] MEDS: Polyethylene Glycol 3350 17 GM PACKET PO SCH ×2 (08:28→20:36)
[2022-10-01] MEDS ORDERED: Labetalol IV 5 MG/ML 20 ml VIAL IV PUSH PRN (09:00)
[2022-10-01] MEDS ORDERED: Labetalol IV 5 MG/ML 20 ml VIAL IV PUSH ONE (09:00)
[2022-10-01] MEDS: cefTRIAXone 1 gm/50 mL D5W 1 GM/50 ML BAG IV SCH (12:19)
[2022-10-01] MEDS ORDERED: Potassium Chlor 20 meq TAB.ER PO ONE (14:48)
[2022-10-01] MEDS ORDERED: MIRABEGRON 50 MG PO SCH (21:00)
[2022-10-02 06:16] LABS: Hematocrit 23.6 % (38-53); Hemoglobin 8.1 g/dL (13.2-16.3); Mean Corpuscular Hemoglobin 25.6 pg (27-33); Mean Corpuscular Hgb Conc 34.2 g/dL (31-36); Mean Corpuscular Volume 74.9 fL (80-97); Mean Platelet Volume 9.2 fL (7.5-11.2); Platelet Count 175 10^3/uL (150-450); Red Blood Count 3.15 10^6/uL (4.06-5.63); Red Cell Distribution Width 20.6 % (12-17)
[2022-10-02 06:31] LABS: Calcium 7.6 mg/dL (8.6-10.3); Creatinine, Serum 0.56 mg/dL (0.67-1.17); Magnesium 1.7 mg/dL (1.9-2.7); Potassium 4.2 mmol/L (3.5-5.0); eGFR CKD-EPI 112.8 (>60)
[2022-10-02 06:53] LABS: ABS Eosinophils 0.4 10^3/uL (0.0-0.5); ABS Monocytes 0.8 10^3/uL (0.0-1.1); ABS Neutrophils 5.7 10^3/uL (1.5-7.6); ABS Nucleated RBC 0.01 10^3/ul; Eosinophil % 4.5 %; Lymphocyte % 13.1 %; Nucleated Red Blood Cells % 0.1 /100 WBC (0.0-0.4)
[2022-10-02] MEDS: Polyethylene Glycol 3350 17 GM PACKET PO SCH ×2 (08:43→20:52)
[2022-10-02] MEDS: Senna TAB 8.6 mg TAB PO SCH (08:55)
[2022-10-02] MEDS ORDERED: Insulin GLARGINE 100 un/ml 10 ml VIAL SUBCUT SCH (09:00)
[2022-10-02] MEDS: Morphine ER 30 mg TAB ** extended release PO SCH ×3 (09:29→20:49)
[2022-10-02] MEDS: cefTRIAXone 1 gm/50 mL D5W 1 GM/50 ML BAG IV SCH (11:45)
[2022-10-02] MEDS ORDERED: Magnesium Sulfate 2 gm BAG 2 GM/50 ML BAG IVPB ONE (12:22)
[2022-10-02] MEDS ORDERED: Insulin GLARGINE 100 un/ml 10 ml VIAL SUBCUT ONE (16:30)
[2022-10-02] MEDS ORDERED: CMCS: Mirabegron 25 mg ER TAB (NF) PO SCH (21:00)
[2022-10-03 06:07] LABS: Hematocrit 24.1 % (38-53); Mean Corpuscular Hemoglobin 24.7 pg (27-33); Mean Corpuscular Hgb Conc 33.3 g/dL (31-36); Mean Corpuscular Volume 74.3 fL (80-97); Mean Platelet Volume 8.7 fL (7.5-11.2); Platelet Count 274 10^3/uL (150-450); Red Blood Count 3.25 10^6/uL (4.06-5.63); Red Cell Distribution Width 20.8 % (12-17); White Blood Count 10.1 10^3/uL (3.6-10.2)
[2022-10-03 06:24] LABS: Calcium 7.9 mg/dL (8.6-10.3); Creatinine, Serum 0.51 mg/dL (0.67-1.17); Magnesium 1.9 mg/dL (1.9-2.7); Potassium 4.1 mmol/L (3.5-5.0); eGFR CKD-EPI 116.1 (>60)
[2022-10-03 07:02] LABS: ABS Eosinophils 0.6 10^3/uL (0.0-0.5); ABS Lymphocytes 1.3 10^3/uL (1.0-4.8); ABS Monocytes 1.1 10^3/uL (0.0-1.1); ABS Neutrophils 7.2 10^3/uL (1.5-7.6); Eosinophil % 5.5 %; Lymphocyte % 12.5 %
[2022-10-03] MEDS ORDERED: Insulin GLARGINE 100 un/ml 10 ml VIAL SUBCUT SCH (09:00)
[2022-10-03] MEDS: Polyethylene Glycol 3350 17 GM PACKET PO SCH (09:52)
[2022-10-03] MEDS: Senna TAB 8.6 mg TAB PO SCH (09:52)
[2022-10-03] MEDS: Morphine ER 30 mg TAB ** extended release PO SCH (09:53)
[2022-10-03 10:29] VITALS: BP 180/89
[2022-10-03] MEDS: cefTRIAXone 1 gm/50 mL D5W 1 GM/50 ML BAG IV SCH (11:37)
== END 2022-10-03 13:55 | disposition home or self-care (01) | DRG 871 ==
LOC: ED 09:54 → EDHOLD 13:33 → SUATTDRO 13:33 → ICU 14:25 → MED 10-01 06:02
PROVIDERS: ADMIT Student in an Organized Health Care Education/Training Program; ATTEND Student in an Organized Health Care Education/Training Program

== ENCOUNTER 2023-03-24 10:58 | Inpatient (IN) ==
[2023-03-24 11:59] LABS: Hematocrit 27.4 % (38-53); Hemoglobin 8.9 g/dL (13.2-16.3); Mean Corpuscular Hemoglobin 25.7 pg (27-33); Mean Corpuscular Hgb Conc 32.7 g/dL (31-36); Mean Corpuscular Volume 78.7 fL (80-97); Mean Platelet Volume 9.4 fL (7.5-11.2); Platelet Count 240 10^3/uL (150-450); Red Blood Count 3.48 10^6/uL (4.06-5.63); Red Cell Distribution Width 17.3 % (12-17); White Blood Count 13.4 10^3/uL (3.6-10.2)
[2023-03-24 12:19] LABS: Albumin 3.1 g/dL (3.2-5.2); Albumin/Globulin Ratio 0.9 (1-3); C Reactive Protein 56.22 mg/L (<8.01); Calcium 8.4 mg/dL (8.6-10.3); Creatinine, Serum 0.59 mg/dL (0.67-1.17); Globulin 3.3 g/dL (2-4); Potassium 3.6 mmol/L (3.5-5.0); Total Bilirubin 0.4 mg/dL (0.2-1.0); Total Protein 6.4 g/dL (6.4-8.9); eGFR CKD-EPI 110.4 (>60)
[2023-03-24 12:25] LABS: Urine Appearance Clear; Urine Bilirubin Negative (Negative); Urine Blood Negative (Negative); Urine Color Straw; Urine Glucose Negative (Negative); Urine Ketones Trace (Negative); Urine Nitrite Negative (Negative); Urine Protein 1+(30 mg/dL) (Negative); Urine Specific Gravity 1.008 (1.002-1.030); Urine Urobilinogen Negative (Negative)
[2023-03-24 12:25] LABS: Activated Partial Thrombo Time 38.2 seconds (26.0-38.0); INR 1.46 (0.83-1.13)
[2023-03-24 12:33] LABS: Urine Bacteria Absent (Absent); Urine Red Blood Cell Trace(0-2/hpf) (Absent); Urine White Blood Cell Trace(0-5/hpf) (Absent)
[2023-03-24 13:29] LABS: ABS Basophils 0.1 10^3/uL (0.0-0.1); ABS Eosinophils 0.1 10^3/uL (0.0-0.5); ABS Lymphocytes 0.2 10^3/uL (1.0-4.8); ABS Monocytes 0.7 10^3/uL (0.0-1.1); ABS Neutrophils 12.4 10^3/uL (1.5-7.6); Eosinophil % 0.9 %; Lymphocyte % 1.2 %; RBC Morphology Normal (Normal)
[2023-03-24 13:37] LABS: High Sensitivity Troponin 1 Hr 456 pg/mL (<20)
[2023-03-24] MEDS: Acetaminophen IV 1 GM/100ML 1,000 MG/100 ML BAG IV PRN (14:37)
[2023-03-24 15:34] LABS: PCO2 Arterial 43 mmHg (35-45); PO2 Arterial 72 mmHg (80-100)
[2023-03-24] MEDS: Lactated Ringers 1000 ml BAG 1,000 ML IV SCH (17:14)
[2023-03-24] MEDS: cefTRIAXone 1 gm/50 mL D5W 1 GM/50 ML BAG IV SCH (17:19)
[2023-03-24] MEDS ORDERED: Dextrose 50% Syringe 50 ml 25 GM/50 ML SYRINGE IV PUSH PRN (17:54)
[2023-03-24] MEDS: Azithromycin 500 mg/250 ml NS 500 MG/250 ML BAG IVPB SCH (18:11)
[2023-03-24] MEDS: Lactated Ringers 1000 ml BAG 1,000 ML IV ONE (18:15)
[2023-03-24 18:31] LABS: Magnesium 1.6 mg/dL (1.9-2.7); Phosphorus 2.5 mg/dL (2.5-5.0)
[2023-03-24] MEDS: Magnesium Sulfate 2 gm BAG 2 GM/50 ML BAG IVPB ONE (21:56)
[2023-03-25] MEDS: Furosemide 40 mg/4 ml IV VIAL IV SLOW PU ONE (02:26)
[2023-03-25] MEDS: Albuterol/Ipratropium NEB.SOL (2.5/0.5 MG) 3 ML NEB.SOLN INH ONE (02:30)
[2023-03-25] MEDS: Albuterol/Ipratropium NEB.SOL (2.5/0.5 MG) 3 ML NEB.SOLN ONE (02:31)
[2023-03-25] MEDS: Furosemide 40 mg/4 ml IV VIAL ONE (03:18)
[2023-03-25] MEDS: Dexamethasone IV 4 MG/ML VIAL 1 ml VIAL IV SLOW PU ONE (03:22)
[2023-03-25 04:36] LABS: Hematocrit 25.5 % (38-53); Hemoglobin 8.3 g/dL (13.2-16.3); Mean Corpuscular Hemoglobin 25.7 pg (27-33); Mean Corpuscular Hgb Conc 32.7 g/dL (31-36); Mean Corpuscular Volume 78.7 fL (80-97); Mean Platelet Volume 9.1 fL (7.5-11.2); Platelet Count 214 10^3/uL (150-450); Red Blood Count 3.24 10^6/uL (4.06-5.63); Red Cell Distribution Width 17.2 % (12-17); White Blood Count 23.4 10^3/uL (3.6-10.2)
[2023-03-25 04:52] LABS: Calcium 8.2 mg/dL (8.6-10.3); Creatinine, Serum 0.53 mg/dL (0.67-1.17); Magnesium 1.9 mg/dL (1.9-2.7); Potassium 3.6 mmol/L (3.5-5.0)
[2023-03-25] MEDS: Dexamethasone IV 4 MG/ML VIAL 1 ml VIAL IV SLOW PU SCH (05:12)
[2023-03-25 05:37] LABS: ABS Basophils 0.1 10^3/uL (0.0-0.1); ABS Lymphocytes 0.3 10^3/uL (1.0-4.8); ABS Monocytes 0.6 10^3/uL (0.0-1.1); ABS Neutrophils 22.4 10^3/uL (1.5-7.6); Lymphocyte % 1.2 %
[2023-03-25] MEDS: Magnesium Sulfate 2 gm BAG 2 GM/50 ML BAG IVPB ONE (08:25)
[2023-03-25] MEDS: KCL 20 MEQ/100 ML IVPREMIX 20 MEQ/100 ML BAG IV ONE (08:25)
[2023-03-25] MEDS ORDERED: Sulfur Hexaflouride MICROSPHR 25 MG VIAL ONE (09:26)
[2023-03-25] MEDS: Insulin GLARGINE 100 un/ml 10 ml VIAL SUBCUT SCH (09:46)
[2023-03-26 07:10] LABS: Hematocrit 25.2 % (38-53); Hemoglobin 7.8 g/dL (13.2-16.3); Mean Corpuscular Hemoglobin 25.4 pg (27-33); Mean Corpuscular Hgb Conc 30.9 g/dL (31-36); Mean Corpuscular Volume 82.3 fL (80-97); Mean Platelet Volume 9.8 fL (7.5-11.2); Platelet Count 211 10^3/uL (150-450); Red Blood Count 3.06 10^6/uL (4.06-5.63); Red Cell Distribution Width 18.2 % (12-17); White Blood Count 25.8 10^3/uL (3.6-10.2)
[2023-03-26 07:29] LABS: ABS Basophils 0.1 10^3/uL (0.0-0.1); ABS Lymphocytes 0.5 10^3/uL (1.0-4.8); ABS Monocytes 0.9 10^3/uL (0.0-1.1); ABS Neutrophils 24.4 10^3/uL (1.5-7.6); Lymphocyte % 1.8 %
[2023-03-26 08:06] LABS: Calcium 7.8 mg/dL (8.6-10.3); Creatinine, Serum 0.76 mg/dL (0.67-1.17); Magnesium 2.2 mg/dL (1.9-2.7); Potassium 3.9 mmol/L (3.5-5.0); eGFR CKD-EPI 102.3 (>60)
[2023-03-26 09:37] LABS: PCO2 Arterial 33 mmHg (35-45)
[2023-03-26 09:47] LABS: PO2 Arterial 76 mmHg (80-100)
[2023-03-26] MEDS: Dexamethasone IV 4 MG/ML VIAL 1 ml VIAL IV SLOW PU SCH (10:20)
[2023-03-26 10:49] LABS: Calcium 7.9 mg/dL (8.6-10.3); Creatinine, Serum 0.79 mg/dL (0.67-1.17); Potassium 3.9 mmol/L (3.5-5.0); eGFR CKD-EPI 101.1 (>60)
[2023-03-26 11:36] LABS: C Reactive Protein 254.53 mg/L (<8.01)
[2023-03-26] MEDS ORDERED: Dextrose 50% Syringe 50 ml 25 GM/50 ML SYRINGE IV PUSH PRN (13:25)
[2023-03-26] MEDS: Albuterol HFA INHALER 8 gm MDI INH PRN (13:45)
[2023-03-26] MEDS: Lidocaine PATCH 5% PATCH TRANSDERM SCH (14:30)
[2023-03-26] MEDS ORDERED: Zosyn per Pharmacy NOTE FOLLOW UP SCH (17:00)
[2023-03-26] MEDS: Piperacillin/Tazobac 3.375 BAG 3.375 GM/100 ML BAG IV ONE (17:49)
[2023-03-26] MEDS: Vancomycin 1,250 MG in NS 0.9% 250 ml 250 ML IVPB ONE (17:57)
[2023-03-26] MEDS ORDERED: Vancomycin per Pharmacy 1 EA NOTE FOLLOW UP PRN (18:20)
[2023-03-26] MEDS: ZOSYN 3.375 GM Q8H per EXTENDED INFUSION IV SCH (22:13)
[2023-03-26] MEDS: Insulin GLARGINE 100 un/ml 10 ml VIAL SUBCUT SCH (22:41)
[2023-03-27] MEDS: Vancomycin 1000 MG in NS 0.9% 250 ML IVPB SCH (02:24)
[2023-03-27 07:12] LABS: ABS Lymphocytes 0.5 10^3/uL (1.0-4.8); ABS Monocytes 0.6 10^3/uL (0.0-1.1); ABS Neutrophils 17.7 10^3/uL (1.5-7.6); Hematocrit 23.5 % (38-53); Hemoglobin 7.7 g/dL (13.2-16.3); Lymphocyte % 2.7 %; Mean Corpuscular Hemoglobin 25.5 pg (27-33); Mean Corpuscular Hgb Conc 32.7 g/dL (31-36); Mean Platelet Volume 9.5 fL (7.5-11.2); Platelet Count 226 10^3/uL (150-450); Red Blood Count 3.01 10^6/uL (4.06-5.63); Red Cell Distribution Width 18.1 % (12-17); White Blood Count 18.9 10^3/uL (3.6-10.2)
[2023-03-27 07:27] LABS: Calcium 7.6 mg/dL (8.6-10.3); Creatinine, Serum 0.81 mg/dL (0.67-1.17); Potassium 3.6 mmol/L (3.5-5.0); eGFR CKD-EPI 100.3 (>60)
[2023-03-27] MEDS ORDERED: Insulin GLARGINE 100 un/ml 10 ml VIAL SUBCUT SCH (09:00)
[2023-03-27 10:46] LABS: Urine Appearance Clear; Urine Bilirubin Negative (Negative); Urine Blood Negative (Negative); Urine Color Yellow; Urine Glucose 1+(50 mg/dL) (Negative); Urine Ketones 1+ (Negative); Urine Nitrite Negative (Negative); Urine Protein 2+(100 mg/dL) (Negative); Urine Urobilinogen Negative (Negative)
[2023-03-27 10:52] LABS: Urine Bacteria Absent (Absent); Urine Granular Casts Present (Absent); Urine Red Blood Cell Trace(0-2/hpf) (Absent); Urine Squamous Epithelial Cell Present (Absent); Urine White Blood Cell Trace(0-5/hpf) (Absent)
[2023-03-27] MEDS ORDERED: Vancomycin Trough Check NOTE FOLLOW UP ONE (17:30)
[2023-03-27 19:00] LABS: Ferritin 87.5 ng/mL (24-336)
[2023-03-27 19:03] LABS: Folate 15.53 ng/mL (5.90-24.80)
[2023-03-27] MEDS: Insulin GLARGINE 100 un/ml 10 ml VIAL SUBCUT SCH (20:08)
[2023-03-28 07:19] LABS: ABS Basophils 0.2 10^3/uL (0.0-0.1); ABS Lymphocytes 0.6 10^3/uL (1.0-4.8); ABS Monocytes 0.9 10^3/uL (0.0-1.1); ABS Nucleated RBC 0.01 10^3/ul; Hematocrit 26.6 % (38-53); Hemoglobin 8.8 g/dL (13.2-16.3); Lymphocyte % 3.9 %; Mean Corpuscular Hemoglobin 25.6 pg (27-33); Mean Corpuscular Hgb Conc 33.1 g/dL (31-36); Mean Corpuscular Volume 77.4 fL (80-97); Mean Platelet Volume 9.6 fL (7.5-11.2); Platelet Count 244 10^3/uL (150-450); Red Blood Count 3.43 10^6/uL (4.06-5.63); Red Cell Distribution Width 17.3 % (12-17); White Blood Count 16.7 10^3/uL (3.6-10.2)
[2023-03-28 07:34] LABS: Calcium 7.9 mg/dL (8.6-10.3); Creatinine, Serum 0.59 mg/dL (0.67-1.17); Magnesium 1.8 mg/dL (1.9-2.7); Potassium 3.3 mmol/L (3.5-5.0); eGFR CKD-EPI 110.4 (>60)
[2023-03-28] MEDS: Magnesium Sulfate 2 gm BAG 2 GM/50 ML BAG IVPB ONE (08:13)
[2023-03-28] MEDS: Potassium Chlor 20 meq TAB.ER PO ONE (08:15)
[2023-03-28] MEDS: Ondansetron 4 mg VIAL 2 MG/ML 2 ml VIAL IV PRN (08:53)
[2023-03-28] MEDS ORDERED: Naloxone 0.4 mg VIAL 0.4 mg/ml 1 ml VIAL IV PUSH PRN (11:09)
[2023-03-28] MEDS ORDERED: Morphine 2 MG/ML SYRINGE IV PRN (11:13)
[2023-03-28] MEDS ORDERED: Polyethylene Glycol 3350 17 GM PACKET PO PRN (11:22)
[2023-03-28] MEDS ORDERED: Magnesium Hydroxide LIQ 30 ML UDC PO PRN (11:22)
[2023-03-28] MEDS: hydrALAZINE 20 mg/ml 1 ML Vial IV IV SLOW PU ONE ×2 (12:09→20:36)
[2023-03-28] MEDS: Morphine 2 MG/ML SYRINGE IV PRN (12:49)
[2023-03-28] MEDS: Furosemide 40 mg/4 ml IV VIAL IV SLOW PU ONE (14:03)
[2023-03-28] MEDS: Magnesium Hydroxide LIQ 30 ML UDC PO SCH (22:47)
[2023-03-28] MEDS: Senna TAB 8.6 mg TAB PO SCH (22:48)
[2023-03-29 06:49] LABS: ABS Basophils 0.1 10^3/uL (0.0-0.1); ABS Lymphocytes 0.4 10^3/uL (1.0-4.8); ABS Monocytes 0.7 10^3/uL (0.0-1.1); ABS Neutrophils 11.7 10^3/uL (1.5-7.6); Hemoglobin 9.2 g/dL (13.2-16.3); Lymphocyte % 3.3 %; Mean Corpuscular Hemoglobin 25.8 pg (27-33); Mean Corpuscular Hgb Conc 32.8 g/dL (31-36); Mean Corpuscular Volume 78.6 fL (80-97); Mean Platelet Volume 9.8 fL (7.5-11.2); Platelet Count 246 10^3/uL (150-450); Red Blood Count 3.56 10^6/uL (4.06-5.63); Red Cell Distribution Width 17.6 % (12-17)
[2023-03-29 06:59] LABS: Calcium 7.7 mg/dL (8.6-10.3); Creatinine, Serum 0.46 mg/dL (0.67-1.17); Magnesium 1.8 mg/dL (1.9-2.7); Potassium 3.2 mmol/L (3.5-5.0)
[2023-03-29] MEDS: Magnesium Sulfate 2 gm BAG 2 GM/50 ML BAG IVPB ONE (11:43)
[2023-03-29] MEDS: KCL 20 MEQ/100 ML IVPREMIX 20 MEQ/100 ML BAG IV SCH (11:43)
[2023-03-29] MEDS: Polyethylene Glycol 3350 17 GM PACKET PO SCH (23:23)
[2023-03-30 07:05] LABS: ABS Basophils 0.1 10^3/uL (0.0-0.1); ABS Lymphocytes 0.9 10^3/uL (1.0-4.8); ABS Monocytes 0.8 10^3/uL (0.0-1.1); ABS Nucleated RBC 0.01 10^3/ul; Eosinophil % 0.1 %; Hemoglobin 9.2 g/dL (13.2-16.3); Lymphocyte % 6.3 %; Mean Corpuscular Hemoglobin 25.5 pg (27-33); Mean Corpuscular Hgb Conc 32.7 g/dL (31-36); Mean Corpuscular Volume 78.2 fL (80-97); Mean Platelet Volume 9.4 fL (7.5-11.2); Nucleated Red Blood Cells % 0.1 %/100WBC (0.0-0.8); Platelet Count 251 10^3/uL (150-450); Red Blood Count 3.59 10^6/uL (4.06-5.63); Red Cell Distribution Width 17.6 % (12-17); White Blood Count 13.7 10^3/uL (3.6-10.2)
[2023-03-30 07:48] LABS: Calcium 7.6 mg/dL (8.6-10.3); Creatinine, Serum 0.59 mg/dL (0.67-1.17); Potassium 3.4 mmol/L (3.5-5.0); eGFR CKD-EPI 110.4 (>60)
[2023-03-30] MEDS: Morphine ER 30 mg TAB ** extended release PO PRN (08:21)
[2023-03-30] MEDS: Morphine ER 30 mg TAB ** extended release PO SCH (09:00)
[2023-03-30] MEDS: Furosemide 40 mg/4 ml IV VIAL IV ONE (11:09)
[2023-03-30] MEDS: Potassium EFFERVES 25 meq TAB PO ONE (11:12)
[2023-03-30] MEDS: KCL 20 MEQ/100 ML IVPREMIX 20 MEQ/100 ML BAG IV SCH (11:30)
[2023-03-31] MEDS: KCL 20 MEQ/100 ML IVPREMIX 20 MEQ/100 ML BAG IV SCH (08:49)
[2023-03-31] MEDS: Dexamethasone Oral Solution 1 MG/ML 10 ML UDC (10 MG) PO SCH (10:55)
[2023-03-31] MEDS: Potassium Chloride LIQUID 20 MEQ/15 ML LIQUID PO ONE (10:55)
[2023-03-31 11:52] VITALS: BP 103/59
== END 2023-03-31 14:20 | disposition home or self-care (01) | DRG 871 ==
LOC: EDHOLD 10:58 → ED 10:58 → SUATTDRO 14:03 → MEDTELE 15:20 → MED 15:35 → ICU 03-25 02:56 → SUATTDRO 03-25 09:16 → MED 03-25 22:07
PROVIDERS: ADMIT Internal Medicine; ATTEND Internal Medicine